=== PATIENT | male | born 1960 | race Caucasian/White ===

== ENCOUNTER 2023-08-30 07:52 | Outpatient (OUT) | payer MEDICARE, OTHER, SELFPAY ==
--- NOTE | 2023-08-30 | CT_ITS ---
[address] [address] Patient Name: NOLVIA DELAROSA MRN: [id number] date: 1960 Sex: M Assigned Patient Location: CT Current Patient Location: CT Accession/Order Number: [id number] Exam Date: 08/30/2023 09:15 Report Date: 08/30/2023 11:43 At the request of: ROWAN HOLGUIN Procedure: CT angio chest EXAM: CT angio chest HISTORY: ANEURYSM OF ASCENDING AORTA WITHOUT RUPTURE I71.21 COMPARISON: 05/15/2022 and 01/27/2023 TECHNIQUE: CT imaging was performed through the chest with intravenous contrast, utilizing CTA protocol. Multiplanar reformats were performed. Dose reduction techniques were achieved by using automated exposure control and/or adjustment of mA and/or kV according to patient size and/or use of iterative reconstruction technique. CHEST FINDINGS: Lungs: No consolidation, pneumothorax, or effusion. Stable 0.7 cm subpleural right upper lobe pulmonary nodule. Airways: Normal. Mediastinum: No adenopathy. Aorta: No aneurysm. Cardiac: Normal size. No pericardial effusion. Pulmonary vasculature: Normal morphology. Bones: No acute bony abnormality. Axilla: No adenopathy. Thyroid gland: No abnormality demonstrated on provided imaging. Soft tissues: Unremarkable. Upper abdomen: Unremarkable VASCULAR FINDINGS: CTA CHEST: Pulmonary vasculature: Normal morphology. Coronary arteries: No variant anatomy is demonstrated. No significant atherosclerotic disease. Aorta: 3.8 cm ascending aortic aneurysm, similar to the prior study. No occlusion, or dissection. No significant atherosclerotic disease. Atherosclerotic: No significant atherosclerotic disease. Aortic branches: Normal three-vessel configuration.Right subclavian: Widely patent where visualized. Right common carotid: Widely patent where visualized. Left common carotid: Widely patent where visualized. Left subclavian: Widely patent where visualized. CT/CT angio chest IMPRESSION: 1. Stable 3.8 cm ascending aortic aneurysm. No evidence of dissection, or occlusion. 2. Stable 0.7 cm subpleural right upper lobe pulmonary nodule. Electronically authenticated by: RENAE OLIVA Date: 08/30/2023 11:43
[2023-08-30 08:22] LABS: Basophils Percent Auto 0.6 % (0.2-2.0); Eosinophils Absolute Auto 0.1 10^3/uL (0.0-0.7); Eosinophils Percent Auto 1.4 % (0.9-7.0); Hematocrit 40.4 % (42.0-54.0); Immature Granulocytes Abs Auto 0.01 10^3/uL (0.00-0.03); Immature Granulocytes Pct Auto 0.2 % (0.0-0.5); Lymphocytes Absolute Auto 1.6 10^3/uL (1.2-3.8); Lymphocytes Percent Auto 32.4 % (20.5-60.0); Mean Corpuscular HGB Conc 32.2 g/dL (29.9-35.2); Mean Corpuscular Hemoglobin 27.3 pg (25.9-34.0); Mean Corpuscular Volume 84.7 fL (80.0-94.0); Mean Platelet Volume 10.5 fL (9.5-13.5); Monocytes Absolute Auto 0.4 10^3/uL (0.3-0.8); Neutrophils Absolute Auto 2.8 10^3/uL (1.4-6.5); Neutrophils Percent Auto 56.4 % (43.0-75.0); Platelet Count 177 10^3/uL (150-450); Red Blood Count 4.77 10^6/uL (4.70-6.10); Red Cell Distribution Width 14.5 % (11.0-15.0); White Blood Count 4.9 10^3/uL (4.0-11.0)
[2023-08-30 08:56] LABS: Alanine Aminotransferase 42 U/L (16-63); Albumin Globulin Ratio 0.9; Albumin Level 3.8 g/dL (3.4-5.0); Alkaline Phosphatase 60 U/L (46-116); Anion Gap 14.2; Aspartate Amino Transferase 23 U/L (15-37); BUN Creatinine Ratio 14.6; Bilirubin Total 0.4 mg/dL (0.2-1.0); Calcium 8.8 mg/dL (8.5-10.1); Carbon Dioxide 25.8 mmol/L (21.0-32.0); Chloride 103 mmol/L (98-107); Estimated GFR (African America >60 (>=60); Estimated GFR (Non-African Ame >60 (>=60); Glucose 98 mg/dL (74-106); Sodium 139 mmol/L (136-145); Total Protein 7.8 g/dL (6.4-8.2)
== END 2023-08-30 07:53 | disposition home or self-care (01) ==
LOC: CT 07:52
PROVIDERS: PCP Internal Medicine; Visit Provider Internal Medicine
DX: K80.10 Calculus of gallbladder with chronic cholecystitis without obstruction (principal); I10 Essential (primary) hypertension; I71.21 Aneurysm of the ascending aorta, without rupture; R91.1 Solitary pulmonary nodule; I71.40 Abdominal aortic aneurysm, without rupture, unspecified
CPT/HCPCS: 36415; 71275; 80053; 85025; Q9967

== ENCOUNTER 2023-09-26 11:42 | Outpatient (OUT) | payer MEDICARE, OTHER, SELFPAY ==
--- NOTE | 2023-09-26 11:46 | CT_ITS ---
The [address] [address] Patient Name: NOLVIA DELAROSA MRN: [id number] date: 1960 Sex: M Assigned Patient Location: CT Current Patient Location: CT Accession/Order Number: [id number] Exam Date: 09/26/2023 13:05 Report Date: 09/26/2023 13:48 At the request of: NAYLA BOONE Procedure: CT abdomen pelvis w con EXAM: CT abdomen pelvis w con HISTORY: Right Upper Quadrant Pain R10.11, Epigastric Pain R14.0 COMPARISON: CT abdomen and pelvis 02/08/2022.. TECHNIQUE: Following intravenous administration of 99 cc of Omnipaque 300, axial soft tissue windows of the abdomen and pelvis were performed with coronal and sagittal reformats. CT dose reduction technique was used including Automated Exposure Control. Findings: ABDOMEN: Stable cyst within segment 2 of the liver. Small gallstones. The spleen, pancreas, and adrenal glands are unremarkable. No renal stones or collecting system dilatation. Stable renal cysts. The bilateral ureters are nondilated. There are colonic diverticula. Otherwise, the bowel is unremarkable without evidence of wall thickening or obstruction. The appendix is nondilated. The aorta is normal caliber. No enlarged abdominal lymph nodes or free abdominal fluid. Tiny fat-containing umbilicus hernia. Pelvis: There is streak artifact generated by the left hip arthroplasty limiting evaluation. Unremarkable bladder The prostate is nonenlarged. No enlarged pelvic lymph nodes or free pelvic fluid. No aggressive sclerotic or lytic osseous lesions. Mild to moderate multilevel degenerative spondylosis. CT/CT abdomen pelvis w con IMPRESSION: 1. Cholelithiasis. 2. Other more incidental findings, as described above. Electronically authenticated by: SULEIMAN ALEXANDRA Date: 09/26/2023 13:48
== END 2023-09-26 11:43 | disposition home or self-care (01) ==
LOC: CT 11:42
PROVIDERS: PCP Internal Medicine; Visit Provider Surgery
DX: R10.11 Right upper quadrant pain (principal); R10.13 Epigastric pain; R14.0 Abdominal distension (gaseous); R93.2 Abnormal findings on diagnostic imaging of liver and biliary tract; Z68.41 Body mass index [BMI] 40.0-44.9, adult; K80.20 Calculus of gallbladder without cholecystitis without obstruction
CPT/HCPCS: 74177; Q9967

== ENCOUNTER 2024-03-05 07:47 | Outpatient (OUT) | payer MEDICARE, OTHER, SELFPAY ==
--- OUTSIDE RECORDS SUMMARY | 2024-03-05 07:51 | XMS_ITS | CCD ---
Author Organization [facility] Care Team Providers Care Etiology Teacher Name Role Phone MARTIN RHODES Admitting Unavailable MARTIN RHODES Attending Unavailable JETT HAGAN Referring Unavailable FERNANDO TORRE Primary Care Unavailable RI Procedure Practitioner Unavailab MARTIN Spencer Surgeon Unavailable FERNANDO TORRE Primary Care Physician Fernando Torre Unavailable NICHO, DR DONAHUE Admitting Unavailable NICHO, DR DONAHUE Attending Unavailable NICHO, DR DONAHUE Primary Care Unavailable NICHO, DR DONAHUE Consulting Unavailable Luis Dominguez Consulting Unavailable NICHO, DR DONAHUE Primary Care Unavailable GENAO ., MR LO Admitting Unavailable GENAO ., MR LO Attending Unavailable Luis Dominguez Consulting Unavailable GENAO ., MR LO Consulting Unavailable NICHO, DR DONAHUE Admitting Unavailable NICHO, DR DONAHUE Attending Unavailable NICHO, DR DONAHUE Primary Care Unavailable NICHO, DR DONAHUE Consulting Unavailable JHON MERCADO Consulting Unavailable GENAO ., MR LO Admitting Unavailable GENAO ., MR LO Attending Unavailable NICHO, DR DONAHUE Primary Care Unavailable GENAO ., MR LO Consulting Unavailable GENAO ., MR LO Admitting Unavailable GENAO ., MR LO Attending Unavailable NICHO, DR DONAHUE Primary Care Unavailable GENAO ., MR LO Consulting Unavailable NICHO, DR DONAHUE Primary Care Unavailable HAY ., DR ROLDAN Admitting Unavailable HAY ., DR ROLDAN Attending Unavailable Luis Dominguez Consulting Unavailable HAY ., DR ROLDAN Consulting Unavailable NICHO, DR DONAHUE Primary Care Unavailable CAITLYN KISER Admitting Unavailable CAITLYN KISER Attending Unavailable DIAMOND ., HELEN SHOEMAKER Consulting UnavailCAITLYN Reyes Consulting Unavailable REI ORTIZ Consulting Unavailable INDIGO TOTH Consulting Unavailable NICHO, DR DONAHUE Primary Care Unavailable PAY ., DR LEAL Admitting Unavailable PAY ., DR LEAL Attending Unavailable Luis Dominguez Consulting Unavailable PAY ., DR LEAL Consulting Unavailable Vanessa Whittaker Attending Unavailable Juan Ramon MARTINEZ Attending Unavailable Allergies Allergy Classification Reported Allergen(s) Allergy Type Date of Onset Reaction(s) Facility (11 sources) HMG-CoA reductase inhibitor; Translations: [statins] Drug allergy Muscle pain (finding) [facility] (1 source) Hmg-Coa Reductase Inhibitors (Statins); Translations: [statins] Propensity to adverse reactions (disorder) [facility] (1 source) No Known Medication Allergies; Translations: [No Known Medication Allergies] Propensity to adverse reactions (disorder) [facility] Medications Current Medications Medication Drug Class(es) Dates Sig (Normalized) Sig (Original) famotidine 40 mg oral tablet (6 sources) Histamine-2 Receptor Antagonist take 1 tablet by mouth every twenty-four hours Famotidine 40 MG 1 tablet at bedtime Orally Once a day for 90 days Active hyoscyamine sulfate 0.125 mg sublingual tablet (6 sources) Start: 01-10-2023 take 1 tablet under the tongue every six hours as needed Hyoscyamine Sulfate SL 0.125 MG 1 tablet Sublingual every 6 hours as needed for nausea and abdominal pain for 90 days Dec, Active omeprazole 40 mg delayed release oral capsule (12 sources) Proton Pump Inhibitor Start: 09-05-2023 take 1 capsule by mouth once daily omeprazole 40 mg Cap-DR 40 mg = 1 cap(s), Oral, Daily, Refills(s) 0 Start Date: 09/05/23 Status: Ordered Start: 04-10-2022 End: 01-05-2023 take 1 capsule by mouth once daily omeprazole 40 mg Cap-DR 40 mg = 1 cap(s), Oral, Daily, X 90 day(s), # 90 cap(s), Refills(s) 2, [facility], [facility], cm, 04/10/22 8:16:00 EDT, Height/Length Dosing, 118.6, kg, 04/10/22 8:16:00 EDT, Weight Dosing Start Date: 04/10/22 Stop Date: 01/05/23 Status: Ordered omeprazole 40 mg Cap-DR (1 source) Start: 12-19-2021 take 1 capsule by mouth once daily omeprazole 40 mg Cap-DR 40 mg = 1 cap(s), Oral, Daily, # 30 cap(s), Refills(s) 2, Pharmacy: [facility]/pharmacy #[id number], 172, cm, 12/19/21 7:21:00 EST, Height/Length Dosing, 125.2, kg, 12/19/21 7:21:00 EST, Weight Dosing Start Date: 12/19/21 Status: Ordered Completed/Discontinued Medications Medication Drug Class(es) Dates Sig (Normalized) Sig (Original) 24 hr metoprolol succinate 25 mg extended release oral tablet (11 sources) beta-Adrenergic Neo Start: 09-05-2023 metoprolol 25 mg ER Tab 25 mg = 1 tab(s), Oral, Daily, Oral, 0 Refill(s), Refills(s) 0 Start Date: 09/05/23 Status: Ordered Problems Active Problems Problem Classification Problem Date Documented Da te Episodic/Chronic Abdominal pain (5 sources) Right upper quadrant pain; Translations: [Right upper quadrant pain] Onset: 3 Episodic Aortic; peripheral; and visceral artery aneurysms (2 sources) Aneurysm of ascending aorta; Translations: [Aneurysm of the ascending aorta, without rupture] 09-05-2023 Chronic Biliary tract disease (6 sources) Calculus of bile duct without cholangitis or cholecystitis without obstruction; Translations: [Cholelithiasis AND cholecystitis without obstruction] Onset: 3 Episodic Cardiac dysrhythmias (11 sources) Palpitations; Translations: [Palpitations] Episodic Conditions associated with dizziness or vertigo (5 sources) Dizziness and giddiness; Translations: [Benign paroxysmal vertigo, unspecified ear] Onset: 2 Episodic Disorders of lipid metabolism (19 sources) Hypercholesterolemia; Translations: [Pure hypercholesterolemia, unspecified] Onset: 6 09-05-2023 Chronic Diverticulosis and diverticulitis (3 sources) Diverticular disease 01-03-2022 Chronic Esophageal disorders (20 sources) Gastroesophageal reflux disease; Translations: [Gastroesophageal reflux disease without esophagitis] Onset: 4 09-24-2021 Chronic Essential hypertension (20 sources) Essential hypertension; Translations: [Essential (primary) hypertension] Chronic Gastritis and duodenitis (1 source) Gastritis, unspecified, without bleeding; Translations: [GASTRITIS UNS WITHOUT BLEEDING] Onset: 3 Episodic Hemorrhoids (3 sources) Hemorrhoids 01-03-2022 Episodic Hyperplasia of prostate (19 sources) Lower urinary tract symptoms due to benign prostatic hypertrophy; Translations: [Benign prostatic hyperplasia with lower urinary tract symptoms] Onset: 6 Chronic Joint disorders and dislocations; trauma-related (1 source) Unspecified internal derangement of left knee; Translations: [UNS INTERNAL DERANGEMENT LEFT KNEE] Onset: 2 Chronic Miscellaneous mental health disorders (4 sources) Psychosexual dysfunction associated with inhibited sexual excitement; Translations: [Psychosexual dysfunction with inhibited sexual excitement] Onset: 7 Chronic Nausea and vomiting (5 sources) Nausea with vomiting, unspecified; Translations: [Nausea] Onset: 2 Episodic Nutritional deficiencies (5 sources) Vitamin D deficiency; Translations: [Vitamin D deficiency, unspecified] Onset: 6 09-05-2023 Chronic Other aftercare (1 source) Other correction (current) drug therapy; Translations: [OTH TAR HEATER OPERATOR CURRENT DRUG THERAPY] Onset: 3 Episodic Other aftercare (4 sources) Long-term current use of drug therapy; Translations: [Other intermediate manager (current) drug therapy] Episodic Other and unspecified benign neoplasm (5 sources) Benign neoplasm of pituitary gland; Translations: [Benign neoplasm of pituitary gland] 09-05-2023 Episodic Other connective tissue disease (10 sources) History of repair of hip joint; Translations: [Presence of unspecified artificial hip joint] Chronic Other connective tissue disease (4 sources) Presence of unspecified artificial hip joint; Translations: [Total hip replacement prosthesis] Chronic Other connective tissue disease (10 sources) Muscle fatigue; Translations: [Other specified disorders of muscle] Episodic Other connective tissue disease (14 sources) Bicipital tenosynovitis; Translations: [Bicipital tendinitis, right shoulder] Episodic Other connective tissue disease (18 sources) Lateral epicondylitis; Translations: [Lateral epicondylitis, right elbow] Episodic Other connective tissue disease (14 sources) Acquired trigger finger; Translations: [Trigger finger, right ring finger] Episodic Other connective tissue disease (14 sources) Muscle pain; Translations: [Myalgia, unspecified site] Episodic Other connective tissue disease (4 sources) Medial epicondylitis; Translations: [Medial epicondylitis, unspecified elbow] Episodic Other connective tissue disease (4 sources) Disorder of muscle; Translations: [Other specified disorders of muscle] Episodic Other ear and sense organ disorders (4 sources) Otitis externa; Translations: [Unspecified otitis externa, unspecified ear] Onset: 4 Chronic Other endocrine disorders (1 source) Adrenal cortical hypofunction Onset: 4 09-05-2023 Chronic Other gastrointestinal disorders (1 source) Swollen abdomen; Translations: [Abdominal distension (gaseous)] Onset: 3 Episodic Other gastrointestinal disorders (1 source) Abdominal bloating 09-19-2023 Episodic Other liver diseases (1 source) Abnormal levels of other serum enzymes Episodic Other lower respiratory disease (11 sources) Nodule of lung; Translations: [Solitary pulmonary nodule] 09-05-2023 Episodic Other lower respiratory disease (11 sources) Solitary pulmonary nodule; Translations: [SOLITARY PULMONARY NODULE] Onset: 2 Episodic Other lower respiratory disease (4 sources) Solitary nodule of lung; Translations: [Solitary pulmonary nodule] Episodic Other male genital disorders (10 sources) Impotence of organic origin; Translations: [Erectile dysfunction due to arterial insufficiency] Chronic Other male genital disorders (1 source) Impotence 09-05-2023 Chronic Other nervous system disorders (4 sources) Carpal tunnel syndrome; Translations: [Carpal tunnel syndrome] Onset: 9 Chronic Other nervous system disorders (10 sources) Skin sensation disturbance; Translations: [Paresthesia of skin] Episodic Other nervous system disorders (15 sources) Paresthesia; Translations: [Paresthesia of skin] 09-05-2023 Episodic Other nutritional; endocrine; and metabolic disorders (1 source) Obesity, unspecified; Translations: [OBESITY UNSPECIFIED] Onset: 3 Chronic Other nutritional; endocrine; and metabolic disorders (1 source) Body mass index (BMI) 40.0-44.9, adult; Translations: [BODY MASS INDEX BMI 40.0-44.9 ADULT] Onset: 3 Chronic Other nutritional; endocrine; and metabolic disorders (8 sources) Obese class II; Translations: [Body mass index (BMI) 39.0-39.9, adult] Onset: 4 Chronic Other nutritional; endocrine; and metabolic disorders (5 sources) Morbid obesity; Translations: [Morbid (severe) obesity due to excess calories] Onset: 4 09-05-2023 Chronic Other nutritional; endocrine; and metabolic disorders (1 source) Body mass index 40+ - severely obese 09-19-2023 Chronic Other screening for suspected conditions (not mental disorders or infectious disease) (20 sources) Screening for malignant neoplasm of colon done; Translations: [Encounter for screening for malignant neoplasm of colon] Onset: 2 Resolved: 2 Episodic Residual codes; unclassified (15 sources) Obstructive sleep apnea syndrome; Translations: [Obstructive sleep apnea (adult) (pediatric)] 09-05-2023 Chronic Residual codes; unclassified (2 sources) Obstructive sleep apnea (adult) (pediatric) Chronic Residual codes; unclassified (10 sources) Family history of diabetes mellitus; Translations: [Family history of diabetes mellitus] Episodic Spondylosis; intervertebral disc disorders; other back problems (20 sources) Lumbar spondylosis; Translations: [Spondylosis without myelopathy or radiculopathy, lumbar region] Onset: 7 09-05-2023 Chronic Sprains and strains (4 sources) Sprain of elbow and forearm; Translations: [Sprain and strain of unspecified site of elbow and forearm] Episodic Unclassified (3 sources) Patient encounter status 09-24-2021 Unclassified (1 source) CONTACT W/AND (SUSP) EXPOS COVID-19; Translations: [CONTACT W/AND (SUSP) EXPOS COVID-19] Onset: 2 Unclassified (3 sources) Aneurysm of the ascending aorta, without rupture; Translations: [Aneurysm of the ascending aorta, without rupture] Viral infection (4 sources) Disease caused by 2019-nCoV; Translations: [COVID-19] Past or Other Problems Problem Classification Problem Date Documented Da te Episodic/Chronic Deficiency and other anemia (5 sources) Anemia; Translations: [Anemia, unspecified] Onset: 12-05-2015 09-05-2023 Episodic Esophageal disorders (8 sources) Esophageal disorders; Translations: [Gastroesophageal reflux disease with esophagitis without hemorrhage] Malaise and fatigue (4 sources) Malaise and fatigue; Translations: [Other malaise and fatigue] Onset: 06-27-2017 Episodic Other gastrointestinal disorders (1 source) Abdominal distension (gaseous); Translations: [ABDOMINAL DISTENSION GASEOUS] Onset: 02-12-2022 Episodic Other inflammatory condition of skin (4 sources) Generalized pruritus ; Translations: [Other pruritus] Onset: 01-10-2017 Episodic Other nutritional; endocrine; and metabolic disorders (4 sources) Obesity; Translations: [Obesity, unspecified] Resolved: 03-11-2022 Chronic Unclassified (3 sources) Aneurysm of ascending aorta without rupture I71.21 Unclassified (4 sources) Long-term current use of drug therapy; Translations: [Long-term (current) use of other medications] Onset: 05-15-2016 Results Test Name Value Interpretation Reference Range Facility RAD - CT Reporton 10-02-2023 RAD - CT Report [id number] Normal [facility] Ambulatory Visit Summaryon 1 11-20-2022 Ambulatory Visit Summary SADIQ DELAROSA :1960 Visit Date:09/19/2023 Ambulatory Visit Instructions Your Care Team Attending Physician - PAOLO TATE, Juan Ramon Cardoso Primary Care Physician - NICHO LOPEZ, FERNANDO This Is Your Medications List Contact prescribing physician if questions or concerns metoprolol (metoprolol 25 mg ER Tab) omeprazole (omeprazole 40 mg Cap-DR) Procedures Performed Colonoscopy (12/19/2021), Esophagogastroduodenoscopy (12/19/2021), Arthroplasty of knee, Arthroplasty of the hip, Carpal tunnel release, History of lumbar laminectomy, Pituitary adenoma, Repair of tendon. Discharge Vitals Heart Rate (Peripheral) 76 Respiratory Rate 16 Blood Pressure 130/86 Height 175.2 cm Height 69 in Weight 124 kg Weight 272.8 lb BMI 40.4 Medications What How Much When Instructions Unchanged metoprolol (metoprolol 25 mg ER Tab) 1 Tablets By Mouth Every day Oral, 0 Refill(s) Contact prescribing physician if questions or concerns Unchanged omeprazole (omeprazole 40 mg Cap-DR) 1 Capsules By Mouth Every day Contact prescribing physician if questions or concerns Medications and Immunizations Administered Not Given influenza virus vaccine, inactivated, Patient Refuses Allergies statins (Myalgia) Problems Ongoing - Any problem that you are currently receiving treatment for. Adrenal cortical hypofunction Anemia Aneurysm of ascending aorta Benign neoplasm of pituitary gland BMI 40.0-44.9, adult Chronic GERD Diverticulosis Erectile dysfunction Essential hypertension Gastroesophageal reflux disease Hemorrhoids Hypercholesterolemia Lumbar spondylosis Morbid obesity Nodule of lung Obstructive sleep apnea syndrome Paresthesia Screen for colon cancer Vitamin D deficiency Patient Survey You may receive a survey via text or e-mail asking about your office visit. Please share your experience with us by completing your survey. We appreciate your feedback and thank you for choosing us for your care. Normal [facility] RAD - Ultrasound Reporton RAD - Ultrasound Report [id number] Normal [facility] RAD - Ultrasound Report [id number] Normal [facility] Physician Referralon 023 Physician Referral [id number] Normal [facility] CT CHEST WO CONon 01-27-2023 CT CHEST WO CON EXAMINATION: CT CHES T WO CON HISTORY: Solitary nodule of lung ; follow-up right lung nodule COMPARISON: CT chest 02/08/2022, 05/15/2022 TECHNIQUE: Axial, Coronal, and Sagittal images were created without the administration of IV contrast material. Dose reduction techniques were achieved by using automated exposure control and/or adjustment of mA and/or kV according to patient size and/or use of iterative reconstruction technique. FINDINGS: LUNGS: Stable 8 mm pleural-based nodule within posterior segment right upper lobe. Stable appearance of a few additional 3 mm nodules and small areas of scarring. No acute infiltrates. PLEURA: No mass, effusion, or pneumothorax. VASCULATURE: No abnormality. LYNDA: No mass or adenopathy. MEDIASTINUM: No mass or adenopathy. CARDIAC: No enlargement or pericardial thickening. AORTA: No aneurysm or dissection. CHEST WALL: No mass or axillary adenopathy. BONES: No bone lesion or fracture. LIMITED ABDOMEN: Chronic left renal cyst. Limited images of the upper abdomen. OTHER: Negative. IMPRESSION: 1. Stable appearance to the lungs, specifically regarding an 8 mm nodule within right upper lobe posterior segment. Follow-up CT chest in one year is recommended to document stability over a two-year period (generally considered benign if stable for 2 years). Electronically authenticated by: LUIS DOMINGUEZ Date: 2023-01-27 14:52 Normal [facility] US SINGLE QUAD RT UPPERon US SINGLE QUAD RT UPPER EXAMINATION: US SINGLE QUAD RT UPPER HISTORY: Abnormal findings diagnostic imaging of liver+biliary tract ; abnormal gallbladder ultrasound COMPARISON: Ultrasound single quadrant right upper 01/03/2023 TECHNIQUE: Transabdominal evaluation of the right upper quadrant. FINDINGS: LIVER: Normal size and echotexture. Color Doppler demonstrates patent hepatic veins. PORTAL VEIN: Duplex Doppler demonstrates normal hepatopetal flow pattern with flow velocity averaging 7 cm/s. GALLBLADDER: Abnormal gallbladder wall thickening, 4 mm. Irregular undulating mucosal margin within the gallbladder and numerous small stones. Appearance of small 9 mm fluid-filled cystic structure within gallbladder fundus. No free fluid. Negative sonographic Crooks's sign. BILIARY: No abnormal dilation or stones. Common bile duct diameter is within normal limits. PANCREASE: No visible mass, abnormal atrophy, or duct dilation. KIDNEY: No hydronephrosis. Incidental cyst within superior pole. No visible mass or stones. Size: 12.7 x 5.6 x 6.8 cm IMPRESSION: 1. Cholelithiasis and likely chronic cholecystitis. Electronically authenticated by: LUIS DOMINGUEZ Date: 2023-01-27 16:16 Normal [facility] CBC AUTO DIFFon 01-20-2023 BASO # 0.0 103/ul Normal 0.0-0.1 [facility] Comment on above: Performed By: #### C BC #### [facility] [address] [address] [address] Yasmany Claros Basophils/100 WBC (Bld) 0.8 % Normal 0.2-2.0 [facility] Comment on above: Performed By: #### C BC #### [facility] [address] [address] [address] Yasmany Claros EO # 0.1 103/ul Normal 0.0-0.7 [facility] Comment on above: Performed By: #### C BC #### [facility] [address] [place] [address] Dr. Yasmany Claros Eosinophils/100 WBC (Bld) 2.1 % Normal 0.9-7.0 [facility] Comment on above: Performed By: #### C BC #### [facility] [address] [place] [address] Dr. Yasmany Claros Erythrocyte distribution width (RBC) [Ratio] 14.0 % Normal 11.0-15.0 [facility] Comment on above: Performed By: #### C BC #### [facility] [address] [place] [address] Dr. Yasmany Claros Hematocrit (Bld) [Volume fraction] 39.9 % Critically low 42.0-54.0 [facility] Comment on above: Performed By: #### C BC #### [facility] [address] [place] [address] Dr. Yasmany Claros Hemoglobin (Bld) [Mass/Vol] 13.2 g/dL Critically low 14.0-18.0 [facility] Comment on above: Performed By: #### C BC #### [facility] [address] [place] [address] Dr. Yasmany Claros IG # 0.01 10e3/ul Normal 0.00-0.03 [facility] Comment on above: Performed By: #### C BC #### [facility] [address] [place] [address] Dr. Yasmany Claros IG % 0.3 % Normal 0.0-0.5 [facility] Comment on above: Performed By: #### C BC #### [facility] [address] [place] [address] Dr. Yasmany Claros LYMPH # 1.6 103/ul Normal 1.2-3.8 [facility] Comment on above: Performed By: #### C BC #### [facility] [address] [place] [address] Dr. Yasmany Claros Lymphocytes/100 WBC (Bld) 41.5 % Normal 20.5-60.0 [facility] Comment on above: Performed By: #### C BC #### [facility] [address] [place] [address] Dr. Yasmany Claros MANUAL DIFF REQ NO Normal [facility] Comment on above: Performed By: #### C BC #### [facility] [address] [place] [address] Dr. Yasmany Claros MCH (RBC) [Entitic mass] 26.6 pg Normal 25.9-34.0 [facility] Comment on above: Performed By: #### C BC #### [facility] [address] [place] [address] Dr. Yasmany Claros MCHC (RBC) [Mass/Vol] 33.1 g/dL Normal 29.9-35.2 [facility] Comment on above: Performed By: #### C BC #### [facility] [address] [place] [address] Dr. Yasmany Claros MCV (RBC) [Entitic vol] 80.3 fL Normal 80.0-94.0 [facility] Comment on above: Performed By: #### C BC #### [facility] [address] [place] [address] Dr. Yasmany Claros MONO # 0.4 103/ul Normal 0.3-0.8 [facility] Comment on above: Performed By: #### C BC #### [facility] [address] [place] [address] Dr. Yasmany Claros Monocytes/100 WBC (Bld) 9.9 % Normal 1.7-12.0 [facility] Comment on above: Performed By: #### C BC #### [facility] [address] [place] [address] Dr. Yasmany Claros NEUT # 1.7 103/ul Normal 1.4-6.5 [facility] Comment on above: Performed By: #### C BC #### [facility] [address] [place] [address] Dr. Yasmany Claros Neutrophils/100 WBC (Bld) 45.4 % Normal 43.0-75.0 [facility] Comment on above: Performed By: #### C BC #### [facility] [address] [place] [address] Dr. Yasmany Claros Platelet mean volume (Bld) [Entitic vol] 11.1 fL Normal 9.5-13.5 [facility] Comment on above: Performed By: #### C BC #### [facility] [address] [address] [address] Yasmany Claros PLT 188 103/ul Normal 150-450 [facility] Comment on above: Performed By: #### C BC #### [facility] [address] [address] [address] Yasmany Claros RBC 4.97 106/ul Normal 4.70-6.10 [facility] Comment on above: Performed By: #### C BC #### [facility] [address] [address] [address] Yasmany Claros WBC 3.8 103/ul Critically low 4.0-11.0 [facility] Comment on above: Performed By: #### C BC #### [facility] [address] [place] [address] HEAD WO CONon 01-20-2023 CT HEAD WO CON EXAMINATION: CT HEAD WO CON HISTORY: Vertigo ; acute onset dizziness COMPARISON: No relevant comparison available. TECHNIQUE: Axial CT images were obtained without IV contrast. Dose reduction techniques were achieved by using automated exposure control and/or adjustment of mA and/or kV according to patient size and/or use of iterative reconstruction technique. FINDINGS: BRAIN: No edema, hemorrhage, mass, acute infarction, or inappropriate atrophy. CSF SPACES: No hydrocephalus, subarachnoid hemorrhage, or mass. Appropriate for age. SKULL: No fracture, mass, or other significant visible lesion. SINUSES: No significant mucosal thickening or fluid on the limited views. ORBITS: No appreciable abnormality on the limited views. OTHER: Negative IMPRESSION: 1. No acute or suspicious abnormality of the brain. 2. Middle ear and mastoid air cells are clear bilaterally. Electronically authenticated by: LUIS DOMINGUEZ Date: 2023-01-20 09:48 Normal [facility] PROF CHEM 8 (BAS METB)on Anion gap [Moles/Vol] 11.2 mmol/L Normal [facility] Comment on above: Performed By: #### B MP #### [facility] [address] [place] [address] Dr. Yasmany Claros Calcium [Mass/Vol] 9.1 mg/dL Normal 8.5-10.1 [facility] Comment on above: Performed By: #### B MP #### [facility] [address] [address] [address] Yasmany Claros Chloride [Moles/Vol] 102 mmol/L Normal 98-107 [facility] Comment on above: Performed By: #### B MP #### [facility] [address] [address] [address] Yasmany Claros CO2 [Moles/Vol] 26.7 mmol/L Normal 21.0-32.0 [facility] Comment on above: Performed By: #### B MP #### [facility] [address] [address] [address] Yasmany Claros Creatinine [Mass/Vol] 0.81 mg/dL Normal 0.70-1.30 [facility] Comment on above: Performed By: #### B MP #### [facility] [address] [place] [address] Dr. Yasmany Claros EGFR-AF AUSTRIAN >60 Normal >=60 [facility] Comment on above: Performed By: #### B MP #### [facility] [address] [place] [address] Dr. Yasmany Claros EGFR-NON AF AUSTRIAN >60 Normal >=60 [facility] Comment on above: Performed By: #### B MP #### [facility] [address] [place] [address] Dr. Yasmany Claros Glucose [Mass/Vol] 104 mg/dL Normal 74-106 [facility] Comment on above: Performed By: #### B MP #### [facility] [address] [place] [address] Dr. Yasmany Claros Potassium [Moles/Vol] 3.9 mmol/L Normal 3.5-5.1 [facility] Comment on above: Performed By: #### B MP #### [facility] [address] [place] [address] Dr. Yasmany Claros Sodium [Moles/Vol] 136 mmol/L Normal 136-145 [facility] Comment on above: Performed By: #### B MP #### [facility] [address] [address] [address] Yasmany Claros Urea nitrogen [Mass/Vol] 13.0 mg/dL Normal 7.0-18.0 [facility] Comment on above: Performed By: #### B MP #### [facility] [address] [place] [address] Dr. Yasmany Claros Urea nitrogen/Creatini ne [Mass ratio] 16.0 mg/mg Normal [facility] Comment on above: Performed By: #### B MP #### [facility] [address] [place] [address] Dr. Yasmany Claros CBC AUTO DIFFon 01-03-2023 BASO # 0.0 103/ul Normal 0.0-0.1 [facility] Comment on above: Performed By: #### C BC #### [facility] [address] [place] [address] Dr. Yasmany Claros Basophils/100 WBC (Bld) 0.3 % Normal 0.2-2.0 [facility] Comment on above: Performed By: #### C BC #### [facility] [address] [place] [address] Dr. Yasmany Claros EO # 0.0 103/ul Normal 0.0-0.7 [facility] Comment on above: Performed By: #### C BC #### [facility] [address] [place] [address] Dr. Yasmany Claros Eosinophils/100 WBC (Bld) 0.5 % Critically low 0.9-7.0 [facility] Comment on above: Performed By: #### C BC #### [facility] [address] [place] [address] Dr. Yasmany Claros Erythrocyte distribution width (RBC) [Ratio] 13.9 % Normal 11.0-15.0 [facility] Comment on above: Performed By: #### C BC #### [facility] [address] [place] [address] Dr. Yasmany Claros Hematocrit (Bld) [Volume fraction] 40.6 % Critically low 42.0-54.0 [facility] Comment on above: Performed By: #### C BC #### [facility] [address] [place] [address] Dr. Yasmany Claros Hemoglobin (Bld) [Mass/Vol] 13.2 g/dL Critically low 14.0-18.0 [facility] Comment on above: Performed By: #### C BC #### [facility] [address] [place] [address] Dr. Yasmany Claros IG # 0.03 10e3/ul Normal 0.00-0.03 [facility] Comment on above: Performed By: #### C BC #### [facility] [address] [place] [address] Dr. Yasmany Claros IG % 0.5 % Normal 0.0-0.5 [facility] Comment on above: Performed By: #### C BC #### [facility] [address] [place] [address] Dr. Yasmany Claros LYMPH # 1.0 103/ul Critically low 1.2-3.8 [facility] Comment on above: Performed By: #### C BC #### [facility] [address] [place] [address] Dr. Yasmany Claros Lymphocytes/100 WBC (Bld) 17.5 % Critically low 20.5-60.0 [facility] Comment on above: Performed By: #### C BC #### [facility] [address] [place] [address] Dr. Yasmany Claros MANUAL DIFF REQ NO Normal [facility] Comment on above: Performed By: #### C BC #### [facility] [address] [place] [address] Dr. Yasmany Claros MCH (RBC) [Entitic mass] 26.6 pg Normal 25.9-34.0 [facility] Comment on above: Performed By: #### C BC #### [facility] [address] [place] [address] Dr. Yasmany Claros MCHC (RBC) [Mass/Vol] 32.5 g/dL Normal 29.9-35.2 [facility] Comment on above: Performed By: #### C BC #### [facility] [address] [place] [address] Dr. Yasmany Claros MCV (RBC) [Entitic vol] 81.7 fL Normal 80.0-94.0 [facility] Comment on above: Performed By: #### C BC #### [facility] [address] [place] [address] Dr. Yasmany Claros MONO # 0.4 103/ul Normal 0.3-0.8 [facility] Comment on above: Performed By: #### C BC #### [facility] [address] [place] [address] Dr. Yasmany Claros Monocytes/100 WBC (Bld) 7.0 % Normal 1.7-12.0 [facility] Comment on above: Performed By: #### C BC #### [facility] [address] [place] [address] Dr. Yasmany Claros NEUT # 4.2 103/ul Normal 1.4-6.5 [facility] Comment on above: Performed By: #### C BC #### [facility] [address] [place] [address] Dr. Yasmany Claros Neutrophils/100 WBC (Bld) 74.2 % Normal 43.0-75.0 [facility] Comment on above: Performed By: #### C BC #### [facility] [address] [place] [address] Dr. Yasmany Claros Platelet mean volume (Bld) [Entitic vol] 10.9 fL Normal 9.5-13.5 [facility] Comment on above: Performed By: #### C BC #### [facility] [address] [place] [address] Dr. Yasmany Claros PLT 153 103/ul Normal 150-450 [facility] Comment on above: Performed By: #### C BC #### [facility] [address] [place] [address] Dr. Yasmany Claros RBC 4.97 106/ul Normal 4.70-6.10 [facility] Comment on above: Performed By: #### C BC #### [facility] [address] [place] [address] Dr. Yasmany Claros WBC 5.7 103/ul Normal 4.0-11.0 [facility] Comment on above: Performed By: #### C BC #### [facility] [address] [address] [address] Yasmany Claros ER URINE PROFILEon 3 Bilirubin Ql (U) Negative Normal NEGATIVE [facility] Comment on above: Performed By: #### E RUR, UMICRO #### [facility] [address] [address] [address] Yasmany Claros Clarity (U) CLEAR Normal CLEAR [facility] Comment on above: Performed By: #### E RUR, UMICRO #### [facility] [address] [address] [address] Yasmany Claros Color (U) LT. YELLOW Normal YELLOW [facility] Comment on above: Performed By: #### E RUR, UMICRO #### [facility] [address] [place] [address] Dr. Yasmany Claros ERUAHD A micrscopic examina tion will be performed if indicated. Normal [facility] Comment on above: Performed By: #### E RUR, UMICRO #### [facility] [address] [address] [address] Yasmany Claros Glucose Ql (U) Negative Normal NEGATIVE [facility] Comment on above: Performed By: #### E RUR, UMICRO #### [facility] [address] [address] [address] Yasmany Claros Hemoglobin Ql (U) TRACE-INTACT Abnormal NEGATIVE [facility] Comment on above: Performed By: #### E RUR, UMICRO #### [facility] [address] [address] [address] Yasmany Claros Ketones Ql (U) Negative Normal NEGATIVE [facility] Comment on above: Performed By: #### E RUR, UMICRO #### [facility] [address] [address] [address] Yasmany Claros LEUKOCYTES Negative Normal NEGATIVE [facility] Comment on above: Performed By: #### Eusebia RUR, UMICRO #### [facility] [address] [place] [address] Dr. Yasmany Claros Nitrite Ql (U) Negative Normal NEGATIVE [facility] Comment on above: Performed By: #### AGUSTÍN BRINK #### [facility] [address] [place] [address] Dr. Yasmany Claros pH (U) 5.5 [pH] Normal 5-9 [facility] Comment on above: Performed By: #### AGUSTÍN BRINK #### [facility] [address] [place] [address] Dr. Yasmany Claros SPEC GRAVITY 1.020 Normal 1.005-<=1.0 25 [facility] Comment on above: Performed By: #### AGUSTÍN BRINK #### [facility] [address] [place] [address] Dr. Yasmany Claros UA PROTEIN Negative Normal NEGATIVE/ TRACE [facility] Comment on above: Performed By: #### AGUSTÍN BRINK #### [facility] [address] [place] [address] Dr. Yasmany Claros UR MICRO IND INDICATED Normal [facility] Comment on above: Performed By: #### AGUSTÍN BRINK #### [facility] [address] [place] [address] Dr. Yasmany Claros Urobilinogen Qn (U) 0.2 {Aarti'U}/dL Normal 0.2 - 1.0 [facility] Comment on above: Performed By: #### GIULIA BRINKRO #### [facility] [address] [place] [address] Dr. Yasmany Claros LACTATE/LACTIC ACIDon 2022 Lactate [Moles/Vol] 3.0 mmol/L Critically high 0.4-2.0 [facility] Comment on above: Performed By: #### L ACT #### [facility] [address] [place] [address] Dr. Yasmany Claros LIPASEon 01-03-2023 Lipase [Catalytic activity/Vol] 169.0 U/L Normal 73.0-393.0 [facility] Comment on above: Performed By: #### C VDTBH #### [facility] [address] [address] [address] Yasmany Claros PROF 14(COMP METB)on 023 Albumin [Mass/Vol] 3.9 g/dL Normal 3.4-5.0 [facility] Comment on above: Performed By: #### C VDTBH #### [facility] [address] [place] [address] Dr. Yasmany lCaros Albumin/Globulin [Mass ratio] 1.0 {ratio} Normal [facility] Comment on above: Performed By: #### C VDTBH #### [facility] [address] [place] [address] Dr. Yasmany Claros ALP [Catalytic activity/Vol] 83 U/L Normal 46-116 [facility] Comment on above: Performed By: #### C VDTBH #### [facility] [address] [place] [address] Dr. Yasmany Claros ALT [Catalytic activity/Vol] 88 U/L Critically high 16-63 [facility] Comment on above: Performed By: #### C VDTBH #### [facility] [address] [place] [address] Dr. Yasmany Claros Anion gap [Moles/Vol] 11.2 mmol/L Normal [facility] Comment on above: Performed By: #### C VDTBH #### [facility] [address] [address] [address] Yasmany Claros AST [Catalytic activity/Vol] 94 U/L Critically high 15-37 [facility] Comment on above: Performed By: #### C VDTBH #### [facility] [address] [address] [address] Yasmany Claros Bilirubin [Mass/Vol] 0.6 mg/dL Normal 0.2-1.0 [facility] Comment on above: Performed By: #### C VDTBH #### [facility] [address] [place] [address] Dr. Yasmany Claros Calcium [Mass/Vol] 9.8 mg/dL Normal 8.5-10.1 [facility] Comment on above: Performed By: #### C VDTBH #### [facility] [address] [address] [address] Yasmany Claros Chloride [Moles/Vol] 105 mmol/L Normal 98-107 [facility] Comment on above: Performed By: #### C VDTBH #### [facility] [address] [address] [address] Yasmany Claros CO2 [Moles/Vol] 28.8 mmol/L Normal 21.0-32.0 [facility] Comment on above: Performed By: #### C VDTBH #### [facility] [address] [address] [address] Yasmany Claros Creatinine [Mass/Vol] 0.83 mg/dL Normal 0.70-1.30 [facility] Comment on above: Performed By: #### C VDTBH #### [facility] [address] [place] [address] Dr. Yasmany Claros EGFR-AF AUSTRIAN >60 Normal >=60 [facility] Comment on above: Performed By: #### C VDTBH #### [facility] [address] [address] [address] Yasmany Claros EGFR-NON AF AUSTRIAN >60 Normal >=60 [facility] Comment on above: Performed By: #### C VDTBH #### [facility] [address] [place] [address] Dr. Yasmany Claros Globulin (S) [Mass/Vol] 4.0 g/dL Normal [facility] Comment on above: Performed By: #### C VDTBH #### [facility] [address] [place] [address] Dr. Yasmany Claros Glucose [Mass/Vol] 145 mg/dL Critically high 74-106 [facility] Comment on above: Performed By: #### C VDTBH #### [facility] [address] [address] [address] Yasmany Claros Potassium [Moles/Vol] 4.0 mmol/L Normal 3.5-5.1 [facility] Comment on above: Performed By: #### C VDTBH #### [facility] [address] [address] [address] Yasmany Claros Protein [Mass/Vol] 7.9 g/dL Normal 6.4-8.2 [facility] Comment on above: Performed By: #### C VDTBH #### [facility] [address] [address] [address] Yasmany Claros Sodium [Moles/Vol] 141 mmol/L Normal 136-145 [facility] Comment on above: Performed By: #### C VDTBH #### [facility] [address] [address] [address] Yasmany Claros Urea nitrogen [Mass/Vol] 10.0 mg/dL Normal 7.0-18.0 [facility] Comment on above: Performed By: #### C VDTBH #### [facility] [address] [place] [address] Dr. Yasmany Claros Urea nitrogen/Creatini ne [Mass ratio] 12.0 mg/mg Normal [facility] Comment on above: Performed By: #### C VDTBH #### [facility] [address] [place] [address] Dr. Yasmany Claros TROPONIN, HIGH SENSITIVITYon 01-03-2023 HSTROP 4.5 pg/mL Normal 4.0-76.1 [facility] Comment on above: Result Comment: CUT- OFF POINTS HAVE BEEN ESTABLISHED BASED ON THE FOURTH UNIVERSAL DEFINITIONS OF MYOCARDIAL INFARCTION. THE UPPER REFERENCE LIMIT (URL) OF TROPONIN, DEFINED THE 99TH PERCENTILE OF cTnI DISTRIBUTION IN A REFERENCE POPULATION, HAS BEEN CONFIRMED THE DECISION THRESHOLD FOR [place] DIAGNOSIS. Performed By: #### C VDTBH #### [facility] [address] [place] [address] Dr. Yasmany Claros URINE MICROSCOPIC ONLYon BACTERIA NONE SEEN Normal NONE SEEN [facility] Comment on above: Performed By: #### AGUSTÍN BRINK #### [facility] [address] [id number] Yasmany Claros Bacteria identified Cx Nom (U) NOT INDICATED Normal [facility] Comment on above: Performed By: #### Eusebia ADKINSR, UMICRO #### [facility] [address] [place] [address] Dr. Yasmany Claros CAST SEEN Abnormal NONE SEEN [facility] Comment on above: Performed By: #### E RUR, UMICRO #### [facility] [address] [address] [address] Yasmany Claros Crystals LM Nom (Urine sed) NONE SEEN Normal NONE SEEN [facility] Comment on above: Performed By: #### E RUR, UMICRO #### [facility] [address] [place] [address] Dr. Yasmany Claros Epithelial cells LM Ql (Urine sed) NONE SEEN Normal NONE SEEN /RARE [facility] Comment on above: Performed By: #### Eusebia LAUGHLIN, UMICRO #### [facility] [address] [place] [address] Dr. Yasmany Claros MUCOUS NONE SEEN Normal NONE SEEN [facility] Comment on above: Performed By: #### Eusebia LAUGHLIN UMICRO #### [facility] [address] [place] [address] Dr. Yasmany Claros RBC NONE SEEN Abnormal 0-2 [facility] Comment on above: Performed By: #### Eusebia LAUGHLIN UMICRO #### [facility] [address] [place] [address] Dr. Yasmany Claros WBC NONE SEEN Normal NONE SEEN [facility] Comment on above: Performed By: #### Eusebia LAUGHLIN UMICRO #### [facility] [address] [place] [address] Dr. Yasmany Claros US SINGLE QUAD RT UPPERon US SINGLE QUAD RT UPPER EXAMINATION: US SINGLE QUAD RT UPPER HISTORY: Pain ; right upper quadrant pain for one month COMPARISON: No relevant comparison available. TECHNIQUE: Transabdominal evaluation of the right upper quadrant. FINDINGS: LIVER: Normal size and echotexture. Color Doppler demonstrates patent hepatic veins. PORTAL VEIN: Duplex Doppler demonstrates normal hepatopetal flow pattern with flow velocity averaging 33 cm/s. GALLBLADDER: Anechoic 1.3 x 1.3 x 0.9 cm fluid filled structure suggestive of a large cyst within the gallbladder versus markedly edematous wall thickening of the gallbladder. No appreciable increased vascularity. No intraluminal stones or free fluid external to the gallbladder. Negative sonographic Crooks's sign. BILIARY: No abnormal dilation or stones. Common bile duct diameter is within normal limits. PANCREASE: No visible mass, abnormal atrophy, or duct dilation. KIDNEY: No hydronephrosis. No visible mass or stones. Size: 9.6 x 6.9 x 6.6 cm IMPRESSION: 1. No acute gallbladder inflammatory changes, free fluid, stones, or tenderness while imaging over the gallbladder. 2. Thin-walled cystic-appearing structure within the gallbladder lumen versus sluffing of the internal mucosa? Findings nonspecific. Consider follow-up ultrasound evaluation to document whether this is incidental and transient or a fixed stricture. Electronically authenticated by: LUIS DOMINGUEZ Date: 2023-01-03 09:06 Normal [facility] Covid-19 PCR (CVDTB)on 07-21 SARS-CoV-2 (COVID-19) RNA MARS+probe Ql (Unsp spec) Not detected Normal NOT DETECTED [facility] Comment on above: Result Comment: This test is not yet approved or cleared by the [place] FDA. When there are no FDA-approved or cleared tests available, and other criteria are met, FDA can make tests available under an emergency access mechanism called an Emergency Use Authorization (EUA). The EUA for this test is supported by the [employer] of Health and Human Service's (HHS's) declaration that circumstances exist to justify the emergency use of in vitro diagnostics for the detection and/or diagnosis of the virus that causes COVID-19. This EUA will remain in effect (meaning this test can be used) for the duration of the COVID-19 declaration justifying emergency of IVDs, unless it is terminated or revoked by FDA (after which the test may no longer be used). When diagnostic testing is negative, the possibility of a false negative should be considered in the context of a patient's recent exposures and the presence of clinical signs and symptoms consistent with SARS-CoV-2. Performed By: #### C #### [facility] [address] [place] [address] Dr. Yasmany Claros Covid-19 PCR (CVDTB)on 09-3 0-2022 SARS-CoV-2 (COVID-19) RNA MARS+probe Ql (Unsp spec) Not detected Normal NOT DETECTED [facility] Comment on above: Result Comment: This test is not yet approved or cleared by the [place] FDA. When there are no FDA-approved or cleared tests available, and other criteria are met, FDA can make tests available under an emergency access mechanism called an Emergency Use Authorization (EUA). The EUA for this test is supported by the [employer] of Health and Human Service's (HHS's) declaration that circumstances exist to justify the emergency use of in vitro diagnostics for the detection and/or diagnosis of the virus that causes COVID-19. This EUA will remain in effect (meaning this test can be used) for the duration of the COVID-19 declaration justifying emergency of IVDs, unless it is terminated or revoked by FDA (after which the test may no longer be used). When diagnostic testing is negative, the possibility of a false negative should be considered in the context of a patient's recent exposures and the presence of clinical signs and symptoms consistent with SARS-CoV-2. Performed By: #### C [facility] #### [facility] [address] [address] CHEST WO CONon 05-15-2022 CT CHEST WO CON EXAMINATION: CT CHES T WO CON, 05/15/2022 7:36 AM EDT HISTORY: Solitary nodule of lung COMPARISON: Chest CT for 2221 TECHNIQUE: CT of the chest was performed without IV contrast. Dose reduction techniques were achieved by using automated exposure control and/or adjustment of mA and/or kV according to patient size and/or use of iterative reconstruction technique. FINDINGS: Noncontrasted nature of the exam limits evaluation of the vascular structures. Medical devices: None. Thyroid: Slightly heterogeneous without dominant nodule. Vasculature: Similar borderline enlargement of the main pulmonary artery up to 3.4 cm. Ascending thoracic aorta measures 4.2 cm, grossly unchanged. Heart: Normal size. Multivessel atherosclerotic calcification of the coronary arteries. No pericardial effusion. Mediastinum: Normal. Airways: Normal. Lung parenchyma and pleura: Minimal linear/subpleural atelectasis/scarring in the lower lobes bilaterally. Negative for pleural effusion or pneumothorax. Unchanged previously described triangular shaped fissural lymph node; additional left lower lobe pulmonary nodule has a partially resolved in the interim and likely related to a focal area of subsegmental atelectasis. - Unchanged 7 mm subpleural right upper lobe pulmonary nodule (image 32 series 3). Lymph nodes: No supraclavicular, axillary, mediastinal, or hilar lymphadenopathy. Chest wall: Normal. Musculoskeletal: Degenerative change of the spine. Upper abdomen: Unchanged left hepatic, and left renal low-density lesions which are incompletely characterized on this noncontrast exam but likely relate to cysts. No acute findings within the visualized upper abdomen. IMPRESSION: 1. No acute findings within the chest. 2. Unchanged 7 mm right upper lobe pulmonary nodule. Pulmonary nodule follow-up recommendations as below. 3. Similar borderline dilatation of the main pulmonary artery, which can suggest elevated pulmonary vascular pressures. - In low risk individuals, initial follow-up chest CT is recommended in 6-12 months (from date of discovery 02/08/2022), with consideration for additional follow-up at 18-24 months. In high risk individuals, initial follow-up chest CT is recommended in 6-12 months, then again recommended at 18-24 months. Electronically authenticated by: JHON MERCAOD Date: 2022-05-15 12:57 Normal [facility] MRI KNEE LT WO CONon 05-15-2 022 MRI KNEE LT WO CON EXAMINATION: MRI KNEE LT WO CON HISTORY: Derangement of left knee ; chronic medial left knee pain COMPARISON: No relevant comparison available. TECHNIQUE: A complete multi-planar MRI was performed. FINDINGS: MEDIAL COMPARTMENT MEDIAL MENISCUS: Prominent increased T2 signal within the body and posterior junction abutting the superior surface suspected to represent a complex tear. CARTILAGE: No visible defect. BONES: No marrow pathology, fracture, or significant arthropathy. MCL AND MEDIAL CAPSULE: Grade I sprain of the medial collateral ligament. LATERAL COMPARTMENT LATERAL MENISCUS: No visible tear or significant degeneration. CARTILAGE: No visible defect. BONES: No marrow pathology, fracture, or significant arthropathy. LCL/POSTEROLAT COMPLEX: Normal lateral collateral ligament, fascicles, lateral capsule and ligaments. ANTERIOR COMPARTMENT PATELLA: No marrow pathology, fracture, or significant arthropathy. CARTILAGE: No visible defect. TENDONS: Normal. EFFUSION: Large joint effusion. ACL: Normal appearing ligament. PCL: Normal appearing ligament. MENISCOFEMORAL: Normal meniscofemoral ligaments. OTHER: Negative. IMPRESSION: 1. Superior surface tear of the medial meniscus body and posterior junction. 2. Mild strain of medial collateral ligament. 3. Large joint effusion. Electronically authenticated by: LUIS DOMINGUEZ Date: 2022-05-15 17:03 Normal [facility] CARDIAC ARTURO 3-6on 2 CK [Catalytic activity/Vol] 335 U/L Critically high 39-308 [facility] Comment on above: Result Comment: Test Repeated. Critical Value Verified Performed By: #### C MREP #### [facility] [address] [place] [address] Dr. Yasmany Claros CK.MB [Mass/Vol] 4.51 ng/mL Critically high <=3.60 [facility] Comment on above: Result Comment: Test Repeated. Critical Value Verified Performed By: #### C MREP #### [facility] [address] [place] [address] Dr. Yasmany Claros HSTROP 6.8 pg/mL Normal 4.0-76.1 [facility] Comment on above: Result Comment: CUT- OFF POINTS HAVE BEEN ESTABLISHED BASED ON THE FOURTH UNIVERSAL DEFINITIONS OF MYOCARDIAL INFARCTION. THE UPPER REFERENCE LIMIT (URL) OF TROPONIN, DEFINED THE 99TH PERCENTILE OF cTnI DISTRIBUTION IN A REFERENCE POPULATION, HAS BEEN CONFIRMED THE DECISION THRESHOLD FOR [place] DIAGNOSIS. Performed By: #### C MREP #### [facility] [address] [place] [address] Dr. Yasmany Claros ER URINE PROFILEon 2 Bilirubin Ql (U) Negative Normal NEGATIVE [facility] Comment on above: Performed By: #### C VDTBH #### [facility] [address] [place] [address] Dr. Yasmany Claros Clarity (U) CLEAR Normal CLEAR [facility] Comment on above: Performed By: #### C VDTBH #### [facility] [address] [place] [address] Dr. Yasmany Claros Color (U) LT. YELLOW Normal YELLOW [facility] Comment on above: Performed By: #### C VDTBH #### [facility] [address] [place] [address] Dr. Yasmany Claros ERUAHD A micrscopic examina tion will be performed if indicated. Normal [facility] Comment on above: Performed By: #### C VDTBH #### [facility] [address] [place] [address] Dr. Yasmany Claros Glucose Ql (U) Negative Normal NEGATIVE [facility] Comment on above: Performed By: #### C VDTBH #### [facility] [address] [place] [address] Dr. Yasmany Claros Hemoglobin Ql (U) Negative Normal NEGATIVE [facility] Comment on above: Performed By: #### C VDTBH #### [facility] [address] [place] [address] Dr. Yasmany Claros Ketones Ql (U) Negative Normal NEGATIVE [facility] Comment on above: Performed By: #### C VDTBH #### [facility] [address] [place] [address] Dr. Yasmany Claros LEUKOCYTES Negative Normal NEGATIVE [facility] Comment on above: Performed By: #### C VDTBH #### [facility] [address] [place] [address] Dr. Yasmany Claros Nitrite Ql (U) Negative Normal NEGATIVE [facility] Comment on above: Performed By: #### C VDTBH #### [facility] [address] [place] [address] Dr. Yasmany Claros pH (U) 6.0 [pH] Normal 5-9 [facility] Comment on above: Performed By: #### C VDTBH #### [facility] [address] [place] [address] Dr. Yasmany Claros SPEC GRAVITY 1.010 Normal 1.005-<=1.0 25 [facility] Comment on above: Performed By: #### C VDTBH #### [facility] [address] [place] [address] Dr. Yasmany Claros UA PROTEIN Negative Normal NEGATIVE/ TRACE [facility] Comment on above: Performed By: #### C VDTBH #### [facility] [address] [place] [address] Dr. Yasmany Claros UR MICRO IND NOT INDICATED Normal [facility] Comment on above: Performed By: #### C VDTBH #### [facility] [address] [place] [address] Dr. Yasmany Claros Urobilinogen Qn (U) 0.2 {Aarti'U}/dL Normal 0.2 - 1.0 [facility] Comment on above: Performed By: #### C VDTBH #### [facility] [address] [place] [address] Dr. Yasmany Claros CARDIAC ARTURO ADMITon 022 CK [Catalytic activity/Vol] 356 U/L Critically high 39-308 [facility] Comment on above: Result Comment: Test Repeated. Critical Value Verified Performed By: #### C VDTBH #### [facility] [address] [place] [address] Dr. Yasmany Claros CK.MB [Mass/Vol] 5.11 ng/mL Critically high <=3.60 [facility] Comment on above: Result Comment: Test Repeated. Critical Value Verified Performed By: #### C VDTBH #### [facility] [address] [place] [address] Dr. Yasmany Claros HSTROP 6.3 pg/mL Normal 4.0-76.1 [facility] Comment on above: Result Comment: CUT- OFF POINTS HAVE BEEN ESTABLISHED BASED ON THE FOURTH UNIVERSAL DEFINITIONS OF MYOCARDIAL INFARCTION. THE UPPER REFERENCE LIMIT (URL) OF TROPONIN, DEFINED THE 99TH PERCENTILE OF cTnI DISTRIBUTION IN A REFERENCE POPULATION, HAS BEEN CONFIRMED THE DECISION THRESHOLD FOR [place] DIAGNOSIS. Performed By: #### C VDTBH #### [facility] [address] [place] [address] Dr. Yasmany Claros BELLA 101 ng/mL Critically high 16-[address] [facility] Comment on above: Performed By: #### C VDTBH #### [facility] [address] [place] [address] Dr. Yasmany Claros CBC AUTO DIFFon 02-08-2022 BASO # 0.0 103/ul Normal 0.0-0.1 [facility] Comment on above: Performed By: #### C VDTBH #### [facility] [address] [place] [address] Dr. Yasmany Claros Basophils/100 WBC (Bld) 0.8 % Normal 0.2-2.0 [facility] Comment on above: Performed By: #### C VDTBH #### [facility] [address] [place] [address] Dr. Yasmany Claros EO # 0.1 103/ul Normal 0.0-0.7 [facility] Comment on above: Performed By: #### C VDTBH #### [facility] [address] [place] [address] Dr. Yasmany Claros Eosinophils/100 WBC (Bld) 2.5 % Normal 0.9-7.0 [facility] Comment on above: Performed By: #### C VDTBH #### [facility] [address] [place] [address] Dr. Yasmany Claros Erythrocyte distribution width (RBC) [Ratio] 14.8 % Normal 11.0-15.0 [facility] Comment on above: Performed By: #### C VDTBH #### [facility] [address] [place] [address] Dr. Yasmany Claros Hematocrit (Bld) [Volume fraction] 41.0 % Critically low 42.0-54.0 [facility] Comment on above: Performed By: #### C VDTBH #### [facility] [address] [place] [address] Dr. Yasmany Claros Hemoglobin (Bld) [Mass/Vol] 13.3 g/dL Critically low 14.0-18.0 [facility] Comment on above: Performed By: #### C VDTBH #### [facility] [address] [place] [address] Dr. Yasmany Claros IG # 0.01 10e3/ul Normal 0.00-0.03 [facility] Comment on above: Performed By: #### C VDTBH #### [facility] [address] [place] [address] Dr. Yasmany Claros IG % 0.2 % Normal 0.0-0.5 [facility] Comment on above: Performed By: #### C VDTBH #### [facility] [address] [address] [address] Yasmany Claros LYMPH # 1.3 103/ul Normal 1.2-3.8 [facility] Comment on above: Performed By: #### C VDTBH #### [facility] [address] [place] [address] Dr. Yasmany Claros Lymphocytes/100 WBC (Bld) 26.1 % Normal 20.5-60.0 [facility] Comment on above: Performed By: #### C VDTBH #### [facility] [address] [place] [address] Dr. Yasmany Claros MANUAL DIFF REQ NO Normal [facility] Comment on above: Performed By: #### C VDTBH #### [facility] [address] [place] [address] Dr. Yasmany Claros MCH (RBC) [Entitic mass] 26.9 pg Normal 25.9-34.0 [facility] Comment on above: Performed By: #### C VDTBH #### [facility] [address] [place] [address] Dr. Yasmany Claros MCHC (RBC) [Mass/Vol] 32.4 g/dL Normal 29.9-35.2 [facility] Comment on above: Performed By: #### C VDTBH #### [facility] [address] [place] [address] Dr. Yasmany Claros MCV (RBC) [Entitic vol] 82.8 fL Normal 80.0-94.0 [facility] Comment on above: Performed By: #### C VDTBH #### [facility] [address] [place] [address] Dr. Yasmany Claros MONO # 0.4 103/ul Normal 0.3-0.8 [facility] Comment on above: Performed By: #### C VDTBH #### [facility] [address] [place] [address] Dr. Yasmany Claros Monocytes/100 WBC (Bld) 8.6 % Normal 1.7-12.0 [facility] Comment on above: Performed By: #### C VDTBH #### [facility] [address] [address] [address] Yasmany Claros NEUT # 3.2 103/ul Normal 1.4-6.5 [facility] Comment on above: Performed By: #### C VDTBH #### [facility] [address] [address] [address] Yasmany Claros Neutrophils/100 WBC (Bld) 61.8 % Normal 43.0-75.0 [facility] Comment on above: Performed By: #### C VDTBH #### [facility] [address] [address] [address] Yasmany Claros Platelet mean volume (Bld) [Entitic vol] 10.7 fL Normal 9.5-13.5 [facility] Comment on above: Performed By: #### C VDTBH #### [facility] [address] [place] [address] Dr. Yasmany Claros PLT 163 103/ul Normal 150-450 [facility] Comment on above: Performed By: #### C VDTBH #### [facility] [address] [address] [address] Yasmany Claros RBC 4.95 106/ul Normal 4.70-6.10 [facility] Comment on above: Performed By: #### C VDTBH #### [facility] [address] [address] [address] Yasmany Claros WBC 5.1 103/ul Normal 4.0-11.0 [facility] Comment on above: Performed By: #### C VDTBH #### [facility] [address] [place] [address] ABD/PELV W CONon 02-09-20 CT ABD/PELV W CON CT ABDOMEN AND PELVI S WITH CONTRAST: INDICATION: GENERALIZED ABDOMINAL PAIN. COMPARISON: None. TECHNIQUE:Multiple thin section transaxial slices were acquired through the abdomen and pelvis with intravenous contrast. Coronal and sagittal reconstructed images were reviewed. Oral contrastWas not administered. FINDINGS: LOWER CHEST: Mild dependent changes are present in the lung bases. LIVER: There is a left hepatic cyst measuring 2.1 cm. GALLBLADDER AND BILIARY SYSTEM: No obvious ductal dilation. No calcified stones. SPLEEN: The spleen is unremarkable. PANCREAS: The pancreas is unremarkable. ADRENAL GLANDS: The adrenal glands are unremarkable. KIDNEYS AND URETERS: There is no hydronephrosis of the kidneys.No obstructing urologic calcifications are present. The distal left ureter is obscured from streak artifact secondary to a left hip prosthesis. The mid and proximal left ureter and right ureter are within normal limits. Bilateral renal cysts are present with the largest measuring 3.6 and meter left kidney. VASCULATURE: Vascularity is unremarkable. PERITONEUM/RETROPERITONEUM: Peritoneum/retroperitoneum is unremarkable. LYMPH NODES: No suspicious lymphadenopathy. GASTROINTESTINAL TRACT: The bowel is normal in caliber.No acute inflammatory changes are associated with the bowel.The appendix is visualized and is not inflamed. BLADDER: The urinary bladder is unremarkable. REPRODUCTIVE SYSTEM: Reproductive system is unremarkable. BODY WALL: There is a tiny fat-containing umbilical hernia. BONES: There is minimal grade 1 anterolisthesis of L5-S1. There is degenerative disc disease throughout the lumbar spine with the most severe disc space narrowing at L4-L5. A left hip prosthesis is in place. IMPRESSION: 1. No definitive acute inflammatory process is identified in the abdomen or pelvis to explain clinical symptomatology. Electronically authenticated by: REI ORTIZ Date: 2022-02-08 21:07 Normal [facility] CT CHEST W CONon 02-08-2022 CT CHEST W CON CTA CHEST WITH IV CO NTRAST CT CHEST W CON, DATE: 02/08/2022 7:39 PM EDT HISTORY: Dizziness right upper quadrant abdominal pain with bloating that is relieved with burping. COMPARISON: None. TECHNIQUE: Multiple axial images are taken from the level of the thyroid down through the upper abdomen with and without the use of IV contrast. Images are then reconstructed in the sagittal and coronal planes. This exam was performed according to our departmental dose-optimization program which includes use of Automated Exposure Control, adjustment of the mA and/or kV according to patient size and/or use of iterative reconstruction technique. Postprocessing was performed for CTA with the following as per hospital protocol: Maximum intensity projection (MIPs) Contrast Used: 100 ml of Omnipaque 300 FINDINGS: Lungs: Lungs are adequately expanded. Right lung: On axial image 31, there is a 7.5 mm pleural-based nodule in the posterior right upper lobe. On axial image 47 there is a 3 mm pulmonary nodule in the anterior right upper lobe Left lung: On axial image 39 there is a 13 mm x 7 mm pleural-based nodule in the posterior left upper lobe. Pleura: Normal. Thyroid: Normal Mediastinum: Aorta: Ascending aorta measures 4.5 x 4.4 cm. Pulmonary artery: The main pulmonary artery is enlarged measuring 3.5 cm. No pulmonary embolus. Heart: Coronary artery calcifications are present. Trachea/Bronchi: Well aerated. No intraluminal masses. Esophagus: Decompressed which limits evaluation. Normal for the lack of distention. Lymph Nodes: Normal. Chest wall: Normal. Axilla: Normal. Osseous Structures: Multilevel degenerative disc disease with flowing syndesmophytes. Subdiaphragm: The subdiaphragmatic abdominal organs included in the [id number] do not demonstrate any acute abnormality with fatty infiltration of the liver. There is a fluid attenuating region seen in the upper pole of the left kidney that measures 22 mm, incompletely imaged... IMPRESSION: 1. Pulmonary nodules. Please correlate with patient's medical history. PET CT scan may help better delineate. 2. Ascending aorta measures up to 4.5 cm. 3. DISH of the thoracic spine. 4. Hepatic steatosis. 5. No CT evidence for acute pulmonary embolus. 6. Prominent pulmonary artery. Please correlate for pulmonary hypertension. FLEISCHNER CRITERIA 2017 SOLID NODULES: Multiple: When multiple nodules are present, the most suspicious nodule should guide further individualized management. Multiple solid nodules <6 mm (<100 mm3) Low-risk patients: no routine follow-up required High-risk patients: optional CT at 12 months Multiple solid nodules >6 mm (>100 mm3) Low-risk patients: CT at 3-6 months, then consider CT at 18-24 months High-risk patients: CT at 3-6 months, then CT at 18-24 months Guideline Exclusions: 1. Patients aged 35 years or younger 2. Patients with known malignancy 3. Immunocompromised patients 4. Lung cancer screening population Low risk: no (or minimal) smoking history, no prior cancer, smooth margin nodule High risk: Heavy smoking history, emphysema/pulmonary fibrosis, prior cancer, irregular margins More information on the management of solid pulmonary nodules can be found at: http://pubs.rsna.org/doi/abs/ 10.1148/[email or web address] Electronically authenticated by: INDIGO TOTH Date: 2022-02-08 21:19 Normal [facility] LACTATE/LACTIC ACIDon 2021 Lactate [Moles/Vol] 1.3 mmol/L Normal 0.4-2.0 [facility] Comment on above: Performed By: #### L ACT #### [facility] [address] [place] [address] Dr. Yasmany Claros LIPASEon 02-08-2022 Lipase [Catalytic activity/Vol] 92.0 U/L Normal 73.0-393.0 [facility] Comment on above: Performed By: #### C VDTBH #### [facility] [address] [place] [address] Dr. Yasmany Claros PROF 14(COMP METB)on 022 Albumin [Mass/Vol] 4.1 g/dL Normal 3.4-5.0 [facility] Comment on above: Performed By: #### C VDTBH #### [facility] [address] [place] [address] Dr. Yasmany Claros Albumin/Globulin [Mass ratio] 1.0 {ratio} Normal [facility] Comment on above: Performed By: #### C VDTBH #### [facility] [address] [place] [address] Dr. Yasmany Claros ALP [Catalytic activity/Vol] 62 U/L Normal 46-116 [facility] Comment on above: Performed By: #### C VDTBH #### [facility] [address] [place] [address] Dr. Yasmany Claros ALT [Catalytic activity/Vol] 52 U/L Normal 16-63 [facility] Comment on above: Performed By: #### C VDTBH #### [facility] [address] [place] [address] Dr. Yasmany Claros Anion gap [Moles/Vol] 10.3 mmol/L Normal [facility] Comment on above: Performed By: #### C VDTBH #### [facility] [address] [place] [address] Dr. Yasmany Claros AST [Catalytic activity/Vol] 31 U/L Normal 15-37 [facility] Comment on above: Performed By: #### C VDTBH #### [facility] [address] [place] [address] Dr. Yasmany Claros Bilirubin [Mass/Vol] 0.4 mg/dL Normal 0.2-1.3 [facility] Comment on above: Performed By: #### C VDTBH #### [facility] [address] [place] [address] Dr. Yasmany Claros Calcium [Mass/Vol] 9.1 mg/dL Normal 8.5-10.1 [facility] Comment on above: Performed By: #### C VDTBH #### [facility] [address] [place] [address] Dr. Yasmany Claros Chloride [Moles/Vol] 99 mmol/L Normal 98-107 [facility] Comment on above: Performed By: #### C VDTBH #### [facility] [address] [place] [address] Dr. Yasmany Claros CO2 [Moles/Vol] 30.8 mmol/L Normal 21.0-32.0 [facility] Comment on above: Performed By: #### C VDTBH #### [facility] [address] [place] [address] Dr. Yasmany Claros Creatinine [Mass/Vol] 0.96 mg/dL Normal 0.70-1.30 [facility] Comment on above: Performed By: #### C VDTBH #### [facility] [address] [place] [address] Dr. Yasmany Claros EGFR-AF AUSTRIAN >60 Normal >=60 [facility] Comment on above: Performed By: #### C VDTBH #### [facility] [address] [place] [address] Dr. Yasmany Claros EGFR-NON AF AUSTRIAN >60 Normal >=60 [facility] Comment on above: Performed By: #### C VDTBH #### [facility] [address] [address] [address] Yasmany Claros Globulin (S) [Mass/Vol] 4.0 g/dL Normal [facility] Comment on above: Performed By: #### C VDTBH #### [facility] [address] [address] [address] Yasmany Claros Glucose [Mass/Vol] 104 mg/dL Normal 74-106 [facility] Comment on above: Performed By: #### C VDTBH #### [facility] [address] [address] [address] Yasmany Claros Potassium [Moles/Vol] 4.1 mmol/L Normal 3.5-5.1 [facility] Comment on above: Performed By: #### C VDTBH #### [facility] [address] [place] [address] Dr. Yasmany Claros Protein [Mass/Vol] 8.1 g/dL Normal 6.1-8.2 [facility] Comment on above: Performed By: #### C VDTBH #### [facility] [address] [address] [address] Yasmany Claros Sodium [Moles/Vol] 136 mmol/L Normal 136-145 [facility] Comment on above: Performed By: #### C VDTBH #### [facility] [address] [address] [address] Yasmany Claros Urea nitrogen [Mass/Vol] 15.0 mg/dL Normal 7.0-18.0 [facility] Comment on above: Performed By: #### C VDTBH #### [facility] [address] [address] [address] Yasmany Claros Urea nitrogen/Creatini ne [Mass ratio] 15.6 mg/mg Normal [facility] Comment on above: Performed By: #### C VDTBH #### [facility] [address] [place] [address] Dr. Yasmany Claros PROTIMEon 02-08-2022 INR Coag (PPP) [Relative time] 1.03 {INR} Normal [facility] Comment on above: Performed By: #### P T, PTT #### [facility] [address] [place] [address] Dr. Yasmany Claros INR GUIDELINES SEE BELOW Normal [facility] Comment on above: Result Comment: FELICIA RED INR: 2.0 - 3.0 CONDITIONS NOT LISTED BELOW 2.5 - 3.5 FOR PROSTHETIC HEART VALVE REPLACEMENT 2.5 - 3.5 RECURRENT THROMBOSIS Performed By: #### P T, PTT #### [facility] [address] [place] [address] Dr. Yasmany Claros PT Coag (PPP) [Time] 11.1 s Normal 9.0-11.6 [facility] Comment on above: Performed By: #### P T, PTT #### [facility] [address] [place] [address] Dr. Yasmany Claros PTTon 02-08-2022 aPTT Coag (Bld) [Time] 25.6 s Normal 22.3-36.2 [facility] Comment on above: Performed By: #### P T, PTT #### [facility] [address] [place] [address] Dr. Yasmany Claros TSHon 02-08-2022 TSH 4.797 uIU/mL Critically high 0.470-4.680 [facility] Comment on above: Performed By: #### C VDTBH #### [facility] [address] [place] [address] Dr. Yasmany Claros TSH RANGE SEE BELOW Normal [facility] Comment on above: Result Comment: <0.3 4 UIU/ml HYPERTHYROID 0.34-5.60 UIU/ml EUTHYROID >5.60 UIU/ml HYPOTHYROID Performed By: #### C VDTBH #### [facility] [address] [place] [address] Dr. Yasmany Claros HIP LEFT 1 OR 2 VWS WITH PEL VISon 03-18-2019 HIP LEFT 1 OR 2 VWS WITH PELVIS [facility] Department of Radiology [address] [place] [id number] Patient Name: SADIQ DELAROSA : 1960 Sex: M Age: Race: White Pt. Location: Patient Status: D Ordered Date: 03/18/2019 2:35:00 PM Completed Date: 03/18/2019 02:32 PM Requesting Provider: MARTIN RHODES Attending Provider: MARTIN RHODES Report Copy To: FERNANDO TORRE Signs & Symptoms: Z47.1 Aftercare following joint replacement surgery I10 History: [place] Comments: , , , Ordering Provider - MARTIN RHODES MD , Exam: HIP LEFT 1 OR 2 VWS WITH PELVIS HIP LEFT 1 OR 2 VWS WITH PELVIS 03/18/2019 2:32 PM EDT SIGNS AND SYMPTOMS: Z47.1 Aftercare following joint replacement surgery I10 TECHNOLOGIST COMMENTS: Patient states left hip DARREN revision x 2 weeks; ortho follow up. QUESTION FOR THE RADIOLOGIST: , , , Ordering Provider - MARTIN RHODES MD , PROTOCOL: AP(PA) and Lateral views were obtained. COMPARISON: March 04, 2019. FINDINGS: Soft tissues: Resolving soft tissue swelling. Bones: No periprosthetic fracture. Joints: Left revision total hip arthroplasty in satisfactory and unchanged alignment. IMPRESSION: * Revision left total hip arthroplasty in satisfactory and unchanged alignment. Approved by:Jose Raul Huntley on 03/18/2019 4:11 PM EDT. I, Sanchez Manasa, have reviewed the images and report and concur with these findings. Electronically signed by:Tiffanie Sol. Transcribed by: [email or web address], User Resident: FERNANDO HUNTLEY Electronically Signed by: TIFFANIE SOL @ 03/19/2019 02:14 PM I personally read this/these film(s) with this resident Normal [facility] Comment on above: Order Comment: , , = ========= , Ordering Provider - MARTIN RHODES MD , Operative Reporton 9 Operative Report MR#: [id number] I [facility] Pt. Name: Sadiq Delarosa Room #: [id number] Discharge 03/05/2019 Date: Birthdate: 1960 OPERATIVE REPORT DATE OF SURGERY: 03/04/2019 SURGEON: Martin Rhodes M.D. POOL TECHNICIAN: Rj Valladares ANESTHESIA: General anesthesia. ESTIMATED BLOOD LOSS: 500 mL. FLUIDS: Per Anesthesia note. COMPLICATIONS: None. SPECIMENS: Left hip routine cultures sent x3. PREOPERATIVE DIAGNOSIS: Left total hip arthroplasty, wear of articular bearing surface. POSTOPERATIVE DIAGNOSIS: Left total hip arthroplasty, wear of articular bearing surface. PROCEDURE: Left total hip arthroplasty revision. COMPONENTS: 1. Microport size 36 femoral head. 2. G7 acetabular liner. 3. Retained Microport acetabular shell. INDICATION FOR PROCEDURE: The patient who had a left total hip arthroplasty now has wear of the articular bearing surface. I discussed with him my recommendation for revision. It appears that the femoral stem is stable; therefore, we have the Microport heads available. OPERATIVE COURSE: The patient was brought to the operating room and placed supine on the operating table. General anesthesia was obtained. Bilateral lower extremities prepped and draped sterilely. Time-out was completed. Preoperative antibiotics were confirmed and given. The left lower extremity incision was started about 2 cm distal and lateral to the ASIS and dissected down the overlying tensor fasciae. Tensor fasciae was incised, muscle retracted laterally. Deep fascia was perforated and the circumflex vessels were identified and cauterized. I then exposed the anterior portion of the femoral neck region. I then did a partial capsulectomy anteriorly with some of the fluid and soft tissue sent for routine culture and sensitivity. After complete dissection of the inferior capsule, I then was able to get the head subluxed enough to impact it. I was unable to get it off the taper at this point. I therefore then dislocated the hip and impacted the head off and removed it. I then had to do a fair amount of debridement of the capsular tissue as it was pretty tight overall. This allowed me to fully expose the acetabulum. I then removed the previous polyethylene. Once I had done that, I inspected the cup, noted that it was otherwise in reasonable condition. I then placed a trial liner into position and confirmed that the hip was completely stable. We removed the trial liner and then planned to cement the liner into position. I then used some bone cement and cemented the liner into position after drying the acetabular shell. I allowed this to completely cure. Once cured, I then trialed this with multiple neck lengths, noted that the head was stable. I then placed the real head and clean dry taper and malleted down and relocated the hip. The tensor fasciae was closed itself with #2 Quill suture, the remaining incision in layered fashion. Sterile dressing applied. At the conclusion of case, all sponge and needle counts correct. I was present for the critical portions of this case. Electronically Signed by: Martin Rhodes M.D. 03/09/2019 11:40 A Martin Rhodes M.D. Date Dict: 03/08/2019/07:33 Archana/Martin Rhodes M.D. Date Trans: 03/08/2019 07:59 Archana/reba [id number] cc: Fernando Torre D.O. [address] [place] [id number] Jett Hagan DO [address] [facility] [address] Normal [facility] BASIC METABOLIC PANELon 02-17 Calcium [Mass/Vol] 8.8 mg/dL Normal 8.6-10.3 [facility] Comment on above: Order Comment: No: D o not add to previous draw Performed By: #### 5 0103 #### [facility] [address] [place] [address], [place] Chloride [Moles/Vol] 103 mmol/L Normal 98-107 [facility] Comment on above: Order Comment: No: D o not add to previous draw Performed By: #### 5 0103 #### [facility] [address] [place] [address], [place] CO2 [Moles/Vol] 27 mmol/L Normal 21-31 [facility] Comment on above: Order Comment: No: D o not add to previous draw Performed By: #### 5 0103 #### [facility] [address] [place] [address], [place] Creatinine [Mass/Vol] 0.78 mg/dL Normal 0.70-1.30 [facility] Comment on above: Order Comment: No: D o not add to previous draw Performed By: #### 5 0103 #### [facility] [address] [place] [address], [place] GFR/1.73 sq M predicted among blacks MDRD (S/P/Bld) [Vol rate/Area] mL/min/{1.73_m2} Normal >60 [facility] Comment on above: Order Comment: No: D o not add to previous draw Performed By: #### 5 0103 #### [facility] [address] [place] [address], [place] GFR/1.73 sq M predicted among non-blacks MDRD (S/P/Bld) [Vol rate/Area] mL/min/{1.73_m2} Normal >60 [facility] Comment on above: Order Comment: No: D o not add to previous draw Performed By: #### 5 0103 #### [facility] [address] [place] [address], [place] Glucose [Mass/Vol] 91 mg/dL Normal 70-100 [facility] Comment on above: Order Comment: No: D o not add to previous draw Performed By: #### 5 0103 #### [facility] [address] [place] [address], [facility] Potassium [Moles/Vol] 4.2 mmol/L Normal 3.5-5.1 [facility] Comment on above: Order Comment: No: D o not add to previous draw Performed By: #### 5 0103 #### [facility] [address] Sodium [Moles/Vol] 135 mmol/L Low 136-145 [facility] Comment on above: Order Comment: No: D o not add to previous draw Performed By: #### 5 0103 #### [facility] [address] Urea nitrogen [Mass/Vol] 10 mg/dL Normal 7-25 [facility] Comment on above: Order Comment: No: D o not add to previous draw Performed By: #### 5 0103 #### [facility] [address] [place] [address], [facility] CBC W/DIFFon 03-05-2019 ABS BASOPHILS 0.0 10*3/uL Normal 0.0-0.2 [facility] Comment on above: Order Comment: No: D o not add to previous draw Performed By: #### 5 [id number] #### [facility] [address] [place] [address], [facility] ABS IMM GRANS 0.0 10*3/uL Normal 0.0-0.2 [facility] Comment on above: Order Comment: No: D o not add to previous draw Performed By: #### 5 6506 #### [facility] [address] [place] [address], [facility] ABS NEUTROPHILS 4.3 10*3/uL Normal 1.6-7.6 [facility] Comment on above: Order Comment: No: D o not add to previous draw Performed By: #### 5 6506 #### [facility] [address] [place] [address], [facility] Basophils/100 WBC (Bld) 0.3 % Normal 0.0-1.0 [facility] Comment on above: Order Comment: No: D o not add to previous draw Performed By: #### 5 6506 #### [facility] [address] [place] [address], [place] Eosinophils (Bld) [#/Vol] 0.1 10*3/uL Normal 0.0-0.5 [facility] Comment on above: Order Comment: No: D o not add to previous draw Performed By: #### 5 6506 #### [facility] [address] [place] [address], [facility] Eosinophils/100 WBC (Bld) 0.8 % Normal 0.0-6.0 [facility] Comment on above: Order Comment: No: D o not add to previous draw Performed By: #### 5 6506 #### [facility] [address] [place] [address], [facility] Erythrocyte distribution width (RBC) [Ratio] 14.7 % Normal 11.5-15.0 [facility] Comment on above: Order Comment: No: D o not add to previous draw Performed By: #### 5 [id number] #### [facility] [address] [place] [address], [facility] Hematocrit (Bld) [Volume fraction] 36.3 % Low 39.0-50.0 [facility] Comment on above: Order Comment: No: D o not add to previous draw Performed By: #### 5 6506 #### [facility] [address] [place] [address], [facility] Hemoglobin (Bld) [Mass/Vol] 11.6 g/dL Low 13.0-17.0 [facility] Comment on above: Order Comment: No: D o not add to previous draw Performed By: #### 5 6506 #### [facility] [address] [place] [address], [facility] IMMATURE GRANS 0.5 % Normal 0.0-1.0 [facility] Comment on above: Order Comment: No: D o not add to previous draw Performed By: #### 5 6506 #### [facility] [address] [place] [address], [facility] Lymphocytes (Bld) [#/Vol] 1.0 10*3/uL Low 1.2-4.0 [facility] Comment on above: Order Comment: No: D o not add to previous draw Performed By: #### 5 6506 #### [facility] [address] [place] [address], [facility] Lymphocytes/100 WBC (Bld) 16.3 % Low 20.0-45.0 [facility] Comment on above: Order Comment: No: D o not add to previous draw Performed By: #### 5 6506 #### [facility] [address] [place] [address], [facility] MCH (RBC) [Entitic mass] 26.4 pg Low 27.0-33.0 [facility] Comment on above: Order Comment: No: D o not add to previous draw Performed By: #### 5 6506 #### [facility] [address] [place] [address], [facility] MCHC (RBC) [Mass/Vol] 32.0 g/dL Normal 32.0-35.0 [facility] Comment on above: Order Comment: No: D o not add to previous draw Performed By: #### 5 6506 #### [facility] [address] [facility] [place] [address], [facility] MCV (RBC) [Entitic vol] 82.5 fL Normal 82.0-98.0 [facility] Comment on above: Order Comment: No: D o not add to previous draw Performed By: #### 5 6506 #### [facility] [address] [place] [address], [facility] Monocytes (Bld) [#/Vol] 0.6 10*3/uL Normal 0.1-1.0 [facility] Comment on above: Order Comment: No: D o not add to previous draw Performed By: #### 5 6506 #### [facility] [address] [place] [address], [place] MONOS 10.3 % Normal 5.0-12.0 [facility] Comment on above: Order Comment: No: D o not add to previous draw Performed By: #### 5 6506 #### [facility] [address] [place] [address], [facility] Neutrophils/100 WBC (Bld) 71.8 % Normal 40.0-72.0 [facility] Comment on above: Order Comment: No: D o not add to previous draw Performed By: #### 5 6506 #### [facility] [address] [place] [address], [place] Nucleated RBC/100 WBC (Bld) [Ratio] 0 % Normal 0-0 [facility] Comment on above: Order Comment: No: D o not add to previous draw Performed By: #### 5 6506 #### [facility] [address] [place] [address], [place] PLAT CNT 150 10*3/uL Normal 150-400 [facility] Comment on above: Order Comment: No: D o not add to previous draw Performed By: #### 5 6506 #### [facility] [address] [place] [address], [place] RBC (Bld) [#/Vol] 4.40 10*6/uL Normal 4.20-5.70 [facility] Comment on above: Order Comment: No: D o not add to previous draw Performed By: #### 5 6506 #### [facility] [address] WBC (Bld) [#/Vol] 6.02 10*3/uL Normal 4.00-10.60 [facility] Comment on above: Order Comment: No: D o not add to previous draw Performed By: #### 5 6506 #### [facility] [address] *ANAEROBIC CULTUREon 019 *ANAEROBIC CULTURE Clinical Report: (D) Specimen/Source: TISSUE/#3 LT HIP Collected: 03/04/2019 09:56 Status: Final Last Updated: 03/09/2019 09:49 CULT RES (Final) No Anaerobes Isolated 5 Days Normal [facility] Comment on above: Performed By: #### 5 6506 #### [facility] [address] *ANAEROBIC CULTURE Clinical Report: (D) Specimen/Source: TISSUE/#2 LT HIP Collected: 03/04/2019 09:55 Status: Final Last Updated: 03/09/2019 09:49 CULT RES (Final) No Anaerobes Isolated 5 Days Normal [facility] Comment on above: Performed By: #### 5 [id number] #### [facility] [address] *ANAEROBIC CULTURE Clinical Report: (D) Specimen/Source: FLUID/#1 LT HIP JOINT Collected: 03/04/2019 09:55 Status: Final Last Updated: 03/09/2019 09:49 CULT RES (Final) No Anaerobes Isolated 5 Days Normal [facility] Comment on above: Performed By: #### 5 6506 #### [facility] [address] *BODY FLUID CULTUREon 2018 *BODY FLUID CULTURE Clinical Report: (D) Specimen/Source: FLUID/INTRAOP SPEC Collected: 03/04/2019 09:55 Status: Final Last Updated: 03/09/2019 08:53 (1) #1 LT JOINT GRAM (Final) Rare Polys No Bacteria Seen CULT RES (Final) No Growth Day 5 Normal [facility] Comment on above: Order Comment: #1 LT JOINT Performed By: #### 5 [id number] #### [address] *TISSUE CULTUREon 03-04-2019 *TISSUE CULTURE Clinical Report: (D) Specimen/Source: TISSUE/INTRAOP SPEC Collected: 03/04/2019 09:56 Status: Final Last Updated: 03/09/2019 08:53 (1) #3 LT HIP INFERIOR GRAM (Final) Few Polys No Bacteria Seen CULT RES (Final) No Growth Day 5 Normal [facility] Comment on above: Order Comment: #3 LT HIP INFERIOR Performed By: #### 5 6506 #### [address] *TISSUE CULTURE Clinical Report: (D) Specimen/Source: TISSUE/INTRAOP SPEC Collected: 03/04/2019 09:55 Status: Final Last Updated: 03/09/2019 08:53 (1) #2 LT HIP ANTERIOR GRAM (Final) Rare Polys No Bacteria Seen CULT RES (Final) No Growth Day 5 Normal [facility] Comment on above: Order Comment: #2 LT HIP ANTERIOR Performed By: #### 5 6506 #### [address] POC GLUCOSE LABon 03-04-2019 Glucose [Mass/Vol] 89 mg/dL Normal 70-100 [facility] Comment on above: Performed By: #### 5 6506 #### [address] PORTABLE HIP LEFT 1 OR 2 VWS WITH PELVISon 03-04-2019 PORTABLE HIP LEFT 1 OR 2 VWS WITH PELVIS [facility] Department of Radiology [address] [place] [id number] Patient Name: SADIQ DELAROSA : 1960 Sex: M Age: Race: White Pt. Location: OUTP Patient Status: I Ordered Date: 03/04/2019 11:40:00 AM Completed Date: 03/04/2019 12:50 PM Requesting Provider: BRENDAN VALLADARES Attending Provider: MARTIN RHODES Report Copy To: Signs & Symptoms: Post OP History: Patient history not available Comments: Hardware Evaluation Exam: PORTABLE HIP LEFT 1 OR 2 VWS WITH PELVIS PORTABLE HIP LEFT 1 OR 2 VWS WITH PELVIS 03/04/2019 12:50 PM EDT SIGNS AND SYMPTOMS: Post OP TECHNOLOGIST COMMENTS: post op left hip replacement QUESTION FOR THE RADIOLOGIST: Hardware Evaluation PROTOCOL: AP(PA) and Lateral views were obtained. COMPARISON: None FINDINGS: Left total hip arthroplasty. Anatomic alignment. Surgical drain present with immediate postsurgical swelling in the lateral soft tissues. No periprosthetic fracture or loosening. No other pelvic fracture noted IMPRESSION: 1. Left hip arthroplasty. Anatomic alignment. Postsurgical soft tissue changes. No periprosthetic fracture or loosening Electronically signed by:Alfred Sandoval. Transcribed by: [email or web address], User Resident: Electronically Signed by: ALFRED SANDOVAL @ 03/04/2019 04:54 PM Normal [facility] Comment on above: Order Comment: Hardw are Evaluation RBC'S 2 UNITSon 03-04-2019 CROSSMATCH INTERP 1 COMP Normal [facility] Comment on above: Performed By: #### 5 8466 #### [facility] [address] [place] [address], [facility] CROSSMATCH INTERP 2 COMP Normal [facility] Comment on above: Performed By: #### 5 3016 #### [facility] [address] [place] [address], [place] PRODUCT CODE 1 E0336 Normal [facility] Comment on above: Performed By: #### 5 6506 #### [facility] [address] [place] [address], [place] PRODUCT CODE 2 E0336 Normal [facility] Comment on above: Performed By: #### 5 6506 #### [facility] [address] [place] [address], [place] PRODUCT STATUS 1 RE Normal [facility] Comment on above: Result Comment: Resu lt changed by IF on 03/07/2019 07:43. The previous value was XM. Performed By: #### 5 6506 #### [facility] [address] [place] [address], [place] PRODUCT STATUS 2 RE Normal [facility] Comment on above: Result Comment: Resu lt changed by IF on 03/07/2019 07:43. The previous value was XM. Performed By: #### 5 6506 #### [facility] [address] [place] [address], [place] UNIT ABO 1 A Normal [facility] Comment on above: Performed By: #### 5 6506 #### [facility] [address] [place] [address], [place] UNIT ABO 2 A Normal [facility] Comment on above: Performed By: #### 5 6506 #### [facility] [address] [place] [address], [place] UNIT ID 1 [id number] Normal [facility] Comment on above: Performed By: #### 5 6506 #### [facility] [address] [place] [address], [place] UNIT ID 2 [id number] Normal [facility] Comment on above: Performed By: #### 5 6506 #### [facility] [address] [place] [address], [place] UNIT RH 1 Positive Normal [facility] Comment on above: Performed By: #### 5 6506 #### [facility] [address] [place] [address], [place] UNIT RH 2 Positive Normal [facility] Comment on above: Performed By: #### 5 6506 #### [facility] [address] [place] [address], [place] BASIC METABOLIC PANELon 05-0 Calcium [Mass/Vol] 9.5 mg/dL Normal 8.6-10.3 [facility] Comment on above: Performed By: #### 0 0071 #### [facility] [address] [place] [address], [place] Chloride [Moles/Vol] 103 mmol/L Normal 98-107 [facility] Comment on above: Performed By: #### 0 0071 #### [facility] [address] [place] [address], [place] CO2 [Moles/Vol] 26 mmol/L Normal 21-31 [facility] Comment on above: Performed By: #### 0 0071 #### [facility] [address] [place] [address], [place] Creatinine [Mass/Vol] 0.81 mg/dL Normal 0.70-1.30 [facility] Comment on above: Performed By: #### 0 0071 #### [facility] [address] [place] [address], [place] GFR/1.73 sq M predicted among blacks MDRD (S/P/Bld) [Vol rate/Area] mL/min/{1.73_m2} Normal >60 [facility] Comment on above: Performed By: #### 0 0071 #### [facility] [address] [place] [address], [place] GFR/1.73 sq M predicted among non-blacks MDRD (S/P/Bld) [Vol rate/Area] mL/min/{1.73_m2} Normal >60 [facility] Comment on above: Performed By: #### 0 0071 #### [facility] [address] [place] [address], [facility] Glucose [Mass/Vol] 82 mg/dL Normal 70-100 [facility] Comment on above: Performed By: #### 0 0071 #### [facility] [address] [facility] [place] [address], [facility] Potassium [Moles/Vol] 3.8 mmol/L Normal 3.5-5.1 [facility] Comment on above: Performed By: #### 0 0071 #### [facility] [address] [place] [address], [facility] Sodium [Moles/Vol] 138 mmol/L Normal 136-145 [facility] Comment on above: Performed By: #### 0 0071 #### [facility] [address] [facility] [place] [address], [facility] Urea nitrogen [Mass/Vol] 12 mg/dL Normal 7-25 [facility] Comment on above: Performed By: #### 0 0071 #### [facility] [address] [place] [address], [facility] CBC W/DIFFon 02-24-2019 ABS BASOPHILS 0.0 10*3/uL Normal 0.0-0.2 [facility] Comment on above: Performed By: #### 5 010 #### [facility] [address] [facility] [place] [address], [facility] ABS IMM GRANS 0.0 10*3/uL Normal 0.0-0.2 [facility] Comment on above: Performed By: #### 5 3 #### [facility] [address] [facility] [place] [address], [place] ABS NEUTROPHILS 3.8 10*3/uL Normal 1.6-7.6 [facility] Comment on above: Performed By: #### 5 0103 #### [facility] [address] [place] [address], [facility] Basophils/100 WBC (Bld) 0.5 % Normal 0.0-1.0 [facility] [place] Comment on above: Performed By: #### 5 0103 #### [facility] [address] [place] [address], [facility] Eosinophils (Bld) [#/Vol] 0.1 10*3/uL Normal 0.0-0.5 [facility] [place] Comment on above: Performed By: #### 5 0103 #### [facility] [address] [place] [address], [facility] Eosinophils/100 WBC (Bld) 1.1 % Normal 0.0-6.0 [facility] [place] Comment on above: Performed By: #### 5 0103 #### [facility] [address] [facility]. [address] Erythrocyte distribution width (RBC) [Ratio] 14.6 % Normal 11.5-15.0 [facility] [place] Comment on above: Performed By: #### 5 0103 #### [facility] [address] [place] [address], [facility] Hematocrit (Bld) [Volume fraction] 42.8 % Normal 39.0-50.0 [facility] [place] Comment on above: Performed By: #### 5 0103 #### [facility] [address] [place] [address], [facility] Hemoglobin (Bld) [Mass/Vol] 13.6 g/dL Normal 13.0-17.0 [facility] [place] Comment on above: Performed By: #### 5 0103 #### [facility] [address] [place] [address], [facility] IMMATURE GRANS 0.2 % Normal 0.0-1.0 [facility] [place] Comment on above: Performed By: #### 5 0103 #### [facility] [address] [facility] [place] [address], [facility] Lymphocytes (Bld) [#/Vol] 1.3 10*3/uL Normal 1.2-4.0 [facility] [place] Comment on above: Performed By: #### 5 0103 #### [facility] [address] [facility] [place] [address], [facility] Lymphocytes/100 WBC (Bld) 23.4 % Normal 20.0-45.0 [facility] [place] Comment on above: Performed By: #### 5 0103 #### [facility] [address] [facility] [place] [address], [facility] MCH (RBC) [Entitic mass] 26.1 pg Low 27.0-33.0 [facility] [place] Comment on above: Performed By: #### 5 0103 #### [facility] [address] [facility] MCHC (RBC) [Mass/Vol] 31.8 g/dL Low 32.0-35.0 [facility] [place] Comment on above: Performed By: #### 5 0103 #### [facility] [address] [place] [address], [facility] MCV (RBC) [Entitic vol] 82.0 fL Normal 82.0-98.0 [facility] [place] Comment on above: Performed By: #### 5 0103 #### [facility] [address] [place] [address], [facility] Monocytes (Bld) [#/Vol] 0.5 10*3/uL Normal 0.1-1.0 [facility] [place] Comment on above: Performed By: #### 5 0103 #### [facility] [address] [facility] [place] [address], [facility] MONOS 8.5 % Normal 5.0-12.0 [facility] [place] Comment on above: Performed By: #### 5 0103 #### [facility] [address] [place] [address], [facility] Neutrophils/100 WBC (Bld) 66.3 % Normal 40.0-72.0 [facility] [place] Comment on above: Performed By: #### 5 0103 #### [facility] [address] Nucleated RBC/100 WBC (Bld) [Ratio] 0 % Normal 0-0 [facility] [place] Comment on above: Performed By: #### 5 0103 #### [facility] [address] [place] [address], [facility] PLAT CNT 174 10*3/uL Normal 150-400 [facility] [place] Comment on above: Performed By: #### 5 0103 #### [facility] [address] RBC (Bld) [#/Vol] 5.22 10*6/uL Normal 4.20-5.70 [facility] [place] Comment on above: Performed By: #### 5 0103 #### [facility] [address] WBC (Bld) [#/Vol] 5.65 10*3/uL Normal 4.00-10.60 [facility] [place] Comment on above: Performed By: #### 5 0103 #### [facility] [address] PROTHROMBIN TIMEon 9 INR Coag (PPP) [Relative time] 1.03 {INR} Normal 0.91-1.16 [facility] [place] Comment on above: Result Comment: ACCC P RECOMMENDED INR FOR WARFARIN THERAPY ---- ------- CONDITION INR PROPHYLAXIS OF VENOUS THROMBOSIS 2-3 (HIGH-RISK SURGERY) TREATMENT OF VENOUS THROMBOSIS 2-3 TREATMENT OF PULMONARY EMBOLISM 2-3 PREVENTION OF SYSTEMIC EMBOLISM: 2-3 ACUTE MYOCARDIAL INFARCTION TISSUE HEART VALVES VALVULAR HEART DISEASE ATRIAL FIBRILLATION RECURRENT SYSTEMIC EMBOLISM MECHANICAL HEART VALVE 2.5-3.5 FROM: ORAL ANTICOAGULANTS. MECHANISM OF ACTION, CLINICAL EFFECTIVENESS, AND OPTIMAL THERAPEUTIC RANGE. CHEST 1995;108:[id number]. Performed By: #### 5 6101 #### [facility] [address] [place] [address], [facility] PT Coag (PPP) [Time] 13.5 s Normal 12.3-14.8 [facility] [place] Comment on above: Result Comment: ALL RESULTS MUST BE INTERPRETED WITH RESPECT TO BLOOD DRAWING ARTIFACT OR DILUTION ERROR OF ANTICOAGULANT AT THE TIME OF SAMPLING. Performed By: #### 5 [id number] #### [facility] [address] [place] [address], [facility] TYPE AND CROSSMATCHon 2018 ABO INTERPRETATION A Normal [facility] [place] Comment on above: Performed By: #### 6 2594 #### [facility] [address] [place] [address], [facility] RH INTERPRETATION Positive Normal [facility] [place] Comment on above: Performed By: #### 6 2594 #### [facility] [address] [place] [address], [place] URINALYSISon 02-24-2019 Appearance (U) CLEAR Normal CLEAR [facility] [place] Comment on above: Performed By: #### 1 0008 #### [facility] [address] [place] [address], [place] Bilirubin [Mass/Vol] Negative Normal NEGATIVE [facility] [place] Comment on above: Performed By: #### 1 0008 #### [facility] [address] [place] [address], [facility] BLOOD Negative Normal NEGATIVE [facility] [place] Comment on above: Performed By: #### 1 0008 #### [facility] [address] [place] [address], [place] Color (U) YELLOW Normal YELLOW [facility] [place] Comment on above: Performed By: #### 1 0008 #### [facility] [address] [place] [address], [place] EPIS NONE SEEN Normal FEW,OCC,NON E SEEN [facility] [place] Comment on above: Performed By: #### 1 0008 #### [facility] [address] [place] [address], [facility] Glucose [Mass/Vol] Negative Normal NEGATIVE [facility] [place] Comment on above: Performed By: #### 1 0008 #### [facility] [address] [facility] [place] [address], [facility] HYALINE CASTS 1 /LPF Abnormal NONE SEEN [facility] [place] Comment on above: Performed By: #### 1 0008 #### [facility] [address] [facility] [place] [address], [facility] KETONE Negative Normal NEGATIVE [facility] [place] Comment on above: Performed By: #### 1 0008 #### [facility] [address] [facility] [place] [address], [facility] LEUK SAULO Negative Normal NEGATIVE [facility] [place] Comment on above: Performed By: #### 1 0008 #### [facility] [address] [facility] [place] [address], [place] MUCUS THREADS MANY Abnormal NONE SEEN [facility] [place] Comment on above: Performed By: #### 1 0008 #### [facility] [address] [place] [address], [place] Nitrite Ql (U) Negative Normal NEGATIVE [facility] [place] Comment on above: Performed By: #### 1 0008 #### [facility] [address] pH (Bld) 5.0 Normal 5.0-8.0 [facility] Comment on above: Performed By: #### 1 0008 #### [facility] [address] Protein (U) [Mass/Vol] Negative Normal NEGATIVE [facility] [place] Comment on above: Performed By: #### 1 0008 #### [facility] [address] RBC (U) [#/Vol] 0-2 Abnormal NONE SEEN [facility] [place] Comment on above: Performed By: #### 1 0008 #### [facility] [address] SPEC GRAV 1.020 Normal 1.015-1.020 [facility] [place] Comment on above: Performed By: #### 1 0008 #### [facility] [address] WBC UA 0-2 Abnormal NONE SEEN [facility] [place] Comment on above: Performed By: #### 1 0008 #### [facility] [address] *MRSA/MSSA DNA NASALon 02-16 *MRSA/MSSA DNA NASAL Clinical Report: (D) Specimen: NASAL SWAB Collected: 02/16/2019 09:16 Status: Final Last Updated: 02/16/2019 15:44 MSSA DNA (Final) No Methicillin Susceptible Staphylococcus aureus DNA Detected MRSA DNA (Final) No Methicillin Resistant Staphylococcus aureus DNA Detected Normal [facility] [place] Comment on above: Performed By: #### 3 1595 #### [facility] [address] CBC W/DIFFon 02-16-2019 ABS BASOPHILS 0.0 10*3/uL Normal 0.0-0.2 [facility] [place] Comment on above: Performed By: #### 5 0103 #### [facility] [address] [place] [address], [facility] ABS IMM GRANS 0.0 10*3/uL Normal 0.0-0.2 [facility] [place] Comment on above: Performed By: #### 5 0103 #### [facility] [address] ABS NEUTROPHILS 2.9 10*3/uL Normal 1.6-7.6 [facility] [place] Comment on above: Performed By: #### 5 0103 #### [facility] [address] [place] [address], [facility] Basophils/100 WBC (Bld) 0.6 % Normal 0.0-1.0 [facility] [place] Comment on above: Performed By: #### 5 0103 #### [facility] [address] [place] [address], [facility] Eosinophils (Bld) [#/Vol] 0.1 10*3/uL Normal 0.0-0.5 [facility] [place] Comment on above: Performed By: #### 5 0103 #### [facility] [address] [place] [address], [facility] Eosinophils/100 WBC (Bld) 1.3 % Normal 0.0-6.0 [facility] [place] Comment on above: Performed By: #### 5 0103 #### [facility] [address] Erythrocyte distribution width (RBC) [Ratio] 14.6 % Normal 11.5-15.0 [facility] [place] Comment on above: Performed By: #### 5 0103 #### [facility] [address] [place] [address], [facility] Hematocrit (Bld) [Volume fraction] 40.4 % Normal 39.0-50.0 [facility] [place] Comment on above: Performed By: #### 5 0103 #### [facility] [address] [facility] [place] [address], [facility] Hemoglobin (Bld) [Mass/Vol] 13.3 g/dL Normal 13.0-17.0 [facility] [place] Comment on above: Performed By: #### 5 0103 #### [facility] [address] [facility] [place] [address], [facility] IMMATURE GRANS 0.4 % Normal 0.0-1.0 [facility] [place] Comment on above: Performed By: #### 5 0103 #### [facility] [address] Lymphocytes (Bld) [#/Vol] 1.3 10*3/uL Normal 1.2-4.0 [facility] [place] Comment on above: Performed By: #### 5 0103 #### [facility] [address] Lymphocytes/100 WBC (Bld) 27.8 % Normal 20.0-45.0 [facility] [place] Comment on above: Performed By: #### 5 0103 #### [facility] [address] MCH (RBC) [Entitic mass] 25.9 pg Low 27.0-33.0 [facility] [place] Comment on above: Performed By: #### 5 0103 #### [facility] [address] [place] [address], [facility] MCHC (RBC) [Mass/Vol] 32.9 g/dL Normal 32.0-35.0 [facility] [place] Comment on above: Performed By: #### 5 3 #### [facility] [address] [place] [address], [facility] MCV (RBC) [Entitic vol] 78.8 fL Low 82.0-98.0 [facility] [place] Comment on above: Performed By: #### 102 #### [facility] [address] [place] [address], [facility] Monocytes (Bld) [#/Vol] 0.5 10*3/uL Normal 0.1-1.0 [facility] [place] Comment on above: Performed By: #### 102 #### [facility] [address] [place] [address], [facility] MONOS 9.9 % Normal 5.0-12.0 [facility] [place] Comment on above: Performed By: #### 102 #### [facility] [address] [place] [address], [facility] Neutrophils/100 WBC (Bld) 60.0 % Normal 40.0-72.0 [facility] [place] Comment on above: Performed By: #### 102 #### [facility] [address] Nucleated RBC/100 WBC (Bld) [Ratio] 0 % Normal 0-0 [facility] [place] Comment on above: Performed By: #### 102 #### [facility] [address] [place] [address], [facility] PLAT CNT 184 10*3/uL Normal 150-400 [facility] [place] Comment on above: Performed By: #### 102 #### [facility] [address] [place] [address], [facility] RBC (Bld) [#/Vol] 5.13 10*6/uL Normal 4.20-5.70 [facility] [place] Comment on above: Performed By: #### 102 #### [facility] [address] [place] [address], [facility] WBC (Bld) [#/Vol] 4.75 10*3/uL Normal 4.00-10.60 [facility] [place] Comment on above: Performed By: #### 102 #### [facility] [address] [place] [address], [facility] HEMOGLOBIN A1Con 02-16-2019 HbA1c (Bld) [Mass fraction] 5.9 % Normal 4.0-6.0 [facility] [place] Comment on above: Performed By: #### 4 6447 #### [facility] [address] [place] [address], [facility] HbA1c (Bld) [Mass fraction] 123 mg/dL Normal 70-126 [facility] [place] Comment on above: Performed By: #### 4 6447 #### [facility] [address] C REACTIVE PROTEINon 019 CRP [Mass/Vol] 6.5 mg/L Normal 0.0-7.0 [facility] [place] Comment on above: Performed By: #### 6 1405 #### [facility] [address] SEDIMENTATION RATEon 019 SED RATE 27 mm/hr High 0-10 [facility] [place] Comment on above: Performed By: #### 5 6506 #### [facility] [address] Vital Signs Date Time Vital Sign Value Performing Clinician Facility 09-19-2023 13:23-0500 Blood Pressure Location Juan Ramon RUIZGlassbeam [facility] 09-19-2023 13:23-0500 Diastolic blood pressure 86 mm[Hg] Juan Ramon MARTINEZ [facility] [place] 09-19-2023 13:23-0500 Heart rate 76 /min Juan Ramon MELCHORL [facility] 09-19-2023 13:23-0500 Respiratory rate 16 /min Juan Ramon MARTINEZ [facility] 09-19-2023 13:23-0500 Systolic blood pressure 130 mm[Hg] Juan Ramon NILL [facility] [place] 08-27-2023 15:30-0500 Body height 175.26 cm Fernando Ball Other [facility] Other 08-27-2023 15:30-0500 Body mass index (BMI) [Ratio] 39.51 kg/m2 Fernando Ball Other [facility] Other 08-27-2023 15:30-0500 Body weight 121.38 kg Fernando Ball Other [facility] Other 08-27-2023 15:30-0500 Diastolic blood pressure 85 mm[Hg] Fernando Ball Other [facility] Other 08-27-2023 15:30-0500 Respiratory rate 12 /min Fernando Ball Other [facility] Other 08-27-2023 15:30-0500 Systolic blood pressure 124 mm[Hg] Fernando Ball Other [facility] Other 01-29-2023 10:30-0400 Body height 175.26 cm Fernando Ball Other [facility] Other 01-29-2023 10:30-0400 Body mass index (BMI) [Ratio] 39.34 kg/m2 Fernando Ball Other [facility] Other 01-29-2023 10:30-0400 Body weight 120.84 kg Fernando Ball Other [facility] Other 01-29-2023 10:30-0400 Diastolic blood pressure 84 mm[Hg] Fernando Ball Other [facility] Other 01-29-2023 10:30-0400 Respiratory rate 12 /min Fernando Ball Other [facility] Other 01-29-2023 10:30-0400 Systolic blood pressure 130 mm[Hg] Fernando Ball Other [facility] Other 01-10-2023 12:00-0400 Body height 175.26 cm Fernando Ball Other [facility] Other 01-10-2023 12:00-0400 Body mass index (BMI) [Ratio] 38.04 kg/m2 Fernando Ball Other [facility] Other 01-10-2023 12:00-0400 Body weight 116.85 kg Fernando Ball Other [facility] Other 01-10-2023 12:00-0400 Diastolic blood pressure 78 mm[Hg] Fernando Ball Other [facility] Other 01-10-2023 12:00-0400 Respiratory rate 12 /min Fernando Ball Other [facility] Other 01-10-2023 12:00-0400 Systolic blood pressure 122 mm[Hg] Fernando Ball Other [facility] Other 04-10-2022 08:13-0400 Blood Pressure Location Vanessa Whittaker [facility] 04-10-2022 08:13-0400 Body temperature 96.98 [degF] Vanessa Garlandmetz [facility] 04-10-2022 08:13-0400 Diastolic blood pressure 82 mm[Hg] Vanessa Remedios [facility] 04-10-2022 08:13-0400 Heart rate 75 /min Vanessa Whittaker [facility] 04-10-2022 08:13-0400 SaO2% (BldA) [Mass fraction] 95 % Vanessa Whittaker [facility] 04-10-2022 08:13-0400 Systolic blood pressure 126 mm[Hg] Vanessa Whittaker [facility] Encounters Encounter Date Encounter Type Care Provider Facility Start: 09-19-2023 End: 09-20-2023 [facility]ulatory [facility] Start: 09-19-2023 End: 09-19-2023 Patient encounter procedure Juan Ramon MARTINEZ [facility] [place] Start: 09-02-2023 End: 09-02-2023 ambulatory Fernando Torre Other [facility] Other Start: 09-02-2023 Telephone encounter Fernando Torre MELISSA [facility] Start: 08-31-2023 End: 08-31-2023 ambulatory Fernando Torre Other [facility] Other Start: 08-31-2023 Telephone encounter Fernando Nicho MELIS[facility] Start: 08-29-2023 ambulatory [facility] Whittaker [facility] Start: 08-27-2023 End: 08-27-2023 ambulatory Fernando Torre Other [facility] Other Start: 08-27-2023 Office outpatient vi sit 25 minutes Fernando Nicho [facility] Start: 08-27-2023 Telephone encounter Fernando TORRES [facility] Start: 04-01-2023 End: 04-02-2023 ambulatory [facility] Start: 01-29-2023 End: 01-29-2023 ambulatory Fernando Torre Other [facility] Other Start: 01-29-2023 Encounter for genera l adult medical examination without abnormal findings Fernando Torre [facility] Start: 01-29-2023 Periodic preventive med est patient 40-64yrs Fernando Torre [facility] Start: 01-27-2023 Telephone encounter Fernando TORRES [facility] Start: 01-27-2023 End: 01-28-[address]O TORRE [facility] Other Start: 01-20-2023 End: 01-20-[address] FERNANDO TORRE Facility:[facility] Start: 01-19-2023 End: 01-19-2023 ambulatory Fernando Torre Other [facility] Other Start: 01-19-2023 Telephone encounter Fernando TORRES [facility] Start: 01-10-2023 End: 01-10-2023 ambulatory Fernando Torre Other [facility] Other Start: 01-10-2023 Office outpatient vi sit 15 minutes Fernando Torre [facility] Start: 01-03-2023 End: 01-03-[address] FERNANDO TORRE Facility:[facility] Start: 08-18-2022 Encounter for preprocedural laboratory examination MR LO GENAO . [facility] Start: 08-13-2022 End: 08-14-2022 ambulatory MR LO GENAO . Facility:[facility] Start: 08-13-2022 End: 08-14-2022 Encounter for preprocedural laboratory examination MR LO GENAO . Facility:[facility] Start: 07-19-2022 End: 07-20-2022 ambulatory MR LO GENAO . Facility:[facility] Start: 05-15-2022 End: 05-16-[address] FERNANDO TORRE Facility:[facility] Start: 04-10-2022 End: 04-10-2022 Patient encounter procedure Vanessa Whittaker [facility] Start: 02-08-2022 End: 02-09-[address] FERNANDO TORRE Facility:[facility] Start: 01-28-2022 Adult health examination Armin Torre Other [facility] Other Start: 09-24-2021 End: 01-27-2022 Recurring Lennie VAZQUEZ [facility] Start: 03-04-2019 End: 03-05-2019 Evaluation and management of inpatient MARTIN RHODES Facility:[facility] Procedures Date Procedure Procedure Detail Performing Clinician Start: 12-19-2021 Colonoscopy Lennie VAZQUEZ Start: 12-19-2021 Esophagogastroduodenoscopy Lennie VAZQUEZ Start: 03-04-2019 REMOVAL OF SYNTHETIC SUBSTITUTE FROM L HIP JT, OPEN APPROACH MARTIN RHODES Start: 03-04-2019 REPLACE OF L HIP JT WITH SYNTH SUB, CEMENT, OPEN APPROACH MARTIN RHODES Start: 02-24-2019 Antibody screen MARTIN RHODES Comment on above: Performed By: #### [id number] #### [address] Start: 02-12-2019 Pre-surgery evaluation Fernando Torre Other Start: 06-27-2017 Screening for malignant neoplasm of prostate Fernando Torre Other Start: 11-28-2015 General examination of patient Fernando Torre Other Arthroplasty of knee Juan Ramon MARTINEZ Decompression of median nerve Juan Ramon MELCHORL Depression screening Troy Torre Other History of lumbar laminectomy Juan Ramon MELCHORL Laboratory test result abnormal Fernando Torre Other Laboratory test result abnormal Fernando Torre Other Pituitary adenoma (disorder) Juan Ramon RUIZL Repair of hip Juan Ramon MARTINEZ Repair of tendon Juan Ramon MELCHOR L Comment on above: bicep Screening for malign ant neoplasm of prostate Fernando Ball Other Immunizations Immunization Date Immunization Notes Care Provider Mala lakhani NEGATED: Highlighted row has not occurred!09-19-2023 influenza virus vaccine, unspecified formulation JuanR amon MARTINEZ [facility] [place] NEGATED: Highlighted row has not occurred!01-03-2022 influenza virus vaccine, unspecified formulation Lennie VAZQUEZ [facility] Payers Date Payer Category Payer Medicare [id number] 2.1 [id number] 2023 Medicare [id number]. [id number] 1961 Private Health Insurance [id number] 1958 Unknown [id number] 1958 Unknown [id number] 1958 Unknown [id number] [id number] [id number] 1958 Unknown [id number] 2.16.84 [id number] 1960 Unknown [id number] 2.16.84 [id number] 1960 Unknown [id number] 2.16.84 [id number] 1960 Unknown [id number] 2.16.84 [id number] 1960 Unknown [id number] 2.16.84 [id number] 1960 Unknown [id number] 2.16.84 [id number] 1960 Unknown [id number] 2.16.8 [id number] 1960 Unknown [id number] 2.16.8 [id number] Unknown [id number] Social History Date Type Detail Facility Start: 01-03-2022 End: 09-19-2023 Tobacco smoking status Never smoked tobacco (finding) [facility] Tobacco smoking status Never [facility] Sex Assigned At Male [facility] Functional Status Date Assessment Result Facility 09-19-2023 Functional Status N/A [facility] 04-10-2022 Functional Status N/A [facility] Clinical Notes 04-10-2022 to 09-20-2023 Note Date & Type Note Facility 09-20-2023 Note Chief Complaint consultation for cholelithiasis HPI Staff 63 year old male presents on consultation from Dr. Torre for cholelithiasis. Reports abdominal pain, nausea and bloating. Reports several intermittent episodes of stated complaints over the past one year. States most of the time he can prevent bad attacks by applying heating pad and drinking peppermint tea. If he does this, symptoms last about 15 minutes. If he does not do this, symptoms will last several hours. Verbalized symptoms start several hours after eating a greasy meal. Nausea and emesis are rare. No bowel changes. RUQ US completed 12/2022-unremarkable. RUQ US completed 01/2023-cholelithiasis with possible chronic cholecystitis. History of Present Illness 63 yo male with h/o htn, hypercholesterolemia, VANDANA, GERD, lumbar spondylosis, aneurysm of ascending aorta; referred for abd pain, possible gallbladder disease; patient reports over 1 year h/o intermittent abd pain, after first severe episode had RUQ US done, 12/2022, wnl; repeated US 1 month later, abnormal folds in gallbladder, possible cyst and small stones, no ductal dilation, abd ct scan 01/2022 with normal gallbladder; patient reports frequent bloating and nausea, worse after eating fatty foods, occasional discomfort, can last for several hours, rare N/V; no bowel changes, no h/o jaundice or pancreatitis; no abd operations; patient has GERD, fairly well controlled with omeprazole; no asa or NSAID use; no tobacco use; no fmhx of GI malignancy or IBD. Review of Systems PHQ Score Initial Depression Screen Score: 0 SCORE ROS - Provider Constitutional: no fever, no sweats, no weight loss. Eyes: no glasses, no blurred vision, no visual loss. ENMT: no dentures, no hoarseness, no swallowing difficulties, no hearing loss, no ear infection(s), no nose bleeds. Cardiovascular: normal blood pressure, no chest pain, regular heartbeat, no heart murmur. Respiratory: no shortness of breath, no cough, no asthma, no wheezing. Gastrointestinal: no nausea, no vomiting, no diarrhea, no constipation, no blood in stool, no change in bowel habits, no abdominal pain, no hepatitis. Genitourinary: no kidney stones, no urine infection, no dysuria. Musculoskeletal: no pain, no weakness. Skin: no changing moles, no rash, no skin lumps. Neurologic: no seizures, no epilepsy, no headache. Psychiatric: no emotional or psychiatric problem. Heme/Lymph: no bleeding problems, no anemia, no blood clots, no transfusions. Allergy/Immunologic: no swollen lymph nodes/glands, no IV drug abuse. Other: Additional ROS info: Except as noted in the above Review of Systems and in the History of Present Illness, all other systems have been reviewed and are negative or noncontributory. Physical Exam Vitals & Measurements HR: 76(Peripheral) RR: 16 BP: 130/86 HT: 69 in HT: 175.2 cm WT: 124 kg WT: 272.8 lb BMI: 40.4 HEENT: normal conjunctiva, sclera clear, no scleral icterus, EOM intact, PERRLA, oral mucosa moist without lesions. Neck: trachea midline, no mass, symmetric, no thyromegaly or nodules, no adenopathy Respiratory: lungs CTA, respirations non labored. Cardiovascular: regular rate and rhythm, no murmur, no pedal edema or varicosities. Gastrointestinal: obese, soft, non distended, no tenderness, no masses, no palpable hernias, diastasis recti no, no hepatosplenomegaly; normal bs Lymphatic: no cervical adenopathy, no supraclavicular adenopathy. Musculoskeletal: normal gait, digits and nails without infection, nodes, cyanosis, clubbing. Skin: no rashes, no lesions, no ulcers, no subcutaneous nodules, induration. Psychiatric/Neuro: oriented to time, place, person, judgement normal, affect appropriate for age, insight intact, no focal deficits. Tests: labs reviewed, x-rays reviewed, review of old records completed , Assessment/Plan 1. Abdominal bloating (R14.0: Abdominal distension (gaseous)) will check abd/pelvic ct scan with contrast for further evaluation, continue low fat diet; will call patient with results, call sooner if problems/questions. Ordered: CT Abdomen/Pelvis w/ Contrast E&M of New Patient Moderate 45-59 Min 87679 2. Abdominal pain, epigastric (R10.13: Epigastric pain) see # 1 Ordered: CT Abdomen/Pelvis w/ Contrast E&M of New Patient Moderate 45-59 Min 08291 3. Abdominal pain, right upper quadrant (R10.11: Right upper quadrant pain) see # 1 Ordered: CT Abdomen/Pelvis w/ Contrast E&M of New Patient Moderate 45-59 Min 20434 4. Abnormal gallbladder ultrasound (R93.2: Abnormal findings on diagnostic imaging of liver and biliary tract) see # 1 Ordered: CT Abdomen/Pelvis w/ Contrast E&M of New Patient Moderate 45-59 Min 07046 5. BMI 40.0-44.9, adult (Z68.41: Body mass index [BMI] 40.0-44.9, adult) recommend low fat diet and exercise Ordered: CT Abdomen/Pelvis w/ Contrast E&M of New Patient Moderate 45-59 Min 23608 Follow-up No qualifying data available Problem List/Past Medical History (more content not included)... [facility] Comment on above: Result Comment: Elec tronically Signed By: PAOLO TATE, uJan Ramon Miner\Date and Time Signed: 09/20/23 09:50 EST 08-31-2023 Evaluation note Encounter Date Diagnosis Assessment Notes Aug, Pulmonary nodule (ICD-10 - R91.1) CTA: 7.5mm RUL, 3mm RUL, 13mm ADA - 01/2022, CT: 7mm RUL - 04/2022 CT: 8mm RUL - 01/2023Aug, Aneurysm of the ascending aorta, without rupture (ICD-10 - I71.21) CTA: 3.8cm Asc Aortic Aneurysm - 08/2023 [facility] Other 11-08-2023 Evaluation note* Encounter Date Diagnosis Assessment Notes Treatment Notes Treatment Clinical Notes Aug, Calculus of gallbladder with chronic cholecystitis without obstruction (ICD-10 - K80.10) Continue w/ low fat diet. Continue PPI. Refer to General Surgery for elective cholecystectomy Aug, Aneurysm of ascendin g aorta without rupture (ICD-10 - I71.21) Control BP. Schedule CTA chest. Aug, Gastroesophageal reflux disease with esophagitis without hemorrhage (ICD-10 - K21.00) Continue healthy diet and avoid lying flat after meals or eating prior to bedtime. Encouraged to lose weight and to continue PPI Aug, Obstructive sleep apnea (ICD-10 - G47.33) This patient is aware of the benefits associated with VANDANA: With continued use, the patient reduces the risk for [place], CVA, HTN, cardiac dysrhythmias and sudden cardiac deaths.The patient is also aware of the association between VANDANA and morning headaches, daytime somnolence, fatigue and obesity, which also has been improved with continued use.The patient is compliant with treatment, wearing the equipment every night for greater than 4 hours.The patient is instructed to continue use of the CPAP for VANDANA treatment. Aug, Primary hypertension (ICD-10 - I10) This patient is instructed to consume a healthy, low-fat, low-salt diet. They are also encouraged to continue exercise to achieve/maintain a normal BMI. [facility] Other 04-12-2023 Evaluation note* Encounter Date Diagnosis Assessment Notes Treatment Notes Treatment Clinical Notes Jan, Wellness examination (ICD-10 - Z00.00) Healthy diet and exercise. Reviewed age-appropriate preventive testing recommended. Jan, Essential hypertension (ICD-10 - I10) This patient is instructed to consume a healthy, low-fat, low-salt diet. They are also encouraged to continue exercise to achieve/maintain a normal BMI. Jan, Obstructive sleep apnea (ICD-10 - G47.33) This patient is aware of the benefits associated with VANDANA: With continued use, the patient reduces the risk for [place], CVA, HTN, cardiac dysrhythmias and sudden cardiac deaths.The patient is also aware of the association between VANDANA and morning headaches, daytime somnolence, fatigue and obesity, which also has been improved with continued use.The patient is compliant with treatment, wearing the equipment every night for greater than 4 hours.The patient is instructed to continue use of the CPAP for VANDANA treatment. Jan, GERD (gastroesophageal reflux disease) (ICD-10 - K21.9) Diet instructions: Smaller portions, avoid eating and laying flat, avoid eating or drinking prior to bedtime. Weight loss. Continue PPI Jan, Pulmonary nodule (ICD-10 - R91.1) CTA: 7.5mm RUL, 3mm RUL, 13mm ADA - 01/2022, CT: 7mm RUL - 04/2022 CT: 8mm RUL - 01/2023 Continue surveillance scans for 2 years Jan, Benign prostatic hyperplasia with lower urinary tract symptoms, symptom details unspecified (ICD-10 - N40.1) Symptoms tolerable. Jan, Abnormal ultrasound of gallbladder (ICD-10 - R93.2) Cholelithiasis w/ thickened GB irizarry. Asymptomatic w/ one episode of possible biliary colic in ER. Monitor for now Jan, Screening PSA (prostate specific antigen) (ICD-10 - Z12.5) Yearly CELESTINO and PSA completed [facility] Other 04-10-2023 Evaluation note* Encounter Date Diagnosis Assessment Notes Treatment Notes Treatment Clinical Notes Jan, Pulmonary nodule (ICD-10 - R91.1) CTA: 7.5mm RUL, 3mm RUL, 13mm ADA - 01/2022, CT: 7mm RUL - 04/2022 CT: 8mm RUL - 01/2023 [facility] Other 04-10-2023 Evaluation note* Encounter Date Diagnosis Assessment Notes Treatment Notes Treatment Clinical Notes Jan, Pulmonary nodule (ICD-10 - R91.1) CTA: 7.5mm RUL, 3mm RUL, 13mm ADA - 01/2022, CT: 7mm RUL - 04/2022 CT: 8mm - 01/2023 [facility] Other 04-02-2023 Evaluation note* Encounter Date Diagnosis Assessment Notes Treatment Notes Treatment Clinical Notes Jan, Aneurysm of ascending aorta without rupture (ICD-10 - I71.21) CT: 4.5cm ascending aortic aneurysm - 01/2022 [facility] Other 04-02-2023 Evaluation note* Encounter Date Diagnosis Assessment Notes Treatment Notes Treatment Clinical Notes Jan, Pulmonary nodule (ICD-10 - R91.1) CTA: 7.5mm RUL, 3mm RUL, 13mm ADA - 01/2022, CT: 7mm RUL - 04/2022 CT chest due in January, [facility] Other 03-24-2023 Evaluation note* Encounter Date Diagnosis Assessment Notes Treatment Notes Treatment Clinical Notes Dec, Gastroesophageal reflux disease with esophagitis without hemorrhage (ICD-10 - K21.00) Diet instructions: Smaller portions, avoid eating and laying flat, avoid eating or drinking prior to bedtime. Weight loss. Use PPI x 1 month then d/c. Continue Pepcid q HS. Levsin as needed for abdominal pain suspected to be esophageal spasm Dec, Palpitation (ICD-10 - R00.2) Avoid stimulants, push fluids, increase activity. Restart BB Dec, Abnormal ultrasound of gallbladder (ICD-10 - R93.2) Nonspecific findings on GBUS Repeat US in month Dec, Pulmonary nodule (ICD-10 - R91.1) CTA: 7.5mm RUL, 3mm RUL, 13mm ADA - 01/2022, CT: 7mm RUL - 04/2022Dec, Elevated liver enzym es (ICD-10 - R74.8) [facility] Other 06-22-2022 Hospital Discharge instructions Patient Education 04/10/2022 08:24:56 Gastroesophageal Reflux Disease, Adult Gastroesophageal Reflux Disease, Adult Gastroesophageal reflux (JEWELL) happens when acid from the stomach flows up into the tube that connects the mouth and the stomach (esophagus). Normally, food travels down the esophagus and stays in thestomach to be digested. However, when a person has JEWELL, food and stomach acid sometimes move back up into the esophagus. If this becomes a more serious problem, the person may be diagnosed with a disease called gastroesophageal reflux disease (GERD). GERD occurs when the reflux: Happens often. Causes frequent or severe symptoms. Causes problems such as damage to the esophagus. When stomach acid comes in contact with the esophagus, the acid may cause soreness (inflammation) in the esophagus. Over time, GERD may create small holes (ulcers) in the lining of the esophagus. What are the causes? This condition is caused by a problem with the muscle between the esophagus and the stomach (lower esophageal sphincter, or LES). Normally, the LES muscle closes after food passes through the esophagus to the stomach. When the LES is weakened or abnormal, it does not close properly, and that allowsfood and stomach acid to go back up into the esophagus. The LES can be weakened by certain dietary substances, medicines, and medical conditions, including: Tobacco use. . Having a hiatal hernia. Alcohol use. Certain foods and beverages, such as coffee, chocolate, onions, and peppermint. What increases the risk? You are more likely to develop this condition if you: Have an increased body weight. Have a connective tissue disorder. Use NSAID medicines. What are the signs or symptoms? Symptoms of this condition include: Heartburn. Difficult or painful swallowing. The feeling of having a lump in the throat. A bitter taste in the mouth. Bad breath. Having a large amount of saliva. Having an upset or bloated stomach. Belching. Chest pain. Different conditions can cause chest pain. Make sure you see your health care provider if you experience chest pain. Shortness of breath or wheezing. Ongoing (chronic) cough or a night-time cough. Wearing away of tooth enamel. Weight loss. How is this diagnosed? Your health care provider will take a medical history and perform a physical exam. To determine if you have mild or severe GERD, your health care provider may also monitor how you respond to treatment. You may also have tests, including: A test to examine your stomach and esophagus with a small camera (endoscopy). A test that measures the acidity level in your esophagus. A test that measures how much pressure is on your esophagus. A barium swallow or modified barium swallow test to show the shape, size, and functioning of your esophagus. How is this treated? The goal of treatment is to help relieve your symptoms and to prevent complications. Treatment for this condition may vary depending on how severe your symptoms are. Your health care provider may recommend: Changes to your diet. Medicine. Surgery. Follow these instructions at home: Eating and drinking Follow a diet as recommended by your health care provider. This may involve avoiding foods and drinks such as: ?Coffee and tea (with or without caffeine). ?Drinks that contain alcohol. ?Energy drinks and sports drinks. ?Carbonated drinks or sodas. ?Chocolate and cocoa. ?Peppermint and mint flavorings. ?Garlic and onions. ?Horseradish. ?Spicy and acidic foods, including peppers, chili powder, asher powder, vinegar, hot sauces, and barbecue sauce. ?[place] fruit juices and citrus fruits, such as oranges, kelly, and limes. ?Tomato-based foods, such as red sauce, chili, salsa, and pizza with red sauce. ?Fried and fatty foods, such as donuts, hebrew fries, potato chips, and high-fat dressings. ?High-fat meats, such as hot dogs and fatty cuts of red and white meats, such as rib eye steak, sausage, ham, and roe. ?High-fat dairy items, such as whole milk, butter, and cream cheese. Eat small, frequent meals instead of large meals. Avoid drinking large amounts of liquid with your meals. Avoid eating meals during the 2 3 hours before bedtime. Avoid lying down right after you eat. Do not exercise right after you eat. Lifestyle Do not use any products that contain nicotine or tobacco, such as cigarettes, e- cigarettes, and chewing tobacco. If you need help quitting, ask your health care provider. Try to reduce your stress by using methods such as yoga or meditation. If you need help reducing stress, ask your health care provider. If you are overweight, reduce your weight to an amount that is healthy for you. Ask your health care provider for guidance about a safe weight loss goal. General instructions Pay attention to any changes in your symptoms. Take cvjp-nvw-sabkwsx and prescription medicines only as told by your health care provider. Do not take aspirin, ibuprofen, or other NSAIDs unless your health care provider told you to do so. Wear loose-fitting clothing. Do not wear anything tight around your waist that causes pressure on your abdomen. Raise (elevate) the head of your bed about 6 inches (15 cm). Avoid bending over if this makes your symptoms worse. Keep all follow-up visits as told by your health care provider. This is important. Contact a health care provider if: You have: ?New symptoms. ?Unexplained weight loss. ?Difficulty swallowing or it hurts to swallow. ?Wheezing or a persistent cough. ?A hoarse voice. Your symptoms do not improve with treatment. Get help right away if you: Have pain in your arms, neck, jaw, teeth, or back. Feel sweaty, dizzy, or light-headed. Have chest pain or shortness of breath. Vomit and your vomit looks like blood or coffee grounds. Faint. Have stool that is bloody or black. Cannot swallow, drink, or eat. Summary Gastroesophageal reflux happens when acid from the stomach flows up into the esophagus. GERD is a disease in which the reflux happens often, causes frequent or severe symptoms, or causes problems such as damage to the esophagus. Treatment for this condition may vary depending on how severe your symptoms are. Your health care provider may recommend diet and lifestyle changes, medicine, or surgery. Contact a health care provider if you have new or worsening symptoms. Take mdpp-nsz-thvnroy and prescription medicines only as told by your health care provider. Do not take aspirin, ibuprofen, or other NSAIDs unless your health care provider told you to do so. Keep all follow-up visits as told by your health care provider. This is important. This information is not intended to replace advice given to you by your health care provider. Make sure you discuss any questions you have with your health care provider. Document Released: 07/16/2006 Document Revised: 04/14/2019 Document Reviewed: 04/14/2019 [employer] Patient Education 2020 [employer] Follow Up Care 01/03/2022 09:45:39 With:Vanessa Whittaker CNP Address: When:1 year [facility] Evaluation + Plan note Future Appointments Appointment Date:04/10/2022 08:00:00 AM Scheduled Provider:Vanessa Whittaker CNP [place] [facility] Future Appointments Appointment Date:04/10/2023 08:00:00 AM Scheduled Provider:Vanessa Whittaker CNP [place] [place] [facility] Type[facility] Follow Up Future Scheduled Tests Laboratory* Basic Metabolic Panel 04/10/22 * Folate Level 04/10/22 * Magnesium Level 04/10/22 * Vitamin B12 Level 04/10/22 [facility] Evaluation [facility]No [facility] [email or web address] Other History general Narrative - Reported* Type Description Date Medical History Pulmonary nodule Medical History ASCENDING AORTIC ANEURYSM Medical History Essential hypertension Medical History Obstructive sleep apnea Medical History Hypercholesterolemia Medical History Gastroesophageal ref lux disease with esophagitis without hemorrhage Medical History Muscle fatigue Medical History Paresthesia Medical History Lumbar spondylosis Medical History Epicondylitis, lateral, right Medical History Erectile dysfunction due to jodi rial insufficiency Medical History Biceps tendonitis on right Medical History Right leg paresthesias Medical History Elevated CK Medical History Family history of diabetes melli tus Medical History Benign prostatic hyp erplasia with lower urinary tract symptoms, symptom details unspecified Medical History Myalgia Medical History Trigger ring finger of right solis d Medical History History of hip replacement Medical History GERD (gastroesophageal reflux di sease) Surgical History COLONOSCOPY 2021 Surgical History EGD 2021 Surgical History LEFT HIP SURGERY Surgical History LUMBAR LAMINECTOMY Surgical History LEFT DARREN Surgical History TRANSNASAL RESECTION PITUITARY ADENOMA Surgical History REPAIR RIGHT BICEPS TENDON Hospitalization History SEE SURGICAL HX [place] [email or web address] Other Hospital course Narrative No data available for this section [facility] No data available for this section [facility] No data available for this section [facility] Summary Purpose Family History No Family History Records FoundNo Family History Records Found No data available for this section No Family History Records Found Advance Directives No Advanced Directives Records FoundNo Advanced Directives Records FoundNo Advanced Directives Records Found Hospital Course Note MR#: [id number] [facility] Pt. Name: Sadiq Delarosa Admitted: 03/04/2019 Discharged: 03/05/2019 Date of : 1960 Physician: Martin Rhodes M.D. DISCHARGE SUMMARY ADMITTING DIAGNOSIS: Failed left total hip arthroplasty. PROCEDURE PERFORMED: Left total hip arthroplasty revision. HOSPITAL COURSE: The operative course was unremarkable. The patient was taken to the PACU and then to the floor. Perioperative antibiotics and DVT prophylaxis were instituted. The patient's dressing remained clean and dry and was left in place throughout his admission. The patient was discharged after being cleared by Physical/Occupational Therapy and was afebrile at that time. DISCHARGE INSTRUCTIONS: The patient was instructed to remain weightbearing as tolerated and follow up with Dr. Rhodes in 2 weeks and should call for an appointment time. He should continue his DVT prophylaxis and call the clinic if he has any interval questions or concerns. Electronically Signed by: (more content not included)... Reason for Referral Reason Mr. Delarosa is being referred for elective cholecystectomy Diagnosis 1 Calculus of gallblad gustabo with chronic cholecystitis without obstruction (K80.10) Referral Organization Counts include 234 beds at the [facility] Referring Provider First Name Fernando Referring Provider Last Name Nicho Referring Provider Specialty Internal Me dicine Referred Organization [facility] Referred Provider Juan Ramon Martinez Referred Address [address], [place],[address] Referred Provider Specialty Surgery Referral Priority Routine General Notes Mr. Delarosa was diagn osed with cholelithiasis and chronic cholecystitis earlier this year. Symptoms were mild and he elected to postpone any procedulres. However, he was recently seen in the office with continued symptoms of post prandial indigestion, bloating and nausea. He has been compliant w/ a low fat diet and taking his PPI daily. I recommended referral for elective cholecystectomy. Clinical Notes CMP, CBC and CTA [facility] have been scheduled Additional Source Comments (unrecognized sect ion and content) No Status Records FoundNo Status Records FoundNo Status Records Found INFORMATION SOURCE (unrecogn ized section and content) DATE CREATED AUTHOR 06/23/2019 [facility] DATE CREATED AUTHOR AUTHOR'S ORGANIZ ATION 02/02/2023 [facility] DATE CREATED AUTHOR AUTHOR'S ORGANIZ ATION 10/04/2023 [facility] Care Team (unrecognized sect ion and content) Personnel Name: FERNANDO TORRE DO Address: [address] [place] [address] [place] Personnel Name: FERNANDO TORRE DO Address: Address: [address] [place] [address]- [place] REASON FOR VISIT (unrecogniz ed section and content) tbhNo InformationNo Informat ionNo InformationNo InformationwellnessGALLBLADDER ISSUES - UPDATESNew ordersNo InformationLab results FOR RECORDS PERTAINING TO PATIENTS WHO ARE OR HAVE BEEN ENROLLED IN A CHEMICAL DEPENDENCY/SUBSTANCEABUSE PROGRAM, SOME INFORMATION MAY BE OMITTED. This clinical summary was aggregated from multiple sources. Caution should be exercised in using it in the provision of clinical care. This summary normalizes information from multiple sources, and as a consequence, information in this document may materially change the coding, format and clinical context of patient data. In addition, data may be omitted in some cases. CLINICAL DECISIONS SHOULD BE BASED ON THE PRIMARY CLINICAL RECORDS. [facility] [employer] [facility]. provides no warranty or guarantee of the accuracy or completeness of information in this document.
[2024-03-05 08:07] LABS: Basophils Percent Auto 0.7 % (0.2-2.0); Eosinophils Absolute Auto 0.1 10^3/uL (0.0-0.7); Eosinophils Percent Auto 2.4 % (0.9-7.0); Hematocrit 40.7 % (42.0-54.0); Hemoglobin 13.2 g/dL (14.0-18.0); Immature Granulocytes Abs Auto 0.01 10^3/uL (0.00-0.03); Immature Granulocytes Pct Auto 0.2 % (0.0-0.5); Lymphocytes Absolute Auto 1.4 10^3/uL (1.2-3.8); Lymphocytes Percent Auto 33.5 % (20.5-60.0); Mean Corpuscular HGB Conc 32.4 g/dL (29.9-35.2); Mean Corpuscular Hemoglobin 26.7 pg (25.9-34.0); Mean Corpuscular Volume 82.4 fL (80.0-94.0); Mean Platelet Volume 10.8 fL (9.5-13.5); Monocytes Absolute Auto 0.4 10^3/uL (0.3-0.8); Monocytes Percent Auto 10.4 % (1.7-12.0); Neutrophils Absolute Auto 2.2 10^3/uL (1.4-6.5); Neutrophils Percent Auto 52.8 % (43.0-75.0); Platelet Count 177 10^3/uL (150-450); Red Blood Count 4.94 10^6/uL (4.70-6.10); Red Cell Distribution Width 14.1 % (11.0-15.0); White Blood Count 4.2 10^3/uL (4.0-11.0)
[2024-03-05 09:58] LABS: Alanine Aminotransferase 45 U/L (16-63); Albumin Globulin Ratio 0.9; Albumin Level 3.8 g/dL (3.4-5.0); Alkaline Phosphatase 66 U/L (46-116); Anion Gap 12.9; Aspartate Amino Transferase 29 U/L (15-37); BUN Creatinine Ratio 13.8; Bilirubin Total 0.5 mg/dL (0.2-1.0); Calcium 9.4 mg/dL (8.5-10.1); Chloride 103 mmol/L (98-107); Cholesterol 214 mg/dL (<=200); Estimated GFR (African America >60 (>=60); Estimated GFR (Non-African Ame >60 (>=60); Globulin 4.2 g/dL; Glucose 101 mg/dL (74-106); HDL Cholesterol 43 mg/dL (40-60); Potassium 3.9 mmol/L (3.5-5.1); Sodium 138 mmol/L (136-145); Triglycerides 104 mg/dL (<=150); VLDL CHOLESTEROL 20.8 mg/dL
[2024-03-05 11:03] LABS: Prostate Specific Antigen Scrn 1.31 ng/mL (<=4.00)
== END 2024-03-05 07:48 | disposition home or self-care (01) ==
LOC: LAB 07:47
PROVIDERS: PCP Internal Medicine; Visit Provider Internal Medicine
DX: Z00.00 Encounter for general adult medical examination without abnormal findings (principal); I10 Essential (primary) hypertension; E78.00 Pure hypercholesterolemia, unspecified; Z12.5 Encounter for screening for malignant neoplasm of prostate
CPT/HCPCS: 36415; 80053; 80061; 85025; G0103

== ENCOUNTER 2024-04-17 09:00 | Outpatient (OUT) | payer MEDICARE, OTHER, SELFPAY ==
--- OUTSIDE RECORDS SUMMARY | 2024-04-17 09:04 | XMS_ITS ---
Patient Summarization (C-CDA 2.1 CCD) Created on: April 17, 2024 ISAURASADIQ : 1960 Sex: Male Author Organization Sample organization Care Team Providers [employer]er Name Role Phone MARTIN RHODES Admitting Unavailable MARTIN RHODES Attending Unavailable JETT HAGAN Referring Unavailable FERNANDO TORRE Primary Care Unavailable ND Procedure Practitioner Unavailab MARTIN Spencer Surgeon Unavailable [...] Unavailable GENAO ., MR LO Consulting Unavailable NICOH, DR DONAHUE Primary Care Unavailable HAY ., [...] Drug allergy Muscle pain (finding) General Surgery [place] (1 source) Hmg-Coa Reductase Inhibitors (Statins); Translations: [statins] Propensity to adverse reactions (disorder) [facility] (1 source) No Known Medication Allergies; Translations: [No Known Medication Allergies] Propensity to adverse reactions (disorder) [facility] Encounters Encounter Date Encounter Type Care Provider Facility Start: 09-19-2023 End: 09-20-2023 ambulatory Juan Ramon MARTINEZ Facility:[facility] Start: 09-19-2023 End: 09-19-2023 Patient encounter procedure Juan Ramon MARTINEZ General Surgery [facility] [place] Start: 09-02-2023 End: 09-02-2023 ambulatory Fernando Torre Other [employer] Other Start: 09-02-2023 Telephone encounter Fernando TORRES [facility] Start: 08-31-2023 End: 08-31-2023 ambulatory Fernando Nicho Other [employer] Other Start: 08-31-2023 Telephone encounter Fernando TORRES [facility] Start: 08-29-2023 ambulatory Vanessa Whittaker Facility : [place] Start: 08-27-2023 End: 08-27-2023 ambulatory Fernando Nicho Other [employer] Other Start: 08-27-2023 Office outpatient vi sit 25 minutes Fernando Torre [facility] Start: 08-27-2023 Telephone encounter Fernando TORRES [facility] Start: 04-01-2023 End: 04-02-2023 ambulatory Vanessa Whittaker Facility:[facility] Start: 01-29-2023 End: 01-29-2023 ambulatory Fernando Torre Other [employer] Other Start: 01-29-2023 Encounter for genera l adult medical examination without abnormal findings Fernando Torre [facility] Start: 01-29-2023 Periodic preventive med est patient 40-64yrs Fernando Torre [facility] Start: 01-27-2023 Telephone encounter Fernando TORRES G [facility] Start: 01-27-2023 End: 01-28-[address] FERNANDO TORRE [facility] [employer] Other Start: 01-20-2023 End: 01-20-[address] FERNANDO TORRE Facility:[facility] Start: 01-19-2023 End: 01-19-2023 ambulatory Fernando Torre Other [employer] Other Start: 01-19-2023 Telephone encounter Fernando TORRES [facility] Start: 01-10-2023 End: 01-10-2023 ambulatory Fernando Torre Other [employer] Other Start: 01-10-2023 Office outpatient vi sit 15 minutes Fernando Torre [facility] Start: 01-03-2023 End: 01-03-[address] FERNANDO TORRE Facility:[facility] Start: 08-18-2022 Encounter for preprocedural laboratory examination MR LO GENAO . [facility] Start: 08-13-2022 End: 08-14-2022 ambulatory MR LO GENAO . Facility:[facility] Start: 08-13-2022 End: 08-14-2022 Encounter for preprocedural laboratory examination MR LO GENAO . Facility:[facility] Start: 07-19-2022 End: 07-20-2022 ambulatory MR LO GENAO . Facility:[facility] Start: 05-15-2022 End: 05-16-[address] FERNANDO TORRE Facility:[facility] Start: 04-10-2022 End: 04-10-2022 Patient encounter procedure Vanessa Whittaker [facility] Start: 02-08-2022 End: 02-09-[address] FERNANDO TORRE Facility:[facility] Start: 01-28-2022 Adult health examination Armin Torre Other [employer] Other Start: 09-24-2021 End: 01-27-2022 [facility]ring [facility] Start: 03-04-2019 End: 03-05-2019 Evaluation and management of inpatient MARTIN RHODES Facility:[facility] Immunizations Immunization Date Immunization Notes Care Provider Mala lakhani NEGATED: Highlighted row has not occurred!09-19-2023 influenza virus vaccine, unspecified formulation Juan Ramon MARTINEZ General Surgery [place] NEGATED: Highlighted row has not occurred!01-03-2022 influenza virus vaccine, unspecified formulation [facility] Medications Current Medications Medication Drug Class(es) Dates [...] day(s), # 90 cap(s), Refills(s) 2, Pharmacy: [facility], 172, cm, 04/10/22 8:16:00 EDT, Height/Length Dosing, 118.6, kg, 04/10/22 8:16:00 EDT, Weight Dosing Start Date: 04/10/22 Stop Date: 3/19/23 Status: Ordered omeprazole 40 mg Cap-DR (1 source) Start: 12-19-2021 take 1 capsule by mouth once daily omeprazole 40 mg Cap-DR 40 mg = 1 cap(s), Oral, Daily, # 30 cap(s), Refills(s) 2, Pharmacy: [facility]/pharmacy #[id number], 172, cm, 12/19/21 7:21:00 EST, Height/Length [...] Refills(s) 0 Start Date: 09/05/23 Status: Ordered Payers Date Payer Category Payer Medicare [id number] 2.1 [id number] 2023 Medicare [id number] 2. [id number] 1961 Private Health Insurance [id number] 1960 Unknown [id number] 2.16.8 [id number] 1960 Unknown [id number] 2.16.84 [id number] 1960 Unknown [id number] 2.16.84 [id number] 1960 Unknown [id number] 2.16.84 [id number] 1960 Unknown [id number] 2.16.84 [id number] 1960 Unknown [id number] 2.16.84 [id number] 1960 Unknown [id number] 2.16.84 [id number] 1960 Unknown [id number] 2.16.84 [id number] 1960 Unknown [id number] 2.16.84 [id number] 1960 Unknown [id number] 2.16.8 [id number] 1960 Unknown [id number] 2.16.8 [id number] Unknown [id number] Problems Active Problems Problem Classification Problem Date [...] 09-05-2023 Chronic Other aftercare (1 source) Other prison (current) drug therapy; Translations: [OTH PENITENTIARY CURRENT DRUG THERAPY] Onset: 3 Episodic Other aftercare (4 sources) Long-term current use of drug therapy; Translations: [Other prison (current) drug therapy] Episodic Other and unspecified [...] fatigue; Translations: [Other malaise and fatigue] Onset: 09-08-2017 Episodic Other gastrointestinal disorders (1 source) Abdominal [...] (current) use of other medications] Onset: 05-15-2016 Procedures Date Procedure Procedure Detail Performing Clinician Start: 12-19-2021 Colonoscopy Hogueshira KEARNEYBevalley Start: 12-19-2021 Esophagogastroduodenoscopy [employer] Start: 03-04-2019 REMOVAL OF SYNTHETIC SUBSTITUTE FROM L HIP JT, OPEN APPROACH MARTIN RHODES Start: 03-04-2019 REPLACE OF L HIP JT WITH SYNTH SUB, CEMENT, OPEN APPROACH MARTIN RHODES Start: 02-24-2019 Antibody screen MARTIN RHODES Comment on above: Performed By: #### [id number] #### [address] Start: 02-12-2019 Pre-surgery evaluation Fernando Torre Other Start: 06-27-2017 Screening for malignant neoplasm of prostate Fernando Torre Other Start: 11-28-2015 General examination of patient Fernando Torre Other Arthroplasty of knee [employer] Decompression of median nerve [employer] Depression screening Troy Torre Other History of lumbar laminectomy [employer] Laboratory test result abnormal Fernando Torre Other Laboratory test result abnormal Fernando Torre Other Pituitary adenoma (disorder) [employer] Repair of hip Juan Ramon MARTINEZ Repair of tendon Juan Ramon Chicas Comment on above: bicep Screening for malign ant neoplasm of prostate Fernando Torre Other Results Test Name Value Interpretation Reference Range Facility RAD - CT Reporton 10-02-2023 RAD - CT Report [id number]#1.00TIFF Normal [facility] Ambulatory Visit Summaryon 1 11-20-2022 Ambulatory Visit Summary SADIQ DELAROSA :1960 Visit Date:09/19/2023 Ambulatory Visit Instructions Your Care Team Attending Physician - PAOLO TATE, Juan Ramon Cardoso Primary Care Physician - FERNANDO TORRE DO This Is Your Medications List Contact prescribing [...] for choosing us for your care. Normal [facility] RAD - Ultrasound Reporton RAD - Ultrasound Report [id number]#[id number] Normal [facility] RAD - Ultrasound Report [id number]#1.00TIFF Normal [facility] Physician Referralon 023 Physician Referral [id number] Normal [facility] CT CHEST WO CONon 01-27-2023 CT CHEST [...] by: LUIS DOMINGUEZ Date: 2023-01-27 14:52 Normal [facility] US SINGLE QUAD RT UPPERon US SINGLE [...] LUIS DOMINGUEZ Date: 2023-01-27 16:16 Normal [facility] CBC AUTO DIFFon 01-20-2023 BASO # 0.0 103/ul Normal 0.0-0.1 [facility] Comment on above: Performed By: #### C BC #### [facility] [address] [address] [address] Yasmany Claros Basophils/100 WBC (Bld) 0.8 % Normal 0.2-2.0 [facility] Comment on above: Performed By: #### C BC #### [facility] [address] [address] [address] Yasmany Claros EO # 0.1 103/ul Normal 0.0-0.7 [facility] Comment on above: Performed By: #### C BC #### [facility] [address] [address] [address] Yasmany Claros Eosinophils/100 WBC (Bld) 2.1 % Normal 0.9-7.0 [facility] Comment on above: Performed By: #### C BC #### [facility] [address] [address] [address] Yasmany Claros Erythrocyte distribution width (RBC) [Ratio] 14.0 % Normal 11.0-15.0 [facility] Comment on above: Performed By: #### C BC #### [facility] [address] [place] [address] Dr. Yasmany Claros Hematocrit (Bld) [Volume fraction] 39.9 % Critically low 42.0-54.0 [facility] Comment on above: Performed By: #### C BC #### [facility] [address] [place] [address] Dr. Yasmany Claros Hemoglobin (Bld) [Mass/Vol] 13.2 g/dL Critically low 14.0-18.0 [facility] Comment on above: Performed By: #### C BC #### [facility] [address] [place] [address] Dr. Yasmany Claros IG # 0.01 10e3/ul Normal 0.00-0.03 [facility] Comment on above: Performed By: #### C BC #### [facility] [address] [place] [address] Dr. Yasmany Claros IG % 0.3 % Normal 0.0-0.5 [facility] Comment on above: Performed By: #### C BC #### [facility] [address] [place] [address] Dr. Yasmany Claros LYMPH # 1.6 103/ul Normal 1.2-3.8 [facility] Comment on above: Performed By: #### C BC #### [facility] [address] [place] [address] Dr. Yasmany Claros Lymphocytes/100 WBC (Bld) 41.5 % Normal 20.5-60.0 [facility] Comment on above: Performed By: #### C BC #### [facility] [address] [place] [address] Dr. Yasmany Claros MANUAL DIFF REQ NO Normal [place] Comment on above: Performed By: #### C BC #### [facility] [address] [place] [address] Dr. Yasmany Claros MCH (RBC) [Entitic mass] 26.6 pg Normal 25.9-34.0 [facility] Comment on above: Performed By: #### C BC #### [facility] [address] [address] [address] Yasmany Claros MCHC (RBC) [Mass/Vol] 33.1 g/dL Normal 29.9-35.2 [facility] Comment on above: Performed By: #### C BC #### [facility] [address] [address] [address] Yasmany Claros MCV (RBC) [Entitic vol] 80.3 fL Normal 80.0-94.0 [facility] Comment on above: Performed By: #### C BC #### [facility] [address] [address] [address] Yasmany Claros MONO # 0.4 103/ul Normal 0.3-0.8 [facility] Comment on above: Performed By: #### C BC #### [facility] [address] [place] [address] Dr. Yasmany Claros Monocytes/100 WBC (Bld) 9.9 % Normal 1.7-12.0 [facility] Comment on above: Performed By: #### C BC #### [facility] [address] [place] [address] Dr. Yasmany Claros NEUT # 1.7 103/ul Normal 1.4-6.5 [facility] Comment on above: Performed By: #### C BC #### [facility] [address] [place] [address] Dr. Yasmany Claros Neutrophils/100 WBC (Bld) 45.4 % Normal 43.0-75.0 [facility] Comment on above: Performed By: #### C BC #### [facility] [address] [place] [address] Dr. Yasmany Claros Platelet mean volume (Bld) [Entitic vol] 11.1 fL Normal 9.5-13.5 [facility] Comment on above: Performed By: #### C BC #### [facility] [address] [address] [address] Yasmany Claros PLT 188 103/ul Normal 150-450 [facility] Comment on above: Performed By: #### C BC #### [facility] [address] [address] [address] Yasmany Claros RBC 4.97 106/ul Normal 4.70-6.10 [facility] Comment on above: Performed By: #### C BC #### [facility] [address] [address] [address] Yasmany Claros WBC 3.8 103/ul Critically low 4.0-11.0 [facility] Comment on above: Performed By: #### C BC #### [facility] [address] [place] [address] HEAD WO CONon [...] LUIS DOMINGUEZ Date: 2023-01-20 09:48 Normal [facility] PROF CHEM 8 (BAS METB)on Anion gap [Moles/Vol] 11.2 mmol/L Normal [facility] Comment on above: Performed By: #### B MP #### [facility] [address] [place] [address] Dr. Yasmany Claros Calcium [Mass/Vol] 9.1 mg/dL Normal 8.5-10.1 [facility] Comment on above: Performed By: #### B MP #### [facility] [address] [place] [address] Dr. Yasmany Claros Chloride [Moles/Vol] 102 mmol/L Normal 98-107 [facility] Comment on above: Performed By: #### B MP #### [facility] [address] [address] [address] Yasmany Claros CO2 [Moles/Vol] 26.7 mmol/L Normal 21.0-32.0 [facility] Comment on above: Performed By: #### B MP #### [facility] [address] [address] [address] Yasmany Claros Creatinine [Mass/Vol] 0.81 mg/dL Normal 0.70-1.30 [facility] Comment on above: Performed By: #### B MP #### [facility] [address] [address] [address] Yasmany Claros EGFR-AF SALVADOREAN >60 Normal >=60 [facility] Comment on above: Performed By: #### B MP #### [facility] [address] [address] [address] Yasmany Claros EGFR-NON AF SALVADOREAN >60 Normal >=60 [facility] Comment on above: Performed By: #### B MP #### [facility] [address] [address] [address] Yasmany Claros Glucose [Mass/Vol] 104 mg/dL Normal 74-106 [facility] Comment on above: Performed By: #### B MP #### [facility] [address] [address] [address] Yasmany Claros Potassium [Moles/Vol] 3.9 mmol/L Normal 3.5-5.1 [facility] Comment on above: Performed By: #### B MP #### [facility] [address] [address] [address] Yasmany Claros Sodium [Moles/Vol] 136 mmol/L Normal 136-145 [facility] Comment on above: Performed By: #### B MP #### [facility] [address] [address] [address] Yasmany Claros Urea nitrogen [Mass/Vol] 13.0 mg/dL Normal 7.0-18.0 [facility] Comment on above: Performed By: #### B MP #### [facility] [address] [place] [address] Dr. Yasmany Claros Urea nitrogen/Creatini ne [Mass ratio] 16.0 mg/mg Normal [facility] Comment on above: Performed By: #### B MP #### [facility] [address] [place] [address] Dr. Yasmany Claros CBC AUTO DIFFon 01-03-2023 BASO # 0.0 103/ul Normal 0.0-0.1 [facility] Comment on above: Performed By: #### C BC #### [facility] [address] [place] [address] Dr. Yasmany Claros Basophils/100 WBC (Bld) 0.3 % Normal 0.2-2.0 [facility] Comment on above: Performed By: #### C BC #### [facility] [address] [place] [address] Dr. Yasmany Claros EO # 0.0 103/ul Normal 0.0-0.7 [facility] Comment on above: Performed By: #### C BC #### [facility] [address] [place] [address] Dr. Yasmany Claros Eosinophils/100 WBC (Bld) 0.5 % Critically low 0.9-7.0 [facility] Comment on above: Performed By: #### C BC #### [facility] [address] [place] [address] Dr. Yasmany Claros Erythrocyte distribution width (RBC) [Ratio] 13.9 % Normal 11.0-15.0 [facility] Comment on above: Performed By: #### C BC #### [facility] [address] [place] [address] Dr. Yasmany Claros Hematocrit (Bld) [Volume fraction] 40.6 % Critically low 42.0-54.0 [facility] Comment on above: Performed By: #### C BC #### [facility] [address] [place] [address] Dr. Yasmany Claros Hemoglobin (Bld) [Mass/Vol] 13.2 g/dL Critically low 14.0-18.0 [facility] Comment on above: Performed By: #### C BC #### [facility] [address] [address] [address] Yasmany Claros IG # 0.03 10e3/ul Normal 0.00-0.03 [facility] Comment on above: Performed By: #### C BC #### [facility] [address] [address] [address] Yasmany Claros IG % 0.5 % Normal 0.0-0.5 [facility] Comment on above: Performed By: #### C BC #### [facility] [address] [place] [address] Dr. Yasmany Claros LYMPH # 1.0 103/ul Critically low 1.2-3.8 [facility] Comment on above: Performed By: #### C BC #### [facility] [address] [place] [address] Dr. Yasmany Claros Lymphocytes/100 WBC (Bld) 17.5 % Critically low 20.5-60.0 [facility] Comment on above: Performed By: #### C BC #### [facility] [address] [place] [address] Dr. Yasmany Claros MANUAL DIFF REQ NO Normal [place] Comment on above: Performed By: #### C BC #### [facility] [address] [place] [address] Dr. Yasmany Claros MCH (RBC) [Entitic mass] 26.6 pg Normal 25.9-34.0 [facility] Comment on above: Performed By: #### C BC #### [facility] [address] [place] [address] Dr. Yasmnay Claros MCHC (RBC) [Mass/Vol] 32.5 g/dL Normal 29.9-35.2 [facility] Comment on above: Performed By: #### C BC #### [facility] [address] [place] [address] Dr. Yasmany Claros MCV (RBC) [Entitic vol] 81.7 fL Normal 80.0-94.0 [facility] Comment on above: Performed By: #### C BC #### [facility] [address] [place] [address] Dr. Yasmany Claros MONO # 0.4 103/ul Normal 0.3-0.8 [facility] Comment on above: Performed By: #### C BC #### [facility] [address] [place] [address] Dr. Yasmany Claros Monocytes/100 WBC (Bld) 7.0 % Normal 1.7-12.0 [facility] Comment on above: Performed By: #### C BC #### [facility] [address] [place] [address] Dr. Yasmany Claros NEUT # 4.2 103/ul Normal 1.4-6.5 [facility] Comment on above: Performed By: #### C BC #### [facility] [address] [place] [address] Dr. Yasmany Claros Neutrophils/100 WBC (Bld) 74.2 % Normal 43.0-75.0 [facility] Comment on above: Performed By: #### C BC #### [facility] [address] [place] [address] Dr. Yasmany Claros Platelet mean volume (Bld) [Entitic vol] 10.9 fL Normal 9.5-13.5 [facility] Comment on above: Performed By: #### C BC #### [facility] [address] [place] [address] Dr. Yasmany Claros PLT 153 103/ul Normal 150-450 [facility] Comment on above: Performed By: #### C BC #### [facility] [address] [place] [address] Dr. Yasmany Claros RBC 4.97 106/ul Normal 4.70-6.10 [facility] Comment on above: Performed By: #### C BC #### [facility] [address] [place] [address] Dr. Yasmany Claros WBC 5.7 103/ul Normal 4.0-11.0 [facility] Comment on above: Performed By: #### C BC #### [facility] [address] [place] [address] Dr. Yasmany Claros ER URINE PROFILEon 3 Bilirubin Ql (U) Negative Normal NEGATIVE [facility] Comment on above: Performed By: #### E RUR, UMICRO #### [facility] [address] [place] [address] Dr. Yasmany Claros Clarity (U) CLEAR Normal CLEAR [facility] Comment on above: Performed By: #### E RUR, UMICRO #### [facility] [address] [place] [address] Dr. Yasmany Claros Color (U) LT. YELLOW Normal YELLOW [facility] Comment on above: Performed By: #### E RUR UMICRO #### [facility] [address] [place] [address] Dr. Yasmany HOFF A micrscopic examina tion will be performed if indicated. Normal [facility] Comment on above: Performed By: #### Eusebia LAUGHLIN UMICRO #### [facility] [address] [place] [address] Dr. Yasmany Claros Glucose Ql (U) Negative Normal NEGATIVE [facility] Comment on above: Performed By: #### Eusebia ADKINSR UMICRO #### [facility] [address] [place] [address] Dr. Yasmany Claros Hemoglobin Ql (U) TRACE-INTACT Abnormal NEGATIVE [facility] Comment on above: Performed By: #### Eusebia LAUGHLIN, UMICRO #### [facility] [address] [place] [address] Dr. Yasmany Claros Ketones Ql (U) Negative Normal NEGATIVE [facility] Comment on above: Performed By: #### Eusebia RUR, UMICRO #### [facility] [address] [place] [address] Dr. Yasmany Claros LEUKOCYTES Negative Normal NEGATIVE [facility] Comment on above: Performed By: #### E RUR, UMICRO #### [facility] [address] [place] [address] Dr. Yasmany Claros Nitrite Ql (U) Negative Normal NEGATIVE [facility] Comment on above: Performed By: #### Euesbia RUR, UMICRO #### [facility] [address] [place] [address] Dr. Yasmany Claros pH (U) 5.5 [pH] Normal 5-9 [facility] Comment on above: Performed By: #### GIULIA BRINKRO #### [facility] [address] [place] [address] Dr. Yasmany Claros SPEC GRAVITY 1.020 Normal 1.005-<=1.0 25 [facility] Comment on above: Performed By: #### GIULIA BRINKRO #### [facility] [address] [place] [address] Dr. Yasmany Claros UA PROTEIN Negative Normal NEGATIVE/ TRACE [facility] [facility] Comment on above: Performed By: #### AGUSTÍN BRINK #### [facility] [address] [place] [address] Dr. Yasmany Claros UR MICRO IND INDICATED Normal [facility] Comment on above: Performed By: #### GIULIA BRINKRO #### [facility] [address] [place] [address] Dr. Yasmany Clraos Urobilinogen Qn (U) 0.2 {Aarti'U}/dL Normal 0.2 - 1.0 [facility] Comment on above: Performed By: #### GIULIA BRINKRO #### [facility] [address] [place] [address] Dr. Yasmany Claros LACTATE/LACTIC ACIDon 2022 Lactate [Moles/Vol] 3.0 mmol/L Critically high 0.4-2.0 [facility] Comment on above: Performed By: #### L ACT #### [facility] [address] [place] [address] Dr. Yasmany Claros LIPASEon 01-03-2023 Lipase [Catalytic activity/Vol] 169.0 U/L Normal 73.0-393.0 [facility] Comment on above: Performed By: #### C VDTBH #### [facility] [address] [place] [address] Dr. Yasmany Claros PROF 14(COMP METB)on 03-17-2 023 Albumin [Mass/Vol] 3.9 g/dL Normal 3.4-5.0 [facility] Comment on above: Performed By: #### C VDTBH #### [facility] [address] [place] [address] Dr. Yasmany Claros Albumin/Globulin [Mass ratio] 1.0 {ratio} Normal [facility] Comment on above: Performed By: #### C VDTBH #### [facility] [address] [place] [address] Dr. Yasmany Claros ALP [Catalytic activity/Vol] 83 U/L Normal 46-116 [facility] Comment on above: Performed By: #### C VDTBH #### [facility] [address] [place] [address] Dr. Yasmany Claros ALT [Catalytic activity/Vol] 88 U/L Critically high 16-63 [facility] Comment on above: Performed By: #### C VDTBH #### [facility] [address] [place] [address] Dr. Yasmany Claros Anion gap [Moles/Vol] 11.2 mmol/L Normal [facility] Comment on above: Performed By: #### C VDTBH #### [facility] [address] [place] [address] Dr. Yasmany Claros AST [Catalytic activity/Vol] 94 U/L Critically high 15-37 [facility] Comment on above: Performed By: #### C VDTBH #### [facility] [address] [place] [address] Dr. Yasmany Claros Bilirubin [Mass/Vol] 0.6 mg/dL Normal 0.2-1.0 [facility] Comment on above: Performed By: #### C VDTBH #### [facility] [address] [place] [address] Dr. Yasmany Claros Calcium [Mass/Vol] 9.8 mg/dL Normal 8.5-10.1 [facility] Comment on above: Performed By: #### C VDTBH #### [facility] [address] [place] [address] Dr. Yasmany Claros Chloride [Moles/Vol] 105 mmol/L Normal 98-107 [facility] Comment on above: Performed By: #### C VDTBH #### [facility] [address] [place] [address] Dr. Yasmany Claros CO2 [Moles/Vol] 28.8 mmol/L Normal 21.0-32.0 [facility] Comment on above: Performed By: #### C VDTBH #### [facility] [address] [place] [address] Dr. Yasmany Claros Creatinine [Mass/Vol] 0.83 mg/dL Normal 0.70-1.30 [facility] Comment on above: Performed By: #### C VDTBH #### [facility] [address] [place] [address] Dr. Yasmany Claros EGFR-AF SALVADOREAN >60 Normal >=60 [facility] Comment on above: Performed By: #### C VDTBH #### [facility] [address] [place] [address] Dr. Yasmany Claros EGFR-NON AF SALVADOREAN >60 Normal >=60 [facility] Comment on above: Performed By: #### C VDTBH #### [facility] [address] [place] [address] Dr. Yasmany Claros Globulin (S) [Mass/Vol] 4.0 g/dL Normal [facility] Comment on above: Performed By: #### C VDTBH #### [facility] [address] [place] [address] Dr. Yasmany Claros Glucose [Mass/Vol] 145 mg/dL Critically high 74-106 [facility] Comment on above: Performed By: #### C VDTBH #### [facility] [address] [place] [address] Dr. Yasmany Claros Potassium [Moles/Vol] 4.0 mmol/L Normal 3.5-5.1 [facility] Comment on above: Performed By: #### C VDTBH #### [facility] [address] [place] [address] Dr. Yasmany Claros Protein [Mass/Vol] 7.9 g/dL Normal 6.4-8.2 [facility] Comment on above: Performed By: #### C VDTBH #### [facility] [address] [place] [address] Dr. Yasmany Claros Sodium [Moles/Vol] 141 mmol/L Normal 136-145 [facility] Comment on above: Performed By: #### C VDTBH #### [facility] [address] [place] [address] Dr. Yasmany Claros Urea nitrogen [Mass/Vol] 10.0 mg/dL Normal 7.0-18.0 [facility] Comment on above: Performed By: #### C VDTBH #### [facility] [address] [place] [address] Dr. Yasmany Claros Urea nitrogen/Creatini ne [Mass ratio] 12.0 mg/mg Normal [facility] Comment on above: Performed By: #### C VDTBH #### [facility] [address] [place] [address] Dr. Yasmany Claros TROPONIN, HIGH SENSITIVITYon 01-03-2023 HSTROP 4.5 pg/mL Normal 4.0-76.1 [facility] Comment on above: Result Comment: CUT- OFF POINTS HAVE BEEN ESTABLISHED BASED ON THE FOURTH UNIVERSAL DEFINITIONS OF MYOCARDIAL INFARCTION. THE UPPER REFERENCE LIMIT (URL) OF TROPONIN, DEFINED THE 99TH PERCENTILE OF cTnI DISTRIBUTION IN A REFERENCE POPULATION, HAS BEEN CONFIRMED THE DECISION THRESHOLD FOR GA DIAGNOSIS. Performed By: #### C VDTBH #### [facility] [address] [place] [address] Dr. Yasmany Claros URINE MICROSCOPIC ONLYon BACTERIA NONE SEEN Normal NONE SEEN [facility] Comment on above: Performed By: #### GIULIA BRINKRO #### [facility] [address] [place] [address] Dr. Yasmany Claros Bacteria identified Cx Nom (U) NOT INDICATED Normal [facility] Comment on above: Performed By: #### GIULIA BRINKRO #### [facility] [address] [place] [address] Dr. Yasmany Claros CAST SEEN Abnormal NONE SEEN [facility] Comment on above: Performed By: #### E RUR, UMICRO #### [facility] [address] [address] [address] Yasmany Claros Crystals LM Nom (Urine sed) NONE SEEN Normal NONE SEEN [facility] Comment on above: Performed By: #### E RUR, UMICRO #### [facility] [address] [address] [address] Yasmany Claros Epithelial cells LM Ql (Urine sed) NONE SEEN Normal NONE SEEN /RARE [facility] Comment on above: Performed By: #### E RUR, UMICRO #### [facility] [address] [address] [address] Yasmany Claros MUCOUS NONE SEEN Normal NONE SEEN [facility] Comment on above: Performed By: #### E RUR, UMICRO #### [facility] [address] [place] [address] Dr. Yasmany Claros RBC NONE SEEN Abnormal 0-2 [facility] Comment on above: Performed By: #### E RUR, UMICRO #### [facility] [address] [place] [address] Dr. Yasmany Claros WBC NONE SEEN Normal NONE SEEN [facility] Comment on above: Performed By: #### E RUR, UMICRO #### [facility] [address] [place] [address] Dr. Yasmany Claros US SINGLE QUAD RT [...] LUIS DOMINGUEZ Date: 2023-01-03 09:06 Normal [facility] Covid-19 PCR (CVDTB)on 07-21 SARS-CoV-2 (COVID-19) RNA MARS+probe Ql (Unsp spec) Not detected Normal NOT DETECTED [facility] Comment on above: Result Comment: This test is not yet approved or cleared by the [place] FDA. When there are no FDA-approved or cleared tests available, and other criteria are met, FDA can make tests available under an emergency access mechanism called an Emergency Use Authorization (EUA). The EUA for this test is supported by the [place] of Health and Human Service's (HHS's) declaration [...] consistent with SARS-CoV-2. Performed By: #### C BC #### [facility] [address] [place] [address] Dr. Yasmany Claros Covid-19 PCR (CVDTB)on 06-22 SARS-CoV-2 (COVID-19) RNA MARS+probe Ql (Unsp spec) Not detected Normal NOT DETECTED [facility] Comment on above: Result Comment: This test is not yet approved or cleared by the [place] FDA. When there are no FDA-approved or cleared tests available, and other criteria are met, FDA can make tests available under an emergency access mechanism called an Emergency Use Authorization (EUA). The EUA for this test is supported by the [place] of Health and Human Service's (HHS's) declaration [...] consistent with SARS-CoV-2. Performed By: #### [facility] #### [facility] [address] [place] [address] CHEST WO CONon [...] at 18-24 months. Electronically authenticated by: JHON MERCADO Date: 2022-05-15 12:57 Normal [facility] MRI KNEE LT WO CONon 022 MRI KNEE LT WO CON EXAMINATION: [...] 3. Large joint effusion. Electronically authenticated by: LUSI DOMINGUEZ Date: 2022-05-15 17:03 Normal [facility] CARDIAC ARTURO 3-6on 2 CK [Catalytic activity/Vol] 335 U/L Critically high 39-308 [facility] Comment on above: Result Comment: Test Repeated. Critical Value Verified Performed By: #### C MREP #### [facility] [address] [place] [address] Dr. Yasmany Claros CK.MB [Mass/Vol] 4.51 ng/mL Critically high <=3.60 [facility] Comment on above: Result Comment: Test Repeated. Critical Value Verified Performed By: #### C MREP #### [facility] [address] [place] [address] Dr. Yasmany Claros HSTROP 6.8 pg/mL Normal 4.0-76.1 [facility] Comment on above: Result Comment: CUT- OFF POINTS HAVE BEEN ESTABLISHED BASED ON THE FOURTH UNIVERSAL DEFINITIONS OF MYOCARDIAL INFARCTION. THE UPPER REFERENCE LIMIT (URL) OF TROPONIN, DEFINED THE 99TH PERCENTILE OF cTnI DISTRIBUTION IN A REFERENCE POPULATION, HAS BEEN CONFIRMED THE DECISION THRESHOLD FOR GA DIAGNOSIS. Performed By: #### C MREP #### [facility] [address] [place] [address] Dr. Yasmany Claros ER URINE PROFILEon 2 Bilirubin Ql (U) Negative Normal NEGATIVE [facility] Comment on above: Performed By: #### C VDTBH #### [facility] [address] [place] [address] Dr. Yasmany Claros Clarity (U) CLEAR Normal CLEAR [facility] Comment on above: Performed By: #### C VDTBH #### [facility] [address] [place] [address] Dr. Yasmany Claros Color (U) LT. YELLOW Normal YELLOW [facility] Comment on above: Performed By: #### C VDTBH #### [facility] [address] [place] [address] Dr. Yasmany HOFF A micrscopic examina tion will be performed if indicated. Normal [facility] Comment on above: Performed By: #### C VDTBH #### [facility] [address] [place] [address] Dr. aYsmany Claros Glucose Ql (U) Negative Normal NEGATIVE [facility] Comment on above: Performed By: #### C VDTBH #### [facility] [address] [place] [address] Dr. Yasmany Claros Hemoglobin Ql (U) Negative Normal NEGATIVE [facility] Comment on above: Performed By: #### C VDTBH #### [facility] [address] [place] [address] Dr. Yasmany Claros Ketones Ql (U) Negative Normal NEGATIVE [facility] Comment on above: Performed By: #### C VDTBH #### [facility] [address] [place] [address] Dr. Yasmany Claros LEUKOCYTES Negative Normal NEGATIVE [facility] Comment on above: Performed By: #### C VDTBH #### [facility] [address] [place] [address] Dr. Yasmany Claros Nitrite Ql (U) Negative Normal NEGATIVE [facility] Comment on above: Performed By: #### C VDTBH #### [facility] [address] [place] [address] Dr. Yasmany Claros pH (U) 6.0 [pH] Normal 5-9 [facility] Comment on above: Performed By: #### C VDTBH #### [facility] [address] [place] [address] Dr. Yasmany Claros SPEC GRAVITY 1.010 Normal 1.005-<=1.0 25 [facility] Comment on above: Performed By: #### C VDTBH #### [facility] [address] [place] [address] Dr. Yasmany Claros UA PROTEIN Negative Normal NEGATIVE/ TRACE [facility] Comment on above: Performed By: #### C VDTBH #### [facility] [address] [place] [address] Dr. Yasmany Claros UR MICRO IND NOT INDICATED Normal [facility] Comment on above: Performed By: #### C VDTBH #### [facility] [address] [place] [address] Dr. Yasmany Clarso Urobilinogen Qn (U) 0.2 {Aarti'U}/dL Normal 0.2 - 1.0 [facility] Comment on above: Performed By: #### C VDTBH #### [facility] [address] [place] [address] Dr. Yasmany Claros CARDIAC ARTURO ADMITon 022 CK [Catalytic activity/Vol] 356 U/L Critically high 39-308 [facility] Comment on above: Result Comment: Test Repeated. Critical Value Verified Performed By: #### C VDTBH #### [facility] [address] [place] [address] Dr. Yasmany Claros CK.MB [Mass/Vol] 5.11 ng/mL Critically high <=3.60 [facility] Comment on above: Result Comment: Test Repeated. Critical Value Verified Performed By: #### C VDTBH #### [facility] [address] [place] [address] Dr. Yasmany Claros HSTROP 6.3 pg/mL Normal 4.0-76.1 [facility] Comment on above: Result Comment: CUT- OFF POINTS HAVE BEEN ESTABLISHED BASED ON THE FOURTH UNIVERSAL DEFINITIONS OF MYOCARDIAL INFARCTION. THE UPPER REFERENCE LIMIT (URL) OF TROPONIN, DEFINED THE 99TH PERCENTILE OF cTnI DISTRIBUTION IN A REFERENCE POPULATION, HAS BEEN CONFIRMED THE DECISION THRESHOLD FOR GA DIAGNOSIS. Performed By: #### C VDTBH #### [facility] [address] [place] [address] Dr. Yasmany Claros BELLA 101 ng/mL Critically high 16-96 [facility] Comment on above: Performed By: #### C VDTBH #### [facility] [address] [place] [address] Dr. Yasmany Claros CBC AUTO DIFFon 02-08-2022 BASO # 0.0 103/ul Normal 0.0-0.1 [facility] Comment on above: Performed By: #### C VDTBH #### [facility] [address] [place] [address] Dr. Yasmany Claros Basophils/100 WBC (Bld) 0.8 % Normal 0.2-2.0 [facility] Comment on above: Performed By: #### C VDTBH #### [facility] [address] [place] [address] Dr. Yasmany Claros EO # 0.1 103/ul Normal 0.0-0.7 [facility] Comment on above: Performed By: #### C VDTBH #### [facility] [address] [place] [address] Dr. Yasmany Claros Eosinophils/100 WBC (Bld) 2.5 % Normal 0.9-7.0 [facility] Comment on above: Performed By: #### C VDTBH #### [facility] [address] [place] [address] Dr. Yasmany Claros Erythrocyte distribution width (RBC) [Ratio] 14.8 % Normal 11.0-15.0 [facility] Comment on above: Performed By: #### C VDTBH #### [facility] [address] [place] [address] Dr. Yasmany Claros Hematocrit (Bld) [Volume fraction] 41.0 % Critically low 42.0-54.0 [facility] Comment on above: Performed By: #### C VDTBH #### [facility] [address] [place] [address] Dr. Yasmany Claros Hemoglobin (Bld) [Mass/Vol] 13.3 g/dL Critically low 14.0-18.0 [facility] Comment on above: Performed By: #### C VDTBH #### [facility] [address] [place] [address] Dr. Yasmany Claros IG # 0.01 10e3/ul Normal 0.00-0.03 [facility] Comment on above: Performed By: #### C VDTBH #### [facility] [address] [place] [address] Dr. Yasmany Claros IG % 0.2 % Normal 0.0-0.5 [facility] Comment on above: Performed By: #### C VDTBH #### [facility] [address] [place] [address] Dr. Yasmany Claros LYMPH # 1.3 103/ul Normal 1.2-3.8 [facility] Comment on above: Performed By: #### C VDTBH #### [facility] [address] [address] [address] Yasmany Claros Lymphocytes/100 WBC (Bld) 26.1 % Normal 20.5-60.0 [facility] Comment on above: Performed By: #### C VDTBH #### [facility] [address] [place] [address] Dr. Yasmany Claros MANUAL DIFF REQ NO Normal [place] Comment on above: Performed By: #### C VDTBH #### [facility] [address] [place] [address] Dr. Yasmany Claros MCH (RBC) [Entitic mass] 26.9 pg Normal 25.9-34.0 [facility] Comment on above: Performed By: #### C VDTBH #### [facility] [address] [place] [address] Dr. Yasmany Clraos MCHC (RBC) [Mass/Vol] 32.4 g/dL Normal 29.9-35.2 [facility] Comment on above: Performed By: #### C VDTBH #### [facility] [address] [place] [address] Dr. Yasmany Claros MCV (RBC) [Entitic vol] 82.8 fL Normal 80.0-94.0 [facility] Comment on above: Performed By: #### C VDTBH #### [facility] [address] [place] [address] Dr. Yasmany Claros MONO # 0.4 103/ul Normal 0.3-0.8 [facility] Comment on above: Performed By: #### C VDTBH #### [facility] [address] [place] [address] Dr. Yasmany Claros Monocytes/100 WBC (Bld) 8.6 % Normal 1.7-12.0 [facility] Comment on above: Performed By: #### C VDTBH #### [facility] [address] [place] [address] Dr. Yasmany Claros NEUT # 3.2 103/ul Normal 1.4-6.5 [facility] Comment on above: Performed By: #### C VDTBH #### [facility] [address] [place] [address] Dr. Yasmany Claros Neutrophils/100 WBC (Bld) 61.8 % Normal 43.0-75.0 [facility] Comment on above: Performed By: #### C VDTBH #### [facility] [address] [place] [address] Dr. Yasmany Claros Platelet mean volume (Bld) [Entitic vol] 10.7 fL Normal 9.5-13.5 [facility] Comment on above: Performed By: #### C VDTBH #### [facility] [address] [place] [address] Dr. Yasmany Claros PLT 163 103/ul Normal 150-450 [facility] Comment on above: Performed By: #### C VDTBH #### [facility] [address] [place] [address] Dr. Yasmany Claros RBC 4.95 106/ul Normal 4.70-6.10 [facility] Comment on above: Performed By: #### C VDTBH #### [facility] [address] [place] [address] Dr. Yasmany Claros WBC 5.1 103/ul Normal 4.0-11.0 [facility] Comment on above: Performed By: #### C VDTBH #### [facility] [address] [place] [address] ABD/PELV W CONon [...] by: REI ORTIZ Date: 2022-02-08 21:07 Normal [facility] CT CHEST W CONon 02-08-2022 CT CHEST [...] The subdiaphragmatic abdominal organs included in the [id number] do not demonstrate any acute abnormality with [...] pulmonary nodules can be found at: http://pubs.rsna.org/doi/abs/ [email or web address] Electronically authenticated by: INDIGO JANEY Date: 2022-02-08 21:19 Normal [facility] LACTATE/LACTIC ACIDon 2021 Lactate [Moles/Vol] 1.3 mmol/L Normal 0.4-2.0 [facility] Comment on above: Performed By: #### L ACT #### [facility] [address] [place] [address] Dr. Yasmany Claros LIPASEon 02-08-2022 Lipase [Catalytic activity/Vol] 92.0 U/L Normal 73.0-393.0 [facility] Comment on above: Performed By: #### C VDTBH #### [facility] [address] [place] [address] Dr. Yasmany Claros PROF 14(COMP METB)on 022 Albumin [Mass/Vol] 4.1 g/dL Normal 3.4-5.0 [facility] Comment on above: Performed By: #### C VDTBH #### [facility] [address] [place] [address] Dr. Yasmany Claros Albumin/Globulin [Mass ratio] 1.0 {ratio} Normal [facility] Comment on above: Performed By: #### C VDTBH #### [facility] [address] [place] [address] Dr. Yasmany Claros ALP [Catalytic activity/Vol] 62 U/L Normal 46-116 [facility] Comment on above: Performed By: #### C VDTBH #### [facility] [address] [place] [address] Dr. Yasmany Claros ALT [Catalytic activity/Vol] 52 U/L Normal 16-63 [facility] Comment on above: Performed By: #### C VDTBH #### [facility] [address] [place] [address] Dr. Yasmany Claros Anion gap [Moles/Vol] 10.3 mmol/L Normal [facility] Comment on above: Performed By: #### C VDTBH #### [facility] [address] [place] [address] Dr. Yasmany Claros AST [Catalytic activity/Vol] 31 U/L Normal 15-37 [facility] Comment on above: Performed By: #### C VDTBH #### [facility] [address] [place] [address] Dr. Yasmany Claros Bilirubin [Mass/Vol] 0.4 mg/dL Normal 0.2-1.3 [facility] Comment on above: Performed By: #### C VDTBH #### [facility] [address] [place] [address] Dr. Yasmany Claros Calcium [Mass/Vol] 9.1 mg/dL Normal 8.5-10.1 [facility] Comment on above: Performed By: #### C VDTBH #### [facility] [address] [place] [address] Dr. Yasmany Claros Chloride [Moles/Vol] 99 mmol/L Normal 98-107 [facility] Comment on above: Performed By: #### C VDTBH #### [facility] [address] [place] [address] Dr. Yasmany Claros CO2 [Moles/Vol] 30.8 mmol/L Normal 21.0-32.0 [facility] Comment on above: Performed By: #### C VDTBH #### [facility] [address] [place] [address] Dr. Yasmany Claros Creatinine [Mass/Vol] 0.96 mg/dL Normal 0.70-1.30 [facility] Comment on above: Performed By: #### C VDTBH #### [facility] [address] [place] [address] Dr. Yasmany Claros EGFR-AF SALVADOREAN >60 Normal >=60 [facility] Comment on above: Performed By: #### C VDTBH #### [facility] [address] [place] [address] Dr. Yasmany Claros EGFR-NON AF SALVADOREAN >60 Normal >=60 [facility] Comment on above: Performed By: #### C VDTBH #### [facility] [address] [place] [address] Dr. Yasmany Claros Globulin (S) [Mass/Vol] 4.0 g/dL Normal [facility] Comment on above: Performed By: #### C VDTBH #### [facility] [address] [place] [address] Dr. Yasmany Claros Glucose [Mass/Vol] 104 mg/dL Normal 74-106 [facility] Comment on above: Performed By: #### C VDTBH #### [facility] [address] [place] [address] Dr. Yasmany Claros Potassium [Moles/Vol] 4.1 mmol/L Normal 3.5-5.1 [facility] Comment on above: Performed By: #### C VDTBH #### [facility] [address] [place] [address] Dr. Yasmany Claros Protein [Mass/Vol] 8.1 g/dL Normal 6.1-8.2 [facility] Comment on above: Performed By: #### C VDTBH #### [facility] [address] [place] [address] Dr. Yasmany Claros Sodium [Moles/Vol] 136 mmol/L Normal 136-145 [facility] Comment on above: Performed By: #### C VDTBH #### [facility] [address] [place] [address] Dr. Yasmany Claros Urea nitrogen [Mass/Vol] 15.0 mg/dL Normal 7.0-18.0 [facility] Comment on above: Performed By: #### C VDTBH #### [facility] [address] [place] [address] Dr. Yasmany Claros Urea nitrogen/Creatini ne [Mass ratio] 15.6 mg/mg Normal [facility] Comment on above: Performed By: #### C VDTBH #### [facility] [address] [place] [address] Dr. Yasmany Claros PROTIMEon 02-08-2022 INR Coag (PPP) [Relative time] 1.03 {INR} Normal [facility] Comment on above: Performed By: #### P T, PTT #### [facility] [address] [place] [address] Dr. Yasmany Claros INR GUIDELINES SEE BELOW Normal [facility] Comment on above: Result Comment: FELICIA RED INR: 2.0 - 3.0 CONDITIONS NOT LISTED BELOW 2.5 - 3.5 FOR PROSTHETIC HEART VALVE REPLACEMENT 2.5 - 3.5 RECURRENT THROMBOSIS Performed By: #### P T, PTT #### [facility] [address] [place] [address] Dr. Yasmany Claros PT Coag (PPP) [Time] 11.1 s Normal 9.0-11.6 [facility] Comment on above: Performed By: #### P T, PTT #### [facility] [address] [place] [address] Dr. Yasmany Claros PTTon 02-08-2022 aPTT Coag (Bld) [Time] 25.6 s Normal 22.3-36.2 [facility] Comment on above: Performed By: #### P T, PTT #### [facility] [address] [place] [address] Dr. Yasmany Claros TSHon 02-08-2022 TSH 4.797 uIU/mL Critically high 0.470-4.680 [facility] Comment on above: Performed By: #### C VDTBH #### [facility] [address] [place] [address] Dr. Yasmany Claros TSH RANGE SEE BELOW Normal [facility] Comment on above: Result Comment: <0.3 4 UIU/ml HYPERTHYROID 0.34-5.60 UIU/ml EUTHYROID >5.60 UIU/ml HYPOTHYROID Performed By: #### C VDTBH #### [facility] [address] [place] [address] Dr. Yasmany Claros HIP LEFT 1 OR 2 VWS WITH PEL VISon 03-18-2019 HIP LEFT 1 OR 2 VWS WITH PELVIS [facility] Department of Radiology [address] [place] [id number] Patient Name: SADIQ DELAROSA : 1960 Sex: M Age: Race: White Pt. 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 I, Tiffanie Sol, have reviewed the images and report and concur with these findings. Electronically signed by:Tiffanie Sol. Transcribed by: [email or web address], User Resident: FERNANDO HUNTLEY Electronically Signed by: TIFFANIE SOL @ 03/19/2019 02:14 PM I personally read this/these film(s) with this resident Normal [facility] Comment on above: Order Comment: , , = ========= , Ordering Provider - MARTIN RHODES MD , Operative Reporton 9 Operative Report MR#: [id number] I [facility] Pt. Name: Sadiq Delarosa Room #: 4CD [id number] Discharge 03/05/2019 Date: Birthdate: 1960 OPERATIVE REPORT DATE OF SURGERY: 03/04/2019 SURGEON: Martin Rhodes M.D. CLINICAL ACADEMIC ALLERGIST: Rj Valladares ANESTHESIA: General anesthesia. ESTIMATED BLOOD [...] Archana/Martin Rhodes M.D. Date Trans: 03/08/2019 07:59 Geraldine [id number] cc: Fernando Torre D.O. [address] [place] [phone] Jett Hagan DO [address] [facility] [address] Normal [facility] BASIC METABOLIC PANELon 02-17 Calcium [Mass/Vol] 8.8 mg/dL Normal 8.6-10.3 [facility] Comment on above: Order Comment: No: D o not add to previous draw Performed By: #### 5 0103 #### [facility] [address] [address], [facility] Chloride [Moles/Vol] 103 mmol/L Normal 98-107 [facility] Comment on above: Order Comment: No: D o not add to previous draw Performed By: #### 5 0103 #### [facility] [address] [place] [address], [place] CO2 [Moles/Vol] 27 mmol/L Normal 21-31 [facility] Comment on above: Order Comment: No: D o not add to previous draw Performed By: #### 5 0103 #### [facility] [address] [place] [address], [place] Creatinine [Mass/Vol] 0.78 mg/dL Normal 0.70-1.30 [facility] Comment on above: Order Comment: No: D o not add to previous draw Performed By: #### 5 0103 #### [facility] [address] [place] [address], [place] GFR/1.73 sq M predicted among blacks MDRD (S/P/Bld) [Vol rate/Area] mL/min/{1.73_m2} Normal >60 [facility] Comment on above: Order Comment: No: D o not add to previous draw Performed By: #### 5 0103 #### [facility] [address] [place] [address], [place] GFR/1.73 sq M predicted among non-blacks MDRD (S/P/Bld) [Vol rate/Area] mL/min/{1.73_m2} Normal >60 [facility] Comment on above: Order Comment: No: D o not add to previous draw Performed By: #### 5 0103 #### [facility] [address] [place] [address], [place] Glucose [Mass/Vol] 91 mg/dL Normal 70-100 [facility] Comment on above: Order Comment: No: D o not add to previous draw Performed By: #### 5 0103 #### [facility] [address] [place] [address], [place] Potassium [Moles/Vol] 4.2 mmol/L Normal 3.5-5.1 [facility] Comment on above: Order Comment: No: D o not add to previous draw Performed By: #### 5 0103 #### [facility] [address] [place] [address], [facility] Sodium [Moles/Vol] 135 mmol/L Low 136-145 [facility] Comment on above: Order Comment: No: D o not add to previous draw Performed By: #### 5 0103 #### [facility] [address] [facility]. [address] Urea nitrogen [Mass/Vol] 10 mg/dL Normal 7-25 [facility] Comment on above: Order Comment: No: D o not add to previous draw Performed By: #### 5 0103 #### [facility] [address] [facility] [address], [facility] CBC W/DIFFon 03-05-2019 ABS BASOPHILS 0.0 10*3/uL Normal 0.0-0.2 [facility] Comment on above: Order Comment: No: D o not add to previous draw Performed By: #### 5 6506 #### [facility] [address] [facility] [address], [facility] ABS IMM GRANS 0.0 10*3/uL Normal 0.0-0.2 [facility] Comment on above: Order Comment: No: D o not add to previous draw Performed By: #### 5 6506 #### [facility] [address] [facility] [address], [facility] ABS NEUTROPHILS 4.3 10*3/uL Normal 1.6-7.6 [facility] Comment on above: Order Comment: No: D o not add to previous draw Performed By: #### 5 6506 #### [facility] [address] [place] [address], [facility] Basophils/100 WBC (Bld) 0.3 % Normal 0.0-1.0 [facility] Comment on above: Order Comment: No: D o not add to previous draw Performed By: #### 5 6506 #### [facility] [address] [place] [address], [facility] Eosinophils (Bld) [#/Vol] 0.1 10*3/uL Normal 0.0-0.5 [facility] Comment on above: Order Comment: No: D o not add to previous draw Performed By: #### 5 6506 #### [facility] [address] [place] [address], [facility] Eosinophils/100 WBC (Bld) 0.8 % Normal 0.0-6.0 [facility] Comment on above: Order Comment: No: D o not add to previous draw Performed By: #### 5 6506 #### [facility] [address] [facility] [address] Erythrocyte distribution width (RBC) [Ratio] 14.7 % Normal 11.5-15.0 [facility] Comment on above: Order Comment: No: D o not add to previous draw Performed By: #### 5 6506 #### [facility] [address] [facility]. [address] Hematocrit (Bld) [Volume fraction] 36.3 % Low 39.0-50.0 [facility] Comment on above: Order Comment: No: D o not add to previous draw Performed By: #### 5 6506 #### [facility] [address] [facility] [place] [address], [facility] Hemoglobin (Bld) [Mass/Vol] 11.6 g/dL Low 13.0-17.0 [facility] Comment on above: Order Comment: No: D o not add to previous draw Performed By: #### 5 6506 #### [facility] [address] [place] [address], [facility] IMMATURE GRANS 0.5 % Normal 0.0-1.0 [facility] Comment on above: Order Comment: No: D o not add to previous draw Performed By: #### 5 6506 #### [facility] [address] [place] [address], [facility] Lymphocytes (Bld) [#/Vol] 1.0 10*3/uL Low 1.2-4.0 [facility] Comment on above: Order Comment: No: D o not add to previous draw Performed By: #### 5 6506 #### [facility] [address] [place] [address], [facility] Lymphocytes/100 WBC (Bld) 16.3 % Low 20.0-45.0 [facility] Comment on above: Order Comment: No: D o not add to previous draw Performed By: #### 5 6506 #### [facility] [address] [place] [id number], [facility] MCH (RBC) [Entitic mass] 26.4 pg Low 27.0-33.0 [facility] Comment on above: Order Comment: No: D o not add to previous draw Performed By: #### 5 6506 #### [facility] [address] [facility] [place] [address], [facility] MCHC (RBC) [Mass/Vol] 32.0 g/dL Normal 32.0-35.0 [facility] Comment on above: Order Comment: No: D o not add to previous draw Performed By: #### 5 6506 #### [facility] [address] [place] [id number], [facility] MCV (RBC) [Entitic vol] 82.5 fL Normal 82.0-98.0 [facility] Comment on above: Order Comment: No: D o not add to previous draw Performed By: #### 5 6506 #### [facility] [address] [place] [id number], [facility] Monocytes (Bld) [#/Vol] 0.6 10*3/uL Normal 0.1-1.0 [facility] Comment on above: Order Comment: No: D o not add to previous draw Performed By: #### 5 6506 #### [facility] [address] [place] [id number], [facility] MONOS 10.3 % Normal 5.0-12.0 [facility] Comment on above: Order Comment: No: D o not add to previous draw Performed By: #### 5 6506 #### [facility] [address] [place] [address], [facility] Neutrophils/100 WBC (Bld) 71.8 % Normal 40.0-72.0 [facility] Comment on above: Order Comment: No: D o not add to previous draw Performed By: #### 5 6506 #### [facility] [address] [place] [address], [facility] Nucleated RBC/100 WBC (Bld) [Ratio] 0 % Normal 0-0 [facility] Comment on above: Order Comment: No: D o not add to previous draw Performed By: #### 5 6506 #### [facility] [address] [place] [address], [facility] PLAT CNT 150 10*3/uL Normal 150-400 [facility] Comment on above: Order Comment: No: D o not add to previous draw Performed By: #### 5 6506 #### [facility] [address] [place] [address], [facility] RBC (Bld) [#/Vol] 4.40 10*6/uL Normal 4.20-5.70 [facility] Comment on above: Order Comment: No: D o not add to previous draw Performed By: #### 5 6506 #### [facility] [address] [place] [address], [place] WBC (Bld) [#/Vol] 6.02 10*3/uL Normal 4.00-10.60 [facility] Comment on above: Order Comment: No: D o not add to previous draw Performed By: #### 5 6506 #### [facility] [address] [facility] [address], [facility] *ANAEROBIC CULTUREon 019 *ANAEROBIC CULTURE Clinical Report: (D) Specimen/Source: TISSUE/#2 LT HIP Collected: 03/04/2019 09:55 Status: Final Last Updated: 03/09/2019 09:49 CULT RES (Final) No Anaerobes Isolated 5 Days Normal [facility] Comment on above: Performed By: #### 5 6506 #### [facility] [address] [facility] [place] [address], [facility] *ANAEROBIC CULTURE Clinical Report: (D) Specimen/Source: FLUID/#1 LT HIP JOINT Collected: 03/04/2019 09:55 Status: Final Last Updated: 03/09/2019 09:49 CULT RES (Final) No Anaerobes Isolated 5 Days Normal [facility] Comment on above: Performed By: #### 5 6506 #### [facility] [address] [place] [place] [address], [facility] *ANAEROBIC CULTURE Clinical Report: (D) Specimen/Source: TISSUE/#3 LT HIP Collected: 03/04/2019 09:56 Status: Final Last Updated: 03/09/2019 09:49 CULT RES (Final) No Anaerobes Isolated 5 Days Normal [facility] Comment on above: Performed By: #### 5 6506 #### [facility] [address] [place] [place] [address], [facility] *BODY FLUID CULTUREon 2018 *BODY FLUID CULTURE Clinical Report: (D) Specimen/Source: FLUID/INTRAOP SPEC Collected: 03/04/2019 09:55 Status: Final Last Updated: 03/09/2019 08:53 (1) #1 LT JOINT GRAM (Final) Rare Polys No Bacteria Seen CULT RES (Final) No Growth Day 5 Normal [facility] Comment on above: Order Comment: #1 LT JOINT Performed By: #### 5 [id number] #### [facility] [address] [facility] [place] [address], [facility] *TISSUE CULTUREon 03-04-2019 *TISSUE CULTURE Clinical Report: (D) Specimen/Source: TISSUE/INTRAOP SPEC Collected: 03/04/2019 09:55 Status: Final Last Updated: 03/09/2019 08:53 (1) #2 LT HIP ANTERIOR GRAM (Final) Rare Polys No Bacteria Seen CULT RES (Final) No Growth Day 5 Normal [facility] Comment on above: Order Comment: #2 LT HIP ANTERIOR Performed By: #### 5 6506 #### [facility] [address] [place], [place] [id number] [place] [address] *TISSUE CULTURE Clinical Report: (D) Specimen/Source: TISSUE/INTRAOP SPEC Collected: 03/04/2019 09:56 Status: Final Last Updated: 03/09/2019 08:53 (1) #3 LT HIP INFERIOR GRAM (Final) Few Polys No Bacteria Seen CULT RES (Final) No Growth Day 5 Normal [facility] Comment on above: Order Comment: #3 LT HIP INFERIOR Performed By: #### 5 6506 #### [address] POC GLUCOSE LABon 03-04-2019 Glucose [Mass/Vol] 89 mg/dL Normal 70-100 [facility] Comment on above: Performed By: #### 5 6506 #### [id number] [place] [address] PORTABLE HIP LEFT 1 OR 2 VWS WITH PELVISon 03-04-2019 PORTABLE HIP LEFT 1 OR 2 VWS WITH PELVIS [facility] Department of Radiology [address] [place] [phone] Patient Name: SADIQ DELAROSA : 1960 [...] loosening Electronically signed by:Alfred Sandoval. Transcribed by: [email or web address], User Resident: Electronically Signed by: ALFRED SANDOVAL @ 03/04/2019 04:54 PM Normal [facility] Comment on above: Order Comment: Hardw are Evaluation RBC'S 2 UNITSon 03-04-2019 CROSSMATCH INTERP 1 COMP Normal [facility] Comment on above: Performed By: #### 5 6506 #### [facility] [address] [place] [address], [place] CROSSMATCH INTERP 2 COMP Normal [facility] Comment on above: Performed By: #### 5 6506 #### [facility] [address] [place] [address], [place] PRODUCT CODE 1 E0336 Normal [facility] Comment on above: Performed By: #### 5 6506 #### [facility] [address] [place] [address], [place] PRODUCT CODE 2 E0336 Normal [facility] Comment on above: Performed By: #### 5 6506 #### [facility] [address] [place] [address], [place] PRODUCT STATUS 1 RE Normal [facility] Comment on above: Result Comment: Resu lt changed by IF on 03/07/2019 07:43. The previous value was XM. Performed By: #### 5 6506 #### [facility] [address] [place] [address], [place] PRODUCT STATUS 2 RE Normal [facility] Comment on above: Result Comment: Resu lt changed by IF on 03/07/2019 07:43. The previous value was XM. Performed By: #### 5 6506 #### [facility] [address] [place] [address], [place] UNIT ABO 1 A Normal [facility] Comment on above: Performed By: #### 5 6506 #### [facility] [address] [place] [address], [place] UNIT ABO 2 A Normal [facility] Comment on above: Performed By: #### 5 6506 #### [facility] [address] [place] [address], [place] UNIT ID 1 [id number] Normal [facility] Comment on above: Performed By: #### 5 6506 #### [facility] [address] [place] [address], [place] UNIT ID 2 [id number] Normal [facility] Comment on above: Performed By: #### 5 6506 #### [facility] [address] [place] [address], [place] UNIT RH 1 Positive Normal [facility] Comment on above: Performed By: #### 5 6506 #### [facility] [address] [place] [address], [facility] UNIT RH 2 Positive Normal [facility] Comment on above: Performed By: #### 5 6506 #### [facility] [address] [place] [address], [facility] BASIC METABOLIC PANELon 05-0 -2018 Calcium [Mass/Vol] 9.5 mg/dL Normal 8.6-10.3 [facility] Comment on above: Performed By: #### 0 0071 #### [facility] [address] [place] [address], [facility] Chloride [Moles/Vol] 103 mmol/L Normal 98-107 [facility] Comment on above: Performed By: #### 0 0071 #### [facility] [address] [place] [address], [facility] CO2 [Moles/Vol] 26 mmol/L Normal 21-31 [facility] Comment on above: Performed By: #### 0 0071 #### [facility] [address] [place] [address], [facility] Creatinine [Mass/Vol] 0.81 mg/dL Normal 0.70-1.30 [facility] Comment on above: Performed By: #### 0 0071 #### [facility] [address] [place] [address], [place] GFR/1.73 sq M predicted among blacks MDRD (S/P/Bld) [Vol rate/Area] mL/min/{1.73_m2} Normal >60 [facility] Comment on above: Performed By: #### 0 0071 #### [facility] [address] [place] [address], [facility] GFR/1.73 sq M predicted among non-blacks MDRD (S/P/Bld) [Vol rate/Area] mL/min/{1.73_m2} Normal >60 [facility] Comment on above: Performed By: #### 0 0071 #### [facility] [address] Glucose [Mass/Vol] 82 mg/dL Normal 70-100 [facility] Comment on above: Performed By: #### 0 0071 #### [facility] [address] [facility] [address] Potassium [Moles/Vol] 3.8 mmol/L Normal 3.5-5.1 [facility] Comment on above: Performed By: #### 0 0071 #### [facility] [address] [facility]. [address] Sodium [Moles/Vol] 138 mmol/L Normal 136-145 [facility] Comment on above: Performed By: #### 0 0071 #### [facility] [address] Urea nitrogen [Mass/Vol] 12 mg/dL Normal 7-25 [facility] Comment on above: Performed By: #### 0 0071 #### [facility] [address] [facility]. [address] CBC W/DIFFon 02-24-2019 ABS BASOPHILS 0.0 10*3/uL Normal 0.0-0.2 [facility] Comment on above: Performed By: #### 5 102 #### [facility] [address] [facility]. [address] ABS IMM GRANS 0.0 10*3/uL Normal 0.0-0.2 [facility] Comment on above: Performed By: #### 5 102 #### [facility] [address] ABS NEUTROPHILS 3.8 10*3/uL Normal 1.6-7.6 [facility] Comment on above: Performed By: #### 5 102 #### [facility] [address] Basophils/100 WBC (Bld) 0.5 % Normal 0.0-1.0 [facility] Comment on above: Performed By: #### 5 0103 #### [facility] [address] [facility] [address] Eosinophils (Bld) [#/Vol] 0.1 10*3/uL Normal 0.0-0.5 [facility] Comment on above: Performed By: #### 5 0103 #### [facility] [address] [place] [address], [facility] Eosinophils/100 WBC (Bld) 1.1 % Normal 0.0-6.0 [facility] Comment on above: Performed By: #### 5 0103 #### [facility] [address] Erythrocyte distribution width (RBC) [Ratio] 14.6 % Normal 11.5-15.0 [facility] Comment on above: Performed By: #### 5 0103 #### [facility] [address] Hematocrit (Bld) [Volume fraction] 42.8 % Normal 39.0-50.0 [facility] Comment on above: Performed By: #### 5 0103 #### [facility] [address] Hemoglobin (Bld) [Mass/Vol] 13.6 g/dL Normal 13.0-17.0 [facility] Comment on above: Performed By: #### 5 0103 #### [facility] 3000 [place] [address], [facility] IMMATURE GRANS 0.2 % Normal 0.0-1.0 [facility] Comment on above: Performed By: #### 5 0103 #### [facility] [address] [place] [address], [facility] Lymphocytes (Bld) [#/Vol] 1.3 10*3/uL Normal 1.2-4.0 [facility] Comment on above: Performed By: #### 5 0103 #### [facility] [address] [place] [address], [facility] Lymphocytes/100 WBC (Bld) 23.4 % Normal 20.0-45.0 [facility] Comment on above: Performed By: #### 5 0103 #### [facility] [address] [facility] [address] MCH (RBC) [Entitic mass] 26.1 pg Low 27.0-33.0 [facility] Comment on above: Performed By: #### 5 3 #### [facility] [address] [facility] [address] MCHC (RBC) [Mass/Vol] 31.8 g/dL Low 32.0-35.0 [facility] Comment on above: Performed By: #### 5 3 #### [facility] [address] [facility] [place] [address], [facility] MCV (RBC) [Entitic vol] 82.0 fL Normal 82.0-98.0 [facility] Comment on above: Performed By: #### 5 3 #### [facility] [address] [facility] [address], [facility] Monocytes (Bld) [#/Vol] 0.5 10*3/uL Normal 0.1-1.0 [facility] Comment on above: Performed By: #### 5 3 #### [facility] [address] [facility] [address], [facility] MONOS 8.5 % Normal 5.0-12.0 [facility] Comment on above: Performed By: #### 5 3 #### [facility] [address] [facility] [place] [place] [address] Neutrophils/100 WBC (Bld) 66.3 % Normal 40.0-72.0 [facility] Comment on above: Performed By: #### 5 0103 #### [facility] [address] Nucleated RBC/100 WBC (Bld) [Ratio] 0 % Normal 0-0 [facility] Comment on above: Performed By: #### 5 0103 #### [facility] [address] PLAT CNT 174 10*3/uL Normal 150-400 [facility] Comment on above: Performed By: #### 5 0103 #### [facility] [address] RBC (Bld) [#/Vol] 5.22 10*6/uL Normal 4.20-5.70 [facility] Comment on above: Performed By: #### 5 0103 #### [facility] [address] WBC (Bld) [#/Vol] 5.65 10*3/uL Normal 4.00-10.60 [facility] Comment on above: Performed By: #### 5 0103 #### [facility] [address] PROTHROMBIN TIMEon 9 INR Coag (PPP) [Relative time] 1.03 {INR} Normal 0.91-1.16 [facility] Comment on above: Result Comment: ACCC P [...] 1995;108:[id number]. Performed By: #### 5 6101 #### [facility] [address] PT Coag (PPP) [Time] 13.5 s Normal 12.3-14.8 [facility] Comment on above: Result Comment: ALL RESULTS MUST BE INTERPRETED WITH RESPECT TO BLOOD DRAWING ARTIFACT OR DILUTION ERROR OF ANTICOAGULANT AT THE TIME OF SAMPLING. Performed By: #### 5 6101 #### [facility] [address] [facility]. [address] TYPE AND CROSSMATCHon 2018 ABO INTERPRETATION A Normal [facility] Comment on above: Performed By: #### 6 2594 #### [facility] [address] RH INTERPRETATION Positive Normal [facility] Comment on above: Performed By: #### 6 2594 #### [facility] [address] [facility] [address] URINALYSISon 02-24-2019 Appearance (U) CLEAR Normal CLEAR [facility] Comment on above: Performed By: #### 1 0008 #### [facility] [address] [facility] [address], [facility] Bilirubin [Mass/Vol] Negative Normal NEGATIVE [facility] Comment on above: Performed By: #### 1 0008 #### [facility] [address] [facility] [address], [facility] BLOOD Negative Normal NEGATIVE [facility] Comment on above: Performed By: #### 1 0008 #### [facility] [address] [place] [address], [facility] Color (U) YELLOW Normal YELLOW [facility] Comment on above: Performed By: #### 1 0008 #### [facility] [address] [place] [address], [place] EPIS NONE SEEN Normal FEW,OCC,NON E SEEN [facility] Comment on above: Performed By: #### 1 0008 #### [facility] [address] [place] [address], [facility] Glucose [Mass/Vol] Negative Normal NEGATIVE [facility] Comment on above: Performed By: #### 1 0008 #### [facility] [address] [place] [address], [facility] HYALINE CASTS 1 /LPF Abnormal NONE SEEN [facility] Comment on above: Performed By: #### 1 0008 #### [facility] [address] [facility] [address], [facility] KETONE Negative Normal NEGATIVE [facility] Comment on above: Performed By: #### 1 0008 #### [facility] [address] [place] [address], [facility] LEUK SAULO Negative Normal NEGATIVE [facility] Comment on above: Performed By: #### 1 0008 #### [facility] [address] [place] [address], [facility] MUCUS THREADS MANY Abnormal NONE SEEN [facility] Comment on above: Performed By: #### 1 0008 #### [facility] [address] [place] [address], [place] Nitrite Ql (U) Negative Normal NEGATIVE [facility] Comment on above: Performed By: #### 1 0008 #### [facility] [address] [place] [address], [facility] pH (Bld) 5.0 Normal 5.0-8.0 [facility] Comment on above: Performed By: #### 1 0008 #### [facility] [address] Protein (U) [Mass/Vol] Negative Normal NEGATIVE [facility] Comment on above: Performed By: #### 1 0008 #### [facility] [address] RBC (U) [#/Vol] 0-2 Abnormal NONE SEEN [facility] Comment on above: Performed By: #### 1 0008 #### [facility] [address] SPEC GRAV 1.020 Normal 1.015-1.020 [facility] Comment on above: Performed By: #### 1 0008 #### [facility] [address] WBC UA 0-2 Abnormal NONE SEEN [facility] Comment on above: Performed By: #### 1 0008 #### [facility] [address] *MRSA/MSSA DNA NASALon 02-16 *MRSA/MSSA DNA NASAL Clinical Report: (D) Specimen: NASAL SWAB Collected: 02/16/2019 09:16 Status: Final Last Updated: 02/16/2019 15:44 MSSA DNA (Final) No Methicillin Susceptible Staphylococcus aureus DNA Detected MRSA DNA (Final) No Methicillin Resistant Staphylococcus aureus DNA Detected Normal [facility] Comment on above: Performed By: #### 3 1595 #### [facility] [address] CBC W/DIFFon 02-16-2019 ABS BASOPHILS 0.0 10*3/uL Normal 0.0-0.2 [facility] Comment on above: Performed By: #### 5 0103 #### [facility] [address] ABS IMM GRANS 0.0 10*3/uL Normal 0.0-0.2 [facility] Comment on above: Performed By: #### 5 0103 #### [facility] [address] [place] [place] [address], [facility] ABS NEUTROPHILS 2.9 10*3/uL Normal 1.6-7.6 [facility] Comment on above: Performed By: #### 5 0103 #### [facility] [address] [place] [address], [facility] Basophils/100 WBC (Bld) 0.6 % Normal 0.0-1.0 [facility] Comment on above: Performed By: #### 5 0103 #### [facility] [address] [place] [address], [facility] Eosinophils (Bld) [#/Vol] 0.1 10*3/uL Normal 0.0-0.5 [facility] Comment on above: Performed By: #### 5 0103 #### [facility] [address] [place] [address], [facility] Eosinophils/100 WBC (Bld) 1.3 % Normal 0.0-6.0 [facility] Comment on above: Performed By: #### 5 0103 #### [facility] [address] [facility]. [address] Erythrocyte distribution width (RBC) [Ratio] 14.6 % Normal 11.5-15.0 [facility] Comment on above: Performed By: #### 5 0103 #### [facility] [address] [place] [address], [facility] Hematocrit (Bld) [Volume fraction] 40.4 % Normal 39.0-50.0 [facility] Comment on above: Performed By: #### 5 0103 #### [facility] [address] [facility] [place] [address], [facility] Hemoglobin (Bld) [Mass/Vol] 13.3 g/dL Normal 13.0-17.0 [facility] Comment on above: Performed By: #### 5 0103 #### [facility] [address] [facility] [address], [facility] IMMATURE GRANS 0.4 % Normal 0.0-1.0 [facility] Comment on above: Performed By: #### 5 0103 #### [facility] [address] [facility] [address], [facility] Lymphocytes (Bld) [#/Vol] 1.3 10*3/uL Normal 1.2-4.0 [facility] Comment on above: Performed By: #### 5 0103 #### [facility] [address] [facility] [address], [facility] Lymphocytes/100 WBC (Bld) 27.8 % Normal 20.0-45.0 [facility] Comment on above: Performed By: #### 5 0103 #### [facility] [address] [facility] [address], [facility] MCH (RBC) [Entitic mass] 25.9 pg Low 27.0-33.0 [facility] Comment on above: Performed By: #### 5 0103 #### [facility] [address] [place] [address], [facility] MCHC (RBC) [Mass/Vol] 32.9 g/dL Normal 32.0-35.0 [facility] Comment on above: Performed By: #### 5 3 #### [facility] [address] [place] [address], [facility] MCV (RBC) [Entitic vol] 78.8 fL Low 82.0-98.0 [facility] Comment on above: Performed By: #### 5 3 #### [facility] [address] [facility] [address], [facility] Monocytes (Bld) [#/Vol] 0.5 10*3/uL Normal 0.1-1.0 [facility] Comment on above: Performed By: #### 5 0103 #### [facility] [address] [facility] [address], [facility] MONOS 9.9 % Normal 5.0-12.0 [facility] Comment on above: Performed By: #### 5 0103 #### [facility] [address] [place] [address], [facility] Neutrophils/100 WBC (Bld) 60.0 % Normal 40.0-72.0 [facility] Comment on above: Performed By: #### 5 0103 #### [facility] [address] [place] [address], [facility] Nucleated RBC/100 WBC (Bld) [Ratio] 0 % Normal 0-0 [facility] Comment on above: Performed By: #### 5 0103 #### [facility] [address] [place] [address], [facility] PLAT CNT 184 10*3/uL Normal 150-400 [facility] Comment on above: Performed By: #### 5 0103 #### [facility] [address] [place] [address], [facility] RBC (Bld) [#/Vol] 5.13 10*6/uL Normal 4.20-5.70 [facility] Comment on above: Performed By: #### 5 0103 #### [facility] [address] [place] [address], [facility] WBC (Bld) [#/Vol] 4.75 10*3/uL Normal 4.00-10.60 [facility] Comment on above: Performed By: #### 5 102 #### [facility] [address] [place] [address], [facility] HEMOGLOBIN A1Con 02-16-2019 HbA1c (Bld) [Mass fraction] 5.9 % Normal 4.0-6.0 [facility] Comment on above: Performed By: #### 4 6447 #### [facility] [address] HbA1c (Bld) [Mass fraction] 123 mg/dL Normal 70-126 [facility] Comment on above: Performed By: #### 4 6447 #### [facility] [address] [facility] [place] [place] [place] [id number] [place] [address] C REACTIVE PROTEINon 019 CRP [Mass/Vol] 6.5 mg/L Normal 0.0-7.0 [facility] Comment on above: Performed By: #### 6 1405 #### [facility] [address] SEDIMENTATION RATEon 019 SED RATE 27 mm/hr High 0-10 [facility] Comment on above: Performed By: #### 5 6506 #### [facility] [address] [facility]. [address] Social History Date Type Detail Facility Start: 01-03-2022 End: 09-19-2023 Tobacco smoking status Never smoked tobacco (finding) [facility] Tobacco smoking status Never [facility] Sex Assigned At Male [facility] Vital Signs Date Time Vital Sign Value Performing Clinician Facility 09-19-2023 13:23-0500 Blood Pressure Location Juan Ramon MARTINEZ [facility] 09-19-2023 13:23-0500 Diastolic blood pressure 86 mm[Hg] Juan Ramon MARTINEZ [facility] 09-19-2023 13:23-0500 Heart rate 76 /min Juan Ramon MARTINEZ [facility] 09-19-2023 13:23-0500 Respiratory rate 16 /min Juan Ramon MARTINEZ [facility] 09-19-2023 13:23-0500 Systolic blood pressure 130 mm[Hg] Juan Ramon MARTINEZ [facility] [place] 08-27-2023 15:30-0500 Body height 175.26 cm Fernando Ball Other [facility] Other 08-27-2023 15:30-0500 Body mass index (BMI) [Ratio] 39.51 kg/m2 Fernando Ball Other [facility] Other 08-27-2023 15:30-0500 Body weight 121.38 kg Fernando Ball Other [facility] Other 08-27-2023 15:30-0500 Diastolic blood pressure 85 mm[Hg] Fernando Ball Other [facility] Other 08-27-2023 15:30-0500 Respiratory rate 12 /min Fernando Ball Other [facility] Other 08-27-2023 15:30-0500 Systolic blood pressure 124 mm[Hg] Fernando Ball Other [facility] Other 01-29-2023 10:30-0400 Body height 175.26 cm Fernando Ball Other [facility] Other 01-29-2023 10:30-0400 Body mass index (BMI) [Ratio] 39.34 kg/m2 Fernando Ball Other [facility] Other 01-29-2023 10:30-0400 Body weight 120.84 kg Fernando Ball Other [facility] Other 01-29-2023 10:30-0400 Diastolic blood pressure 84 mm[Hg] Fernando Ball Other [facility] Other 01-29-2023 10:30-0400 Respiratory rate 12 /min Fernando Ball Other [facility] Other 01-29-2023 10:30-0400 Systolic blood pressure 130 mm[Hg] Fernando Ball Other [facility] Other 01-10-2023 12:00-0400 Body height 175.26 cm Fernando Ball Other [facility] Other 01-10-2023 12:00-0400 Body mass index (BMI) [Ratio] 38.04 kg/m2 Fernando Ball Other [facility] Other 01-10-2023 12:00-0400 Body weight 116.85 kg Fernando Ball Other [facility] Other 01-10-2023 12:00-0400 Diastolic blood pressure 78 mm[Hg] Fernando Ball Other [facility] Other 01-10-2023 12:00-0400 Respiratory rate 12 /min Fernando Ball Other [facility] Other 01-10-2023 12:00-0400 Systolic blood pressure 122 mm[Hg] Fernando Ball Other [facility] Other 04-10-2022 08:13-0400 Blood Pressure Location Vanessa Remedios [facility] 04-10-2022 08:13-0400 Body temperature 96.98 [degF] Vanessa Whittaker [facility] 04-10-2022 08:13-0400 Diastolic blood pressure 82 mm[Hg] Vanessa Whittaker [facility] 04-10-2022 08:13-0400 Heart rate 75 /min Vanessa Whittaker [facility] 04-10-2022 08:13-0400 SaO2% (BldA) [Mass fraction] 95 % Vanessa Whittaker [facility] 04-10-2022 08:13-0400 Systolic blood pressure 126 mm[Hg] Vanessa Whittaker [facility] Functional Status Date Assessment Result Facility 09-19-2023 Functional Status N/A [facility] 04-10-2022 Functional Status N/A [facility] Clinical Notes 04-10-2022 to 09-20-2023 Note Date [...] E&M of New Patient Moderate 45-59 Min 46581 2. Abdominal pain, epigastric (R10.13: Epigastric pain) see # 1 Ordered: CT Abdomen/Pelvis w/ Contrast E&M of New Patient Moderate 45-59 Min 98187 3. Abdominal pain, right upper quadrant (R10.11: Right upper quadrant pain) see # 1 Ordered: CT Abdomen/Pelvis w/ Contrast E&M of New Patient Moderate 45-59 Min 55558 4. Abnormal gallbladder ultrasound (R93.2: Abnormal findings on diagnostic imaging of liver and biliary tract) see # 1 Ordered: CT Abdomen/Pelvis w/ Contrast E&M of New Patient Moderate 45-59 Min 43720 5. BMI 40.0-44.9, adult (Z68.41: Body mass index [BMI] 40.0-44.9, adult) recommend low fat diet and exercise Ordered: CT Abdomen/Pelvis w/ Contrast E&M of New Patient Moderate 45-59 Min 43405 Follow-up No qualifying data available Problem List/Past Medical History (more content not included)... [facility] Comment on above: Result Comment: Elec tronically Signed By: PAOLO TATE, Juan Ramon Miner\Date and Time Signed: 09/20/23 09:50 EST 08-31-2023 Evaluation note Encounter Date Diagnosis Assessment Notes Aug, Pulmonary nodule (ICD-10 - R91.1) CTA: 7.5mm RUL, 3mm RUL, 13mm ADA - 01/2022, CT: 7mm RUL - 04/2022 CT: 8mm RUL - 01/2023Aug, Aneurysm of the ascending aorta, without rupture (ICD-10 - I71.21) CTA: 3.8cm Asc Aortic Aneurysm - 08/2023 [facility] Other 11-08-2023 Evaluation note* Encounter Date Diagnosis [...] use, the patient reduces the risk for GA, CVA, HTN, cardiac dysrhythmias and sudden cardiac [...] continue exercise to achieve/maintain a normal BMI. [facility] Other 04-12-2023 Evaluation note* Encounter Date Diagnosis [...] use, the patient reduces the risk for GA, CVA, HTN, cardiac dysrhythmias and sudden cardiac [...] - Z12.5) Yearly CELESTINO and PSA completed [facility] Other 04-10-2023 Evaluation note* Encounter Date Diagnosis Assessment Notes Treatment Notes Treatment Clinical Notes Jan, Pulmonary nodule (ICD-10 - R91.1) CTA: 7.5mm RUL, 3mm RUL, 13mm ADA - 01/2022, CT: 7mm RUL - 04/2022 CT: 8mm RUL - 01/2023 [facility] Other 04-10-2023 Evaluation note* Encounter Date Diagnosis Assessment Notes Treatment Notes Treatment Clinical Notes Jan, Pulmonary nodule (ICD-10 - R91.1) CTA: 7.5mm RUL, 3mm RUL, 13mm ADA - 01/2022, CT: 7mm RUL - 04/2022 CT: 8mm - 01/2023 [facility] Other 04-02-2023 Evaluation note* Encounter Date Diagnosis Assessment Notes Treatment Notes Treatment Clinical Notes Jan, Aneurysm of ascending aorta without rupture (ICD-10 - I71.21) CT: 4.5cm ascending aortic aneurysm - 01/2022 [facility] Other 04-02-2023 Evaluation note* Encounter Date Diagnosis Assessment Notes Treatment Notes Treatment Clinical Notes Jan, Pulmonary nodule (ICD-10 - R91.1) CTA: 7.5mm RUL, 3mm RUL, 13mm ADA - 01/2022, CT: 7mm RUL - 04/2022 CT chest due in January, [facility] Other 03-24-2023 Evaluation note* Encounter Date Diagnosis [...] Elevated liver enzym es (ICD-10 - R74.8) [facility] Other 06-22-2022 Hospital Discharge instructions Patient Education [...] powder, vinegar, hot sauces, and barbecue sauce. ?[place] fruit juices and citrus fruits, such as oranges, kelly, and limes. ?Tomato-based foods, such as red sauce, chili, salsa, and pizza with red sauce. ?Fried and fatty foods, such as donuts, kittitian fries, potato chips, and high-fat dressings. ?High-fat [...] to any changes in your symptoms. Take zgpi-qyb-qvssxbc and prescription medicines only as told by [...] you have new or worsening symptoms. Take jqaq-sio-sxzraem and prescription medicines only as told by [...] 07/16/2006 Document Revised: 04/14/2019 Document Reviewed: 04/14/2019 [email or web address] Patient Education 2020 [email or web address] Follow Up Care 01/03/2022 09:45:39 With:Vanessa Whittaker CNP Address: When:1 year [facility] Evaluation + Plan note Future Appointments Appointment Date:04/10/2022 08:00:00 AM Scheduled Provider:Vanessa Whittaker CNP [facility] Future Appointments Appointment Date:04/10/2023 08:00:00 AM Scheduled Provider:Vanessa Whittaker CNP [facility] App[facility]ment Type:[facility] Follow Up Future Scheduled Tests Laboratory* Basic Metabolic Panel 04/10/22 * Folate Level 04/10/22 * Magnesium Level 04/10/22 * Vitamin B12 Level 04/10/22 [facility] Evaluation noteNo [facility]Nobarn[facility] Other History general Narrative - Reported* Type [...] [place] Hospitalization History SEE SURGICAL HX [place] [facility] Other Hospital course Narrative No data available for this section [facility] No data available for this section [facility] No data available for this section [facility] Summary Purpose Family History No Family History Records FoundNo Family History Records Found No data available for this section No Family History Records Found Advance Directives No Advanced Directives Records FoundNo Advanced Directives Records FoundNo Advanced Directives Records Found Hospital Course Note MR#: [id number] [facility] Pt. Name: Sadiq Delarosa Admitted: 03/04/2019 Discharged: [...] chronic cholecystitis without obstruction (K80.10) Referral Organization [facility] armando Referring Provider First Name Fernando Referring Provider Last Name Nicho Referring Provider Specialty Internal Me dicine Referred Organization [facility] Referred Provider Juan Ramon Martinez Referred Address [address] [place], [place],[address] Referred Provider Specialty Surgery Referral Priority Routine [...] section and content) DATE CREATED AUTHOR 06/23/2019 [facility] DATE CREATED AUTHOR AUTHOR'S ORGANIZ ATION 02/02/2023 [facility] DATE CREATED AUTHOR AUTHOR'S ORGANIZ ATION 10/04/2023 [facility] Care Team (unrecognized sect ion and content) Personnel Name: FERNANDO TORRE DO [address]: [address] [place] [address] [place] Personnel Name: FERNANDO TORRE DO Address: Address: [address] [place] [address]- [place] REASON FOR VISIT (unrecogniz ed section [...] BE BASED ON THE PRIMARY CLINICAL RECORDS. [facility] [employer] [facility]. provides no warranty or guarantee of the accuracy or completeness of information in this [id number]
[2024-04-17 09:49] LABS: Basophils Percent Auto 0.8 % (0.2-2.0); Eosinophils Absolute Auto 0.1 10^3/uL (0.0-0.7); Eosinophils Percent Auto 2.9 % (0.9-7.0); Hematocrit 41.4 % (42.0-54.0); Hemoglobin 13.2 g/dL (14.0-18.0); Lymphocytes Absolute Auto 1.3 10^3/uL (1.2-3.8); Lymphocytes Percent Auto 32.7 % (20.5-60.0); Mean Corpuscular HGB Conc 31.9 g/dL (29.9-35.2); Mean Corpuscular Hemoglobin 26.6 pg (25.9-34.0); Mean Corpuscular Volume 83.5 fL (80.0-94.0); Mean Platelet Volume 11.5 fL (9.5-13.5); Monocytes Absolute Auto 0.4 10^3/uL (0.3-0.8); Monocytes Percent Auto 9.6 % (1.7-12.0); Neutrophils Absolute Auto 2.1 10^3/uL (1.4-6.5); Platelet Count 160 10^3/uL (150-450); Red Blood Count 4.96 10^6/uL (4.70-6.10); Red Cell Distribution Width 14.6 % (11.0-15.0); White Blood Count 3.9 10^3/uL (4.0-11.0)
[2024-04-17 10:26] LABS: Percent Iron Saturation 33.4 %
[2024-04-17 10:31] LABS: Chol HDL Ratio 3.8; Cholesterol 200 mg/dL (<=200); HDL Cholesterol 53 mg/dL (40-60); Triglycerides 80 mg/dL (<=150)
== END 2024-04-17 09:01 | disposition home or self-care (01) ==
LOC: LAB 09:02
PROVIDERS: PCP Internal Medicine; Visit Provider Internal Medicine
DX: D64.9 Anemia, unspecified (principal); E78.00 Pure hypercholesterolemia, unspecified
CPT/HCPCS: 36415; 80061; 82607; 82728; 82746; 83540; 83550; 85025

== ENCOUNTER 2024-09-23 07:35 | Outpatient (OUT) | payer MEDICARE, OTHER, SELFPAY ==
--- OUTSIDE RECORDS SUMMARY | 2024-09-23 07:38 | XMS_ITS | CCD ---
Author Organization [facility] CliniSys[facility] Care Team Providers Care Car Rental Sales Assistant Name Role Phone MARTIN RHODES Admitting Unavailable MARTIN RHODES Attending Unavailable JETT HAGAN Referring Unavailable FERNANDO TORRE Primary Care Unavailable [place] Procedure Practitioner Unavailab MARTIN Spencer Surgeon Unavailable FERNANDO TORRE Primary Care Physician Fernando Torre Unavailable EZIO, DR DONAHUE Admitting Unavailable EZIO, DR DONAHUE Attending Unavailable EZIO, DR DONAHUE Primary Care Unavailable EZIO, DR DONAHUE Consulting Unavailable Yana Dominguez Consulting Unavailable EZIO, DR DONAHUE Primary Care Unavailable CHACKO ., MR LO Admitting Unavailable CHACKO ., MR LO Attending Unavailable Yana Dominguez Consulting Unavailable CHACKO ., MR LO Consulting Unavailable EZIO, DR DONAHUE Admitting Unavailable EZIO, DR DONAHUE Attending Unavailable EZIO, DR DONAHUE Primary Care Unavailable EZIO, DR DONAHUE Consulting Unavailable JHON MERCADO Consulting Unavailable CHACKO ., MR LO Admitting Unavailable CHACKO ., MR LO Attending Unavailable EZIO, DR DONAHUE Primary Care Unavailable CHACKO ., MR LO Consulting Unavailable CHACKO ., MR LO Admitting Unavailable CHACKO ., MR LO Attending Unavailable EZIO, DR DONAHUE Primary Care Unavailable CHACKO ., MR LO Consulting Unavailable EZIO, DR DONAHUE Primary Care Unavailable HAY ., DR ROLDAN Admitting Unavailable HAY ., DR ROLDAN Attending Unavailable Yana Dominguez Consulting Unavailable HAY ., DR ROLDAN Consulting Unavailable EZIO, DR DONAHUE Primary Care Unavailable CAITLYN KISER Admitting Unavailable CAITLYN KISER Attending Unavailable DIAMOND ., HELEN SHOEMAKER Consulting UnavailCAITLYN Reyes Consulting Unavailable REI ORTIZ Consulting Unavailable INDIGO TOTH Consulting Unavailable EZIO, DR DONAHUE Primary Care Unavailable PAY ., DR LEAL Admitting Unavailable PAY ., DR LEAL Attending Unavailable Yana Dominguez Consulting Unavailable PAY ., DR LEAL Consulting Unavailable Vanessa Whittaker Attending Unavailable Juan Ramon MARTINEZ Attending Unavailable Unavailable Primary Care Provider UnavailLO Abdullahi Attending Unavailable LO CHACKO Referring Unavailable Allergies Allergy Classification Reported Allergen(s) Allergy Type Date of Onset Reaction(s) Facility (13 sources) HMG-CoA reductase inhibitor; Translations: [statins] Drug allergy Muscle pain (finding) [facility] [place] (1 source) Hmg-Coa Reductase Inhibitors (Statins); Translations: [statins] Propensity to adverse reactions (disorder) [facility] Repository (1 source) No Known Medication Allergies; Translations: [No Known Medication Allergies] Propensity to adverse reactions (disorder) [facility] Repository Medications Current Medications Medication Drug Class(es) Dates Sig (Normalized) Sig (Original) amoxicillin 500 mg oral capsule (2 sources) Penicillin-class Antibacterial Start: 04-27-2024 take 4 capsules by mouth every hour amoxicillin (Amoxil) 500 MG capsule TAKE 4 CAPSULES BY MOUTH 1 HOUR PRIOR TO APPOINTMENT 04/27/2024 Active ezetimibe 10 mg oral tablet (2 sources) Dietary Cholesterol Absorption Inhibitor Start: 04-25-2024 take 1 tablet by mouth once daily ezetimibe (Zetia) 10 MG tablet Take 10 mg by mouth Daily 04/25/2024 Active EZETIMIBE-ATORVAST ATIN PO (2 sources) EZETIMIBE-ATORVA S TATIN PO Active famotidine 40 mg oral tablet (10 sources) Histamine-2 Receptor Antagonist Start: 06-29-2024 take 1 tablet by mouth once daily at bedtime famotidine (Pepcid) 40 MG tablet TAKE 1 TABLET BY MOUTH EVERY DAY AT BEDTIME FOR 90 DAYS 06/29/2024 Active famotidine (Pepc id) 10 MG tablet Active take 1 tablet by paula th every twenty-four hours Famotidine 40 MG 1 tablet at bedtime Ora lly Once a day for 90 days Active hyoscyamine sulfate 0.125 mg sublingual tablet (6 sources) Start: 01-10-2023 take 1 tablet under the tongue every six hours as needed Hyoscyamine Sulfate SL 0.125 MG 1 tablet Sublingual every 6 hours as needed for nausea and abdominal pain for 90 days Dec, Active metoprolol (Lopressor) 10 mg/mL solution (2 sources) metoprolol (Lopressor) 10 mg/mL solution Active omeprazole 40 mg delayed release oral capsule (14 sources) Proton Pump Inhibitor Start: 09-05-2023 omeprazole (PriLOSEC) [address] capsule Take 40 mg by mouth 09/05/2023 Active Start: 04-10-2022 End: 01-05-2023 take 1 capsule by mouth once daily omeprazole 40 mg Cap-DR 40 mg = 1 cap(s), Oral, Daily, X 90 day(s), # 90 cap(s), Refills(s) 2, Pharmacy: [facility], 172, cm, 04/10/22 8:16:00 EDT, Height/Length Dosing, 118.6, kg, 04/10/22 8:16:00 EDT, Weight Dosing Start Date: 04/10/22 Stop Date: 01/05/23 Status: Ordered omeprazole 40 mg Cap-DR (1 source) Start: 12-19-2021 take 1 capsule by mouth once daily omeprazole 40 mg Cap-DR 40 mg = 1 cap(s), Oral, Daily, # 30 cap(s), Refills(s) 2, Pharmacy: [facility]/pharmacy #[id number], 172, cm, 12/19/21 7:21:00 EST, Height/Length Dosing, 125.2, kg, 12/19/21 7:21:00 EST, Weight Dosing Start Date: 12/19/21 Status: Ordered Completed/Discontinued Medications Medication Drug Class(es) Dates Sig (Normalized) Sig (Original) 1 ml methylPREDNISolone acetate 40 mg/ml injection (4 sources) Corticosteroid Start: End: methylPREDNISolone acetate (DEPO-Medrol) injection 20 mg Start: 08-05-2024 End: 08-05-2024 20 mg, Intra-articular, Once PRN Procedure, Starting on Kitty 08/05/24 at 0939, For 1 dose 24 hr metoprolol succinate 25 mg extended release oral tablet (13 sources) beta-Adrenergic Neo Start: 09-05-2023 metopr olol 25 mg ER Tab 25 mg = [...] D deficiency, unspecified] Onset: 6 09-05-2023 Chronic Osteoarthritis (4 sources) Osteoarthrosis of the carpometacarpal joint of the thumb; Translations: [Unilateral primary osteoarthritis of first carpometacarpal joint, right hand] 08-05-2024 Chronic Other aftercare (1 source) Other terminal computer operator (current) drug therapy; Translations: [OTH GROUP HOME CURRENT DRUG THERAPY] Onset: 3 Episodic Other aftercare (4 sources) Long-term current use of drug therapy; Translations: [Other terminal computer operator (current) drug therapy] Episodic Other and unspecified [...] of muscle] Episodic Other connective tissue disease (2 sources) Pain in right thumb; Translations: [Pain in right finger(s)] 08-04-2024 Episodic Other ear and sense organ disorders [...] without myelopathy or radiculopathy, lumbar region] Onset: 09-05-2023 Chronic Sprains and strains (4 sources) Sprain of elbow and forearm; Translations: [Sprain and strain of unspecified site of elbow and forearm] Episodic Unclassified (3 sources) Patient encounter status 09-24-2021 Unclassified (1 source) CONTACT W/AND (SUSP) EXPOS COVID-19; Translations: [CONTACT W/AND (SUSP) EXPOS COVID-19] Onset: Unclassified (3 sources) Aneurysm of the ascending [...] Test Name Value Interpretation Reference Range Facility No Panel Informationon 08-05 HELEN Monson 08/05/2024 9:41 AM S Inj/Asp: R thumb [facility] on 08/05/2024 9:39 AM Indications: pain and joint swelling Details: 22 G needle, dorsal approach Medications: 20 mg methylPREDNISolone acetate 40 MG/ML Outcome: tolerated well, no immediate complications Given with 0.5ml of 0.5% bupivicaine Consent was given by the patient. Patient was prepped and draped in the usual sterile fashion. [facility] RAD - CT Reporton 10-02-2023 RAD - CT Report [id number] Remberto [facility] Ambulatory Visit Summaryon 1 11-20-2022 Ambulatory Visit Summary ISAURA SADIQ Mcginnis :1960 Visit Date:09/19/2023 Ambulatory Visit Instructions Your [...] for choosing us for your care. Normal [facility] RAD - Ultrasound Reporton RAD - Ultrasound Report [id number]#[id number] Normal [facility] RAD - Ultrasound Report [id number]#1.00TIFF Normal [facility] Physician Referralon 023 Physician Referral [id number] Normal [facility] CT CHEST WO CONon 01-27-2023 CT CHEST [...] stable for 2 years). Electronically authenticated by: YANA DOMINGUEZ Date: 2023-01-27 14:52 Normal [facility] US SINGLE QUAD RT UPPERon US [...] and likely chronic cholecystitis. Electronically authenticated by: YANA DOMINGUEZ Date: 2023-01-27 16:16 Normal [facility] CBC AUTO DIFFon 01-20-2023 BASO # 0.0 103/ul Normal 0.0-0.1 [facility] Comment on above: Performed By: #### C BC #### [facility] [address] [place] [address] Dr. Yasmany Claros Basophils/100 WBC (Bld) 0.8 % Normal 0.2-2.0 [facility] Comment on above: Performed By: #### C BC #### [facility] [address] [address] [address] Yasmany Claros EO # 0.1 103/ul Normal 0.0-0.7 [facility] Comment on above: Performed By: #### C BC #### [facility] [address] [address] [address] Yasmany Claros Eosinophils/100 WBC (Bld) 2.1 % Normal 0.9-7.0 [facility] Comment on above: Performed By: #### C BC #### [facility] [address] [place] [address] Dr. Yasmany Claros Erythrocyte distribution width (RBC) [Ratio] 14.0 % Normal 11.0-15.0 [facility] Comment on above: Performed By: #### C BC #### [facility] [address] [place] [address] Dr. Yasmany Claros Hematocrit (Bld) [Volume fraction] 39.9 % Critically low 42.0-54.0 [facility] Comment on above: Performed By: #### C BC #### [facility] [address] [place] [address] Dr. Yasmany Claros Hemoglobin (Bld) [Mass/Vol] 13.2 g/dL Critically low 14.0-18.0 [facility] Comment on above: Performed By: #### C BC #### [facility] [address] [place] [address] Dr. Yasmany Claros IG # 0.01 10e3/ul Normal 0.00-0.03 [facility] Comment on above: Performed By: #### C BC #### [facility] [address] [place] [address] Dr. Yasmany Claros IG % 0.3 % Normal 0.0-0.5 [facility] Comment on above: Performed By: #### C BC #### [facility] [address] [place] [address] Dr. Yasmany Claros LYMPH # 1.6 103/ul Normal 1.2-3.8 [facility] Comment on above: Performed By: #### C BC #### [facility] [address] [place] [address] Dr. Yasmany Claros Lymphocytes/100 WBC (Bld) 41.5 % Normal 20.5-60.0 [facility] Comment on above: Performed By: #### C BC #### [facility] [address] [place] [address] Dr. Yasmany Claros MANUAL DIFF REQ NO Normal [facility] Comment on above: Performed By: #### C BC #### [facility] [address] [address] [address] Yasmany Claros MCH (RBC) [Entitic mass] 26.6 pg Normal 25.9-34.0 [facility] Comment on above: Performed By: #### C BC #### [facility] [address] [place] [address] Dr. Yasmany Claros MCHC (RBC) [Mass/Vol] 33.1 g/dL Normal 29.9-35.2 [facility] Comment on above: Performed By: #### C BC #### [facility] [address] [place] [address] Dr. Yasmany Claros MCV (RBC) [Entitic vol] 80.3 fL Normal 80.0-94.0 [facility] Comment on above: Performed By: #### C BC #### [facility] [address] [place] [address] Dr. Yasmany Claros MONO # 0.4 103/ul Normal 0.3-0.8 [facility] Comment on above: Performed By: #### C BC #### [facility] [address] [place] [address] Dr. Yasmany Claros Monocytes/100 WBC (Bld) 9.9 % Normal 1.7-12.0 [facility] Comment on above: Performed By: #### C BC #### [facility] [address] [place] [address] Dr. Yasmany Claros NEUT # 1.7 103/ul Normal 1.4-6.5 [facility] Comment on above: Performed By: #### C BC #### [facility] [address] [place] [address] Dr. Yasmany Claros Neutrophils/100 WBC (Bld) 45.4 % Normal 43.0-75.0 [facility] Comment on above: Performed By: #### C BC #### [facility] [address] [place] [address] Dr. Yasmany Claros Platelet mean volume (Bld) [Entitic vol] 11.1 fL Normal 9.5-13.5 [facility] Comment on above: Performed By: #### C BC #### [facility] [address] [address] [address] Yasmany Claros PLT 188 103/ul Normal 150-450 [facility] Comment on above: Performed By: #### C BC #### [facility] [address] [place] [address] Dr. Yasmany Claros RBC 4.97 106/ul Normal 4.70-6.10 [facility] Comment on above: Performed By: #### C BC #### [facility] [address] [place] [address] Dr. Yasmany Claros WBC 3.8 103/ul Critically low 4.0-11.0 [facility] Comment on above: Performed By: #### C BC #### [facility] [address] [place] [address] HEAD WO CONon [...] cells are clear bilaterally. Electronically authenticated by: YANA DOMINGUEZ Date: 2023-01-20 09:48 Normal [facility] PROF CHEM 8 (BAS METB)on Anion gap [Moles/Vol] 11.2 mmol/L Normal [facility] Comment on above: Performed By: #### B MP #### [facility] [address] [place] [address] Dr. Yasmany Claros Calcium [Mass/Vol] 9.1 mg/dL Normal 8.5-10.1 [facility] Comment on above: Performed By: #### B MP #### [facility] [address] [place] [address] Dr. Yasmany Claros Chloride [Moles/Vol] 102 mmol/L Normal 98-107 [facility] Comment on above: Performed By: #### B MP #### [facility] [address] [address] [address] Yasmany Claros CO2 [Moles/Vol] 26.7 mmol/L Normal 21.0-32.0 [facility] Comment on above: Performed By: #### B MP #### [facility] [address] [place] [address] Dr. Yasmany Claros Creatinine [Mass/Vol] 0.81 mg/dL Normal 0.70-1.30 [facility] Comment on above: Performed By: #### B MP #### [facility] [address] [place] [address] Dr. Yasmany Claros EGFR-AF SAMMARINESE >60 Normal >=60 [facility] Comment on above: Performed By: #### B MP #### [facility] [address] [place] [address] Dr. Yasmany Claros EGFR-NON AF SAMMARINESE >60 Normal >=60 [facility] Comment on above: Performed By: #### B MP #### [facility] [address] [place] [address] Dr. Yasmany Claros Glucose [Mass/Vol] 104 mg/dL Normal 74-106 [facility] Comment on above: Performed By: #### B MP #### [facility] [address] [place] [address] Dr. Yasmany Claros Potassium [Moles/Vol] 3.9 mmol/L Normal 3.5-5.1 [facility] Comment on above: Performed By: #### B MP #### [facility] [address] [place] [address] Dr. Yasmany Claros Sodium [Moles/Vol] 136 mmol/L Normal 136-145 [facility] Comment on above: Performed By: #### B MP #### [facility] [address] [place] [address] Dr. Yasmany Claros Urea nitrogen [Mass/Vol] 13.0 mg/dL Normal 7.0-18.0 [facility] Comment on above: Performed By: #### B MP #### [facility] [address] [place] [address] Dr. Yasmany Claros Urea nitrogen/Creatini ne [Mass ratio] 16.0 mg/mg Normal [facility] Comment on above: Performed By: #### B MP #### [facility] [address] [place] [address] Dr. Yasmany Claros CBC AUTO DIFFon 01-03-2023 BASO # 0.0 103/ul Normal 0.0-0.1 [facility] Comment on above: Performed By: #### C BC #### [facility] [address] [place] [address] Dr. Yasmany Claros Basophils/100 WBC (Bld) 0.3 % Normal 0.2-2.0 [facility] Comment on above: Performed By: #### C BC #### [facility] [address] [place] [address] Dr. Yasmany Claros EO # 0.0 103/ul Normal 0.0-0.7 [facility] Comment on above: Performed By: #### C BC #### [facility] [address] [place] [address] Dr. Yasmany Claros Eosinophils/100 WBC (Bld) 0.5 % Critically low 0.9-7.0 [facility] Comment on above: Performed By: #### C BC #### [facility] [address] [place] [address] Dr. Yasmany Claros Erythrocyte distribution width (RBC) [Ratio] 13.9 % Normal 11.0-15.0 [facility] Comment on above: Performed By: #### C BC #### [facility] [address] [place] [address] Dr. Yasmany Claros Hematocrit (Bld) [Volume fraction] 40.6 % Critically low 42.0-54.0 [facility] Comment on above: Performed By: #### C BC #### [facility] [address] [address] [address] Yasmany Claros Hemoglobin (Bld) [Mass/Vol] 13.2 g/dL Critically low 14.0-18.0 [facility] Comment on above: Performed By: #### C BC #### [facility] [address] [address] [address] Yasmany Claros IG # 0.03 10e3/ul Normal 0.00-0.03 [facility] Comment on above: Performed By: #### C BC #### [facility] [address] [address] [address] Yasmany Claros IG % 0.5 % Normal 0.0-0.5 [facility] Comment on above: Performed By: #### C BC #### [facility] [address] [address] [address] Yasmany Claros LYMPH # 1.0 103/ul Critically low 1.2-3.8 [facility] Comment on above: Performed By: #### C BC #### [facility] [address] [address] [address] Yasmany Claros Lymphocytes/100 WBC (Bld) 17.5 % Critically low 20.5-60.0 [facility] Comment on above: Performed By: #### C BC #### [facility] [address] [address] [address] Yasmany Claros MANUAL DIFF REQ NO Normal [facility] Comment on above: Performed By: #### C BC #### [facility] [address] [address] [address] Yasmany Claros MCH (RBC) [Entitic mass] 26.6 pg Normal 25.9-34.0 [facility] Comment on above: Performed By: #### C BC #### [facility] [address] [address] [address] Yasmany Claros MCHC (RBC) [Mass/Vol] 32.5 g/dL Normal 29.9-35.2 [facility] Comment on above: Performed By: #### C BC #### [facility] [address] [address] [address] Yasmany Claros MCV (RBC) [Entitic vol] 81.7 fL Normal 80.0-94.0 [facility] Comment on above: Performed By: #### C BC #### [facility] [address] [address] [address] Yasmany Claros MONO # 0.4 103/ul Normal 0.3-0.8 [facility] Comment on above: Performed By: #### C BC #### [facility] [address] [address] [address] Yasmany Claros Monocytes/100 WBC (Bld) 7.0 % Normal 1.7-12.0 [facility] Comment on above: Performed By: #### C BC #### [facility] [address] [place] [address] Dr. Yasmany Claros NEUT # 4.2 103/ul Normal 1.4-6.5 [facility] Comment on above: Performed By: #### C BC #### [facility] [address] [place] [address] Dr. Yasmany Claros Neutrophils/100 WBC (Bld) 74.2 % Normal 43.0-75.0 [facility] Comment on above: Performed By: #### C BC #### [facility] [address] [place] [address] Dr. Yasmany Claros Platelet mean volume (Bld) [Entitic vol] 10.9 fL Normal 9.5-13.5 [facility] Comment on above: Performed By: #### C BC #### [facility] [address] [place] [address] Dr. Yasmany Claros PLT 153 103/ul Normal 150-450 [facility] Comment on above: Performed By: #### C BC #### [facility] [address] [place] [address] Dr. Yasmany Claros RBC 4.97 106/ul Normal 4.70-6.10 [facility] Comment on above: Performed By: #### C BC #### [facility] [address] [place] [address] Dr. Yasmany Claros WBC 5.7 103/ul Normal 4.0-11.0 [facility] Comment on above: Performed By: #### C BC #### [facility] [address] [place] [address] Dr. Yasmany Claros ER URINE PROFILEon 3 Bilirubin Ql (U) Negative Normal NEGATIVE [facility] Comment on above: Performed By: #### GIULIA BRINKRO #### [facility] [address] [place] [address] Dr. Yasmany Claros Clarity (U) CLEAR Normal CLEAR [facility] Comment on above: Performed By: #### GIULIA BRINKRO #### [facility] [address] [place] [address] Dr. Yasmany Claros Color (U) LT. YELLOW Normal YELLOW [facility] Comment on above: Performed By: #### GIULIA BRINKRO #### [facility] [address] [place] [address] Dr. Yasmany Claros ERULUISD A micrscopic examina tion will be performed if indicated. Normal [facility] Comment on above: Performed By: #### GIULIA BRINKRO #### [facility] [address] [place] [address] Dr. Yasmany Claros Glucose Ql (U) Negative Normal NEGATIVE The [facility] Comment on above: Performed By: #### GIULIA BRINKRO #### [facility] [address] [place] [address] Dr. Yasmany Claros Hemoglobin Ql (U) TRACE-INTACT Abnormal NEGATIVE [facility] Comment on above: Performed By: #### GIULIA BRINKRO #### [facility] [address] [place] [address] Dr. Yasmany Claros Ketones Ql (U) Negative Normal NEGATIVE The [facility] Comment on above: Performed By: #### GIULIA BRINKRO #### [facility] [address] [place] [address] Dr. Yasmany Claros LEUKOCYTES Negative Normal NEGATIVE [facility] Comment on above: Performed By: #### Eusebia LAUGHLIN, UMICRO #### [facility] [address] [address] [address] Yasmany Claros Nitrite Ql (U) Negative Normal NEGATIVE [facility] Comment on above: Performed By: #### Eusebia LAUGHLIN, UMICRO #### [facility] [address] [address] [address] Yasmany Claros pH (U) 5.5 [pH] Normal 5-9 [facility] Comment on above: Performed By: #### Eusebia LAUGHLIN, UMICRO #### [facility] [address] [place] [address] Dr. Yasmany Claros SPEC GRAVITY 1.020 Normal 1.005-<=1.0 25 [facility] Comment on above: Performed By: #### Eusebia LAUGHLIN, UMICRO #### [facility] [address] [place] [address] Dr. Yasmany lCaros UA PROTEIN Negative Normal NEGATIVE/ TRACE [facility] Comment on above: Performed By: #### Eusebia LAUGHLIN UMICRO #### [facility] [address] [place] [address] Dr. Yasmany Claros UR MICRO IND INDICATED Normal [facility] Comment on above: Performed By: #### Eusebia LAUGHLIN, UMICRO #### [facility] [address] [place] [address] Dr. Yasmany Claros Urobilinogen Qn (U) 0.2 {Aarti'U}/dL Normal 0.2 - 1.0 [facility] Comment on above: Performed By: #### Eusebia LAUGHLIN, UMICRO #### [facility] [address] [place] [address] Dr. Yasmany Claros LACTATE/LACTIC ACIDon 2022 Lactate [Moles/Vol] 3.0 mmol/L Critically high 0.4-2.0 [facility] Comment on above: Performed By: #### L ACT #### [facility] [address] [place] [address] Dr. Yasmany Claros LIPASEon 01-03-2023 Lipase [Catalytic activity/Vol] 169.0 U/L Normal 73.0-393.0 [facility] Comment on above: Performed By: #### C VDTBH #### [facility] [address] [place] [address] Dr. Yasmany Claros PROF 14(COMP METB)on 023 Albumin [Mass/Vol] 3.9 g/dL Normal 3.4-5.0 [facility] Comment on above: Performed By: #### C VDTBH #### [facility] [address] [place] [address] Dr. Yasmany Claros Albumin/Globulin [Mass ratio] 1.0 {ratio} Normal [facility] Comment on above: Performed By: #### C VDTBH #### [facility] [address] [place] [address] Dr. Yasmany Claros ALP [Catalytic activity/Vol] 83 U/L Normal 46-116 [facility] Comment on above: Performed By: #### C VDTBH #### [facility] [address] [place] [address] Dr. Yasmany Claros ALT [Catalytic activity/Vol] 88 U/L Critically high 16-63 [facility] Comment on above: Performed By: #### C VDTBH #### [facility] [address] [place] [address] Dr. Yasmany Claros Anion gap [Moles/Vol] 11.2 mmol/L Normal [facility] Comment on above: Performed By: #### C VDTBH #### [facility] [address] [place] [address] Dr. Yasmany Claros AST [Catalytic activity/Vol] 94 U/L Critically high 15-37 [facility] Comment on above: Performed By: #### C VDTBH #### [facility] [address] [place] [address] Dr. Yasmany Claros Bilirubin [Mass/Vol] 0.6 mg/dL Normal 0.2-1.0 [facility] Comment on above: Performed By: #### C VDTBH #### [facility] [address] [place] [address] Dr. Yasmany Claros Calcium [Mass/Vol] 9.8 mg/dL Normal 8.5-10.1 [facility] Comment on above: Performed By: #### C VDTBH #### [facility] [address] [place] [address] Dr. Yasmany Claros Chloride [Moles/Vol] 105 mmol/L Normal 98-107 [facility] Comment on above: Performed By: #### C VDTBH #### [facility] [address] [place] [address] Dr. Yasmany Claros CO2 [Moles/Vol] 28.8 mmol/L Normal 21.0-32.0 [facility] Comment on above: Performed By: #### C VDTBH #### [facility] [address] [place] [address] Dr. Yasmany Claros Creatinine [Mass/Vol] 0.83 mg/dL Normal 0.70-1.30 [facility] Comment on above: Performed By: #### C VDTBH #### [facility] [address] [place] [address] Dr. Yasmany Claros EGFR-AF SAMMARINESE >60 Normal >=60 [facility] Comment on above: Performed By: #### C VDTBH #### [facility] [address] [place] [address] Dr. Yasmany Claros EGFR-NON AF SAMMARINESE >60 Normal >=60 [facility] Comment on above: Performed By: #### C VDTBH #### [facility] [address] [place] [address] Dr. Yasmany Claros Globulin (S) [Mass/Vol] 4.0 g/dL Normal [facility] Comment on above: Performed By: #### C VDTBH #### [facility] [address] [place] [address] Dr. Yasmany Claros Glucose [Mass/Vol] 145 mg/dL Critically high 74-106 [facility] Comment on above: Performed By: #### C VDTBH #### [facility] [address] [place] [address] Dr. Yasmany Claros Potassium [Moles/Vol] 4.0 mmol/L Normal 3.5-5.1 [facility] Comment on above: Performed By: #### C VDTBH #### [facility] [address] [place] [address] Dr. Yasmany Claros Protein [Mass/Vol] 7.9 g/dL Normal 6.4-8.2 [facility] Comment on above: Performed By: #### C VDTBH #### [facility] [address] [place] [address] Dr. Yasmany Claros Sodium [Moles/Vol] 141 mmol/L Normal 136-145 [facility] Comment on above: Performed By: #### C VDTBH #### [facility] [address] [place] [address] Dr. Yasmany Claros Urea nitrogen [Mass/Vol] 10.0 mg/dL Normal 7.0-18.0 [facility] Comment on above: Performed By: #### C VDTBH #### [facility] [address] [place] [address] Dr. Yasmany Claros Urea nitrogen/Creatini ne [Mass ratio] 12.0 mg/mg Normal [facility] Comment on above: Performed By: #### C VDTBH #### [facility] [address] [place] [address] Dr. Yasmany Claros TROPONIN, HIGH SENSITIVITYon 01-03-2023 HSTROP 4.5 pg/mL Normal 4.0-76.1 [facility] Comment on above: Result Comment: CUT- OFF POINTS HAVE BEEN ESTABLISHED BASED ON THE FOURTH UNIVERSAL DEFINITIONS OF MYOCARDIAL INFARCTION. THE UPPER REFERENCE LIMIT (URL) OF TROPONIN, DEFINED THE 99TH PERCENTILE OF cTnI DISTRIBUTION IN A REFERENCE POPULATION, HAS BEEN CONFIRMED THE DECISION THRESHOLD FOR MD DIAGNOSIS. Performed By: #### C VDTBH #### [facility] [address] [place] [address] Dr. Yasmany Claros URINE MICROSCOPIC ONLYon BACTERIA NONE SEEN Normal NONE SEEN [facility] Comment on above: Performed By: #### AGUSTÍN BRINK #### [facility] [address] [place] [address] Dr. Yasmany Claros Bacteria identified Cx Nom (U) NOT INDICATED Normal [facility] Comment on above: Performed By: #### E RUR, UMICRO #### [facility] [address] [place] [address] Dr. Yasmany Claros CAST SEEN Abnormal NONE SEEN [facility] Comment on above: Performed By: #### E RUR, UMICRO #### [facility] [address] [place] [address] Dr. Yasmany Claros Crystals LM Nom (Urine sed) NONE SEEN Normal NONE SEEN [facility] Comment on above: Performed By: #### E RUR, UMICRO #### [facility] [address] [place] [address] Dr. Yasmany Claros Epithelial cells LM Ql (Urine sed) NONE SEEN Normal NONE SEEN /RARE [facility] Comment on above: Performed By: #### E RUR, UMICRO #### [facility] [address] [place] [address] Dr. Yasmany Claros MUCOUS NONE SEEN Normal NONE SEEN [facility] Comment on above: Performed By: #### E RUR, UMICRO #### [facility] [address] [place] [address] Dr. Yasmany Claros RBC NONE SEEN Abnormal 0-2 [facility] Comment on above: Performed By: #### E RUR, UMICRO #### [facility] [address] [place] [address] Dr. Yasmany Claros WBC NONE SEEN Normal NONE SEEN [facility] Comment on above: Performed By: #### E RUR, UMICRO #### [facility] [address] [place] [address] Dr. Yasmany Claros US SINGLE QUAD RT [...] or a fixed stricture. Electronically authenticated by: YANA DOMINGUEZ Date: 2023-01-03 09:06 Normal [facility] Covid-19 PCR (CVDTB)on 07-21 SARS-CoV-2 (COVID-19) RNA MARS+probe Ql (Unsp spec) Not detected Normal NOT DETECTED [facility] Comment on above: Result Comment: This test is not yet approved or cleared by the [place] FDA. When there are no FDA-approved or cleared tests available, and other criteria are met, FDA can make tests available under an emergency access mechanism called an Emergency Use Authorization (EUA). The EUA for this test is supported by the [employer] of Health and Human Service's (HHS's) declaration [...] with SARS-CoV-2. Performed By: #### C #### [facility] [address] [place] [address] Dr. Yasmany Claros [facility]on 06-22 SARS-CoV-2 (COVID-19) RNA MARS+probe Ql (Unsp spec) Not detected Normal NOT DETECTED [facility] Comment on above: Result Comment: This test is not yet approved or cleared by the [place] FDA. When there are no FDA-approved or cleared tests available, and other criteria are met, FDA can make tests available under an emergency access mechanism called an Emergency Use Authorization (EUA). The EUA for this test is supported by the [employer] of Health and Human Service's (HHS's) declaration [...] SARS-CoV-2. Performed By: #### C [facility] #### [facility] [address] [place] [address] CHEST WO CONon [...] by: JHON MERCADO Date: 2022-05-15 12:57 Normal [facility] MRI KNEE LT WO CONon 05-15-2 022 [...] 3. Large joint effusion. Electronically authenticated by: YANA DOMINGUEZ Date: 2022-05-15 17:03 Normal [facility] CARDIAC ARTURO 3-6on 2 CK [Catalytic activity/Vol] 335 U/L Critically high 39-308 [facility] Comment on above: Result Comment: Test Repeated. Critical Value Verified Performed By: #### C MREP #### [facility] [address] [place] [address] Dr. Yasmany Claros CK.MB [Mass/Vol] 4.51 ng/mL Critically high <=3.60 [facility] Comment on above: Result Comment: Test Repeated. Critical Value Verified Performed By: #### C MREP #### [facility] [address] [place] [address] Dr. Yasmany Claros HSTROP 6.8 pg/mL Normal 4.0-76.1 [facility] Comment on above: Result Comment: CUT- OFF POINTS HAVE BEEN ESTABLISHED BASED ON THE FOURTH UNIVERSAL DEFINITIONS OF MYOCARDIAL INFARCTION. THE UPPER REFERENCE LIMIT (URL) OF TROPONIN, DEFINED THE 99TH PERCENTILE OF cTnI DISTRIBUTION IN A REFERENCE POPULATION, HAS BEEN CONFIRMED THE DECISION THRESHOLD FOR MD DIAGNOSIS. Performed By: #### C MREP #### [facility] [address] [place] [address] Dr. Yasmany Claros ER URINE PROFILEon 2 Bilirubin Ql (U) Negative Normal NEGATIVE [facility] Comment on above: Performed By: #### C VDTBH #### [facility] [address] [place] [address] Dr. Yasmany Claros Clarity (U) CLEAR Normal CLEAR [facility] Comment on above: Performed By: #### C VDTBH #### [facility] [address] [place] [address] Dr. Yasmany Claros Color (U) LT. YELLOW Normal YELLOW [facility] Comment on above: Performed By: #### C VDTBH #### [facility] [address] [address] [address] Yasmany HOFF A micrscopic examina tion will be performed if indicated. Normal [facility] Comment on above: Performed By: #### C VDTBH #### [facility] [address] [address] [address] Yasmany Claros Glucose Ql (U) Negative Normal NEGATIVE The [facility] Comment on above: Performed By: #### C VDTBH #### [facility] [address] [address] [address] Yasmany Claros Hemoglobin Ql (U) Negative Normal NEGATIVE [facility] Comment on above: Performed By: #### C VDTBH #### [facility] [address] [address] [address] Yasmany Claros Ketones Ql (U) Negative Normal NEGATIVE The [facility] Comment on above: Performed By: #### C VDTBH #### [facility] [address] [place] [address] Dr. Yasmany Claros LEUKOCYTES Negative Normal NEGATIVE [facility] Comment on above: Performed By: #### C VDTBH #### [facility] [address] [address] [address] Yasmany Claros Nitrite Ql (U) Negative Normal NEGATIVE The [facility] Comment on above: Performed By: #### C VDTBH #### [facility] [address] [place] [address] Dr. Yasmany Claros pH (U) 6.0 [pH] Normal 5-9 [facility] Comment on above: Performed By: #### C VDTBH #### [facility] [address] [place] [address] Dr. Yasmany Claros SPEC GRAVITY 1.010 Normal 1.005-<=1.0 25 [facility] Comment on above: Performed By: #### C VDTBH #### [facility] [address] [place] [address] Dr. Yasmany Claros UA PROTEIN Negative Normal NEGATIVE/ TRACE [facility] Comment on above: Performed By: #### C VDTBH #### [facility] [address] [place] [address] Dr. Yasmany Claros UR MICRO IND NOT INDICATED Normal [facility] Comment on above: Performed By: #### C VDTBH #### [facility] [address] [place] [address] Dr. Yasmany Claros Urobilinogen Qn (U) 0.2 {Aarti'U}/dL Normal 0.2 - 1.0 [facility] Comment on above: Performed By: #### C VDTBH #### [facility] [address] [place] [address] Dr. Yasmany Claros CARDIAC ARTURO ADMITon 022 CK [Catalytic activity/Vol] 356 U/L Critically high 39-308 [facility] Comment on above: Result Comment: Test Repeated. Critical Value Verified Performed By: #### C VDTBH #### [facility] [address] [place] [address] Dr. Yasmany Claros CK.MB [Mass/Vol] 5.11 ng/mL Critically high <=3.60 [facility] Comment on above: Result Comment: Test Repeated. Critical Value Verified Performed By: #### C VDTBH #### [facility] [address] [place] [address] Dr. Yasmany Claros HSTROP 6.3 pg/mL Normal 4.0-76.1 [facility] Comment on above: Result Comment: CUT- OFF POINTS HAVE BEEN ESTABLISHED BASED ON THE FOURTH UNIVERSAL DEFINITIONS OF MYOCARDIAL INFARCTION. THE UPPER REFERENCE LIMIT (URL) OF TROPONIN, DEFINED THE 99TH PERCENTILE OF cTnI DISTRIBUTION IN A REFERENCE POPULATION, HAS BEEN CONFIRMED THE DECISION THRESHOLD FOR MD DIAGNOSIS. Performed By: #### C VDTBH #### [facility] [address] [place] [address] Dr. Yasmany Claros BELLA 101 ng/mL Critically high 16-96 [facility] Comment on above: Performed By: #### C VDTBH #### [facility] [address] [place] [address] Dr. Yasmany Claros CBC AUTO DIFFon 02-08-2022 BASO # 0.0 103/ul Normal 0.0-0.1 [facility] Comment on above: Performed By: #### C VDTBH #### [facility] [address] [place] [address] Dr. Yasmany Claros Basophils/100 WBC (Bld) 0.8 % Normal 0.2-2.0 [facility] Comment on above: Performed By: #### C VDTBH #### [facility] [address] [place] [address] Dr. Yasmany Claros EO # 0.1 103/ul Normal 0.0-0.7 [facility] Comment on above: Performed By: #### C VDTBH #### [facility] [address] [place] [address] Dr. Yasmany Claros Eosinophils/100 WBC (Bld) 2.5 % Normal 0.9-7.0 [facility] Comment on above: Performed By: #### C VDTBH #### [facility] [address] [place] [address] Dr. Yasmany Claros Erythrocyte distribution width (RBC) [Ratio] 14.8 % Normal 11.0-15.0 [facility] Comment on above: Performed By: #### C VDTBH #### [facility] [address] [place] [address] Dr. Yasmany Claros Hematocrit (Bld) [Volume fraction] 41.0 % Critically low 42.0-54.0 [facility] Comment on above: Performed By: #### C VDTBH #### [facility] [address] [place] [address] Dr. Yasmany Claros Hemoglobin (Bld) [Mass/Vol] 13.3 g/dL Critically low 14.0-18.0 [facility] Comment on above: Performed By: #### C VDTBH #### [facility] [address] [place] [address] Dr. Yasmany Claros IG # 0.01 10e3/ul Normal 0.00-0.03 [facility] Comment on above: Performed By: #### C VDTBH #### [facility] [address] [place] [address] Dr. Yasmany Claros IG % 0.2 % Normal 0.0-0.5 [facility] Comment on above: Performed By: #### C VDTBH #### [facility] [address] [place] [address] Dr. Yasmany Claros LYMPH # 1.3 103/ul Normal 1.2-3.8 [facility] Comment on above: Performed By: #### C VDTBH #### [facility] [address] [place] [address] Dr. Yasmany Claros Lymphocytes/100 WBC (Bld) 26.1 % Normal 20.5-60.0 [facility] Comment on above: Performed By: #### C VDTBH #### [facility] [address] [place] [address] Dr. Yasmany Claros MANUAL DIFF REQ NO Normal [facility] Comment on above: Performed By: #### C VDTBH #### [facility] [address] [place] [address] Dr. Yasmany Claros MCH (RBC) [Entitic mass] 26.9 pg Normal 25.9-34.0 [facility] Comment on above: Performed By: #### C VDTBH #### [facility] [address] [place] [address] Dr. Yasmany Claros MCHC (RBC) [Mass/Vol] 32.4 g/dL Normal 29.9-35.2 [facility] Comment on above: Performed By: #### C VDTBH #### [facility] [address] [place] [address] Dr. Yasmany Claros MCV (RBC) [Entitic vol] 82.8 fL Normal 80.0-94.0 [facility] Comment on above: Performed By: #### C VDTBH #### [facility] [address] [place] [address] Dr. Yasmany Claros MONO # 0.4 103/ul Normal 0.3-0.8 [facility] Comment on above: Performed By: #### C VDTBH #### [facility] [address] [place] [address] Dr. Yasmany Claros Monocytes/100 WBC (Bld) 8.6 % Normal 1.7-12.0 [facility] Comment on above: Performed By: #### C VDTBH #### [facility] [address] [place] [address] Dr. Yasmany Claros NEUT # 3.2 103/ul Normal 1.4-6.5 [facility] Comment on above: Performed By: #### C VDTBH #### [facility] [address] [place] [address] Dr. Yasmany Claros Neutrophils/100 WBC (Bld) 61.8 % Normal 43.0-75.0 [facility] Comment on above: Performed By: #### C VDTBH #### [facility] [address] [place] [address] Dr. Yasmany Claros Platelet mean volume (Bld) [Entitic vol] 10.7 fL Normal 9.5-13.5 [facility] Comment on above: Performed By: #### C VDTBH #### [facility] [address] [place] [address] Dr. Yasmany Claros PLT 163 103/ul Normal 150-450 [facility] Comment on above: Performed By: #### C VDTBH #### [facility] [address] [place] [address] Dr. Yasmany Claros RBC 4.95 106/ul Normal 4.70-6.10 [facility] Comment on above: Performed By: #### C VDTBH #### [facility] [address] [place] [address] Dr. Yasmany Claros WBC 5.1 103/ul Normal 4.0-11.0 [facility] Comment on above: Performed By: #### C VDTBH #### [facility] [address] [place] [address] ABD/PELV W CONon [...] by: REI ORTIZ Date: 2022-02-08 21:07 Normal [facility] CT CHEST W CONon 02-08-2022 CT [...] The subdiaphragmatic abdominal organs included in the [id number] do not demonstrate any acute abnormality with [...] pulmonary nodules can be found at: [email or web address]/doi/[email or web address] Electronically authenticated by: INDIOG TOTH Date: 2022-02-08 21:19 Normal [facility] LACTATE/LACTIC ACIDon 2021 Lactate [Moles/Vol] 1.3 mmol/L Normal 0.4-2.0 [facility] Comment on above: Performed By: #### L ACT #### [facility] [address] [place] [address] Dr. Yasmany Claros LIPASEon 02-08-2022 Lipase [Catalytic activity/Vol] 92.0 U/L Normal 73.0-393.0 [facility] Comment on above: Performed By: #### C VDTBH #### [facility] [address] [place] [address] Dr. Yasmany Claros PROF 14(COMP METB)on 022 Albumin [Mass/Vol] 4.1 g/dL Normal 3.4-5.0 [facility] Comment on above: Performed By: #### C VDTBH #### [facility] [address] [place] [address] Dr. Yasmany Claros Albumin/Globulin [Mass ratio] 1.0 {ratio} Normal [facility] Comment on above: Performed By: #### C VDTBH #### [facility] [address] [place] [address] Dr. Yasmany Claros ALP [Catalytic activity/Vol] 62 U/L Normal 46-116 [facility] Comment on above: Performed By: #### C VDTBH #### [facility] [address] [place] [address] Dr. Yasmany Claros ALT [Catalytic activity/Vol] 52 U/L Normal 16-63 [facility] Comment on above: Performed By: #### C VDTBH #### [facility] [address] [address] [address] Yasmany Claros Anion gap [Moles/Vol] 10.3 mmol/L Normal [facility] Comment on above: Performed By: #### C VDTBH #### [facility] [address] [address] [address] Yasmany Claros AST [Catalytic activity/Vol] 31 U/L Normal 15-37 [facility] Comment on above: Performed By: #### C VDTBH #### [facility] [address] [place] [address] Dr. Yasmany Claros Bilirubin [Mass/Vol] 0.4 mg/dL Normal 0.2-1.3 [facility] Comment on above: Performed By: #### C VDTBH #### [facility] [address] [place] [address] Dr. Yasmany Claros Calcium [Mass/Vol] 9.1 mg/dL Normal 8.5-10.1 [facility] Comment on above: Performed By: #### C VDTBH #### [facility] [address] [place] [address] Dr. Yasmany Claros Chloride [Moles/Vol] 99 mmol/L Normal 98-107 [facility] Comment on above: Performed By: #### C VDTBH #### [facility] [address] [place] [address] Dr. Yasmany Claros CO2 [Moles/Vol] 30.8 mmol/L Normal 21.0-32.0 [facility] Comment on above: Performed By: #### C VDTBH #### [facility] [address] [place] [address] Dr. Yasmany Claros Creatinine [Mass/Vol] 0.96 mg/dL Normal 0.70-1.30 [facility] Comment on above: Performed By: #### C VDTBH #### [facility] [address] [place] [address] Dr. Yasmany Claros EGFR-AF SAMMARINESE >60 Normal >=60 [facility] Comment on above: Performed By: #### C VDTBH #### [facility] [address] [place] [address] Dr. Yasmany Claros EGFR-NON AF SAMMARINESE >60 Normal >=60 [facility] Comment on above: Performed By: #### C VDTBH #### [facility] [address] [place] [address] Dr. Yasmany Claros Globulin (S) [Mass/Vol] 4.0 g/dL Normal [facility] Comment on above: Performed By: #### C VDTBH #### [facility] [address] [place] [address] Dr. Yasmany Claros Glucose [Mass/Vol] 104 mg/dL Normal 74-106 [facility] Comment on above: Performed By: #### C VDTBH #### [facility] [address] [place] [address] Dr. Yasmany Claros Potassium [Moles/Vol] 4.1 mmol/L Normal 3.5-5.1 [facility] Comment on above: Performed By: #### C VDTBH #### [facility] [address] [place] [address] Dr. Yasmany Claros Protein [Mass/Vol] 8.1 g/dL Normal 6.1-8.2 [facility] Comment on above: Performed By: #### C VDTBH #### [facility] [address] [place] [address] Dr. Yasmany Claros Sodium [Moles/Vol] 136 mmol/L Normal 136-145 [facility] Comment on above: Performed By: #### C VDTBH #### [facility] [address] [place] [address] Dr. Yasmany Claros Urea nitrogen [Mass/Vol] 15.0 mg/dL Normal 7.0-18.0 [facility] Comment on above: Performed By: #### C VDTBH #### [facility] [address] [place] [address] Dr. Yasmany Claros Urea nitrogen/Creatini ne [Mass ratio] 15.6 mg/mg Normal [facility] Comment on above: Performed By: #### C VDTBH #### [facility] [address] [place] [address] Dr. Yasmany Claros PROTIMEon 02-08-2022 INR Coag (PPP) [Relative time] 1.03 {INR} Normal [facility] Comment on above: Performed By: #### P T, PTT #### [facility] [address] [place] [address] Dr. Yasmany Claros INR GUIDELINES SEE BELOW Normal The [facility] Comment on above: Result Comment: FELICIA RED INR: 2.0 - 3.0 CONDITIONS NOT LISTED BELOW 2.5 - 3.5 FOR PROSTHETIC HEART VALVE REPLACEMENT 2.5 - 3.5 RECURRENT THROMBOSIS Performed By: #### P T, PTT #### [facility] [address] [place] [address] Dr. Yasmany Claros PT Coag (PPP) [Time] 11.1 s Normal 9.0-11.6 [facility] Comment on above: Performed By: #### P T, PTT #### [facility] [address] [place] [address] Dr. Yasmany Claros PTTon 02-08-2022 aPTT Coag (Bld) [Time] 25.6 s Normal 22.3-36.2 [facility] Comment on above: Performed By: #### P T, PTT #### [facility] [address] [place] [address] Dr. Yasmany Claros TSHon 02-08-2022 TSH 4.797 uIU/mL Critically high 0.470-4.680 [facility] Comment on above: Performed By: #### C VDTBH #### [facility] [address] [place] [address] Dr. Yasmany Claros TSH RANGE SEE BELOW Normal [facility] Comment on above: Result Comment: <0.3 4 UIU/ml HYPERTHYROID 0.34-5.60 UIU/ml EUTHYROID >5.60 UIU/ml HYPOTHYROID Performed By: #### C VDTBH #### [facility] [address] [place] [address] Dr. Yasmany Claros HIP LEFT 1 OR 2 VWS WITH PEL VISon 03-18-2019 HIP LEFT 1 OR 2 VWS WITH PELVIS [facility] Department of Radiology [address] [place] [address] Patient Name: SADIQ DELAROSA : 1960 [...] Huntley on 03/18/2019 4:11 PM EDT. I, Laura Sol, have reviewed the images and report and concur with these findings. Electronically signed by:Laura Sol. Transcribed by: [email or web address], User Resident: FERNANDO HUNTLEY Electronically Signed by: LAURA SOL @ 03/19/2019 02:14 PM I personally read this/these film(s) with this resident Normal The [facility] Comment on above: Order Comment: , , = ========= , Ordering Provider - MARTIN RHODES MD , Operative Reporton 9 Operative Report MR#: [id number] I [facility] Pt. Name: Sadiq Delarosa Room #: [id number] Discharge 03/05/2019 Date: Birthdate: 1960 OPERATIVE REPORT DATE OF SURGERY: 03/04/2019 SURGEON: Martin Rhodes M.D. CLINICAL PHARMACY TECHNICIAN: Rj Valladares ANESTHESIA: General anesthesia. ESTIMATED [...] Rhodes M.D. Date Trans: 03/08/2019 07:59 Archana/reba [id number] cc: Fernando Torre D.O. [address] [place] [id number] Jett Hagan, DO [address] [facility] [address] Normal The [facility] BASIC METABOLIC PANELon 05- Calcium [Mass/Vol] 8.8 mg/dL Normal 8.6-10.3 [facility] Comment on above: Order Comment: No: D o not add to previous draw Performed By: #### 5 0103 #### [facility] [address] [place] [address], [place] Chloride [Moles/Vol] 103 mmol/L Normal 98-107 The [facility] Comment on above: Order Comment: No: D o not add to previous draw Performed By: #### 5 0103 #### [facility] [address] [place] [address], [place] CO2 [Moles/Vol] 27 mmol/L Normal 21-31 [facility] Comment on above: Order Comment: No: D o not add to previous draw Performed By: #### 5 0103 #### [facility] [address] [place] [address], [place] Creatinine [Mass/Vol] 0.78 mg/dL Normal 0.70-1.30 [facility] Comment on above: Order Comment: No: D o not add to previous draw Performed By: #### 5 0103 #### [facility] [address] [place] [address], [place] GFR/1.73 sq M predicted among blacks MDRD (S/P/Bld) [Vol rate/Area] mL/min/{1.73_m2} Normal >60 The [facility] Comment on above: Order Comment: No: D o not add to previous draw Performed By: #### 5 0103 #### [facility] [address] [place] [address], [place] GFR/1.73 sq M predicted among non-blacks MDRD (S/P/Bld) [Vol rate/Area] mL/min/{1.73_m2} Normal >60 The [facility] Comment on above: Order Comment: No: D o not add to previous draw Performed By: #### 5 0103 #### [facility] [address] [place] [address], [place] Glucose [Mass/Vol] 91 mg/dL Normal 70-100 The [facility] Comment on above: Order Comment: No: D o not add to previous draw Performed By: #### 5 0103 #### [facility] [address] [place] [address], [facility] Potassium [Moles/Vol] 4.2 mmol/L Normal 3.5-5.1 [facility] Comment on above: Order Comment: No: D o not add to previous draw Performed By: #### 5 0103 #### [facility] [address] [place] [address], [facility] Sodium [Moles/Vol] 135 mmol/L Low 136-145 The [facility] Comment on above: Order Comment: No: D o not add to previous draw Performed By: #### 5 0103 #### [facility] [address] [facility] [address] Urea nitrogen [Mass/Vol] 10 mg/dL Normal 7-25 The [facility] Comment on above: Order Comment: No: D o not add to previous draw Performed By: #### 5 0103 #### [facility] [address] [facility]. [address] CBC W/DIFFon 03-05-2019 ABS BASOPHILS 0.0 10*3/uL Normal 0.0-0.2 The [facility] Comment on above: Order Comment: No: D o not add to previous draw Performed By: #### 5 [id number] #### [facility] [address] [facility] [address] ABS IMM GRANS 0.0 10*3/uL Normal 0.0-0.2 The [facility] Comment on above: Order Comment: No: D o not add to previous draw Performed By: #### 5 [id number] #### [facility] [address] [place] [address], [facility] ABS NEUTROPHILS 4.3 10*3/uL Normal 1.6-7.6 The [facility] Comment on above: Order Comment: No: D o not add to previous draw Performed By: #### 5 [id number] #### [facility] [address] [place] [address], [facility] Basophils/100 WBC (Bld) 0.3 % Normal 0.0-1.0 The [facility] Comment on above: Order Comment: No: D o not add to previous draw Performed By: #### 5 [id number] #### [facility] [address] [place] [address], [facility] Eosinophils (Bld) [#/Vol] 0.1 10*3/uL Normal 0.0-0.5 The [facility] Comment on above: Order Comment: No: D o not add to previous draw Performed By: #### 5 [id number] #### [facility] [address] [place] [address], [facility] Eosinophils/100 WBC (Bld) 0.8 % Normal 0.0-6.0 The [facility] Comment on above: Order Comment: No: D o not add to previous draw Performed By: #### 5 [id number] #### [facility] [address] [place] [address], [facility] Erythrocyte distribution width (RBC) [Ratio] 14.7 % Normal 11.5-15.0 The [facility] Comment on above: Order Comment: No: D o not add to previous draw Performed By: #### 5 [id number] #### [facility] [address] [place] [id number], [facility] Hematocrit (Bld) [Volume fraction] 36.3 % Low 39.0-50.0 The [facility] Comment on above: Order Comment: No: D o not add to previous draw Performed By: #### 5 [id number] #### [facility] [address] [place] [address], [facility] Hemoglobin (Bld) [Mass/Vol] 11.6 g/dL Low 13.0-17.0 The [facility] Comment on above: Order Comment: No: D o not add to previous draw Performed By: #### 5 [id number] #### [facility] [address] [facility] [place] [address], [facility] IMMATURE GRANS 0.5 % Normal 0.0-1.0 The [facility] Comment on above: Order Comment: No: D o not add to previous draw Performed By: #### 5 [id number] #### [facility] [address] [place] [address], [facility] Lymphocytes (Bld) [#/Vol] 1.0 10*3/uL Low 1.2-4.0 The [facility] Comment on above: Order Comment: No: D o not add to previous draw Performed By: #### 5 [id number] #### [facility] [address] [place] [address], [facility] Lymphocytes/100 WBC (Bld) 16.3 % Low 20.0-45.0 The [facility] Comment on above: Order Comment: No: D o not add to previous draw Performed By: #### 5 [id number] #### [facility] [address] [facility] [place] [address], [facility] MCH (RBC) [Entitic mass] 26.4 pg Low 27.0-33.0 The [facility] Comment on above: Order Comment: No: D o not add to previous draw Performed By: #### 5 [id number] #### [facility] [address] [place] [address], [facility] MCHC (RBC) [Mass/Vol] 32.0 g/dL Normal 32.0-35.0 The [facility] Comment on above: Order Comment: No: D o not add to previous draw Performed By: #### 5 [id number] #### [facility] [address] [facility] [id number], [facility] MCV (RBC) [Entitic vol] 82.5 fL Normal 82.0-98.0 The [facility] Comment on above: Order Comment: No: D o not add to previous draw Performed By: #### 5 [id number] #### [facility] [address] [place] [address], [facility] Monocytes (Bld) [#/Vol] 0.6 10*3/uL Normal 0.1-1.0 The [facility] Comment on above: Order Comment: No: D o not add to previous draw Performed By: #### 5 [id number] #### [facility] [address] [place] [address], [facility] MONOS 10.3 % Normal 5.0-12.0 The [facility] Comment on above: Order Comment: No: D o not add to previous draw Performed By: #### 5 [id number] #### [facility] [address] [place] [id number], [facility] Neutrophils/100 WBC (Bld) 71.8 % Normal 40.0-72.0 The [facility] Comment on above: Order Comment: No: D o not add to previous draw Performed By: #### 5 [id number] #### [facility] [address] [place] [address], [facility] Nucleated RBC/100 WBC (Bld) [Ratio] 0 % Normal 0-0 The [facility] Comment on above: Order Comment: No: D o not add to previous draw Performed By: #### 5 [id number] #### [facility] [address] [place] [address], [facility] PLAT CNT 150 10*3/uL Normal 150-400 The [facility] Comment on above: Order Comment: No: D o not add to previous draw Performed By: #### 5 [id number] #### [facility] [address] [place] [id number], [facility] RBC (Bld) [#/Vol] 4.40 10*6/uL Normal 4.20-5.70 The [facility] Comment on above: Order Comment: No: D o not add to previous draw Performed By: #### 5 [id number] #### [facility] [address] [place] [address], [facility] WBC (Bld) [#/Vol] 6.02 10*3/uL Normal 4.00-10.60 The [facility] Comment on above: Order Comment: No: D o not add to previous draw Performed By: #### 5 [id number] #### [facility] [address] *ANAEROBIC CULTUREon 019 *ANAEROBIC CULTURE Clinical Report: (D) Specimen/Source: TISSUE/#3 LT HIP Collected: 03/04/2019 09:56 Status: Final Last Updated: 03/09/2019 09:49 CULT RES (Final) No Anaerobes Isolated 5 Days Normal The [facility] Comment on above: Performed By: #### 5 [id number] #### [facility] [address] *ANAEROBIC CULTURE Clinical Report: (D) Specimen/Source: TISSUE/#2 LT HIP Collected: 03/04/2019 09:55 Status: Final Last Updated: 03/09/2019 09:49 CULT RES (Final) No Anaerobes Isolated 5 Days Normal The [facility] Comment on above: Performed By: #### 5 [id number] #### [facility] [address] *ANAEROBIC CULTURE Clinical Report: (D) Specimen/Source: FLUID/#1 LT HIP JOINT Collected: 03/04/2019 09:55 Status: Final Last Updated: 03/09/2019 09:49 CULT RES (Final) No Anaerobes Isolated 5 Days Normal The [facility] Comment on above: Performed By: #### 5 [id number] #### [facility] [address] *BODY FLUID CULTUREon 2018 *BODY FLUID CULTURE Clinical Report: (D) Specimen/Source: FLUID/INTRAOP SPEC Collected: 03/04/2019 09:55 Status: Final Last Updated: 03/09/2019 08:53 (1) #1 LT JOINT GRAM (Final) Rare Polys No Bacteria Seen CULT RES (Final) No Growth Day 5 Normal The [facility] Comment on above: Order Comment: #1 LT JOINT Performed By: #### 5 [id number] #### [address] *TISSUE CULTUREon 03-04-2019 *TISSUE CULTURE Clinical Report: (D) Specimen/Source: TISSUE/INTRAOP SPEC Collected: 03/04/2019 09:56 Status: Final Last Updated: 03/09/2019 08:53 (1) #3 LT HIP INFERIOR GRAM (Final) Few Polys No Bacteria Seen CULT RES (Final) No Growth Day 5 Normal The [facility] Comment on above: Order Comment: #3 LT HIP INFERIOR Performed By: #### 5 [id number] #### [address] *TISSUE CULTURE Clinical Report: (D) Specimen/Source: TISSUE/INTRAOP SPEC Collected: 03/04/2019 09:55 Status: Final Last Updated: 03/09/2019 08:53 (1) #2 LT HIP ANTERIOR GRAM (Final) Rare Polys No Bacteria Seen CULT RES (Final) No Growth Day 5 Normal The [facility] Comment on above: Order Comment: #2 LT HIP ANTERIOR Performed By: #### 5 [id number] #### [id number] [place] [address] POC GLUCOSE LABon 03-04-2019 Glucose [Mass/Vol] 89 mg/dL Normal 70-100 The [facility] Comment on above: Performed By: #### 5 [id number] #### [address] [address], [facility] PORTABLE HIP LEFT 1 OR 2 VWS WITH PELVISon 03-04-2019 PORTABLE HIP LEFT 1 OR 2 VWS WITH PELVIS [facility] Department of Radiology [address] [place] [id number] Patient Name: SADIQ DELAROSA : 1960 Sex: [...] loosening Electronically signed by:Alfred Sandoval. Transcribed by: [email or web address], User Resident: Electronically Signed by: ALFRED SANDOVAL @ 03/04/2019 04:54 PM Normal The [facility] Comment on above: Order Comment: Hardw are Evaluation RBC'S 2 UNITSon 03-04-2019 CROSSMATCH INTERP 1 COMP Normal The [facility] Comment on above: Performed By: #### 5 [id number] #### [facility] [address] [place] [address], [place] CROSSMATCH INTERP 2 COMP Normal The [facility] Comment on above: Performed By: #### 5 [id number] #### [facility] [address] [place] [address], [place] PRODUCT CODE 1 E0336 Normal The [facility] Comment on above: Performed By: #### 5 6506 #### [facility] [address] [place] [address], [place] PRODUCT CODE 2 E0336 Normal The [facility] Comment on above: Performed By: #### 5 6506 #### [facility] [address] [place] [address], [facility] PRODUCT STATUS 1 RE Normal The [facility] Comment on above: Result Comment: Resu lt changed by IF on 03/07/2019 07:43. The previous value was XM. Performed By: #### 5 [id number] #### [facility] [address] [place] [address], [facility] PRODUCT STATUS 2 RE Normal The [facility] Comment on above: Result Comment: Resu lt changed by IF on 03/07/2019 07:43. The previous value was XM. Performed By: #### 5 [id number] #### [facility] [address] [place] [address], [place] UNIT ABO 1 A Normal The [facility] Comment on above: Performed By: #### 5 6506 #### [facility] [address] [place] [address], [place] UNIT ABO 2 A Normal The [facility] Comment on above: Performed By: #### 5 [id number] #### [facility] [address] [place] [address], [place] UNIT ID 1 [id number] Normal The [facility] Comment on above: Performed By: #### 5 [id number] #### [facility] [address] [place] [address], [place] UNIT ID 2 [id number] Normal The [facility] Comment on above: Performed By: #### 5 [id number] #### [facility] [address] [place] [address], [facility] UNIT RH 1 Positive Normal The [facility] Comment on above: Performed By: #### 5 [id number] #### [facility] [address] [place] [address], [facility] UNIT RH 2 Positive Normal The [facility] Comment on above: Performed By: #### 5 [id number] #### [facility] [address] [place] [address], [facility] BASIC METABOLIC PANELon 05-0 Calcium [Mass/Vol] 9.5 mg/dL Normal 8.6-10.3 The [facility] Comment on above: Performed By: #### 0 0071 #### [facility] [address] [place] [address], [facility] Chloride [Moles/Vol] 103 mmol/L Normal 98-107 The [facility] Comment on above: Performed By: #### 0 0071 #### [facility] [address] [place] [address], [facility] CO2 [Moles/Vol] 26 mmol/L Normal 21-31 The [facility] Comment on above: Performed By: #### 0 0071 #### [facility] [address] [place] [address], [facility] Creatinine [Mass/Vol] 0.81 mg/dL Normal 0.70-1.30 The [facility] Comment on above: Performed By: #### 0 0071 #### [facility] [address] [place] [address], [facility] GFR/1.73 sq M predicted among blacks MDRD (S/P/Bld) [Vol rate/Area] mL/min/{1.73_m2} Normal >60 The [facility] Comment on above: Performed By: #### 0 0071 #### [facility] [address] [place] [address], [facility] GFR/1.73 sq M predicted among non-blacks MDRD (S/P/Bld) [Vol rate/Area] mL/min/{1.73_m2} Normal >60 [facility] Comment on above: Performed By: #### 0 0071 #### [facility] [address] Glucose [Mass/Vol] 82 mg/dL Normal 70-100 [facility] Comment on above: Performed By: #### 0 0071 #### [facility] [address] Potassium [Moles/Vol] 3.8 mmol/L Normal 3.5-5.1 [facility] Comment on above: Performed By: #### 0 0071 #### [facility] [address] Sodium [Moles/Vol] 138 mmol/L Normal 136-145 [facility] Comment on above: Performed By: #### 0 0071 #### [facility] [address] Urea nitrogen [Mass/Vol] 12 mg/dL Normal 7-25 [facility] Comment on above: Performed By: #### 0 0071 #### [facility] [address] CBC W/DIFFon 02-24-2019 ABS BASOPHILS 0.0 10*3/uL Normal 0.0-0.2 [facility] Comment on above: Performed By: #### 5 102 #### [facility] [address] [place] [address], [facility] ABS IMM GRANS 0.0 10*3/uL Normal 0.0-0.2 [facility] Comment on above: Performed By: #### 5 0103 #### [facility] [address] [place] [id number], [facility] ABS NEUTROPHILS 3.8 10*3/uL Normal 1.6-7.6 [facility] Comment on above: Performed By: #### 3 #### [facility] [address] [place] [address], [facility] Basophils/100 WBC (Bld) 0.5 % Normal 0.0-1.0 [facility] Comment on above: Performed By: #### 102 #### [facility] [address] [place] [place] [address], [facility] Eosinophils (Bld) [#/Vol] 0.1 10*3/uL Normal 0.0-0.5 [facility] Comment on above: Performed By: #### 102 #### [facility] [address] [place] [address], [facility] Eosinophils/100 WBC (Bld) 1.1 % Normal 0.0-6.0 [facility] Comment on above: Performed By: #### 102 #### [facility] [address] [facility] Erythrocyte distribution width (RBC) [Ratio] 14.6 % Normal 11.5-15.0 [facility] Comment on above: Performed By: #### 3 #### [facility] [address] [facility] [place] [address], [facility] Hematocrit (Bld) [Volume fraction] 42.8 % Normal 39.0-50.0 [facility] Comment on above: Performed By: #### 5 3 #### [facility] [address] [place] [place] [address], [facility] Hemoglobin (Bld) [Mass/Vol] 13.6 g/dL Normal 13.0-17.0 [facility] Comment on above: Performed By: #### 3 #### [facility] [address] [facility] [place] [address], [facility] IMMATURE GRANS 0.2 % Normal 0.0-1.0 [facility] Comment on above: Performed By: #### 5 0103 #### [facility] [address] [facility] [place] [address], [facility] Lymphocytes (Bld) [#/Vol] 1.3 10*3/uL Normal 1.2-4.0 [facility] Comment on above: Performed By: #### 5 0103 #### [facility] [address] [facility] [place] [address], [facility] Lymphocytes/100 WBC (Bld) 23.4 % Normal 20.0-45.0 [facility] Comment on above: Performed By: #### 5 0103 #### [facility] 3000 [facility] [place] [address], [facility] MCH (RBC) [Entitic mass] 26.1 pg Low 27.0-33.0 [facility] Comment on above: Performed By: #### 5 0103 #### [facility] [address] [place] [address], [facility] MCHC (RBC) [Mass/Vol] 31.8 g/dL Low 32.0-35.0 [facility] Comment on above: Performed By: #### 5 0103 #### [facility] 3000 [facility] [place] [address], [facility] MCV (RBC) [Entitic vol] 82.0 fL Normal 82.0-98.0 [facility] Comment on above: Performed By: #### 5 0103 #### [facility] [address] [facility] [place] [address], [facility] Monocytes (Bld) [#/Vol] 0.5 10*3/uL Normal 0.1-1.0 [facility] Comment on above: Performed By: #### 5 0103 #### [facility] [address] [facility] [place] [address], [facility] MONOS 8.5 % Normal 5.0-12.0 [facility] Comment on above: Performed By: #### 5 0103 #### [facility] [address] [place] [address], [facility] Neutrophils/100 WBC (Bld) 66.3 % Normal 40.0-72.0 [facility] Comment on above: Performed By: #### 5 0103 #### [facility] [address] [place] [address], [facility] Nucleated RBC/100 WBC (Bld) [Ratio] 0 % Normal 0-0 [facility] Comment on above: Performed By: #### 5 0103 #### [facility] [address] [facility] [place] [address], [facility] PLAT CNT 174 10*3/uL Normal 150-400 [facility] Comment on above: Performed By: #### 5 0103 #### [facility] [address] [facility] [address], [facility] RBC (Bld) [#/Vol] 5.22 10*6/uL Normal 4.20-5.70 [facility] Comment on above: Performed By: #### 5 0103 #### [facility] [address] [place] [address], [facility] WBC (Bld) [#/Vol] 5.65 10*3/uL Normal 4.00-10.60 [facility] Comment on above: Performed By: #### 5 0103 #### [facility] [address] [place] [address], [facility] PROTHROMBIN TIMEon 9 INR Coag (PPP) [Relative time] 1.03 {INR} Normal 0.91-1.16 [facility] Comment on above: Result Comment: ACCC [...] 1995;[id number]. Performed By: #### 5 6101 #### [facility] [address] [facility] PT Coag (PPP) [Time] 13.5 s Normal 12.3-14.8 [facility] Comment on above: Result Comment: ALL RESULTS MUST BE INTERPRETED WITH RESPECT TO BLOOD DRAWING ARTIFACT OR DILUTION ERROR OF ANTICOAGULANT AT THE TIME OF SAMPLING. Performed By: #### 5 [id number] #### [facility] [address] [facility]. [address] TYPE AND CROSSMATCHon 2018 ABO INTERPRETATION A Normal [facility] Comment on above: Performed By: #### 6 2594 #### [facility] [address] [facility] [place] [address], [facility] RH INTERPRETATION Positive Normal [facility] Comment on above: Performed By: #### 6 2594 #### [facility] [address] [facility] [place] [address], [facility] URINALYSISon 02-24-2019 Appearance (U) CLEAR Normal CLEAR [facility] Comment on above: Performed By: #### 1 0008 #### [facility] [address] [place] [address], [facility] Bilirubin [Mass/Vol] Negative Normal NEGATIVE [facility] Comment on above: Performed By: #### 1 0008 #### [facility] [address] [place] [address], [facility] BLOOD Negative Normal NEGATIVE [facility] Comment on above: Performed By: #### 1 0008 #### [facility] [address] [place] [address], [facility] Color (U) YELLOW Normal YELLOW [facility] Comment on above: Performed By: #### 1 0008 #### [facility] [address] [place] [address], [facility] EPIS NONE SEEN Normal FEW,OCC,NON E SEEN [facility] Comment on above: Performed By: #### 1 0008 #### [facility] [address] [place] [address], [facility] Glucose [Mass/Vol] Negative Normal NEGATIVE [facility] Comment on above: Performed By: #### 1 0008 #### [facility] [address] [place] [address], [facility] HYALINE CASTS 1 /LPF Abnormal NONE SEEN [facility] Comment on above: Performed By: #### 1 0008 #### [facility] [address] [place] [address], [facility] KETONE Negative Normal NEGATIVE [facility] Comment on above: Performed By: #### 1 0008 #### [facility] [address] [place] [address], [facility] LEUK SAULO Negative Normal NEGATIVE [facility] Comment on above: Performed By: #### 1 0008 #### [facility] [address] [place] [address], [place] MUCUS THREADS MANY Abnormal NONE SEEN [facility] Comment on above: Performed By: #### 1 0008 #### [facility] [address] [place] [address], [facility] Nitrite Ql (U) Negative Normal NEGATIVE [facility] Comment on above: Performed By: #### 1 0008 #### [facility] [address] [place] [address], [facility] pH (Bld) 5.0 Normal 5.0-8.0 [facility] Comment on above: Performed By: #### 1 0008 #### [facility] [address] [place] [address], [facility] Protein (U) [Mass/Vol] Negative Normal NEGATIVE [facility] Comment on above: Performed By: #### 1 0008 #### [facility] [address] [place] [address], [facility] RBC (U) [#/Vol] 0-2 Abnormal NONE SEEN [facility] Comment on above: Performed By: #### 1 0008 #### [facility] [address] SPEC GRAV 1.020 Normal 1.015-1.020 [facility] Comment on above: Performed By: #### 1 0008 #### [facility] [address] [place] [address], [facility] WBC UA 0-2 Abnormal NONE SEEN [facility] Comment on above: Performed By: #### 1 0008 #### [facility] [address] *MRSA/MSSA DNA NASALon 02-16 *MRSA/MSSA DNA NASAL Clinical Report: (D) Specimen: NASAL SWAB Collected: 02/16/2019 09:16 Status: Final Last Updated: 02/16/2019 15:44 MSSA DNA (Final) No Methicillin Susceptible Staphylococcus aureus DNA Detected MRSA DNA (Final) No Methicillin Resistant Staphylococcus aureus DNA Detected Normal [facility] Comment on above: Performed By: #### 3 1595 #### [facility] [address] CBC W/DIFFon 02-16-2019 ABS BASOPHILS 0.0 10*3/uL Normal 0.0-0.2 [facility] Comment on above: Performed By: #### 5 0103 #### [facility] [address] [place] [address], [facility] ABS IMM GRANS 0.0 10*3/uL Normal 0.0-0.2 [facility] Comment on above: Performed By: #### 5 0103 #### [facility] [address] [place] [address], [facility] ABS NEUTROPHILS 2.9 10*3/uL Normal 1.6-7.6 [facility] Comment on above: Performed By: #### 5 0103 #### [facility] [address] Basophils/100 WBC (Bld) 0.6 % Normal 0.0-1.0 [facility] Comment on above: Performed By: #### 5 0103 #### [facility] [address] [place] [address], [facility] Eosinophils (Bld) [#/Vol] 0.1 10*3/uL Normal 0.0-0.5 [facility] Comment on above: Performed By: #### 5 0103 #### [facility] [address] [place] [address], [facility] Eosinophils/100 WBC (Bld) 1.3 % Normal 0.0-6.0 [facility] Comment on above: Performed By: #### 5 0103 #### [facility] [address] Erythrocyte distribution width (RBC) [Ratio] 14.6 % Normal 11.5-15.0 [facility] Comment on above: Performed By: #### 5 0103 #### [facility] [address] Hematocrit (Bld) [Volume fraction] 40.4 % Normal 39.0-50.0 [facility] Comment on above: Performed By: #### 5 0103 #### [facility] 3000 [facility] [address] Hemoglobin (Bld) [Mass/Vol] 13.3 g/dL Normal 13.0-17.0 [facility] Comment on above: Performed By: #### 5 0103 #### [facility] [address] IMMATURE GRANS 0.4 % Normal 0.0-1.0 [facility] Comment on above: Performed By: #### 3 #### [facility] [address] Lymphocytes (Bld) [#/Vol] 1.3 10*3/uL Normal 1.2-4.0 [facility] Comment on above: Performed By: #### 3 #### [facility] [address] Lymphocytes/100 WBC (Bld) 27.8 % Normal 20.0-45.0 [facility] Comment on above: Performed By: #### 5 3 #### [facility] 3000 [facility]. [address] MCH (RBC) [Entitic mass] 25.9 pg Low 27.0-33.0 [facility] Comment on above: Performed By: #### 5 3 #### [facility] [address] MCHC (RBC) [Mass/Vol] 32.9 g/dL Normal 32.0-35.0 [facility] Comment on above: Performed By: #### 5 3 #### [facility] [address] [place] [address], [facility] MCV (RBC) [Entitic vol] 78.8 fL Low 82.0-98.0 [facility] Comment on above: Performed By: #### 5 0103 #### [facility] [address] [place] [id number], [facility] Monocytes (Bld) [#/Vol] 0.5 10*3/uL Normal 0.1-1.0 [facility] Comment on above: Performed By: #### 5 0103 #### [facility] [address] [place] [address], [facility] MONOS 9.9 % Normal 5.0-12.0 [facility] Comment on above: Performed By: #### 102 #### [facility] [address] [place] [address], [facility] Neutrophils/100 WBC (Bld) 60.0 % Normal 40.0-72.0 [facility] Comment on above: Performed By: #### 102 #### [facility] [address] [facility] [place] [address], [facility] Nucleated RBC/100 WBC (Bld) [Ratio] 0 % Normal 0-0 [facility] Comment on above: Performed By: #### 102 #### [facility] [address] [place] [id number], [facility] PLAT CNT 184 10*3/uL Normal 150-400 [facility] Comment on above: Performed By: #### 102 #### [facility] [address] [place] [id number], [facility] RBC (Bld) [#/Vol] 5.13 10*6/uL Normal 4.20-5.70 [facility] Comment on above: Performed By: #### 102 #### [facility] [address] [place] [id number], [facility] WBC (Bld) [#/Vol] 4.75 10*3/uL Normal 4.00-10.60 [facility] Comment on above: Performed By: #### 5 0103 #### [facility] [address] [place] [address], [facility] HEMOGLOBIN A1Con 02-16-2019 HbA1c (Bld) [Mass fraction] 5.9 % Normal 4.0-6.0 [facility] Comment on above: Performed By: #### 4 6447 #### [facility] [address] [place] [address], [facility] HbA1c (Bld) [Mass fraction] 123 mg/dL Normal 70-126 [facility] Comment on above: Performed By: #### 4 6447 #### [facility] [address] [place] [address], [facility] C REACTIVE PROTEINon 019 CRP [Mass/Vol] 6.5 mg/L Normal 0.0-7.0 [facility] Comment on above: Performed By: #### 6 1405 #### [facility] [address] [place] [address], [facility] SEDIMENTATION RATEon 019 SED RATE 27 mm/hr High 0-10 [facility] Comment on above: Performed By: #### 5 6506 #### [facility] [address] [facility] [address] Vital Signs Date Time Vital Sign Value Performing Clinician Facility 09-19-2023 13:23-0500 Blood Pressure Location Juan Ramon MARITNEZ [facility] 09-19-2023 13:23-0500 Diastolic blood pressure 86 mm[Hg] Juan Ramon MARTINEZ [facility] 09-19-2023 13:23-0500 Heart rate 76 /min Juan Ramon MARTINEZ [facility] 09-19-2023 13:23-0500 Respiratory rate 16 /min Juan Ramon MARTINEZ [facility] 09-19-2023 13:23-0500 Systolic blood pressure 130 mm[Hg] Juan Ramon MARTINEZ [facility] [place] 08-27-2023 15:30-0500 Body height 175.26 cm Fernando Ball Other [facility] Other 08-27-2023 15:30-0500 Body mass index (BMI) [Ratio] 39.51 kg/m2 Fernando Ball Other [facility] Other 08-27-2023 15:30-0500 Body weight 121.38 kg Fernando Ball Other [facility] Other 08-27-2023 15:30-0500 Diastolic blood pressure 85 mm[Hg] Fernando Ball Other [facility] Other 08-27-2023 15:30-0500 Respiratory rate 12 /min Fernando Ball Other [facility] Other 08-27-2023 15:30-0500 Systolic blood pressure 124 mm[Hg] Fernando Ball Other [facility] Other 01-29-2023 10:30-0400 Body height 175.26 cm Fernando Ball Other [facility] Other 01-29-2023 10:30-0400 Body mass index (BMI) [Ratio] 39.34 kg/m2 Fernando Ball Other [facility] Other 01-29-2023 10:30-0400 Body weight 120.84 kg Fernando Ball Other [facility] Other 01-29-2023 10:30-0400 Diastolic blood pressure 84 mm[Hg] Fernando Ball Other [facility] Other 01-29-2023 10:30-0400 Respiratory rate 12 /min Fernando Ball Other [facility] Other 01-29-2023 10:30-0400 Systolic blood pressure 130 mm[Hg] Fernando Ball Other [facility] Other 01-10-2023 12:00-0400 Body height 175.26 cm Fernando Ball Other [facility] Other 01-10-2023 12:00-0400 Body mass index (BMI) [Ratio] 38.04 kg/m2 Fernando Ball Other [facility] Other 01-10-2023 12:00-0400 Body weight 116.85 kg Fernando Ball Other [facility] Other 01-10-2023 12:00-0400 Diastolic blood pressure 78 mm[Hg] Fernando Ball Other [facility] Other 01-10-2023 12:00-0400 Respiratory rate 12 /min Fernando Ball Other [facility] Other 01-10-2023 12:00-0400 Systolic blood pressure 122 mm[Hg] Fernando Ball Other [facility] Other 04-10-2022 08:13-0400 Blood Pressure Location Vanessa Garlandmetz [facility] 04-10-2022 08:13-0400 Body temperature 96.98 [degF] Vanessa Whittaker [facility] 04-10-2022 08:13-0400 Diastolic blood pressure 82 mm[Hg] Vanessa Whittaker [facility] 04-10-2022 08:13-0400 Heart rate 75 /min Vanessa Whittaker [facility] 04-10-2022 08:13-0400 SaO2% (BldA) [Mass fraction] 95 % Vanessa Whittaker [facility] 04-10-2022 08:13-0400 Systolic blood pressure 126 mm[Hg] Vanessa Whittaker [facility] Encounters Encounter Date Encounter Type Care Provider Facility Start: 08-05-2024 End: 08-05-2024 Bamboo flowsheet Lo CERVANTES Work Phone: [facility] Start: 08-05-2024 End: 08-05-2024 Bamboo flowsheet Lo Chacko PA Work Phone: [facility] Start: 08-05-2024 End: 08-05-2024 Office outpatient visit 25 minutes Lo CERVANTES Work Phone: [facility] Comment on above: Thumb pain, right (P rimary Dx); Primary osteoarthritis of first carpometacarpal joint of right hand Start: 08-05-2024 End: 08-05-2024 ambulatory LO CHACKO Not Available Start: 09-19-2023 End: 09-20-2023 ambulatory Juan Ramon MARTINEZ Facility: [facility] Start: 09-19-2023 End: 09-19-2023 Patient encounter procedure Juan Ramon MARTINEZ General Surgery N[facility]aid [facility] Start: 09-02-2023 End: 09-02-2023 ambulatory Fernando Torre Other [facility] Other Start: 09-02-2023 Telephone encounter Fernando Torre [facility] Start: 08-31-2023 End: 08-31-2023 ambulatory Fernando Torre Other [facility] Other Start: 08-31-2023 Telephone encounter Fernando Torre [facility] Start: 08-29-2023 ambulatory Vanessa Whittaker Facility : [place] Start: 08-27-2023 End: 08-27-2023 ambulatory Fernando Ezio Other [facility] Other Start: 08-27-2023 Office outpatient vi sit 25 minutes Fernando Ezio [facility] Start: 08-27-2023 Telephone encounter Fernando Ezio [facility] Start: 04-01-2023 End: 04-02-2023 ambulatory Vanessa Whittaker Facility:[facility] Start: 01-29-2023 End: 01-29-2023 ambulatory Fernando Torre Other [facility] Other Start: 01-29-2023 Encounter for genera l adult medical examination without abnormal findings Fernando Torre [facility] Start: 01-29-2023 Periodic preventive med est patient 40-64yrs Fernando Torre [facility] Start: 01-27-2023 Telephone encounter Fernando Torre [facility] Start: 01-27-2023 End: 01-28-[address] FERNANDO TORRE [facility] Other Start: 01-20-2023 End: 01-20-[address] FERNANDO TORRE Facility: Start: 01-19-2023 End: 01-19-2023 ambulatory Fernando Torre Other [facility] Other Start: 01-19-2023 Telephone encounter Fernando Torre [facility] Start: 01-10-2023 End: 01-10-2023 ambulatory Fernando Torre Other [facility] Other Start: 01-10-2023 Office outpatient vi sit 15 minutes Fernando Ball [facility] Start: 01-03-2023 End: 01-03-[address] FERNANDO TORRE Facility:[facility] Start: 08-18-2022 Encounter for preprocedural laboratory examination MR LO CHACKO . [facility] Start: 08-13-2022 End: 08-14-2022 ambulatory MR LO CHACKO . Facility:[facility] Start: 08-13-2022 End: 08-14-2022 Encounter for preprocedural laboratory examination MR LO CHACKO . Facility:[facility] Start: 07-19-2022 End: 07-20-2022 ambulatory MR LO CHACKO . Facility:[facility] Start: 05-15-2022 End: 05-16-[address] FERNANDO TORRE Facility:[facility] Start: 04-10-2022 End: 04-10-2022 Patient encounter procedure Vanessa Whittaker [facility] Start: 02-08-2022 End: 02-09-[address] FERNANDO TORRE Facility:[facility] Start: 01-28-2022 Adult health examination Armin Torre Other [facility] Other Start: 09-24-2021 End: 01-27-2022 Recurring Lennie VAZQUEZ [facility] Start: 03-04-2019 End: 03-05-2019 Evaluation and management of inpatient MARTIN RHODES Facility:[facility] Procedures Date Procedure Procedure Detail Performing Clinician Start: 08-05-2024 Arthrocentesis aspir&/inj small jt/bursa w/o us Lo CERVANTES Work Phone: Start: 12-19-2021 Colonoscopy Lennie VAZQUEZ Start: 12-19-2021 Esophagogastroduodenoscopy Lennie VAZQUEZ Start: 03-04-2019 REMOVAL OF SYNTHETIC SUBSTITUTE FROM L HIP JT, OPEN APPROACH MARTIN RHODES Start: 03-04-2019 REPLACE OF L HIP JT WITH SYNTH SUB, CEMENT, OPEN APPROACH MARTIN RHODES Start: 02-24-2019 Antibody screen MARTIN RHODES Comment on above: Performed By: #### [id number] #### [facility] [address], [facility] Start: 02-12-2019 Pre-surgery evaluation Fernando Torre Other Start: 06-27-2017 Screening for malignant neoplasm of prostate Fernando Torre Other Start: 11-28-2015 General examination of patient Fernando Torre Other Arthroplasty of knee Juan Ramon MELCHORL Decompression of median nerve Juan Ramon NILL Depression screening Troy Torre Other History of lumbar laminectomy Juan Ramon NILL Laboratory test result abnormal Fernando Torre Other Laboratory test result abnormal Fernando Torre Other Pituitary adenoma (disorder) Juan Ramon NILL Repair of hip Juan Ramon NILL Repair of tendon Juan Ramon NIL L Comment on above: bicep Screening for malign ant neoplasm of prostate Fernando Torre Other Plan of Treatment Date Care Activity Detail Author Start: 08-05-2024 End: 08-05-2024 Patient encounter procedure 08/05/2024 9:00 AM EDT Office Visit [facility] [address] [place] [address] Lo Chacko PA [address] [place] [address] Thumb pain, right (Primary Dx) [facility] Comment on above: Thumb pain, right (P rimary Dx) XR Finger - right 2 Views XR fingers 2+ views right Imaging Routine Thumb pain, right 08/05/2024 9:11 AM EDT [facility] Work Phone: Immunizations Immunization Date Immunization Notes Care Provider Fa cility NEGATED: Highlighted row has not occurred!09-19-2023 influenza virus vaccine, unspecified formulation Juan Ramon MARTINEZ [facility] NEGATED: Highlighted row has not occurred!01-03-2022 influenza virus vaccine, unspecified formulation Lennie VAZQUEZ [facility] Payers Date Payer Category Payer Medicare [id number] 2023 Medicare (Managed Care) [employer] [id number] 2023 Medicare [id number] 1959 Private Health Insurance [id number] 1958 Unknown [id number] 2.16840.1.904094.3.579.2. 647 1958 Unknown [id number] 2.16.840.1.663305.3.579.2. 593 1958 Unknown [id number] 2.16.840.1.450344.3.579.2. 593 1958 Unknown [id number] 2.16.840.1.536851.3.579.2. 593 1958 Unknown [id number] 2.16840.1.026727.3.579.2. 593 1958 Unknown [id number] 2.16.840.1.014248.3.579.2. 593 1958 Unknown [id number] 2.16.840.1.803995.3.579.2. 593 1958 Unknown [id number] 2.16.840.1.792046.3.579.2. 593 1958 Unknown [id number] 2.16.840.1.956210.3.579.2. 593 1958 Unknown [id number] 2.16.840.1.563615.3.579.2. 727 1958 Unknown [id number] 2.16.840.1.098360.3.579.2. 727 1958 Unknown [id number] 2.16.840.1.384107.3.579.2. 1259 1958 Unknown [id number] 2.16.840.1.861800.3.579.2. 1259 Unknown [id number] Social History Date Type Detail Facility Start: 01-03-2022 End: 08-05-2024 Tobacco smoking status Never smoked tobacco (finding) [facility] Tobacco smoking status Never [facility] Sex Assigned At Male [facility] Start: 08-05-2024 Tobacco use and exposure Smokeless tobacco non-user [facility] Start: 1960 Sex assigned at Not on file [facility] Tobacco smoking status NHIS Tobacco smoking consumption unknown [facility] Healthcare Functional Status Date Assessment Result Facility 09-19-2023 Functional Status N/A [facility] 04-10-2022 Functional Status N/A [facility] Clinical Notes 04-10-2022 to 08-05-2024 HELEN Monson - 08/05/2024 9:00 AM EDT Note Date & Type Note Facility 08-05-2024 History of Present illness Narrative Associated Order(s): S Inj/Asp: R thumb CMC Post-Procedure Diagnose(s): Primary osteoarthritis of first carpometacarpal joint of right hand Images from the original note were not included. HISTORY OF PRESENT ILLNESS: EST PT Sadiq Delarosa is an 64 y.o. @ male. (EST PT) NEW COMPLAINT, (R) THUMB DISCOMFORT. SYMPTOMS FOR 2 MONTHS NKI XRAYS DONE TODAY, 08/05/24 IN EPIC PAIN AT 1ST CMC JOINT X 2 MONTHS. DESCRIBES PAIN A CONSTANT DULL ACHE AND CAN BE SHARP AND SHOOTING WITH GRIPPING. PAIN OCCAS RADIATES INTO DORSUM OF WRIST. DENIES N/T DENIES SWELLING. ADMITS IBU PRN, W/O RELIEF. HAS TRIED ICE, HEAT AND OTC CREAM WITH SOME RELIEF. ADMITS TROUBLE GRIPPING. DENIES WAKING AT NIGHT. PREVIOUS (R) RF TRIGGER RELEASE 08/16/22 & (L) CTR 11/26/18 - DR HAGAN ALLERGIES: Allergies Allergen Reactions Statins HOME MEDICATIONS: Current Outpatient Medications Medication Instructions amoxicillin (Amoxil) 500 MG capsule TAKE 4 CAPSULES BY MOUTH 1 HOUR PRIOR TO APPOINTMENT ezetimibe (ZETIA) 10 mg, Daily EZETIMIBE-ATORVASTATIN PO famotidine (Pepcid) 10 MG tablet famotidine (Pepcid) 40 MG tablet TAKE 1 TABLET BY MOUTH EVERY DAY AT BEDTIME FOR 90 DAYS metoprolol (Lopressor) 10 mg/mL solution metoprolol succinate XL (Toprol-XL) 25 MG 24 hr tablet TAKE 1 TABLET BY MOUTH EVERY DAY FOR 90 DAYS omeprazole (PRILOSEC) 40 mg PHYSICAL EXAM: Hand/Wrist Musculoskeletal Exam Inspection Right Right hand/wrist inspection is normal. Erythema: none Ecchymosis: none Edema: none Deformity: none Deformity comment: + djd changes IP and MCP joint of thumb, nontender Palpation Right Right hand palpation is normal. Thumb tenderness to palpation: carpometacarpal joint Dorsal hand - 1st metacarpal tenderness to palpation: CMC Palpation additional comments: DENIES PAIN TO PALPATION OF HAND/ WRIST JOINT Pain Localized CMC joint of thumb Range of Motion Right Hand Right hand range of motion is normal. Range of motion additional comments: ABLE TO MAKE FULL FIST Strength Right Hand Right hand strength is normal. Strength additional comments: 5/5 [employer]GTH Neurovascular Right Right neurovascular exam is normal. Radial pulse: normal and 2+ Capillary refill: <3 sec Special Tests Right Kristi's test: negative CMC grind test: positive TFCC load test: negative General Constitutional: appears stated age Labored breathing: no Neurological: alert and oriented x3 Skin: intact Lymphadenopathy: none Vitals: There is no height or weight on file to calculate BMI. Tobacco Use: Low Risk (08/05/2024) Patient History Smoking Tobacco Use: Never Smokeless Tobacco Use: Never Passive Exposure: Not on file Alcohol Use: Not on file IMAGING: XR fingers 2+ views right Imaging Result: S Inj/Asp: R thumb CMC on 08/05/2024 9:39 AM Indications: pain and joint swelling Details: 22 G needle, dorsal approach Medications: 20 mg methylPREDNISolone acetate 40 MG/ML Outcome: tolerated well, no immediate complications Given with 0.5ml of 0.5% bupivicaine Consent was given by the patient. Patient was prepped and draped in the usual sterile fashion. Orders Placed This Encounter Procedures XR fingers 2+ views right Order Specific Question: Reason for exam: Answer: RT THUMB PAIN ASSESSMENT: ICD-10-CM 1. Thumb pain, right M79.644 XR fingers 2+ views right 2. Primary osteoarthritis of first carpometacarpal joint of right hand M18.11 PLAN: Xray discussed. Pt using OTC brace. Localized pain with palpation and pain with use, no s/s of infection... pt requesting injection today with treatment options discussed. Declines thought of CMC arthroplasty. Questions answered in laymen terms at the bedside. The diagnosis, home exercise plan and any ongoing restrictions/ recommendations reviewed. If unable to be reached in office, I recommend evaluation at nearest Emergency Room if any symptoms worsened or new symptoms develop for requiring urgent evaluation. documented in this encounter [facility] 09-20-2023 Note Chief Complaint consultation for cholelithiasis [...] E&M of New Patient Moderate 45-59 Min 00742 2. Abdominal pain, epigastric (R10.13: Epigastric pain) see # 1 Ordered: CT Abdomen/Pelvis w/ Contrast E&M of New Patient Moderate 45-59 Min 43968 3. Abdominal pain, right upper quadrant (R10.11: Right upper quadrant pain) see # 1 Ordered: CT Abdomen/Pelvis w/ Contrast E&M of New Patient Moderate 45-59 Min 50470 4. Abnormal gallbladder ultrasound (R93.2: Abnormal findings on diagnostic imaging of liver and biliary tract) see # 1 Ordered: CT Abdomen/Pelvis w/ Contrast E&M of New Patient Moderate 45-59 Min 63240 5. BMI 40.0-44.9, adult (Z68.41: Body mass index [BMI] 40.0-44.9, adult) recommend low fat diet and exercise Ordered: CT Abdomen/Pelvis w/ Contrast E&M of New Patient Moderate 45-59 Min 86298 Follow-up No qualifying data available Problem List/Past Medical History (more content not included)... [facility] Comment on above: Result Comment: Elec tronatalieally Signed By: PAOLO TATE, Juan Ramon Miner\Date and Time Signed: 09/20/23 09:50 EST 08-31-2023 Evaluation note Encounter Date Diagnosis Assessment Notes Aug, Pulmonary nodule (ICD-10 - R91.1) CTA: 7.5mm RUL, 3mm RUL, 13mm ADA - 01/2022, CT: 7mm RUL - 04/2022 CT: 8mm RUL - 01/2023Aug, Aneurysm of the ascending aorta, without rupture (ICD-10 - I71.21) CTA: 3.8cm Asc Aortic Aneurysm - 08/2023 [facility] Other 11-08-2023 Evaluation note* Encounter Date Diagnosis [...] use, the patient reduces the risk for MD, CVA, HTN, cardiac dysrhythmias and sudden cardiac [...] continue exercise to achieve/maintain a normal BMI. [facility] Other 04-12-2023 Evaluation note* Encounter Date Diagnosis [...] use, the patient reduces the risk for MD, CVA, HTN, cardiac dysrhythmias and sudden cardiac [...] - Z12.5) Yearly CELESTINO and PSA completed [facility] Other 04-10-2023 Evaluation note* Encounter Date Diagnosis Assessment Notes Treatment Notes Treatment Clinical Notes Jan, Pulmonary nodule (ICD-10 - R91.1) CTA: 7.5mm RUL, 3mm RUL, 13mm ADA - 01/2022, CT: 7mm RUL - 04/2022 CT: 8mm RUL - 01/2023 [facility] Other 04-10-2023 Evaluation note* Encounter Date Diagnosis Assessment Notes Treatment Notes Treatment Clinical Notes Jan, Pulmonary nodule (ICD-10 - R91.1) CTA: 7.5mm RUL, 3mm RUL, 13mm ADA - 01/2022, CT: 7mm RUL - 04/2022 CT: 8mm - 01/2023 [facility] Other 04-02-2023 Evaluation note* Encounter Date Diagnosis Assessment Notes Treatment Notes Treatment Clinical Notes Jan, Aneurysm of ascending aorta without rupture (ICD-10 - I71.21) CT: 4.5cm ascending aortic aneurysm - 01/2022 [facility] Other 04-02-2023 Evaluation note* Encounter Date Diagnosis Assessment Notes Treatment Notes Treatment Clinical Notes Jan, Pulmonary nodule (ICD-10 - R91.1) CTA: 7.5mm RUL, 3mm RUL, 13mm ADA - 01/2022, CT: 7mm RUL - 04/2022 CT chest due in January, [facility] Other 03-24-2023 Evaluation note* Encounter Date Diagnosis [...] Elevated liver enzym es (ICD-10 - R74.8) [facility] Other 06-22-2022 Hospital Discharge instructions Patient Education [...] powder, vinegar, hot sauces, and barbecue sauce. ?[place] fruit juices and citrus fruits, such as oranges, kelly, and limes. ?Tomato-based foods, such as red sauce, chili, salsa, and pizza with red sauce. ?Fried and fatty foods, such as donuts, [place] fries, potato chips, and high-fat dressings. ?High-fat [...] to any changes in your symptoms. Take kcmn-bvo-mixbhzq and prescription medicines only as told by [...] you have new or worsening symptoms. Take hegn-xkg-htvuopv and prescription medicines only as told by [...] 07/16/2006 Document Revised: 04/14/2019 Document Reviewed: 04/14/2019 [employer] Patient Education 2020 [employer]. Follow Up Care 01/03/2022 09:45:39 With:Vanessa Whittaker CNP Address: When:1 year [facility] Evaluation + Plan note Future Appointments Appointment Date:04/10/2022 08:00:00 AM Scheduled Provider:Vanessa Whittaker CNP [place] App[facility]ment Type:BAD [facility] Future Appointments Appointment Date:04/10/2023 08:00:00 AM Scheduled Provider:Vanessa Whittaker CNP [place] [place] [facility] Follow Up Future Scheduled Tests Laboratory* Basic Metabolic Panel 04/10/22 * Folate Level 04/10/22 * Magnesium Level 04/10/22 * Vitamin B12 Level 04/10/22 [facility] Evaluation noteNo InformationNoSEVEN Networks Multichannel Other evaluqhnzz note* Diagnosis Thumb pain, right- Primary Primary osteoarthritis of first carpometacarpal joint of right hand [facility] N[facility] - Reported* Type Description Date [...] BICEPS TENDON Hospitalization History SEE SURGICAL HX [facility] Other Hospital course Narrative No data available for this section [facility] No data available for this section [facility] No data available for this section [facility] Summary Purpose Family History No Family History Records FoundNo Family History Records Found No data available for this section No Family History Records FoundNo Family History Records Found Advance Directives No Advanced Directives Records FoundNo Advanced Directives Records FoundNo Advanced Directives Records FoundNo Advanced Directives Records Found Hospital Course Note MR#: [id number] [facility] Pt. Name: Sadiq Delarosa Admitted: 03/04/2019 [...] chronic cholecystitis without obstruction (K80.10) Referral Organization [facility] Ezio roberts Referring Provider First Name Fernando Referring Provider Last Name Ezio Referring Provider Specialty Internal Me dicagnieszka Referred Organization [facility] Referred Provider Juan Ramon Martinez Referred Address [address] [place], [place],[address] Referred Provider Specialty Surgery Referral Priority Routine [...] Records FoundNo Status Records FoundNo Status Records FoundNo Status Records Found INFORMATION SOURCE (unrecogn ized section and content) DATE CREATED AUTHOR 06/23/2019 [facility] DATE CREATED AUTHOR AUTHOR'S ORGANIZ ATION 02/02/2023 [facility] DATE CREATED AUTHOR AUTHOR'S ORGANIZ ATION 10/04/2023 [facility] DATE CREATED AUTHOR AUTHOR'S ORGANIZ ATION 08/10/2024 [facility] Specialists EPIC Care Team (unrecognized sect ion and content) Personnel Name: FERNANDO TORRE DO Address: [address] [facility], [address] Personnel Name: FERNANDO TORRE DO Address: Address: [address] [place] [address], [address] REASON FOR VISIT (unrecogniz ed section and content) Reason Comments Pain FOR RECORDS PERTAINING TO PATIENTS WHO ARE [...] BE BASED ON THE PRIMARY CLINICAL RECORDS. [facility] [employer] provides no warranty or guarantee of the accuracy or completeness of information in this document.
--- NOTE | 2024-09-23 07:58 | CT_ITS ---
The [address] [address] Patient Name: NOLVIA DELAROSA MRN: [id number] date: 1960 Sex: M Assigned Patient Location: LAB Current Patient Location: LAB Accession/Order Number: [id number] Exam Date: 09/23/2024 08:15 Report Date: 09/23/2024 09:45 At the request of: ROWAN HOLGUIN Procedure: CT angio chest CT angio chest, 09/23/2024 8:15 AM EST INDICATION: Ascending Aortic Aneurysm I71.21 COMPARISON: Prior CTA of the chest dated 08/30/2023 TECHNIQUE: Axial low-dose images of 1 millimeters are obtained from the thoracic outlet with contrast . 3-D MIP images were obtained. Dose reduction techniques were achieved by using automated exposure control and/or adjustment of mA and/or kV according to patient size and/or use of iterative reconstruction technique. FINDINGS: There is no dissection. Severe atherosclerotic calcification in coronary arteries. At the level of pulmonary artery bifurcation: The ascending aorta measures 4 x 3.9 cm which is stable since prior study (remeasured). The descending aorta measures 2.6 cm. The main pulmonary artery measures 3.1 cm. No abnormality of the aortic arch and proximal portion of the common carotid, vertebral and subclavian arteries is noted. There are stable lung nodules: 7 mm right upper lobe subpleural nodule and 3 mm are nodule/lymph node along the right minor fissure. The central tracheobronchial tree is unremarkable. No mediastinal lymph node enlargement by size criteria is noted. No pleural or pericardial effusion is noted. Loculation lesion within the left kidney most likely consistent with a simple cyst. Otherwise, the visualized portions of the solid abdominal organs are unremarkable. Bone: There is no suspicious osteolytic or osteoblastic lesion. Flowing osteophytes in thoracic spine suggesting of diffuse idiopathic skeletal hyperostosis. CT/CT angio chest IMPRESSION: Stable ascending aortic aneurysm. Enlargement of the main pulmonary artery suggesting of pulmonary hypertension. Stable lung nodules. Electronically authenticated by: ERNESTINA WOODS Date: 09/23/2024 09:45
[2024-09-23 08:06] LABS: Estimated GFR (African America >60 (>=60 mL/min/1.73m^2); Estimated GFR (Non-African Ame >60 (>=60 mL/min/1.73m^2)
== END 2024-09-23 07:36 | disposition home or self-care (01) ==
LOC: LAB 07:35
PROVIDERS: PCP Internal Medicine; Visit Provider Internal Medicine
DX: I71.21 Aneurysm of the ascending aorta, without rupture (principal); R91.8 Other nonspecific abnormal finding of lung field
CPT/HCPCS: 36415; 71275; 82565; Q9967

== ENCOUNTER 2025-04-14 07:19 | Outpatient (OUT) | payer MEDICARE, OTHER, SELFPAY ==
--- OUTSIDE RECORDS SUMMARY | 2025-04-14 07:23 | XMS_ITS | CCD ---
Author Organization [facility] CliniSyfl Care Team Providers Care [employer] Name Role Phone MARTIN RHODES Admitting Unavailable MARTIN RHODES Attending Unavailable JETT HAGAN Referring Unavailable FERNANDO TORRE Primary Care Unavailable [place] Procedure Practitioner Unavailab MARTIN Spencer Surgeon Unavailable FERNANDO TORRE Primary Care Physician Fernando Torre Unavailable NICHO, DR DONAHUE Admitting Unavailable NICHO, DR DONAHUE Attending Unavailable NICHO, DR DONAHUE Primary Care Unavailable NICHO, DR DONAHUE Consulting Unavailable Luis Dominguez Consulting Unavailable NICHO, DR DONAHUE Primary Care Unavailable CHACKO ., MR LO Admitting Unavailable CHACKO ., MR LO Attending Unavailable Luis Dominguez Consulting Unavailable CHACKO ., MR LO Consulting Unavailable NICHO, DR DONAHUE Admitting Unavailable NICHO, DR DONAHUE Attending Unavailable NICHO, DR DONAHUE Primary Care Unavailable NICHO, DR DONAHUE Consulting Unavailable JHON MERCADO Consulting Unavailable CHACKO ., MR LO Admitting Unavailable CHACKO ., MR LO Attending Unavailable NICHO, DR DONAHUE Primary Care Unavailable CHACKO ., MR LO Consulting Unavailable CHACKO ., MR LO Admitting Unavailable CHACKO ., MR LO Attending Unavailable NICHO, DR DONAHUE Primary Care Unavailable CHACKO ., MR LO Consulting Unavailable NICHO, DR [...] Translations: [statins] Propensity to adverse reactions (disorder) [facility] Repository (1 source) No Known Medication Allergies; Translations: [No Known Medication Allergies] Propensity to adverse reactions (disorder) [facility] Repository Medications Current Medications Medication Drug Class(es) [...] day(s), # 90 cap(s), Refills(s) 2, Pharmacy: [facility], 172, cm, 04/10/22 8:16:00 EDT, Height/Length Dosing, 118.6, kg, 04/10/22 8:16:00 EDT, Weight Dosing Start Date: 04/10/22 Stop Date: 01/05/23 Status: Ordered omeprazole 40 mg Cap-DR (1 source) Start: 12-19-2021 take 1 capsule by mouth once daily omeprazole 40 mg Cap-DR 40 mg = 1 cap(s), Oral, Daily, # 30 cap(s), Refills(s) 2, Pharmacy: [facility]/pharmacy #[id number], 172, cm, 12/19/21 7:21:00 EST, Height/Length [...] 08-05-2024 Chronic Other aftercare (1 source) Other intermediate (current) drug therapy; Translations: [OTH CARE HOME CURRENT DRUG THERAPY] Onset: 3 Episodic Other aftercare (4 sources) Long-term current use of drug therapy; Translations: [Other intermediate (current) drug therapy] Episodic Other and unspecified [...] and draped in the usual sterile fashion. [facility] RAD - CT Reporton 10-02-2023 RAD - CT Report [id number]#[id number] Remberto [facility] Ambulatory Visit Summaryon 1 11-20-2022 Ambulatory Visit [...] for choosing us for your care. Normal [facility] RAD - Ultrasound Reporton RAD - Ultrasound Report [id number]#[id number] Normal [facility] RAD - Ultrasound Report [id number]#1.00TIFF Normal [facility] Physician Referralon 023 Physician Referral [id number]#[id number] Normal [facility] CT CHEST WO CONon 01-27-2023 CT CHEST [...] LUIS DOMINGUEZ Date: 2023-01-27 14:52 Normal [facility] US SINGLE QUAD RT UPPERon US SINGLE [...] LUIS DOMINGUEZ Date: 2023-01-27 16:16 Normal [facility] CBC AUTO DIFFon 01-20-2023 BASO # 0.0 103/ul Normal 0.0-0.1 [facility] Comment on above: Performed By: #### C BC #### [facility] Laboratory [address] [place] [address] Dr. Yasmany Claros Basophils/100 WBC (Bld) 0.8 % Normal 0.2-2.0 [facility] Comment on above: Performed By: #### C BC #### [facility] Laboratory [address] [address] [address] Yasmany Claros EO # 0.1 103/ul Normal 0.0-0.7 [facility] Comment on above: Performed By: #### C BC #### [facility] Laboratory [address] [address] [address] Yasmany Claros Eosinophils/100 WBC (Bld) 2.1 % Normal 0.9-7.0 [facility] Comment on above: Performed By: #### C BC #### [facility] Laboratory [address] [place] [address] Dr. Yasmany Claros Erythrocyte distribution width (RBC) [Ratio] 14.0 % Normal 11.0-15.0 [facility] Comment on above: Performed By: #### C BC #### [facility] Laboratory [address] [place] [address] Dr. Yasmany Claros Hematocrit (Bld) [Volume fraction] 39.9 % Critically low 42.0-54.0 [facility] Comment on above: Performed By: #### C BC #### [facility] Laboratory [address] [place] [address] Dr. Yasmany Claros Hemoglobin (Bld) [Mass/Vol] 13.2 g/dL Critically low 14.0-18.0 [facility] Comment on above: Performed By: #### C BC #### [facility] Laboratory [address] [place] [address] Dr. Yasmany Claros IG # 0.01 10e3/ul Normal 0.00-0.03 [facility] Comment on above: Performed By: #### C BC #### [facility] Laboratory [address] [place] [address] Dr. Yasmany Claros IG % 0.3 % Normal 0.0-0.5 [facility] Comment on above: Performed By: #### C BC #### [facility] Laboratory [address] [place] [address] Dr. Yasmany Claros LYMPH # 1.6 103/ul Normal 1.2-3.8 [facility] Comment on above: Performed By: #### C BC #### [facility] Laboratory [address] [place] [address] Dr. Yasmany Claros Lymphocytes/100 WBC (Bld) 41.5 % Normal 20.5-60.0 [facility] Comment on above: Performed By: #### C BC #### [facility] Laboratory [address] [place] [address] Dr. Yasmany Claros MANUAL DIFF REQ NO Normal [facility] Comment on above: Performed By: #### C BC #### [facility] Laboratory [address] [address] [address] Yasmany Claros MCH (RBC) [Entitic mass] 26.6 pg Normal 25.9-34.0 [facility] Comment on above: Performed By: #### C BC #### [facility] Laboratory [address] [place] [address] Dr. Yasmany Claros MCHC (RBC) [Mass/Vol] 33.1 g/dL Normal 29.9-35.2 [facility] Comment on above: Performed By: #### C BC #### [facility] Laboratory [address] [place] [address] Dr. Yasmany Claros MCV (RBC) [Entitic vol] 80.3 fL Normal 80.0-94.0 [facility] Comment on above: Performed By: #### C BC #### [facility] Laboratory [address] [place] [address] Dr. Yasmany Claros MONO # 0.4 103/ul Normal 0.3-0.8 [facility] Comment on above: Performed By: #### C BC #### [facility] Laboratory [address] [place] [address] Dr. Yasmany Claros Monocytes/100 WBC (Bld) 9.9 % Normal 1.7-12.0 [facility] Comment on above: Performed By: #### C BC #### [facility] Laboratory [address] [place] [address] Dr. Yasmany Claros NEUT # 1.7 103/ul Normal 1.4-6.5 [facility] Comment on above: Performed By: #### C BC #### [facility] Laboratory [address] [place] [address] Dr. Yasmany Claros Neutrophils/100 WBC (Bld) 45.4 % Normal 43.0-75.0 [facility] Comment on above: Performed By: #### C BC #### [facility] Laboratory [address] [place] [address] Dr. Yasmany Claros Platelet mean volume (Bld) [Entitic vol] 11.1 fL Normal 9.5-13.5 [facility] Comment on above: Performed By: #### C BC #### [facility] Laboratory [address] [address] [address] Yasmany Claros PLT 188 103/ul Normal 150-450 [facility] Comment on above: Performed By: #### C BC #### [facility] Laboratory [address] [place] [address] Dr. Yasmany Claros RBC 4.97 106/ul Normal 4.70-6.10 [facility] Comment on above: Performed By: #### C BC #### [facility] Laboratory [address] [place] [address] Dr. Yasmany Claros WBC 3.8 103/ul Critically low 4.0-11.0 [facility] Comment on above: Performed By: #### C BC #### [facility] Laboratory [address] [place] [address] HEAD WO CONon [...] LUIS DOMINGUEZ Date: 2023-01-20 09:48 Normal [facility] PROF CHEM 8 (BAS METB)on Anion gap [Moles/Vol] 11.2 mmol/L Normal [facility] Comment on above: Performed By: #### B MP #### [facility] Laboratory [address] [place] [address] Dr. Yasmany Claros Calcium [Mass/Vol] 9.1 mg/dL Normal 8.5-10.1 [facility] Comment on above: Performed By: #### B MP #### [facility] Laboratory [address] [place] [address] Dr. Yasmany Claros Chloride [Moles/Vol] 102 mmol/L Normal 98-107 [facility] Comment on above: Performed By: #### B MP #### [facility] Laboratory [address] [address] [address] Yasmany Claros CO2 [Moles/Vol] 26.7 mmol/L Normal 21.0-32.0 [facility] Comment on above: Performed By: #### B MP #### [facility] Laboratory [address] [place] [address] Dr. Yasmany Claros Creatinine [Mass/Vol] 0.81 mg/dL Normal 0.70-1.30 [facility] Comment on above: Performed By: #### B MP #### [facility] Laboratory [address] [place] [address] Dr. Yasmany Claros EGFR-AF NICARAGUAN >60 Normal >=60 [facility] Comment on above: Performed By: #### B MP #### [facility] Laboratory [address] [place] [address] Dr. Yasmany Claros EGFR-NON AF NICARAGUAN >60 Normal >=60 [facility] Comment on above: Performed By: #### B MP #### [facility] Laboratory [address] [place] [address] Dr. Yasmany Claros Glucose [Mass/Vol] 104 mg/dL Normal 74-106 [facility] Comment on above: Performed By: #### B MP #### [facility] Laboratory [address] [place] [address] Dr. Yasmany Claros Potassium [Moles/Vol] 3.9 mmol/L Normal 3.5-5.1 [facility] Comment on above: Performed By: #### B MP #### [facility] Laboratory [address] [place] [address] Dr. Yasmany Claros Sodium [Moles/Vol] 136 mmol/L Normal 136-145 [facility] Comment on above: Performed By: #### B MP #### [facility] Laboratory [address] [place] [address] Dr. Yasmany Claros Urea nitrogen [Mass/Vol] 13.0 mg/dL Normal 7.0-18.0 [facility] Comment on above: Performed By: #### B MP #### [facility] Laboratory [address] [place] [address] Dr. Yasmany Claros Urea nitrogen/Creatini ne [Mass ratio] 16.0 mg/mg Normal [facility] Comment on above: Performed By: #### B MP #### [facility] Laboratory [address] [place] [address] Dr. Yasmany Claros CBC AUTO DIFFon 01-03-2023 BASO # 0.0 103/ul Normal 0.0-0.1 [facility] Comment on above: Performed By: #### C BC #### [facility] Laboratory [address] [place] [address] Dr. Yasmany Claros Basophils/100 WBC (Bld) 0.3 % Normal 0.2-2.0 [facility] Comment on above: Performed By: #### C BC #### [facility] Laboratory [address] [place] [address] Dr. Yasmany Claros EO # 0.0 103/ul Normal 0.0-0.7 [facility] Comment on above: Performed By: #### C BC #### [facility] Laboratory [address] [place] [address] Dr. Yasmany Claros Eosinophils/100 WBC (Bld) 0.5 % Critically low 0.9-7.0 [facility] Comment on above: Performed By: #### C BC #### [facility] Laboratory [address] [place] [address] Dr. Yasmany Claros Erythrocyte distribution width (RBC) [Ratio] 13.9 % Normal 11.0-15.0 [facility] Comment on above: Performed By: #### C BC #### [facility] Laboratory [address] [place] [address] Dr. Yasmany Claros Hematocrit (Bld) [Volume fraction] 40.6 % Critically low 42.0-54.0 [facility] Comment on above: Performed By: #### C BC #### [facility] Laboratory [address] [address] [address] Yasamny Claros Hemoglobin (Bld) [Mass/Vol] 13.2 g/dL Critically low 14.0-18.0 [facility] Comment on above: Performed By: #### C BC #### [facility] Laboratory [address] [address] [address] Yasmany Claros IG # 0.03 10e3/ul Normal 0.00-0.03 [facility] Comment on above: Performed By: #### C BC #### [facility] Laboratory [address] [address] [address] Yasmany Claros IG % 0.5 % Normal 0.0-0.5 [facility] Comment on above: Performed By: #### C BC #### [facility] Laboratory [address] [address] [address] Yasmany Claros LYMPH # 1.0 103/ul Critically low 1.2-3.8 [facility] Comment on above: Performed By: #### C BC #### [facility] Laboratory [address] [address] [address] Yasmany Claros Lymphocytes/100 WBC (Bld) 17.5 % Critically low 20.5-60.0 [facility] Comment on above: Performed By: #### C BC #### [facility] Laboratory [address] [address] [address] Yasmany Claros MANUAL DIFF REQ NO Normal [facility] Comment on above: Performed By: #### C BC #### [facility] Laboratory [address] [address] [address] Yasmany Claros MCH (RBC) [Entitic mass] 26.6 pg Normal 25.9-34.0 [facility] Comment on above: Performed By: #### C BC #### [facility] Laboratory [address] [address] [address] Yasmany Claros MCHC (RBC) [Mass/Vol] 32.5 g/dL Normal 29.9-35.2 [facility] Comment on above: Performed By: #### C BC #### [facility] Laboratory [address] [address] [address] Yasmany Claros MCV (RBC) [Entitic vol] 81.7 fL Normal 80.0-94.0 [facility] Comment on above: Performed By: #### C BC #### [facility] Laboratory [address] [address] [address] Yasmany Claros MONO # 0.4 103/ul Normal 0.3-0.8 [facility] Comment on above: Performed By: #### C BC #### [facility] Laboratory [address] [address] [address] Yasmany Claros Monocytes/100 WBC (Bld) 7.0 % Normal 1.7-12.0 [facility] Comment on above: Performed By: #### C BC #### [facility] Laboratory [address] [place] [address] Dr. Yasmany Claros NEUT # 4.2 103/ul Normal 1.4-6.5 [facility] Comment on above: Performed By: #### C BC #### [facility] Laboratory [address] [place] [address] Dr. Yasmany Claros Neutrophils/100 WBC (Bld) 74.2 % Normal 43.0-75.0 [facility] Comment on above: Performed By: #### C BC #### [facility] Laboratory [address] [place] [address] Dr. Yasmany Claros Platelet mean volume (Bld) [Entitic vol] 10.9 fL Normal 9.5-13.5 [facility] Comment on above: Performed By: #### C BC #### [facility] Laboratory [address] [place] [address] Dr. Yasmany Claros PLT 153 103/ul Normal 150-450 [facility] Comment on above: Performed By: #### C BC #### [facility] Laboratory [address] [place] [address] Dr. Yasmany Claros RBC 4.97 106/ul Normal 4.70-6.10 [facility] Comment on above: Performed By: #### C BC #### [facility] Laboratory [address] [place] [address] Dr. Yasmany Claros WBC 5.7 103/ul Normal 4.0-11.0 [facility] Comment on above: Performed By: #### C BC #### [facility] Laboratory [address] [place] [address] Dr. Yasmany Claros ER URINE PROFILEon 3 Bilirubin Ql (U) Negative Normal NEGATIVE [facility] Comment on above: Performed By: #### GIULIA BRINKRO #### [facility] Laboratory [address] [place] [address] Dr. Yasmany Claros Clarity (U) CLEAR Normal CLEAR [facility] Comment on above: Performed By: #### GIULIA BRINKRO #### [facility] Laboratory [address] [place] [address] Dr. Yasmany Claros Color (U) LT. YELLOW Normal YELLOW [facility] Comment on above: Performed By: #### GIULIA BRINKRO #### [facility] Laboratory [address] [place] [address] Dr. Yasmany Claros ERULUISD A micrscopic examina tion will be performed if indicated. Normal [facility] Comment on above: Performed By: #### GIULIA BRINKRO #### [facility] Laboratory [address] [place] [address] Dr. Yasmany Claros Glucose Ql (U) Negative Normal NEGATIVE [facility] Comment on above: Performed By: #### GIULIA BRINKRO #### [facility] Laboratory [address] [place] [address] Dr. Yasmany Claros Hemoglobin Ql (U) TRACE-INTACT Abnormal NEGATIVE [facility] Comment on above: Performed By: #### GIULIA BRINKRO #### [facility] Laboratory [address] [place] [address] Dr. Ysamany Claros Ketones Ql (U) Negative Normal NEGATIVE [facility] Comment on above: Performed By: #### GIULIA BRINKRO #### [facility] Laboratory [address] [place] [address] Dr. Yasmany Claros LEUKOCYTES Negative Normal NEGATIVE [facility] Comment on above: Performed By: #### Eusebia LAUGHLIN, UMICRO #### [facility] Laboratory [address] [address] [address] Yasmany Claros Nitrite Ql (U) Negative Normal NEGATIVE [facility] Comment on above: Performed By: #### Eusebia LAUGHLIN, UMICRO #### [facility] Laboratory [address] [address] [address] Yasmany Claros pH (U) 5.5 [pH] Normal 5-9 [facility] Comment on above: Performed By: #### Eusebia LAUGHLIN, UMICRO #### [facility] Laboratory [address] [place] [address] Dr. Yasmany Claros SPEC GRAVITY 1.020 Normal 1.005-<=1.0 25 [facility] Comment on above: Performed By: #### Eusebia LAUGHLIN, UMICRO #### [facility] Laboratory [address] [place] [address] Dr. Yasmany Claros UA PROTEIN Negative Normal NEGATIVE/ TRACE [facility] Comment on above: Performed By: #### Eusebia LAUGHLIN UMICRO #### [facility] Laboratory [address] [place] [address] Dr. Yasmany Claros UR MICRO IND INDICATED Normal [facility] Comment on above: Performed By: #### Eusebia LAUGHLIN, UMICRO #### [facility] Laboratory [address] [place] [address] Dr. Yasmany Claros Urobilinogen Qn (U) 0.2 {Aarti'U}/dL Normal 0.2 - 1.0 [facility] Comment on above: Performed By: #### Eusebia LAUGHLIN, UMICRO #### [facility] Laboratory [address] [place] [address] Dr. Yasmany Claros LACTATE/LACTIC ACIDon 2022 Lactate [Moles/Vol] 3.0 mmol/L Critically high 0.4-2.0 [facility] Comment on above: Performed By: #### L ACT #### [facility] Laboratory [address] [place] [address] Dr. Yasmany Claros LIPASEon 01-03-2023 Lipase [Catalytic activity/Vol] 169.0 U/L Normal 73.0-393.0 [facility] Comment on above: Performed By: #### C VDTBH #### [facility] Laboratory [address] [place] [address] Dr. Yasmany Claros PROF 14(COMP METB)on 023 Albumin [Mass/Vol] 3.9 g/dL Normal 3.4-5.0 [facility] Comment on above: Performed By: #### C VDTBH #### [facility] Laboratory [address] [place] [address] Dr. Yasmany Claros Albumin/Globulin [Mass ratio] 1.0 {ratio} Normal [facility] Comment on above: Performed By: #### C VDTBH #### [facility] Laboratory [address] [place] [address] Dr. Yasmany Claros ALP [Catalytic activity/Vol] 83 U/L Normal 46-116 [facility] Comment on above: Performed By: #### C VDTBH #### [facility] Laboratory [address] [place] [address] Dr. Yasmany Claros ALT [Catalytic activity/Vol] 88 U/L Critically high 16-63 [facility] Comment on above: Performed By: #### C VDTBH #### [facility] [facility] [address] [place] [address] Dr. Yasmany Claros Anion gap [Moles/Vol] 11.2 mmol/L Normal [facility] Comment on above: Performed By: #### C VDTBH #### [facility] [place] [facility] [address] [place] [address] Dr. Yasmany Claros AST [Catalytic activity/Vol] 94 U/L Critically high 15-37 The [facility] Comment on above: Performed By: #### C VDTBH #### [facility] [facility] [address] [place] [address] Dr. Yasmany Claros Bilirubin [Mass/Vol] 0.6 mg/dL Normal 0.2-1.0 [facility] Comment on above: Performed By: #### C VDTBH #### [facility] [place] [facility] [address] [place] [address] Dr. Yasmany Claros Calcium [Mass/Vol] 9.8 mg/dL Normal 8.5-10.1 The [facility] Comment on above: Performed By: #### C VDTBH #### [facility] [facility] [address] [place] [address] Dr. Yasmany Claros Chloride [Moles/Vol] 105 mmol/L Normal 98-107 The [facility] Comment on above: Performed By: #### C VDTBH #### [facility] [place] [facility] [address] [place] [address] Dr. Yasmany Claros CO2 [Moles/Vol] 28.8 mmol/L Normal 21.0-32.0 The [facility] Comment on above: Performed By: #### C VDTBH #### [facility] [place] [address] [place] [address] Dr. Yasmany Claros Creatinine [Mass/Vol] 0.83 mg/dL Normal 0.70-1.30 The [facility] Comment on above: Performed By: #### C VDTBH #### [facility] [place] [address] [place] [address] Dr. Yasmany Claros EGFR-AF NICARAGUAN >60 Normal >=60 The [facility] Comment on above: Performed By: #### C VDTBH #### [facility] [place] [address] [place] [address] Dr. Yasmany Claros EGFR-NON AF NICARAGUAN >60 Normal >=60 The [facility] Comment on above: Performed By: #### C VDTBH #### [facility] [address] [place] [address] Dr. Yasmany Claros Globulin (S) [Mass/Vol] 4.0 g/dL Normal The [facility] Comment on above: Performed By: #### C VDTBH #### [facility] [place] [address] [place] [address] Dr. Yasmany Claros Glucose [Mass/Vol] 145 mg/dL Critically high 74-106 The [facility] Comment on above: Performed By: #### C VDTBH #### [facility] [address] [place] [address] Dr. Yasmany Claros Potassium [Moles/Vol] 4.0 mmol/L Normal 3.5-5.1 [facility] Comment on above: Performed By: #### C VDTBH #### [facility] [place] [address] [place] [address] Dr. Yasmany Claros Protein [Mass/Vol] 7.9 g/dL Normal 6.4-8.2 The [facility] Comment on above: Performed By: #### C VDTBH #### [facility] [address] [place] [address] Dr. Yasmany Claros Sodium [Moles/Vol] 141 mmol/L Normal 136-145 The [facility] Comment on above: Performed By: #### C VDTBH #### [facility] [address] [place] [address] Dr. Yasmany Claros Urea nitrogen [Mass/Vol] 10.0 mg/dL Normal 7.0-18.0 [facility] Comment on above: Performed By: #### C VDTBH #### [facility] [place] [address] [place] [address] Dr. Yasmany Claros Urea nitrogen/Creatini ne [Mass ratio] 12.0 mg/mg Normal [facility] Comment on above: Performed By: #### C VDTBH #### [facility] [place] [facility] [address] [place] [address] Dr. Yasmany Claros TROPONIN, HIGH SENSITIVITYon 01-03-2023 HSTROP 4.5 pg/mL Normal 4.0-76.1 [facility] Comment on above: Result Comment: CUT- OFF POINTS HAVE BEEN ESTABLISHED BASED ON THE FOURTH UNIVERSAL DEFINITIONS OF MYOCARDIAL INFARCTION. THE UPPER REFERENCE LIMIT (URL) OF TROPONIN, DEFINED THE 99TH PERCENTILE OF cTnI DISTRIBUTION IN A REFERENCE POPULATION, HAS BEEN CONFIRMED THE DECISION THRESHOLD FOR OR DIAGNOSIS. Performed By: #### C VDTBH #### [facility] [address] [place] [address] Dr. Yasmany Claros URINE MICROSCOPIC ONLYon BACTERIA NONE SEEN Normal NONE SEEN The [facility] [place] Comment on above: Performed By: #### AGUSTÍN BRINK #### [facility] [address] [place] [address] Dr. Yasmany Claros Bacteria identified Cx Nom (U) NOT INDICATED Normal The [facility] Comment on above: Performed By: #### E RUR, UMICRO #### [facility] [address] [place] [address] Dr. Yasmany Claros CAST SEEN Abnormal NONE SEEN The [facility] Comment on above: Performed By: #### E RUR, UMICRO #### [facility] [address] [place] [address] Dr. Yasmany Claros Crystals LM Nom (Urine sed) NONE SEEN Normal NONE SEEN The [facility] Comment on above: Performed By: #### E RUR, UMICRO #### [facility] [address] [place] [address] Dr. Yasmany Calros Epithelial cells LM Ql (Urine sed) NONE SEEN Normal NONE SEEN /RARE The [facility] [place] Comment on above: Performed By: #### E RUR, UMICRO #### [facility] [address] [place] [address] Dr. Yasmany Claros MUCOUS NONE SEEN Normal NONE SEEN The [facility] Comment on above: Performed By: #### E RUR, UMICRO #### [facility] [address] [place] [address] Dr. Yasmany Claros RBC NONE SEEN Abnormal 0-2 The [facility] Comment on above: Performed By: #### E RUR, UMICRO #### [facility] [place] [address] [place] [address] Dr. Yasmany Claros WBC NONE SEEN Normal NONE SEEN The [facility] Comment on above: Performed By: #### E RUR, UMICRO #### [facility] [address] [place] [address] Dr. Yasmany Claros US SINGLE QUAD RT [...] LUIS DOMINGUEZ Date: 2023-01-03 09:06 Normal The [facility] Covid-19 PCR (CVDTB)on 07-21 SARS-CoV-2 (COVID-19) RNA MARS+probe Ql (Unsp spec) Not detected Normal NOT DETECTED The [facility] Comment on above: Result Comment: This test is not yet approved or cleared by the [place] FDA. When there are no FDA-approved or cleared tests available, and other criteria are met, FDA can make tests available under an emergency access mechanism called an Emergency Use Authorization (EUA). The EUA for this test is supported by the [place] of Health and Human Service's (HHS's) declaration [...] with SARS-CoV-2. Performed By: #### C #### [facility] [address] [place] [address] Dr. Yasmany Claros [facility]22 SARS-CoV-2 (COVID-19) RNA MARS+probe Ql (Unsp spec) Not detected Normal NOT DETECTED The [facility] Comment on above: Result Comment: This test is not yet approved or cleared by the [place] FDA. When there are no FDA-approved or cleared tests available, and other criteria are met, FDA can make tests available under an emergency access mechanism called an Emergency Use Authorization (EUA). The EUA for this test is supported by the [place] of Health and Human Service's (HHS's) declaration [...] consistent with SARS-CoV-2. Performed By: #### C [facility] #### [facility] [address] [place] [address] CHEST WO CONon [...] by: JHON MERCADO Date: 2022-05-15 12:57 Normal [facility] MRI KNEE LT WO CONon 05-15-2 [...] LUIS DOMINGUEZ Date: 2022-05-15 17:03 Normal The [facility] CARDIAC ARTURO 3-6on 2 CK [Catalytic activity/Vol] 335 U/L Critically high 39-308 The [facility] Comment on above: Result Comment: Test Repeated. Critical Value Verified Performed By: #### C MREP #### [facility] [address] [place] [address] Dr. Yasmany Claros CK.MB [Mass/Vol] 4.51 ng/mL Critically high <=3.60 [facility] Comment on above: Result Comment: Test Repeated. Critical Value Verified Performed By: #### C MREP #### [facility] [address] [place] [address] Dr. Yasmany Claros HSTROP 6.8 pg/mL Normal 4.0-76.1 The [facility] Comment on above: Result Comment: CUT- OFF POINTS HAVE BEEN ESTABLISHED BASED ON THE FOURTH UNIVERSAL DEFINITIONS OF MYOCARDIAL INFARCTION. THE UPPER REFERENCE LIMIT (URL) OF TROPONIN, DEFINED THE 99TH PERCENTILE OF cTnI DISTRIBUTION IN A REFERENCE POPULATION, HAS BEEN CONFIRMED THE DECISION THRESHOLD FOR OR DIAGNOSIS. Performed By: #### C MREP #### [facility] [address] [place] [address] Dr. Yasmany Claros ER URINE PROFILEon 2 Bilirubin Ql (U) Negative Normal NEGATIVE The [facility] Comment on above: Performed By: #### C VDTBH #### [facility] [address] [place] [address] Dr. Yasmany Claros Clarity (U) CLEAR Normal CLEAR The [facility] Comment on above: Performed By: #### C VDTBH #### [facility] [address] [place] [address] Dr. Yasmany Claros Color (U) LT. YELLOW Normal YELLOW The [facility] Comment on above: Performed By: #### C VDTBH #### [facility] [place] [address] [address] [address] Yasmany HOFF A micrscopic examina tion will be performed if indicated. Normal The [facility] [place] Comment on above: Performed By: #### C VDTBH #### [facility] [place] [address] [address] [address] Yasmany Claros Glucose Ql (U) Negative Normal NEGATIVE The [facility] Comment on above: Performed By: #### C VDTBH #### [facility] [place] [address] [address] [address] Yasmany Claros Hemoglobin Ql (U) Negative Normal NEGATIVE [facility] Comment on above: Performed By: #### C VDTBH #### [facility] [place] [address] [address] [address] Yasmany Claros Ketones Ql (U) Negative Normal NEGATIVE The [facility] Comment on above: Performed By: #### C VDTBH #### [facility] [address] [place] [address] Dr. Yasmany Claros LEUKOCYTES Negative Normal NEGATIVE [facility] Comment on above: Performed By: #### C VDTBH #### [facility] [place] [address] [address] [address] Yasmany Claros Nitrite Ql (U) Negative Normal NEGATIVE The [facility] Comment on above: Performed By: #### C VDTBH #### [facility] [address] [place] [address] Dr. Yasmany Claros pH (U) 6.0 [pH] Normal 5-9 [facility] Comment on above: Performed By: #### C VDTBH #### [facility] [address] [place] [address] Dr. Yasmany Claros SPEC GRAVITY 1.010 Normal 1.005-<=1.0 25 [facility] Comment on above: Performed By: #### C VDTBH #### [facility] [address] [place] [address] Dr. Yasmany Claros UA PROTEIN Negative Normal NEGATIVE/ TRACE The [facility] [place] Comment on above: Performed By: #### C VDTBH #### [facility] [address] [place] [address] Dr. Yasmany Claros UR MICRO IND NOT INDICATED Normal [facility] Comment on above: Performed By: #### C VDTBH #### [facility] [address] [place] [address] Dr. Yasmany Claros Urobilinogen Qn (U) 0.2 {Aarti'U}/dL Normal 0.2 - 1.0 The [facility] Comment on above: Performed By: #### C VDTBH #### [facility] [address] [place] [address] Dr. Yasmany Claros CARDIAC ARTURO ADMITon 022 CK [Catalytic activity/Vol] 356 U/L Critically high 39-308 The [facility] Comment on above: Result Comment: Test Repeated. Critical Value Verified Performed By: #### C VDTBH #### [facility] [address] [place] [address] Dr. Yasmany Claros CK.MB [Mass/Vol] 5.11 ng/mL Critically high <=3.60 The [facility] Comment on above: Result Comment: Test Repeated. Critical Value Verified Performed By: #### C VDTBH #### [facility] [address] [place] [address] Dr. Yasmany Claros HSTROP 6.3 pg/mL Normal 4.0-76.1 The [facility] Comment on above: Result Comment: CUT- OFF POINTS HAVE BEEN ESTABLISHED BASED ON THE FOURTH UNIVERSAL DEFINITIONS OF MYOCARDIAL INFARCTION. THE UPPER REFERENCE LIMIT (URL) OF TROPONIN, DEFINED THE 99TH PERCENTILE OF cTnI DISTRIBUTION IN A REFERENCE POPULATION, HAS BEEN CONFIRMED THE DECISION THRESHOLD FOR OR DIAGNOSIS. Performed By: #### C VDTBH #### [facility] [address] [place] [address] Dr. Yasmany Claros BELLA 101 ng/mL Critically high 16-96 The [facility] Comment on above: Performed By: #### C VDTBH #### [facility] [address] [place] [address] Dr. Yasmany Claros CBC AUTO DIFFon 02-08-2022 BASO # 0.0 103/ul Normal 0.0-0.1 The [facility] Comment on above: Performed By: #### C VDTBH #### [facility] [address] [place] [address] Dr. Yasmany Claros Basophils/100 WBC (Bld) 0.8 % Normal 0.2-2.0 [facility] Comment on above: Performed By: #### C VDTBH #### [facility] [address] [place] [address] Dr. Yasmany Claros EO # 0.1 103/ul Normal 0.0-0.7 [facility] Comment on above: Performed By: #### C VDTBH #### [facility] [address] [place] [address] Dr. Yasmany Claros Eosinophils/100 WBC (Bld) 2.5 % Normal 0.9-7.0 [facility] Comment on above: Performed By: #### C VDTBH #### [facility] [address] [place] [address] Dr. Yasmany Claros Erythrocyte distribution width (RBC) [Ratio] 14.8 % Normal 11.0-15.0 [facility] Comment on above: Performed By: #### C VDTBH #### [facility] [address] [place] [address] Dr. Yasmany Claros Hematocrit (Bld) [Volume fraction] 41.0 % Critically low 42.0-54.0 [facility] Comment on above: Performed By: #### C VDTBH #### [facility] [address] [place] [address] Dr. Yasmany Claros Hemoglobin (Bld) [Mass/Vol] 13.3 g/dL Critically low 14.0-18.0 [facility] Comment on above: Performed By: #### C VDTBH #### [facility] [address] [place] [address] Dr. Yasmany Claros IG # 0.01 10e3/ul Normal 0.00-0.03 [facility] Comment on above: Performed By: #### C VDTBH #### [facility] [address] [place] [address] Dr. Yasmany Claros IG % 0.2 % Normal 0.0-0.5 [facility] Comment on above: Performed By: #### C VDTBH #### [facility] [address] [place] [address] Dr. Yasmany Claros LYMPH # 1.3 103/ul Normal 1.2-3.8 [facility] Comment on above: Performed By: #### C VDTBH #### [facility] [address] [place] [address] Dr. Yasmany Claros Lymphocytes/100 WBC (Bld) 26.1 % Normal 20.5-60.0 [facility] Comment on above: Performed By: #### C VDTBH #### [facility] [address] [place] [address] Dr. Yasmany Claros MANUAL DIFF REQ NO Normal [facility] Comment on above: Performed By: #### C VDTBH #### [facility] [address] [place] [address] Dr. Yasmany Claros MCH (RBC) [Entitic mass] 26.9 pg Normal 25.9-34.0 [facility] Comment on above: Performed By: #### C VDTBH #### [facility] [address] [place] [address] Dr. Yasmany Claros MCHC (RBC) [Mass/Vol] 32.4 g/dL Normal 29.9-35.2 [facility] Comment on above: Performed By: #### C VDTBH #### [facility] [address] [place] [address] Dr. Yasmany Claros MCV (RBC) [Entitic vol] 82.8 fL Normal 80.0-94.0 [facility] Comment on above: Performed By: #### C VDTBH #### [facility] [address] [place] [address] Dr. Yasmany Claros MONO # 0.4 103/ul Normal 0.3-0.8 [facility] Comment on above: Performed By: #### C VDTBH #### [facility] [address] [place] [address] Dr. Yasmany Claros Monocytes/100 WBC (Bld) 8.6 % Normal 1.7-12.0 [facility] Comment on above: Performed By: #### C VDTBH #### [facility] [address] [place] [address] Dr. Yasmany Claros NEUT # 3.2 103/ul Normal 1.4-6.5 [facility] Comment on above: Performed By: #### C VDTBH #### [facility] [address] [place] [address] Dr. Yasmany Claros Neutrophils/100 WBC (Bld) 61.8 % Normal 43.0-75.0 [facility] Comment on above: Performed By: #### C VDTBH #### [facility] [address] [place] [address] Dr. Yasmany Claros Platelet mean volume (Bld) [Entitic vol] 10.7 fL Normal 9.5-13.5 [facility] Comment on above: Performed By: #### C VDTBH #### [facility] [address] [place] [address] Dr. Yasmany Claros PLT 163 103/ul Normal 150-450 [facility] Comment on above: Performed By: #### C VDTBH #### [facility] [address] [place] [address] Dr. Yasmany Claros RBC 4.95 106/ul Normal 4.70-6.10 [facility] Comment on above: Performed By: #### C VDTBH #### [facility] [address] [place] [address] Dr. Yasmany Claros WBC 5.1 103/ul Normal 4.0-11.0 [facility] Comment on above: Performed By: #### C VDTBH #### [facility] [address] [place] [address] ABD/PELV W CONon [...] REI ORTIZ Date: 2022-02-08 21:07 Normal The [facility] CT CHEST W CONon 02-08-2022 CT CHEST [...] The subdiaphragmatic abdominal organs included in the [id number] do not demonstrate any acute abnormality with [...] pulmonary nodules can be found at: [email or web address]://pubs.rsna.org/doi/abs/ [email or web address] Electronically authenticated by: INDIGO TOTH Date: 2022-02-08 21:19 Normal The [facility] LACTATE/LACTIC ACIDon 2021 Lactate [Moles/Vol] 1.3 mmol/L Normal 0.4-2.0 The [facility] Comment on above: Performed By: #### L ACT #### [facility] [address] [place] [address] Dr. Yasmany Claros LIPASEon 02-08-2022 Lipase [Catalytic activity/Vol] 92.0 U/L Normal 73.0-393.0 The [facility] Comment on above: Performed By: #### C VDTBH #### [facility] [address] [place] [address] Dr. Yasmany Claros PROF 14(COMP METB)on 022 Albumin [Mass/Vol] 4.1 g/dL Normal 3.4-5.0 [facility] Comment on above: Performed By: #### C VDTBH #### [facility] [address] [place] [address] Dr. Yasmany Claros Albumin/Globulin [Mass ratio] 1.0 {ratio} Normal [facility] Comment on above: Performed By: #### C VDTBH #### [facility] [address] [place] [address] Dr. Yasmany Claros ALP [Catalytic activity/Vol] 62 U/L Normal 46-116 [facility] Comment on above: Performed By: #### C VDTBH #### [facility] [address] [place] [address] Dr. Yasmany Claros ALT [Catalytic activity/Vol] 52 U/L Normal 16-63 [facility] Comment on above: Performed By: #### C VDTBH #### [facility] [address] [address] [address] Yasmany Claros Anion gap [Moles/Vol] 10.3 mmol/L Normal [facility] [facility] Comment on above: Performed By: #### C VDTBH #### [facility] [place] Laboratory [address] [address] [address] Yasmany Claros AST [Catalytic activity/Vol] 31 U/L Normal 15-37 The [facility] [place] Comment on above: Performed By: #### C VDTBH #### [facility] [place] Laboratory [address] [place] [address] Dr. Yasmany Claros Bilirubin [Mass/Vol] 0.4 mg/dL Normal 0.2-1.3 The [facility] [place] Comment on above: Performed By: #### C VDTBH #### [facility] [place] Laboratory [address] [place] [address] Dr. Yasmany Claros Calcium [Mass/Vol] 9.1 mg/dL Normal 8.5-10.1 The [facility] [place] Comment on above: Performed By: #### C VDTBH #### [facility] [place] Laboratory [address] [place] [address] Dr. Yasmany Claros Chloride [Moles/Vol] 99 mmol/L Normal 98-107 The [facility] [place] Comment on above: Performed By: #### C VDTBH #### [facility] [place] Laboratory [address] [place] [address] Dr. Yasmany Claros CO2 [Moles/Vol] 30.8 mmol/L Normal 21.0-32.0 The [facility] Comment on above: Performed By: #### C VDTBH #### [facility] [place] Laboratory [address] [place] [address] Dr. Yasmany Claros Creatinine [Mass/Vol] 0.96 mg/dL Normal 0.70-1.30 The [facility] [place] Comment on above: Performed By: #### C VDTBH #### [facility] [place] Laboratory [address] [place] [address] Dr. Yasmany Claros EGFR-AF NICARAGUAN >60 Normal >=60 The [facility] Comment on above: Performed By: #### C VDTBH #### [facility] [place] Laboratory [address] [place] [address] Dr. Yasmany Claros EGFR-NON AF NICARAGUAN >60 Normal >=60 The [facility] [place] Comment on above: Performed By: #### C VDTBH #### [facility] [place] Laboratory [address] [place] [address] Dr. Yasmany Claros Globulin (S) [Mass/Vol] 4.0 g/dL Normal [facility] Comment on above: Performed By: #### C VDTBH #### [facility] [place] Laboratory [address] [place] [address] Dr. Yasmany Claros Glucose [Mass/Vol] 104 mg/dL Normal 74-106 The [facility] [place] Comment on above: Performed By: #### C VDTBH #### [facility] [place] Laboratory [address] [place] [address] Dr. Yasmany Claros Potassium [Moles/Vol] 4.1 mmol/L Normal 3.5-5.1 [facility] Comment on above: Performed By: #### C VDTBH #### [facility] [place] Laboratory [address] [place] [address] Dr. Yasmany Claros Protein [Mass/Vol] 8.1 g/dL Normal 6.1-8.2 [facility] Comment on above: Performed By: #### C VDTBH #### [facility] [place] Laboratory [address] [place] [address] Dr. Yasmany Claros Sodium [Moles/Vol] 136 mmol/L Normal 136-145 The [facility] [place] Comment on above: Performed By: #### C VDTBH #### [facility] [place] Laboratory [address] [place] [address] Dr. Yasmany Claros Urea nitrogen [Mass/Vol] 15.0 mg/dL Normal 7.0-18.0 [facility] Comment on above: Performed By: #### C VDTBH #### [facility] [place] Laboratory [address] [place] [address] Dr. Yasmany Claros Urea nitrogen/Creatini ne [Mass ratio] 15.6 mg/mg Normal [facility] Comment on above: Performed By: #### C VDTBH #### [facility] [place] Laboratory [address] [place] [address] Dr. Yasmany Claros PROTIMEon 02-08-2022 INR Coag (PPP) [Relative time] 1.03 {INR} Normal The [facility] [place] Comment on above: Performed By: #### P T, PTT #### [facility] [place] Laboratory [address] [place] [address] Dr. Yasmany Claros INR GUIDELINES SEE BELOW Normal The [facility] Comment on above: Result Comment: FELICIA RED INR: 2.0 - 3.0 CONDITIONS NOT LISTED BELOW 2.5 - 3.5 FOR PROSTHETIC HEART VALVE REPLACEMENT 2.5 - 3.5 RECURRENT THROMBOSIS Performed By: #### P T, PTT #### [facility] [place] Laboratory [address] [place] [address] Dr. Yasmany Claros PT Coag (PPP) [Time] 11.1 s Normal 9.0-11.6 [facility] Comment on above: Performed By: #### P T, PTT #### [facility] [place] Laboratory [address] [place] [address] Dr. Yasmany Claros PTTon 02-08-2022 aPTT Coag (Bld) [Time] 25.6 s Normal 22.3-36.2 [facility] Comment on above: Performed By: #### P T, PTT #### [facility] [place] Laboratory [address] [place] [address] Dr. Yasmany Claros TSHon 02-08-2022 TSH 4.797 uIU/mL Critically high 0.470-4.680 The [facility] Comment on above: Performed By: #### C VDTBH #### [facility] [place] Laboratory [address] [place] [address] Dr. Yasmany Claros TSH RANGE SEE BELOW Normal The [facility] [place] Comment on above: Result Comment: <0.3 4 UIU/ml HYPERTHYROID 0.34-5.60 UIU/ml EUTHYROID >5.60 UIU/ml HYPOTHYROID Performed By: #### C VDTBH #### [facility] [place] Laboratory [address] [place] [address] Dr. Yasmany Claros HIP LEFT 1 OR 2 VWS WITH PEL VISon 03-18-2019 HIP LEFT 1 OR 2 VWS WITH PELVIS [facility] Department of Radiology [address] [place] [address] Patient Name: SADIQ DELAROSA : 1960 Sex: M Age: Race: White Pt. 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 Electronically signed by:Tiffanie Sol. Transcribed by: [email or web address], User Resident: FERNANDO HUNTLEY Electronically Signed by: TIFFANIE SOL @ 03/19/2019 02:14 PM I personally read this/these film(s) with this resident Normal The [facility] Comment on above: Order Comment: , , = ========= , Ordering Provider - MARTIN RHODES MD , Operative Reporton 9 Operative Report MR#: [id number] I [facility] Pt. Name: Sadiq Delarosa Room #: [id number] Discharge 03/05/2019 Date: Birthdate: 1960 OPERATIVE REPORT DATE OF SURGERY: 03/04/2019 SURGEON: Martin Rhodes M.D. REGISTRATION CLERK: Rj Valladares ANESTHESIA: General anesthesia. ESTIMATED BLOOD [...] Rhodes M.D. Date Trans: 03/08/2019 07:59 Archana/reba [id number] cc: Fernando Torre D.O. [address] [place] [phone] Jett Hagan, DO [address] [facility] [address] Normal The [facility] BASIC METABOLIC PANELon 05- Calcium [Mass/Vol] 8.8 mg/dL Normal 8.6-10.3 The [facility] Comment on above: Order Comment: No: D o not add to previous draw Performed By: #### 5 0103 #### [facility] [address] [place] [address], [place] Chloride [Moles/Vol] 103 mmol/L Normal 98-107 The [facility] Comment on above: Order Comment: No: D o not add to previous draw Performed By: #### 5 0103 #### [facility] [address] [place] [address], [place] CO2 [Moles/Vol] 27 mmol/L Normal 21-31 The [facility] Comment on above: Order Comment: No: D o not add to previous draw Performed By: #### 5 0103 #### [facility] [address] [place] [address], [place] Creatinine [Mass/Vol] 0.78 mg/dL Normal 0.70-1.30 [facility] Comment on above: Order Comment: No: D o not add to previous draw Performed By: #### 5 0103 #### [facility] [address] [place] [address], [place] GFR/1.73 sq M predicted among blacks MDRD (S/P/Bld) [Vol rate/Area] mL/min/{1.73_m2} Normal >60 The [facility] Comment on above: Order Comment: No: D o not add to previous draw Performed By: #### 5 0103 #### [facility] [address] [place] [address], [place] GFR/1.73 sq M predicted among non-blacks MDRD (S/P/Bld) [Vol rate/Area] mL/min/{1.73_m2} Normal >60 [facility] Comment on above: Order Comment: No: D o not add to previous draw Performed By: #### 5 0103 #### [facility] [address] [place] [address], [place] Glucose [Mass/Vol] 91 mg/dL Normal 70-100 [facility] Comment on above: Order Comment: No: D o not add to previous draw Performed By: #### 5 0103 #### [facility] [address] [place] [address], [facility] Potassium [Moles/Vol] 4.2 mmol/L Normal 3.5-5.1 [facility] Comment on above: Order Comment: No: D o not add to previous draw Performed By: #### 5 0103 #### [facility] [address] [place] [address], [facility] Sodium [Moles/Vol] 135 mmol/L Low 136-145 [facility] Comment on above: Order Comment: No: D o not add to previous draw Performed By: #### 5 0103 #### [facility] [address] [facility] [address] Urea nitrogen [Mass/Vol] 10 mg/dL Normal 7-25 [facility] Comment on above: Order Comment: No: D o not add to previous draw Performed By: #### 5 0103 #### [facility] [address] [facility]. [address] CBC W/DIFFon 03-05-2019 ABS BASOPHILS 0.0 10*3/uL Normal 0.0-0.2 [facility] Comment on above: Order Comment: No: D o not add to previous draw Performed By: #### 5 [id number] #### [facility] [address] [facility] [address] ABS IMM GRANS 0.0 10*3/uL Normal 0.0-0.2 [facility] Comment on above: Order Comment: No: D o not add to previous draw Performed By: #### 5 6506 #### [facility] [address] [place] [address], [facility] ABS NEUTROPHILS 4.3 10*3/uL Normal 1.6-7.6 [facility] Comment on above: Order Comment: No: D o not add to previous draw Performed By: #### 5 6506 #### [facility] [address] [place] [address], [facility] Basophils/100 WBC (Bld) 0.3 % Normal 0.0-1.0 [facility] Comment on above: Order Comment: No: D o not add to previous draw Performed By: #### 5 6506 #### [facility] [address] [place] [address], [facility] Eosinophils (Bld) [#/Vol] 0.1 10*3/uL Normal 0.0-0.5 [facility] Comment on above: Order Comment: No: D o not add to previous draw Performed By: #### 5 6506 #### [facility] [address] [place] [address], [facility] Eosinophils/100 WBC (Bld) 0.8 % Normal 0.0-6.0 [facility] Comment on above: Order Comment: No: D o not add to previous draw Performed By: #### 5 6506 #### [facility] [address] [place] [address], [facility] Erythrocyte distribution width (RBC) [Ratio] 14.7 % Normal 11.5-15.0 [facility] Comment on above: Order Comment: No: D o not add to previous draw Performed By: #### 5 6506 #### [facility] [address] [place] [id number], [facility] Hematocrit (Bld) [Volume fraction] 36.3 % Low 39.0-50.0 [facility] Comment on above: Order Comment: No: D o not add to previous draw Performed By: #### 5 6506 #### [facility] [address] [place] [address], [facility] Hemoglobin (Bld) [Mass/Vol] 11.6 g/dL Low 13.0-17.0 [facility] Comment on above: Order Comment: No: D o not add to previous draw Performed By: #### 5 6506 #### [facility] [address] [facility] [place] [address], [facility] IMMATURE GRANS 0.5 % Normal 0.0-1.0 [facility] Comment on above: Order Comment: No: D o not add to previous draw Performed By: #### 5 6506 #### [facility] [address] [place] [address], [facility] Lymphocytes (Bld) [#/Vol] 1.0 10*3/uL Low 1.2-4.0 [facility] Comment on above: Order Comment: No: D o not add to previous draw Performed By: #### 5 6506 #### [facility] [address] [place] [address], [facility] Lymphocytes/100 WBC (Bld) 16.3 % Low 20.0-45.0 [facility] Comment on above: Order Comment: No: D o not add to previous draw Performed By: #### 5 6506 #### [facility] [address] [facility] [place] [address], [facility] MCH (RBC) [Entitic mass] 26.4 pg Low 27.0-33.0 [facility] Comment on above: Order Comment: No: D o not add to previous draw Performed By: #### 5 6506 #### [facility] [address] [place] [address], [facility] MCHC (RBC) [Mass/Vol] 32.0 g/dL Normal 32.0-35.0 [facility] Comment on above: Order Comment: No: D o not add to previous draw Performed By: #### 5 6506 #### [facility] [address] [facility] [id number], [facility] MCV (RBC) [Entitic vol] 82.5 fL Normal 82.0-98.0 [facility] Comment on above: Order Comment: No: D o not add to previous draw Performed By: #### 5 6506 #### [facility] [address] [place] [address], [facility] Monocytes (Bld) [#/Vol] 0.6 10*3/uL Normal 0.1-1.0 [facility] Comment on above: Order Comment: No: D o not add to previous draw Performed By: #### 5 6506 #### [facility] [address] [place] [address], [facility] MONOS 10.3 % Normal 5.0-12.0 [facility] Comment on above: Order Comment: No: D o not add to previous draw Performed By: #### 5 6506 #### [facility] [address] [place] [id number], [facility] Neutrophils/100 WBC (Bld) 71.8 % Normal 40.0-72.0 [facility] Comment on above: Order Comment: No: D o not add to previous draw Performed By: #### 5 6506 #### [facility] [address] [facility] [place] [address], [facility] Nucleated RBC/100 WBC (Bld) [Ratio] 0 % Normal 0-0 [facility] Comment on above: Order Comment: No: D o not add to previous draw Performed By: #### 5 6506 #### [facility] [address] [facility] [place] [address], [facility] PLAT CNT 150 10*3/uL Normal 150-400 [facility] Comment on above: Order Comment: No: D o not add to previous draw Performed By: #### 5 6506 #### [facility] [address] [place] [id number], [facility] RBC (Bld) [#/Vol] 4.40 10*6/uL Normal 4.20-5.70 [facility] Comment on above: Order Comment: No: D o not add to previous draw Performed By: #### 5 6506 #### [facility] [address] [place] [address], [facility] WBC (Bld) [#/Vol] 6.02 10*3/uL Normal 4.00-10.60 [facility] Comment on above: Order Comment: No: D o not add to previous draw Performed By: #### 5 6506 #### [facility] [address] [facility] *ANAEROBIC CULTUREon 019 *ANAEROBIC CULTURE Clinical Report: (D) Specimen/Source: TISSUE/#3 LT HIP Collected: 03/04/2019 09:56 Status: Final Last Updated: 03/09/2019 09:49 CULT RES (Final) No Anaerobes Isolated 5 Days Normal [facility] Comment on above: Performed By: #### 5 6506 #### [facility] [address] *ANAEROBIC CULTURE Clinical Report: (D) Specimen/Source: TISSUE/#2 LT HIP Collected: 03/04/2019 09:55 Status: Final Last Updated: 03/09/2019 09:49 CULT RES (Final) No Anaerobes Isolated 5 Days Normal [facility] Comment on above: Performed By: #### 5 6506 #### [facility] [address] *ANAEROBIC CULTURE Clinical Report: (D) Specimen/Source: FLUID/#1 LT HIP JOINT Collected: 03/04/2019 09:55 Status: Final Last Updated: 03/09/2019 09:49 CULT RES (Final) No Anaerobes Isolated 5 Days Normal [facility] Comment on above: Performed By: #### 5 [id number] #### [facility] [address] *BODY FLUID CULTUREon 2018 *BODY FLUID CULTURE Clinical Report: (D) Specimen/Source: FLUID/INTRAOP SPEC Collected: 03/04/2019 09:55 Status: Final Last Updated: 03/09/2019 08:53 (1) #1 LT JOINT GRAM (Final) Rare Polys No Bacteria Seen CULT RES (Final) No Growth Day 5 Normal [facility] Comment on above: Order Comment: #1 LT JOINT Performed By: #### 5 [id number] #### [address] *TISSUE CULTUREon 03-04-2019 *TISSUE CULTURE Clinical Report: (D) Specimen/Source: TISSUE/INTRAOP SPEC Collected: 03/04/2019 09:56 Status: Final Last Updated: 03/09/2019 08:53 (1) #3 LT HIP INFERIOR GRAM (Final) Few Polys No Bacteria Seen CULT RES (Final) No Growth Day 5 Normal [facility] Comment on above: Order Comment: #3 LT HIP INFERIOR Performed By: #### 5 6506 #### [address] *TISSUE CULTURE Clinical Report: (D) Specimen/Source: TISSUE/INTRAOP SPEC Collected: 03/04/2019 09:55 Status: Final Last Updated: 03/09/2019 08:53 (1) #2 LT HIP ANTERIOR GRAM (Final) Rare Polys No Bacteria Seen CULT RES (Final) No Growth Day 5 Normal [facility] Comment on above: Order Comment: #2 LT HIP ANTERIOR Performed By: #### 5 6506 #### [id number] [place] [address] POC GLUCOSE LABon 03-04-2019 Glucose [Mass/Vol] 89 mg/dL Normal 70-100 [facility] Comment on above: Performed By: #### 5 6506 #### [address] [address], [facility] PORTABLE HIP LEFT 1 OR 2 VWS WITH PELVISon 03-04-2019 PORTABLE HIP LEFT 1 OR 2 VWS WITH PELVIS [facility] Department of Radiology [address] [place] [phone] Patient Name: SADIQ DELAROSA : 1960 Sex: [...] loosening Electronically signed by:Alfred Sandoval. Transcribed by: [email or web address], User Resident: Electronically Signed by: ALFRED SANDOVAL @ 03/04/2019 04:54 PM Normal [facility] Comment on above: Order Comment: Hardw are Evaluation RBC'S 2 UNITSon 03-04-2019 CROSSMATCH INTERP 1 COMP Normal [facility] Comment on above: Performed By: #### 5 6506 #### [facility] [address] [place] [address], [place] CROSSMATCH INTERP 2 COMP Normal [facility] Comment on above: Performed By: #### 5 6506 #### [facility] [address] [place] [address], [place] PRODUCT CODE 1 E0336 Normal [facility] Comment on above: Performed By: #### 5 6506 #### [facility] [address] [place] [address], [place] PRODUCT CODE 2 E0336 Normal [facility] Comment on above: Performed By: #### 5 6506 #### [facility] [address] [place] [address], [facility] PRODUCT STATUS 1 RE Normal [facility] Comment on above: Result Comment: Resu lt changed by IF on 03/07/2019 07:43. The previous value was XM. Performed By: #### 5 6506 #### [facility] [address] [place] [address], [facility] PRODUCT STATUS 2 RE Normal [facility] Comment on above: Result Comment: Resu lt changed by IF on 03/07/2019 07:43. The previous value was XM. Performed By: #### 5 6506 #### [facility] [address] [place] [address], [place] UNIT ABO 1 A Normal [facility] Comment on above: Performed By: #### 5 6506 #### [facility] [address] [place] [address], [place] UNIT ABO 2 A Normal [facility] Comment on above: Performed By: #### 5 6506 #### [facility] [address] [place] [address], [place] UNIT ID 1 [id number] Normal [facility] Comment on above: Performed By: #### 5 6506 #### [facility] [address] [place] [address], [place] UNIT ID 2 [id number] Normal [facility] Comment on above: Performed By: #### 5 6506 #### [facility] [address] [place] [address], [facility] UNIT RH 1 Positive Normal [facility] Comment on above: Performed By: #### 5 6506 #### [facility] [address] [place] [address], [facility] UNIT RH 2 Positive Normal [facility] Comment on above: Performed By: #### 5 6506 #### [facility] [address] [place] [address], [facility] BASIC METABOLIC PANELon 05-0 Calcium [Mass/Vol] 9.5 mg/dL Normal 8.6-10.3 [facility] Comment on above: Performed By: #### 0 0071 #### [facility] [address] [place] [address], [facility] Chloride [Moles/Vol] 103 mmol/L Normal 98-107 [facility] Comment on above: Performed By: #### 0 0071 #### [facility] [address] [place] [address], [facility] CO2 [Moles/Vol] 26 mmol/L Normal 21-31 [facility] Comment on above: Performed By: #### 0 0071 #### [facility] [address] [place] [address], [facility] Creatinine [Mass/Vol] 0.81 mg/dL Normal 0.70-1.30 [facility] Comment on above: Performed By: #### 0 0071 #### [facility] [address] [place] [address], [facility] GFR/1.73 sq M predicted among blacks MDRD (S/P/Bld) [Vol rate/Area] mL/min/{1.73_m2} Normal >60 [facility] Comment on above: Performed By: #### 0 0071 #### [facility] [address] [place] [address], [facility] GFR/1.73 sq M predicted among non-blacks MDRD (S/P/Bld) [Vol rate/Area] mL/min/{1.73_m2} Normal >60 [facility] Comment on above: Performed By: #### 0 0071 #### [facility] [address] Glucose [Mass/Vol] 82 mg/dL Normal 70-100 [facility] Comment on above: Performed By: #### 0 0071 #### [facility] [address] Potassium [Moles/Vol] 3.8 mmol/L Normal 3.5-5.1 [facility] Comment on above: Performed By: #### 0 0071 #### [facility] [address] Sodium [Moles/Vol] 138 mmol/L Normal 136-145 [facility] Comment on above: Performed By: #### 0 0071 #### [facility] [address] Urea nitrogen [Mass/Vol] 12 mg/dL Normal 7-25 [facility] Comment on above: Performed By: #### 0 0071 #### [facility] [address] CBC W/DIFFon 02-24-2019 ABS BASOPHILS 0.0 10*3/uL Normal 0.0-0.2 [facility] Comment on above: Performed By: #### 5 102 #### [facility] [address] [place] [address], [facility] ABS IMM GRANS 0.0 10*3/uL Normal 0.0-0.2 [facility] Comment on above: Performed By: #### 5 0103 #### [facility] [address] [place] [id number], [facility] ABS NEUTROPHILS 3.8 10*3/uL Normal 1.6-7.6 The [facility] [facility] Comment on above: Performed By: #### 3 #### [facility] [address] [place] [address], [facility] Basophils/100 WBC (Bld) 0.5 % Normal 0.0-1.0 [facility] Comment on above: Performed By: #### 102 #### [facility] [address] [facility] [place] [address], [facility] Eosinophils (Bld) [#/Vol] 0.1 10*3/uL Normal 0.0-0.5 [facility] Comment on above: Performed By: #### 102 #### [facility] [address] [place] [address], [facility] Eosinophils/100 WBC (Bld) 1.1 % Normal 0.0-6.0 [facility] Comment on above: Performed By: #### 102 #### [facility] [address] [facility] [address] Erythrocyte distribution width (RBC) [Ratio] 14.6 % Normal 11.5-15.0 [facility] Comment on above: Performed By: #### 3 #### [facility] [address] [facility] [place] [address], [facility] Hematocrit (Bld) [Volume fraction] 42.8 % Normal 39.0-50.0 [facility] Comment on above: Performed By: #### 5 3 #### [facility] [address] [facility] [place] [address], [facility] Hemoglobin (Bld) [Mass/Vol] 13.6 g/dL Normal 13.0-17.0 [facility] Comment on above: Performed By: #### 3 #### [facility] [address] [facility] [place] [address], [facility] IMMATURE GRANS 0.2 % Normal 0.0-1.0 [facility] Comment on above: Performed By: #### 5 0103 #### [facility] [address] [facility] [place] [address], [facility] Lymphocytes (Bld) [#/Vol] 1.3 10*3/uL Normal 1.2-4.0 [facility] Comment on above: Performed By: #### 5 0103 #### [facility] [address] [place] [address], [facility] Lymphocytes/100 WBC (Bld) 23.4 % Normal 20.0-45.0 [facility] Comment on above: Performed By: #### 5 0103 #### [facility] [address] [facility] [place] [address], [facility] MCH (RBC) [Entitic mass] 26.1 pg Low 27.0-33.0 [facility] Comment on above: Performed By: #### 5 0103 #### [facility] [address] [place] [address], [facility] MCHC (RBC) [Mass/Vol] 31.8 g/dL Low 32.0-35.0 [facility] Comment on above: Performed By: #### 5 0103 #### [facility] [address] [facility] [place] [address], [facility] MCV (RBC) [Entitic vol] 82.0 fL Normal 82.0-98.0 [facility] Comment on above: Performed By: #### 5 0103 #### [facility] [address] [facility] [place] [address], [facility] Monocytes (Bld) [#/Vol] 0.5 10*3/uL Normal 0.1-1.0 [facility] Comment on above: Performed By: #### 5 0103 #### [facility] [address] [facility] [place] [address], [facility] MONOS 8.5 % Normal 5.0-12.0 [facility] Comment on above: Performed By: #### 5 0103 #### [facility] [address] [place] [address], [facility] Neutrophils/100 WBC (Bld) 66.3 % Normal 40.0-72.0 [facility] Comment on above: Performed By: #### 5 0103 #### [facility] [address] [place] [address], [facility] Nucleated RBC/100 WBC (Bld) [Ratio] 0 % Normal 0-0 [facility] Comment on above: Performed By: #### 5 0103 #### [facility] [address] [facility] [place] [address], [facility] PLAT CNT 174 10*3/uL Normal 150-400 [facility] Comment on above: Performed By: #### 5 0103 #### [facility] [address] [place] [address], [facility] RBC (Bld) [#/Vol] 5.22 10*6/uL Normal 4.20-5.70 [facility] Comment on above: Performed By: #### 5 0103 #### [facility] [address] [place] [address], [facility] WBC (Bld) [#/Vol] 5.65 10*3/uL Normal 4.00-10.60 [facility] Comment on above: Performed By: #### 5 0103 #### [facility] [address] [place] [address], [facility] PROTHROMBIN TIMEon 9 INR Coag (PPP) [Relative time] 1.03 {INR} Normal 0.91-1.16 [facility] Comment on above: Result Comment: ACCC [...] 1995;108:[id number]. Performed By: #### 5 6101 #### [facility] [address] [facility] [facility] PT Coag (PPP) [Time] 13.5 s Normal 12.3-14.8 [facility] Comment on above: Result Comment: ALL RESULTS MUST BE INTERPRETED WITH RESPECT TO BLOOD DRAWING ARTIFACT OR DILUTION ERROR OF ANTICOAGULANT AT THE TIME OF SAMPLING. Performed By: #### 5 6101 #### [facility] [address] [facility]. [address] TYPE AND CROSSMATCHon 2018 ABO INTERPRETATION A Normal [facility] Comment on above: Performed By: #### 6 2594 #### [facility] [address] [facility] [place] [address], [facility] RH INTERPRETATION Positive Normal [facility] Comment on above: Performed By: #### 6 2594 #### [facility] [address] [facility] [place] [address], [facility] URINALYSISon 02-24-2019 Appearance (U) CLEAR Normal CLEAR [facility] Comment on above: Performed By: #### 1 0008 #### [facility] [address] [place] [address], [facility] Bilirubin [Mass/Vol] Negative Normal NEGATIVE [facility] Comment on above: Performed By: #### 1 0008 #### [facility] [address] [place] [address], [facility] BLOOD Negative Normal NEGATIVE [facility] Comment on above: Performed By: #### 1 0008 #### [facility] [address] [place] [address], [facility] Color (U) YELLOW Normal YELLOW [facility] Comment on above: Performed By: #### 1 0008 #### [facility] [address] [place] [address], [facility] EPIS NONE SEEN Normal FEW,OCC,NON E SEEN [facility] Comment on above: Performed By: #### 1 0008 #### [facility] [address] [place] [address], [facility] Glucose [Mass/Vol] Negative Normal NEGATIVE [facility] Comment on above: Performed By: #### 1 0008 #### [facility] [address] [facility] [place] [address], [facility] HYALINE CASTS 1 /LPF Abnormal NONE SEEN [facility] Comment on above: Performed By: #### 1 0008 #### [facility] [address] [place] [address], [facility] KETONE Negative Normal NEGATIVE [facility] Comment on above: Performed By: #### 1 0008 #### [facility] [address] [place] [address], [facility] LEUK SAULO Negative Normal NEGATIVE [facility] Comment on above: Performed By: #### 1 0008 #### [facility] [address] [place] [address], [place] MUCUS THREADS MANY Abnormal NONE SEEN [facility] Comment on above: Performed By: #### 1 0008 #### [facility] [address] [place] [address], [facility] Nitrite Ql (U) Negative Normal NEGATIVE [facility] Comment on above: Performed By: #### 1 0008 #### [facility] [address] [place] [address], [facility] pH (Bld) 5.0 Normal 5.0-8.0 [facility] Comment on above: Performed By: #### 1 0008 #### [facility] [address] [place] [address], [facility] Protein (U) [Mass/Vol] Negative Normal NEGATIVE [facility] Comment on above: Performed By: #### 1 0008 #### [facility] [address] [place] [address], [facility] RBC (U) [#/Vol] 0-2 Abnormal NONE SEEN [facility] Comment on above: Performed By: #### 1 0008 #### [facility] [address] SPEC GRAV 1.020 Normal 1.015-1.020 [facility] Comment on above: Performed By: #### 1 0008 #### [facility] [address] [place] [address], [facility] WBC UA 0-2 Abnormal NONE SEEN [facility] Comment on above: Performed By: #### 1 0008 #### [facility] [address] *MRSA/MSSA DNA NASALon 02-16 *MRSA/MSSA DNA NASAL Clinical Report: (D) Specimen: NASAL SWAB Collected: 02/16/2019 09:16 Status: Final Last Updated: 02/16/2019 15:44 MSSA DNA (Final) No Methicillin Susceptible Staphylococcus aureus DNA Detected MRSA DNA (Final) No Methicillin Resistant Staphylococcus aureus DNA Detected Normal [facility] Comment on above: Performed By: #### 3 1595 #### [facility] [address] CBC W/DIFFon 02-16-2019 ABS BASOPHILS 0.0 10*3/uL Normal 0.0-0.2 [facility] Comment on above: Performed By: #### 5 0103 #### [facility] [address] [place] [address], [facility] ABS IMM GRANS 0.0 10*3/uL Normal 0.0-0.2 [facility] Comment on above: Performed By: #### 5 0103 #### [facility] [address] [place] [address], [facility] ABS NEUTROPHILS 2.9 10*3/uL Normal 1.6-7.6 [facility] Comment on above: Performed By: #### 5 0103 #### [facility] [address] Basophils/100 WBC (Bld) 0.6 % Normal 0.0-1.0 [facility] Comment on above: Performed By: #### 5 0103 #### [facility] [address] [place] [address], [facility] Eosinophils (Bld) [#/Vol] 0.1 10*3/uL Normal 0.0-0.5 [facility] Comment on above: Performed By: #### 5 0103 #### [facility] [address] [place] [address], [facility] Eosinophils/100 WBC (Bld) 1.3 % Normal 0.0-6.0 [facility] Comment on above: Performed By: #### 5 0103 #### [facility] [address] Erythrocyte distribution width (RBC) [Ratio] 14.6 % Normal 11.5-15.0 [facility] Comment on above: Performed By: #### 5 0103 #### [facility] [address] Hematocrit (Bld) [Volume fraction] 40.4 % Normal 39.0-50.0 [facility] Comment on above: Performed By: #### 5 0103 #### [facility] [address] [facility] [address] Hemoglobin (Bld) [Mass/Vol] 13.3 g/dL Normal 13.0-17.0 [facility] Comment on above: Performed By: #### 5 0103 #### [facility] [address] IMMATURE GRANS 0.4 % Normal 0.0-1.0 [facility] Comment on above: Performed By: #### 3 #### [facility] [address] Lymphocytes (Bld) [#/Vol] 1.3 10*3/uL Normal 1.2-4.0 [facility] Comment on above: Performed By: #### 3 #### [facility] [address] Lymphocytes/100 WBC (Bld) 27.8 % Normal 20.0-45.0 [facility] Comment on above: Performed By: #### 5 3 #### [facility] [address] [facility]. [address] MCH (RBC) [Entitic mass] 25.9 pg Low 27.0-33.0 [facility] Comment on above: Performed By: #### 5 3 #### [facility] [address] MCHC (RBC) [Mass/Vol] 32.9 g/dL Normal 32.0-35.0 [facility] Comment on above: Performed By: #### 5 3 #### [facility] [address] [place] [address], [facility] MCV (RBC) [Entitic vol] 78.8 fL Low 82.0-98.0 [facility] Comment on above: Performed By: #### 5 0103 #### [facility] [address] [place] [id number], [facility] Monocytes (Bld) [#/Vol] 0.5 10*3/uL Normal 0.1-1.0 [facility] Comment on above: Performed By: #### 5 0103 #### [facility] [address] [place] [address], [facility] MONOS 9.9 % Normal 5.0-12.0 [facility] Comment on above: Performed By: #### 102 #### [facility] [address] [place] [address], [facility] Neutrophils/100 WBC (Bld) 60.0 % Normal 40.0-72.0 [facility] Comment on above: Performed By: #### 102 #### [facility] [address] [facility] [place] [address], [facility] Nucleated RBC/100 WBC (Bld) [Ratio] 0 % Normal 0-0 [facility] Comment on above: Performed By: #### 102 #### [facility] [address] [place] [id number], [facility] PLAT CNT 184 10*3/uL Normal 150-400 [facility] Comment on above: Performed By: #### 102 #### [facility] [address] [place] [id number], [facility] RBC (Bld) [#/Vol] 5.13 10*6/uL Normal 4.20-5.70 [facility] Comment on above: Performed By: #### 102 #### [facility] [address] [place] [id number], [facility] WBC (Bld) [#/Vol] 4.75 10*3/uL Normal 4.00-10.60 [facility] Comment on above: Performed By: #### 5 0103 #### [facility] [address] [place] [address], [facility] HEMOGLOBIN A1Con 02-16-2019 HbA1c (Bld) [Mass fraction] 5.9 % Normal 4.0-6.0 [facility] Comment on above: Performed By: #### 4 6447 #### [facility] [address] [place] [address], [facility] HbA1c (Bld) [Mass fraction] 123 mg/dL Normal 70-126 [facility] Comment on above: Performed By: #### 4 6447 #### [facility] [address] [place] [address], [facility] C REACTIVE PROTEINon 019 CRP [Mass/Vol] 6.5 mg/L Normal 0.0-7.0 [facility] Comment on above: Performed By: #### 6 1405 #### [facility] [address] [place] [address], [facility] SEDIMENTATION RATEon 019 SED RATE 27 mm/hr High 0-10 [facility] Comment on above: Performed By: #### 5 6506 #### [facility] [address] [facility] [address] Vital Signs Date Time Vital Sign Value Performing Clinician Facility 09-19-2023 13:23-0500 Blood Pressure Location Juan Ramon MARTINEZ [facility] 09-19-2023 13:23-0500 Diastolic blood pressure 86 mm[Hg] Juan Ramon MARTINEZ [facility] 09-19-2023 13:23-0500 Heart rate 76 /min Juan Ramon MARTINEZ [facility] 09-19-2023 13:23-0500 Respiratory rate 16 /min Juan Ramon MARTINEZ [facility] 09-19-2023 13:23-0500 Systolic blood pressure 130 mm[Hg] Juan Ramon MARTINEZ [facility] [place] 08-27-2023 15:30-0500 Body height 175.26 cm Fernando Ball Other [facility] Other 08-27-2023 15:30-0500 Body mass index (BMI) [Ratio] 39.51 kg/m2 Fernando Ball Other [facility] Other 08-27-2023 15:30-0500 Body weight 121.38 kg Fernando Ball Other [facility] Other 08-27-2023 15:30-0500 Diastolic blood pressure 85 mm[Hg] Fernando Ball Other [facility] Other 08-27-2023 15:30-0500 Respiratory rate 12 /min Fernando Ball Other [facility] Other 08-27-2023 15:30-0500 Systolic blood pressure 124 mm[Hg] Fernando Ball Other [facility] Other 01-29-2023 10:30-0400 Body height 175.26 cm Fernando Ball Other [facility] Other 01-29-2023 10:30-0400 Body mass index (BMI) [Ratio] 39.34 kg/m2 Fernando Ball Other [facility] Other 01-29-2023 10:30-0400 Body weight 120.84 kg Fernando Ball Other [facility] Other 01-29-2023 10:30-0400 Diastolic blood pressure 84 mm[Hg] Fernando Ball Other [facility] Other 01-29-2023 10:30-0400 Respiratory rate 12 /min Fernando Ball Other [facility] Other 01-29-2023 10:30-0400 Systolic blood pressure 130 mm[Hg] Fernando Ball Other [facility] Other 01-10-2023 12:00-0400 Body height 175.26 cm Fernando Ball Other [facility] Other 01-10-2023 12:00-0400 Body mass index (BMI) [Ratio] 38.04 kg/m2 Fernando Ball Other [facility] Other 01-10-2023 12:00-0400 Body weight 116.85 kg Fernando Ball Other [facility] Other 01-10-2023 12:00-0400 Diastolic blood pressure 78 mm[Hg] Fernando Ball Other [facility] Other 01-10-2023 12:00-0400 Respiratory rate 12 /min Fernando Ball Other [facility] Other 01-10-2023 12:00-0400 Systolic blood pressure 122 mm[Hg] Fernando Ball Other [facility] Other 04-10-2022 08:13-0400 Blood Pressure Location Vanessa Garlandmetz [facility] 04-10-2022 08:13-0400 Body temperature 96.98 [degF] Vanessa Whittaker [facility] 04-10-2022 08:13-0400 Diastolic blood pressure 82 mm[Hg] Vanessa Whittaker [facility] 04-10-2022 08:13-0400 Heart rate 75 /min Vanessa Whittaker [facility] 04-10-2022 08:13-0400 SaO2% (BldA) [Mass fraction] 95 % Vanessa Whittaker [facility] 04-10-2022 08:13-0400 Systolic blood pressure 126 mm[Hg] Vanessa Whittaker [facility] Encounters Encounter Date Encounter Type [...] 09-02-2023 End: 09-02-2023 ambulatory Fernando Torre Other [facility] Other Start: 09-02-2023 Telephone encounter Fernando Torre [facility] Start: 08-31-2023 End: 08-31-2023 ambulatory Fernando Torre Other [facility] Other Start: 08-31-2023 Telephone encounter Fernando Torre [facility] Start: 08-29-2023 ambulatory Vanessa Whittaker Facility : [place] Start: 08-27-2023 End: 08-27-2023 ambulatory Fernando Nicho Other [facility] Other Start: 08-27-2023 Office outpatient vi sit 25 minutes Fernando Nicho [facility] Start: 08-27-2023 Telephone encounter Fernando Nicho [facility] Start: 04-01-2023 End: 04-02-2023 ambulatory Vanessa Whittaker Facility:[facility] Start: 01-29-2023 End: 01-29-2023 ambulatory Fernando Torre Other [facility] Other Start: 01-29-2023 Encounter for genera l adult medical examination without abnormal findings Fernando Torre [facility] Start: 01-29-2023 Periodic preventive med est patient 40-64yrs Fernando Torre [facility] Start: 01-27-2023 Telephone encounter Fernando Torre [facility] Start: 01-27-2023 End: 01-28-[address] FERNANDO TORRE [facility] Other Start: 01-20-2023 End: 01-20-[address] FERNANDO TORRE Facility: Start: 01-19-2023 End: 01-19-2023 ambulatory Fernando Torre Other [facility] Other Start: 01-19-2023 Telephone encounter Fernando Torre [facility] Start: 01-10-2023 End: 01-10-2023 ambulatory Fernando Torre Other [facility] Other Start: 01-10-2023 Office outpatient vi sit 15 minutes Fernando Ball [facility] Start: 01-03-2023 End: 01-03-[address] FERNANDO TORRE Facility:[facility] Start: 08-18-2022 Encounter for preprocedural laboratory examination MR LO CHACKO . [facility] Start: 08-13-2022 End: 08-14-2022 ambulatory MR LO CHACKO . Facility:[facility] Start: 08-13-2022 End: 08-14-2022 Encounter for preprocedural laboratory examination MR LO CHACKO . Facility:[facility] Start: 07-19-2022 End: 07-20-2022 ambulatory MR LO CHACKO . Facility:[facility] Start: 05-15-2022 End: 05-16-[address] FERNANDO TORRE Facility:[facility] Start: 04-10-2022 End: 04-10-2022 Patient encounter procedure Vanessa Whittaker [facility] Start: 02-08-2022 End: 02-09-[address] FERNANDO TORRE Facility:[facility] Start: 01-28-2022 Adult health examination Armin Torre Other [facility] Other Start: 09-24-2021 End: 01-27-2022 Recurring Lennie VAZQUEZ [facility] Start: 03-04-2019 End: 03-05-2019 Evaluation and management of inpatient MARTIN RHODES Facility:[facility] Procedures Date Procedure Procedure Detail Performing Clinician [...] RHODES Comment on above: Performed By: #### [id number] #### [facility] [place] [address], [facility] Start: 02-12-2019 Pre-surgery evaluation Fernando Torre Other [...] 08/05/2024 9:00 AM EDT Office Visit [facility] [address] [place] [address] Lo Chacko PA [address] [place] [address] Thumb pain, right (Primary Dx) [facility] Comment on above: Thumb pain, right [...] influenza virus vaccine, unspecified formulation Lennie VAZQUEZ [facility] Payers Date Payer Category Payer Medicare [id number] 2023 Medicare (Managed Care) [employer] [id number] 2023 Medicare [id number] 1959 Private Health Insurance [id number] 1958 Unknown [id number] 2.16840.1.770194.3.579.2. 647 1958 Unknown [id number] 2.16.840.1.733880.3.579.2. 593 1958 Unknown [id number] 2.16.840.1.398549.3.579.2. 593 1958 Unknown [id number] 2.16.840.1.557724.3.579.2. 593 1958 Unknown [id number] 2.16840.1.533707.3.579.2. 593 1958 Unknown [id number] 2.16.840.1.543222.3.579.2. 593 1958 Unknown [id number] 2.16.840.1.569652.3.579.2. 593 1958 Unknown [id number] 2.16.840.1.729960.3.579.2. 593 1958 Unknown [id number] 2.16.840.1.862882.3.579.2. 593 1958 Unknown [id number] 2.16.840.1.307097.3.579.2. 727 1958 Unknown [id number] 2.16.840.1.750310.3.579.2. 727 1958 Unknown [id number] 2.16.840.1.926305.3.579.2. 1259 1958 Unknown [id number] 2.16.840.1.349741.3.579.2. 1259 Unknown [id number] Social History Date Type Detail Facility Start: 01-03-2022 End: 08-05-2024 Tobacco smoking status Never smoked tobacco (finding) [facility] Tobacco smoking status Never [facility] Sex Assigned At Male [facility] Start: 08-05-2024 Tobacco use and exposure Smokeless tobacco non-user [facility] Start: 1960 Sex assigned at Not on file [facility] Tobacco smoking status NHIS Tobacco smoking consumption unknown [facility] Healthcare Functional Status Date Assessment Result Facility 09-19-2023 Functional Status N/A [facility] 04-10-2022 Functional Status N/A [facility] Clinical Notes 04-10-2022 to 08-05-2024 [...] is normal. Strength additional comments: 5/5 EQUAL COMPLAINTS COORDINATOR STRENGTH Neurovascular Right Right neurovascular exam is [...] requiring urgent evaluation. documented in this encounter [facility] 09-20-2023 Note Chief Complaint consultation for cholelithiasis HPI Staff 63 year old male presents on consultation from Dr. Torer for cholelithiasis. Reports abdominal pain, nausea and [...] E&M of New Patient Moderate 45-59 Min 63715 2. Abdominal pain, epigastric (R10.13: Epigastric pain) see # 1 Ordered: CT Abdomen/Pelvis w/ Contrast E&M of New Patient Moderate 45-59 Min 02383 3. Abdominal pain, right upper quadrant (R10.11: Right upper quadrant pain) see # 1 Ordered: CT Abdomen/Pelvis w/ Contrast E&M of New Patient Moderate 45-59 Min 99000 4. Abnormal gallbladder ultrasound (R93.2: Abnormal findings on diagnostic imaging of liver and biliary tract) see # 1 Ordered: CT Abdomen/Pelvis w/ Contrast E&M of New Patient Moderate 45-59 Min 53089 5. BMI 40.0-44.9, adult (Z68.41: Body mass index [BMI] 40.0-44.9, adult) recommend low fat diet and exercise Ordered: CT Abdomen/Pelvis w/ Contrast E&M of New Patient Moderate 45-59 Min 57906 Follow-up No qualifying data available Problem List/Past Medical History (more content not included)... [facility] Comment on above: Result Comment: Elec tronatalieally [...] CTA: 3.8cm Asc Aortic Aneurysm - 08/2023 [facility] Other 11-08-2023 Evaluation note* Encounter Date Diagnosis [...] use, the patient reduces the risk for OR, CVA, HTN, cardiac dysrhythmias and sudden cardiac [...] continue exercise to achieve/maintain a normal BMI. [facility] Other 04-12-2023 Evaluation note* Encounter Date Diagnosis [...] use, the patient reduces the risk for OR, CVA, HTN, cardiac dysrhythmias and sudden cardiac [...] - Z12.5) Yearly CELESTINO and PSA completed [facility] Other 04-10-2023 Evaluation note* Encounter Date Diagnosis Assessment Notes Treatment Notes Treatment Clinical Notes Jan, Pulmonary nodule (ICD-10 - R91.1) CTA: 7.5mm RUL, 3mm RUL, 13mm ADA - 01/2022, CT: 7mm RUL - 04/2022 CT: 8mm RUL - 01/2023 [facility] Other 04-10-2023 Evaluation note* Encounter Date Diagnosis Assessment Notes Treatment Notes Treatment Clinical Notes Jan, Pulmonary nodule (ICD-10 - R91.1) CTA: 7.5mm RUL, 3mm RUL, 13mm ADA - 01/2022, CT: 7mm RUL - 04/2022 CT: 8mm - 01/2023 [facility] Other 04-02-2023 Evaluation note* Encounter Date Diagnosis Assessment Notes Treatment Notes Treatment Clinical Notes Jan, Aneurysm of ascending aorta without rupture (ICD-10 - I71.21) CT: 4.5cm ascending aortic aneurysm - 01/2022 [facility] Other 04-02-2023 Evaluation note* Encounter Date Diagnosis Assessment Notes Treatment Notes Treatment Clinical Notes Jan, Pulmonary nodule (ICD-10 - R91.1) CTA: 7.5mm RUL, 3mm RUL, 13mm ADA - 01/2022, CT: 7mm RUL - 04/2022 CT chest due in January, [facility] Other 03-24-2023 Evaluation note* Encounter Date Diagnosis [...] Elevated liver enzym es (ICD-10 - R74.8) [facility] Other 06-22-2022 Hospital Discharge instructions Patient Education [...] powder, vinegar, hot sauces, and barbecue sauce. ?Traverse fruit juices and citrus fruits, such as oranges, kelly, and limes. ?Tomato-based foods, such as red sauce, chili, salsa, and pizza with red sauce. ?Fried and fatty foods, such as donuts, saudi arab[place] fries, potato chips, and high-fat dressings. ?High-fat [...] to any changes in your symptoms. Take crrt-acl-ltmxipu and prescription medicines only as told by [...] you have new or worsening symptoms. Take oult-mtx-dttqlsy and prescription medicines only as told by [...] 07/16/2006 Document Revised: 04/14/2019 Document Reviewed: 04/14/2019 [employer] Patient Education 2020 [employer]. Follow Up Care 01/03/2022 09:45:39 With:Vanessa Whittaker CNP Address: When:1 year [facility] Evaluation + Plan note Future Appointments Appointment Date:04/10/2022 08:00:00 AM Scheduled Provider:Vanessa Whittaker CNP Location:[facility]ments Appointment Date:04/10/2023 08:00:00 AM Scheduled Provider:Vanessa Whittaker CNP Location:[facility]ive [facility] Appointment Type:[facility] Follow Up Future Scheduled Tests Laboratory* Basic Metabolic Panel 04/10/22 * Folate Level 04/10/22 * Magnesium Level 04/10/22 * Vitamin B12 Level 04/10/22 [facility] Evaluation noteNo InformationNoPushPoint [facility] Other evaluavhvx note* Diagnosis Thumb pain, right- Primary Primary [...] BICEPS TENDON Hospitalization History SEE SURGICAL HX [facility] Other Hospital course Narrative No data available for this section [facility] No data available for this section [facility] No data available for this section [facility] Summary Purpose Family History No Family History Records FoundNo Family History Records Found No data available for this section No Family History Records FoundNo Family History Records Found Advance Directives No Advanced Directives Records FoundNo Advanced Directives Records FoundNo Advanced Directives Records FoundNo Advanced Directives Records Found Hospital Course Note MR#: [id number] [facility] Pt. Name: Sadiq Delarosa Admitted: 03/04/2019 Discharged: [...] chronic cholecystitis without obstruction (K80.10) Referral Organization [facility] Nicho roberts Referring Provider First Name Fernando Referring Provider Last Name Nicho Referring Provider Specialty Internal Me dicagnieszka Referred Organization [facility] Referred Provider Juan Ramon Martinez Referred Address [address] [place], [place],[address] Referred Provider Specialty Surgery Referral Priority Routine [...] section and content) DATE CREATED AUTHOR 06/23/2019 [facility] DATE CREATED AUTHOR AUTHOR'S ORGANIZ ATION 02/02/2023 [facility] DATE CREATED AUTHOR AUTHOR'S ORGANIZ ATION 10/04/2023 [facility] DATE CREATED AUTHOR AUTHOR'S ORGANIZ ATION 08/10/2024 [facility] EPIC Care Team (unrecognized sect ion and content) Personnel Name: FERNANDO TORRE DO Address: [address] [facility], [address] Personnel Name: FERNANDO TORRE DO Address: Address: [address] [place] [address], [address] REASON FOR VISIT (unrecogniz ed section [...] BE BASED ON THE PRIMARY CLINICAL RECORDS. [facility] [employer] provides no warranty or guarantee of the accuracy or completeness of information in this document.
[2025-04-14 08:02] LABS: Basophils Percent Auto 0.8 % (0.2-2.0); Eosinophils Absolute Auto 0.1 10^3/uL (0.0-0.7); Eosinophils Percent Auto 2.8 % (0.9-7.0); Hematocrit 40.2 % (42.0-54.0); Immature Granulocytes Abs Auto 0.01 10^3/uL (0.00-0.03); Immature Granulocytes Pct Auto 0.3 % (0.0-0.5); Lymphocytes Absolute Auto 1.3 10^3/uL (1.2-3.8); Lymphocytes Percent Auto 32.8 % (20.5-60.0); Mean Corpuscular HGB Conc 32.3 g/dL (29.9-35.2); Mean Corpuscular Hemoglobin 26.6 pg (25.9-34.0); Mean Corpuscular Volume 82.2 fL (80.0-94.0); Mean Platelet Volume 11.4 fL (9.5-13.5); Monocytes Absolute Auto 0.4 10^3/uL (0.3-0.8); Monocytes Percent Auto 10.2 % (1.7-12.0); Neutrophils Absolute Auto 2.1 10^3/uL (1.4-6.5); Neutrophils Percent Auto 53.1 % (43.0-75.0); Platelet Count 162 10^3/uL (150-450); Red Blood Count 4.89 10^6/uL (4.70-6.10); Red Cell Distribution Width 14.5 % (11.0-15.0); White Blood Count 3.9 10^3/uL (4.0-11.0)
[2025-04-14 10:33] LABS: Alanine Aminotransferase 50 U/L (16-63); Albumin Level 3.8 g/dL (3.4-5.0); Alkaline Phosphatase 61 U/L (46-116); Anion Gap 12.4; Aspartate Amino Transferase 32 U/L (15-37); BUN Creatinine Ratio 15.9; Bilirubin Total 0.4 mg/dL (0.2-1.0); Calcium 9.1 mg/dL (8.5-10.1); Carbon Dioxide 26.6 mmol/L (21.0-32.0); Chloride 105 mmol/L (98-107); Chol HDL Ratio 4.1; Cholesterol 185 mg/dL (<=200); Estimated GFR (African America >60 (>=60 mL/min/1.73m^2); Estimated GFR (Non-African Ame >60 (>=60 mL/min/1.73m^2); Globulin 3.9 g/dL; Glucose 109 mg/dL (74-106); HDL Cholesterol 45 mg/dL (40-60); LDL Cholesterol Calculated 120.8 mg/dL; Sodium 140 mmol/L (136-145); Total Protein 7.7 g/dL (6.4-8.2); Triglycerides 96 mg/dL (<=150); VLDL CHOLESTEROL 19.2 mg/dL
[2025-04-14 10:55] LABS: Prostate Specific Antigen Scrn 1.11 ng/mL (<=4.00)
== END 2025-04-14 07:20 | disposition home or self-care (01) ==
LOC: LAB 07:20
PROVIDERS: PCP Internal Medicine; Visit Provider Internal Medicine
DX: D64.9 Anemia, unspecified (principal); I10 Essential (primary) hypertension; I71.21 Aneurysm of the ascending aorta, without rupture; E78.00 Pure hypercholesterolemia, unspecified; Z12.5 Encounter for screening for malignant neoplasm of prostate
CPT/HCPCS: 36415; 80053; 80061; 85025; G0103

== ENCOUNTER 2025-09-29 07:29 | Outpatient (OUT) | payer MEDICARE, OTHER, SELFPAY ==
--- OUTSIDE RECORDS SUMMARY | 2025-09-29 07:32 | XMS_ITS | CCD ---
Author Organization [facility] CliniSyfl Care Team Providers Care Hand Tacker Name Role Phone MARTIN RHODES Admitting Unavailable MARTIN RHODES Attending Unavailable JETT HAGAN Referring Unavailable FERNANDO HOLGUIN Primary Care Unavailable MA Procedure Practitioner Unavailab MARTIN Spencer Surgeon Unavailable FERNANDO HOLGUIN Primary Care Physician [phone] Fernando Holguin Unavailable EZIO, DR DONAHUE Admitting Unavailable EZIO, DR DONAHUE Attending Unavailable EZIO, DR DONAHUE Primary Care Unavailable EZIO, DR DONAHUE Consulting Unavailable Yana Schwartz Consulting Unavailable EZIO, DR DONAHUE Primary Care Unavailable CHACKO ., MR LO Admitting Unavailable CHACKO ., MR LO Attending Unavailable Yana Schwartz Consulting Unavailable CHACKO ., MR LO Consulting [...] HAY ., DR ROLDAN Attending Unavailable Yana Schwartz Consulting Unavailable HAY ., DR ROLDAN Consulting Unavailable EZIO, DR DONAHUE Primary Care Unavailable CAITLYN KISER Admitting Unavailable CAITLYN KISER Attending Unavailable DIAMOND ., HELEN SHOEMAKER Consulting UnavailCAITLYN Reyes Consulting Unavailable REI ORTIZ Consulting Unavailable INDIGO TOTH Consulting Unavailable EZIO, DR DONAHUE Primary Care Unavailable PAY ., DR LEAL Admitting Unavailable PAY ., DR LEAL Attending Unavailable Yana Schwartz Consulting Unavailable PAY ., DR LEAL Consulting Unavailable Vanessa Whittaker Attending Unavailable Juan Ramon BOONE Attending Unavailable Unavailable Primary Care Provider UnavailLO Abdullahi Attending Unavailable LO CHACKO Referring Unavailable Allergies Allergy ClassificationReported Allergen(s)Allergy TypeDate of OnsetReaction(s) Facility (13 sources)HMG-CoA reductase inhibitor; Translations: [statins]Drug allergy 69-88-8008Cclsqu pain (finding)[facility] (1 source)Hmg-Coa Reductase Inhibitors (Statins); Translations: [statins] Propensity to adverse reactions (disorder)[facility] (1 source)No Known Medication Allergies; Translations: [No Known Medication Allergies]Propensity to adverse reactions (disorder)[facility] Medications Current Medications MedicationDrug Class(es)DatesSig (Normalized)Sig (Original)amoxicillin 500 mg oral capsule (2 sources)Penicillin-class AntibacterialStart: 76-26-0306vzby 4 capsules by mouth every houramoxicillin (Amoxil) 500 MG capsule TAKE 4 CAPSULES BY MOUTH 1 HOUR PRIOR TO APPOINTMENT 04/27/2024ctiveezetimibe 10 mg oral tablet (2 sources)Dietary Cholesterol Absorption InhibitorStart: 63-70-5939lltp 1 tablet by mouth once dailyezetimibe (Zetia) 10 MG tablet Take 10 mg by mouth Daily 04/25/2024 ActiveEZETIMIBE-ATORVASTATIN PO (2 sources)EZETIMIBE-ATORVASTATIN PO Activefamotidine 40 mg oral tablet (10 sources)Histamine-2 Receptor AntagonistStart: 69-09-9199pmbj 1 tablet by mouth once daily at bedtimefamotidine (Pepcid) 40 MG tablet TAKE 1 TABLET BY MOUTH EVERY DAY AT BEDTIME FOR 90 DAYS 06/29/2024ctivefamotidine (Pepcid) 10 MG tablet Activetake 1 tablet by mouth every twenty-four hoursFamotidine 40 MG 1 tablet at bedtime Orally Once a day for 90 days Activehyoscyamine sulfate 0.125 mg sublingual tablet (6 sources)Start: 38-90-2672qdrz 1 tablet under the tongue every six hours as neededHyoscyamine Sulfate SL 0.125 MG 1 tablet Sublingual every 6 hours as needed for nausea and abdominal pain for 90 days Dec, Activemetoprolol (Lopressor) 10 mg/mL solution (2 sources)metoprolol (Lopressor) 10 mg/mL solution Activeomeprazole 40 mg delayed release oral capsule (14 sources)Proton Pump InhibitorStart: 81-20-3217erpfovyofc (PriLOSEC) [address] capsule Take 40 mg by mouth 09/05/2023 ActiveStart: 04-10-2022 End: 59-05-7093vlwm 1 capsule by mouth once dailyomeprazole 40 mg Cap-DR 40 mg = 1 cap(s), Oral, Daily, X 90 day(s), # 90 cap(s), Refills(s) 2, Pharmacy: [facility], 172, cm, 04/10/22 8:16:00 EDT, Height/Length Dosing, 118.6,kg, 04/10/22 8:16:00 EDT, Weight Dosing Start Date: 04/10/22 Stop Date: 01/05/23 Status: Orderedomeprazole 40 mg Cap-DR (1 source)Start: 77-66-4564hoql 1 capsule by mouth once dailyomeprazole 40 mg Cap-DR 40 mg = 1 cap(s), Oral, Daily, # 30 cap(s), Refills(s) 2, Pharmacy: [facility]/pharmacy #[id number], 172, cm, 12/19/21 7:21:00 EST, Height/Length Dosing, 125.2, kg, 12/19/21 7:21:00 EST, Weight Dosing Start Date: 12/19/21 Status: Ordered Completed/Discontinued Medications MedicationDrug Class(es)DatesSig (Normalized)Sig (Original)1 ml methylPREDNISolone acetate 40 mg/ml injection (4 sources)CorticosteroidStart: 08-05-2024 End: 45-33-2076djahmyOQSJCCUeyvgl acetate (DEPO-Medrol) injection 20 mgStart: 08-05-2024 End: 72-27-242466 mg, Intra-articular, Once PRN Procedure, Starting on Kitty 08/05/24 at 0939, For 1 dose24 hr metoprolol succinate 25 mg extended release oral tablet (13 sources)beta-Adrenergic BlockerStart: 15-24-5487rcyajcqqqr 25 mg ER Tab 25 mg = 1 tab(s), Oral, Daily, Oral, 0 Refill(s), Refills(s) 0 Start Date: 09/05/23 Status: Ordered Problems Active Problems Problem ClassificationProblemDateDocumented DateEpisodic/ChronicAbdominal pain (5 sources)Right upper quadrant pain; Translations: [Right upper quadrant pain] Onset: 47-72-1499DubghtdrQsaewg; peripheral; and visceral artery aneurysms (2 sources)Aneurysm of ascending aorta; Translations: [Aneurysm of the ascending aorta, without rupture]39-72-1745JzdvrrwDqwzxfg tract disease (6 sources)Calculus of bile duct without cholangitis or cholecystitis without obstruction; Translations: [Cholelithiasis AND cholecystitis without obstruction]Onset: 75-21-4682UexkmhywBegmjhd dysrhythmias (11 sources)Palpitations; Translations: [Palpitations]EpisodicConditions associated with dizziness or vertigo (5 sources)Dizziness and giddiness; Translations: [Benign paroxysmal vertigo, unspecified ear]Onset: 76-23-4114UjlctawtTxdyjbmfx of lipid metabolism (19 sources)Hypercholesterolemia; Translations: [Pure hypercholesterolemia, unspecified]Onset: 751310-86-4338UpnifauQyqllysvgmntxf and diverticulitis (3 sources)Diverticular kjenpeh15-99-7478JxvxpcxUvikwbxjan disorders (20 sources)Gastroesophageal reflux disease; Translations: [Gastroesophageal reflux disease without esophagitis]Onset: 059968-70-6314SrrzdzsYgbcfhzzh hypertension (20 sources)Essential hypertension; Translations: [Essential (primary) hypertension]ChronicGastritis and duodenitis (1 source)Gastritis, unspecified, without bleeding; Translations: [GASTRITIS UNS WITHOUT BLEEDING]Onset: 19-07-1289XdrkiukdQxthcixpoch (3 sources)Lrtmhxecthm61-14-6961GnvoycguMxjxqqrvinf of prostate (19 sources)Lower urinary tract symptoms due to benign prostatic hypertrophy; Translations: [Benign prostatic hyperplasia with lower urinary tract symptoms] Onset: 81-18-2737LuzuhukGzsom disorders and dislocations; trauma-related (1 source)Unspecified internal derangement of left knee; Translations: [UNS INTERNAL DERANGEMENT LEFT KNEE]Onset: 98-83-9989TgzmvzsFwblyrrxyysts mental health disorders (4 sources)Psychosexual dysfunction associated with inhibited sexual excitement; Translations: [Psychosexual dysfunction with inhibited sexual excitement]Onset: 67-07-5306TznxghzWvmylb and vomiting (5 sources)Nausea with vomiting, unspecified; Translations: [Nausea]Onset: 87-12-3457FjaohiksCqilcdpapvf deficiencies (5 sources)Vitamin D deficiency; Translations: [Vitamin D deficiency, unspecified]Onset: 321296-73-7570HgnhhauNptnijoatrpgrm (4 sources)Osteoarthrosis of the carpometacarpal joint of the thumb; Translations: [Unilateral primary osteoarthritis of first carpometacarpal joint, right hand]82-26-2555XqhzdirZfnrl aftercare (1 source)Other retirement (current) drug therapy; Translations: [OTH CUSTODIAL CURRENT DRUG THERAPY]Onset: 99-71-4788EbzilbaaCumfv aftercare (4 sources)Long-term current use of drug therapy; Translations: [Other terminal superintendent (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) drug therapy]EpisodicOther and unspecified benign neoplasm (5 sources)Benign neoplasm of pituitary gland; Translations: [Benign neoplasm of pituitary gland]58-66-9536RuvqsoigPvede connective tissue disease (10 sources)History of repair of hip joint; Translations: [Presence of unspecified artificial hip joint]ChronicOther connective tissue disease (4 sources)Presence of unspecified artificial hip joint; Translations: [Total hip replacement prosthesis]ChronicOther connective tissue disease (10 sources)Muscle fatigue; Translations: [Other specified disorders of muscle] EpisodicOther connective tissue disease (14 sources)Bicipital tenosynovitis; Translations: [Bicipital tendinitis, right shoulder]EpisodicOther connective tissue disease (18 sources)Lateral epicondylitis; Translations: [Lateral epicondylitis, right elbow]EpisodicOther connective tissue disease (14 sources)Acquired trigger finger; Translations: [Trigger finger, right ring finger]EpisodicOther connective tissue disease (14 sources)Muscle pain; Translations: [Myalgia, unspecified site]EpisodicOther connective tissue disease (4 sources)Medial epicondylitis; Translations: [Medial epicondylitis, unspecified elbow]EpisodicOther connective tissue disease (4 sources)Disorder of muscle; Translations: [Other specified disorders of muscle]EpisodicOther connective tissue disease (2 sources)Pain in right thumb; Translations: [Pain in right finger(s)] 60-69-7066PcdjinmsGdycj ear and sense organ disorders (4 sources)Otitis externa; Translations: [Unspecified otitis externa, unspecified ear]Onset: 82-68-4554HzkhjovHrgqn endocrine disorders (1 source)Adrenal cortical hypofunctionOnset: 951623-34-4311RmjumguLacjm gastrointestinal disorders (1 source)Swollen abdomen; Translations: [Abdominal distension (gaseous)]Onset: 39-64-7533OptdehghVwamn gastrointestinal disorders (1 source)Abdominal jffuxmzh23-01-5821XvrylkooUzhwl liver diseases (1 source)Abnormal levels of other serum enzymesEpisodicOther lower respiratory disease (11 sources)Nodule of lung; Translations: [Solitary pulmonary nodule]09-05-2023 EpisodicOther lower respiratory disease (11 sources)Solitary pulmonary nodule; Translations: [SOLITARY PULMONARY NODULE] Onset: 06-77-7889DadhwrshHalrs lower respiratory disease (4 sources)Solitary nodule of lung; Translations: [Solitary pulmonary nodule] EpisodicOther male genital disorders (10 sources)Impotence of organic origin; Translations: [Erectile dysfunction due to arterial insufficiency]ChronicOther male genital disorders (1 source)Rwbovkfrn79-59-3972LkcemvhLmovo nervous system disorders (4 sources)Carpal tunnel syndrome; Translations: [Carpal tunnel syndrome]Onset: 14-83-3532PbojykzGegzg nervous system disorders (10 sources)Skin sensation disturbance; Translations: [Paresthesia of skin] EpisodicOther nervous system disorders (15 sources)Paresthesia; Translations: [Paresthesia of skin]33-60-0510Oitwrrhw Other nutritional; endocrine; and metabolic disorders (1 source)Obesity, unspecified; Translations: [OBESITY UNSPECIFIED]Onset: 95-71-9489VbougudPkjtr nutritional; endocrine; and metabolic disorders (1 source)Body mass index (BMI) 40.0-44.9, adult; Translations: [BODY MASS INDEX BMI 40.0-44.9 ADULT]Onset: 28-22-8442PccrbhsEdsez nutritional; endocrine; and metabolic disorders (8 sources)Obese class II; Translations: [Body mass index (BMI) 39.0-39.9, adult]Onset: 18-99-2274QjgctvfNuwlt nutritional; endocrine; and metabolic disorders (5 sources)Morbid obesity; Translations: [Morbid (severe) obesity due to excess calories]Onset: 74-37-418015389885-10-1637SbnphueBwzbd nutritional; endocrine; and metabolic disorders (1 source)Body mass index 40+ - severely -34-6512AojafhfYkoyq screening for suspected conditions (not mental disorders or infectious disease) (20 sources)Screening for malignant neoplasm of colon done; Translations: [Encounter for screening for malignant neoplasm of colon]Onset: 04-10-2022 Resolved: 03-30-3775AkkofpazTmgsbpuc codes; unclassified (15 sources)Obstructive sleep apnea syndrome; Translations: [Obstructive sleep apnea (adult) (pediatric)]60-79-3248RhiiilkBuekyykp codes; unclassified (2 sources)Obstructive sleep apnea (adult) (pediatric)ChronicResidual codes; unclassified (10 sources)Family history of diabetes mellitus; Translations: [Family history of diabetes mellitus]EpisodicSpondylosis; intervertebral disc disorders; other back problems (20 sources)Lumbar spondylosis; Translations: [Spondylosis without myelopathy or radiculopathy, lumbar region]Onset: 519511-80-8496IfkrqvbQvqqljl and strains (4 sources)Sprain of elbow and forearm; Translations: [Sprain and strain of unspecified site of elbow and forearm]EpisodicUnclassified (3 sources)Patient encounter -13-5389Oavjmpaqjpjm (1 source)CONTACT W/AND (SUSP) EXPOS COVID-19; Translations: [CONTACT W/AND (SUSP) EXPOS COVID-19]Onset: 37-16-5687Cvrariexecnb (3 sources)Aneurysm of the ascending aorta, without rupture; Translations: [Aneurysm of the ascending aorta, without rupture]Viral infection (4 sources)Disease caused by 2019-nCoV; Translations: [COVID-19] Past or Other Problems Problem ClassificationProblemDateDocumented DateEpisodic/ChronicDeficiency and other anemia (5 sources)Anemia; Translations: [Anemia, unspecified]Onset: 12-05-2015 17-84-1252YtnzcllmAsmynnncgz disorders (8 sources)Esophageal disorders; Translations: [Gastroesophageal reflux disease with esophagitis without hemorrhage]Malaise and fatigue (4 sources)Malaise and fatigue; Translations: [Other malaise and fatigue]Onset: 68-56-3551AeijotnwTkxnx gastrointestinal disorders (1 source)Abdominal distension (gaseous); Translations: [ABDOMINAL DISTENSION GASEOUS]Onset: 94-24-8026JlibreadRpxlc inflammatory condition of skin (4 sources)Generalized pruritus ; Translations: [Other pruritus]Onset: 27-63-3962GqzcedorUfktn nutritional; endocrine; and metabolic disorders (4 sources)Obesity; Translations: [Obesity, unspecified] Resolved: 18-64-2297GzdiiarLxzhksvkapzk (3 sources)Aneurysm of ascending aorta without rupture I71.21Unclassified (4 sources)Long-term current use of drug therapy; Translations: [Long-term (current) use of other medications]Onset: 05-15-2016 Results Test NameValueInterpretationReference RangeFacilityNo Panel Informationon 43-94-9331Kiwfvht HELEN Gomez 08/05/2024 9:41 AM S Inj/Asp: R [facility] on 08/05/2024 9:39 AM Indications: pain and joint swelling Details: 22 G needle, dorsal approach Medications: 20 mg methylPREDNISolone acetate 40 MG/ML Outcome: tolerated well, no immediate complications Given with 0.5ml of 0.5% bupivicaine Consent was given by the patient. Patient was prepped and draped in the usual sterile fashion. [facility] Reporton [id number] - CT Report [id number]#1.00Mar[facility] HospitalAmbulatory Visit Summaryon 71-70-8329Leoxvoujsq Visit Summary SADIQ DELAROSA :1960 Visit Date:09/19/2023 Ambulatory Visit Instructions Your Care Team Attending Physician - PAOLO TATE, Juan Ramon Cardoso Primary Care Physician - FERNANDO HOLGUIN DO This Is Your Medications List Contact [...] you for choosing us for your care. [facility] CampusRAD - Ultrasound Reporton [id number] - Ultrasound Report [id number]#1.00TIFThe Surgical Hospital at SouthwoodsRAD - Ultrasound [id number]#1.00TIFF [facility] CampusPhysician Referralon 29-37-3857Pftkupyoi [id number]#1.00TIFFTrinity Health System West CampusCT CHEST WO CONon [id number] CHEST WO CONEXAMINATION: CT CHEST WO CON HISTORY: Solitary nodule of lung [...] for 2 years). Electronically authenticated by: YANA SCHWARTZ Date: 2023-01-27 14:52[facility] HospitalUS SINGLE QUAD RT UPPERon [id number] SINGLE QUAD RT UPPER EXAMINATION: US SINGLE [...] likely chronic cholecystitis. Electronically authenticated by: YANA SCHWARTZ Date: 2023-01-27 16:16[facility] AUTO DIFFon [id number] #0.0 103/ulNormal0.0-0.1[facility] HospitalComment on above:Performed By: #### CBC #### [facility] [address] [address] [address] Yasmany ClarosBasophils/100 WBC (Bld)0.8 %Normal0.2-2.0The [facility] Comment on above:Performed By: #### CBC #### [facility] [address] [address] [address] Yasmany Moise #0.1 103/ulNormal0.0-0.7The [facility] HospitalComment on above: Performed By: #### CBC #### [facility] [address] [address] [address] Yasmany Alonsoosinophils/100 WBC (Bld)2.1 %Normal0.9-7.0The [facility] Comment on above:Performed By: #### CBC #### [facility] [address] [place] [address] Dr. Yasmany Alonsorythrocyte distribution width (RBC) [Ratio]14.0 %Lecnyi97.0-15.0 The [facility] HospitalComment on above:Performed By: #### CBC #### [facility] [address] [place] [address] Dr. Yasmany ClarosHematocrit (Bld) [Volume fraction]39.9 %Critically low42.0-54.0 The [facility] HospitalComment on above:Performed By: #### CBC #### [facility] [address] [place] [address] Dr. Yasmany ClarosHemoglobin (Bld) [Mass/Vol]13.2 g/dLCritically low14.0-18.0The [facility] HospitalComment on above:Performed By: #### CBC #### [facility] [address] [place] [address] Dr. Yasmany Ruiz #0.01 10e3/ulNormal0.00-0.03The [facility] HospitalComment on above:Performed By: #### CBC #### [facility] [address] [place] [address] Dr. Yasmany Ruiz %0.3 %Normal0.0-0.5The [facility] HospitalComment on above: Performed By: #### CBC #### [facility] [address] [address] [address] Yasmany Ha #1.6 103/ulNormal1.2-3.8The [facility] HospitalComment on above:Performed By: #### CBC #### [facility] [address] [address] [address] Yasmany Delgadillohocytes/100 WBC (Bld)41.5 %Amxrzc54.5-60.0The [facility] HospitalComment on above:Performed By: #### CBC #### [facility] [address] [place] [address] Dr. Yasmany Muller DIFF REQNONormalThe [facility] HospitalComment on above: Performed By: #### CBC #### [facility] [address] [place] [address] Dr. Yasmany Peace (RBC) [Entitic mass]26.6 xtIbdwnm90.9-34.0The [facility] HospitalComment on above:Performed By: #### CBC #### [facility] [address] [place] [address] Dr. Yasmany West (RBC) [Mass/Vol]33.1 g/eCPohdze87.9-35.2The [facility] on above:Performed By: #### CBC #### [facility] [address] [place] [address] Dr. Yasmany West (RBC) [Entitic vol]80.3 bLLdonqq11.0-94.0The [facility] Centerment on above:Performed By: #### CBC #### [facility] [address] [place] [address] Dr. Yasmany Kiser #0.4 103/ulNormal0.3-0.8The [facility] on above:Performed By: #### CBC #### [facility] [address] [address] [address] Yasmany Gaytanocytes/100 WBC (Bld)9.9 %Normal1.7-12.0[facility] Comment on above:Performed By: #### CBC #### [facility] [address] [place] [address] Dr. Yasmany CliffordUT #1.7 103/ulNormal1.4-6.5The [facility] HospitalComment on above:Performed By: #### CBC #### [facility] [address] [place] [address] Dr. Yasmany Cliffordutrophils/100 WBC (Bld)45.4 %Pmqgil27.0-75.0The [facility] HospitalComment on above:Performed By: #### CBC #### [facility] [address] [place] [address] Dr. Yasmany Gavirialet mean volume (Bld) [Entitic vol]11.1 fLNormal9.5-13.5The [facility] HospitalComment on above:Performed By: #### CBC #### [facility] [address] [place] [address] Dr. Yasmany ClarosPLT188 103/vtNjfhcq637-429Hgy [facility] HospitalComment on above: Performed By: #### CBC #### [facility] [address] [place] [address] Dr. Yasmany ClarosRBC4.97 106/ulNormal4.70-6.10The [facility] HospitalComment on above:Performed By: #### CBC #### [facility] [address] [place] [address] Dr. Yasmany ClarosWBC3.8 103/ulCritically low4.0-11.0The [facility] HospitalComment on above:Performed By: #### CBC #### [facility] [address] [place] [address] Dr. Yasmany ClarosCT HEAD WO CONon [id number] HEAD WO CONEXAMINATION: CT HEAD WO CON HISTORY: Vertigo ; [...] are clear bilaterally. Electronically authenticated by: YANA SCHWARTZ Date: 2023-01-20 09:48[facility] HospitalPROF CHEM 8 (BAS METB)on [id number] gap [Moles/Vol]11.2 mmol/LNormalShelby Memorial HospitalComment on above:Performed By: #### BMP #### [facility] [address] [place] [address] Dr. Yasmany ClarosCalcium [Mass/Vol]9.1 mg/dLNormal8.5-10.1[facility] Comment on above:Performed By: #### BMP #### [facility] [address] [address] [address] Yasmany ClarosChloride [Moles/Vol]102 mmol/VOvmgzu76-041KjbShelby Memorial Hospital Comment on above:Performed By: #### BMP #### [facility] [address] [place] [address] Dr. Yasmany ClarosCO2 [Moles/Vol]26.7 mmol/FTqjhqs14.0-32.0[facility] Comment on above:Performed By: #### BMP #### [facility] [address] [address] [address] Yasmany ClarosCreatinine [Mass/Vol]0.81 mg/dLNormal0.70-1.30The [facility] HospitalComment on above:Performed By: #### BMP #### [facility] [address] [place] [address] Dr. Jade ChangEGFR-AF BURMESE>60Normal>=60The [facility] HospitalComment on above:Performed By: #### BMP #### [facility] [address] [address] [address] Yasmany AlonsoGFR-NON AF BURMESE>60Normal>=60The [facility] HospitalComment on above:Performed By: #### BMP #### [facility] [address] [address] [address] Yasmany ClarosGlucose [Mass/Vol]104 mg/zRWxueuk08-316Nja [facility] Comment on above:Performed By: #### BMP #### [facility] [address] [address] [address] Yasmany ClarosPotassium [Moles/Vol]3.9 mmol/LNormal3.5-5.1[facility] Comment on above:Performed By: #### BMP #### [facility] [address] [place] [address] Dr. Yasmany ClarosSodium [Moles/Vol]136 mmol/QZvwlws878-517Cod [facility] Comment on above:Performed By: #### BMP #### [facility] [address] [place] [address] Dr. Yasmany ClarosUrea nitrogen [Mass/Vol]13.0 mg/dLNormal7.0-18.0The [facility] HospitalComment on above:Performed By: #### BMP #### [facility] [address] [place] [address] Dr. Yasmany Reeves nitrogen/Creatinine [Mass ratio]16.0 mg/mgNormalThe [facility] HospitalComment on above:Performed By: #### BMP #### [facility] [address] [place] [address] Dr. Yasmany MehtaC AUTO DIFFon [id number] #0.0 103/ulNormal0.0-0.1The [facility] HospitalComment on above:Performed By: #### CBC #### [facility] [address] [place] [address] Dr. Yasmany ClarosBasophils/100 WBC (Bld)0.3 %Normal0.2-2.0The [facility] Comment on above:Performed By: #### CBC #### [facility] [address] [address] [address] Yasmany Moise #0.0 103/ulNormal0.0-0.7The [facility] HospitalComment on above: Performed By: #### CBC #### [facility] [address] [place] [address] Dr. Yasmany Alonsoosinophils/100 WBC (Bld)0.5 %Critically low0.9-7.0The [facility] HospitalComment on above:Performed By: #### CBC #### [facility] [address] [place] [address] Dr. Yasmany Alonsorythrocyte distribution width (RBC) [Ratio]13.9 %Eexzwy51.0-15.0 The [facility] HospitalComment on above:Performed By: #### CBC #### [facility] [address] [place] [address] Dr. Yasmany ClarosHematocrit (Bld) [Volume fraction]40.6 %Critically low42.0-54.0 The [facility] HospitalComment on above:Performed By: #### CBC #### [facility] [address] [place] [address] Dr. Yasmany ClarosHemoglobin (Bld) [Mass/Vol]13.2 g/dLCritically low14.0-18.0The [facility] HospitalComment on above:Performed By: #### CBC #### [facility] [address] [place] [address] Dr. Yasmany Ruiz #0.03 10e3/ulNormal0.00-0.03The [facility] HospitalComment on above:Performed By: #### CBC #### [facility] [address] [place] [address] Dr. Yasmany Ruiz %0.5 %Normal0.0-0.5The [facility] HospitalComment on above: Performed By: #### CBC #### [facility] [address] [place] [address] Dr. Yasmany KcMPH #1.0 103/ulCritically low1.2-3.8The [facility] Comment on above:Performed By: #### CBC #### [facility] [address] [place] [address] Dr. Yasmany Kcmphocytes/100 WBC (Bld)17.5 %Critically low20.5-60.0The [facility] on above:Performed By: #### CBC #### [facility] [address] [place] [address] Dr. Yasmany Muller DIFF REQNONormalThe [facility] HospitalComment on above: Performed By: #### CBC #### [facility] [address] [place] [address] Dr. Yasmany West (RBC) [Entitic mass]26.6 pxOuebdz85.9-34.0The [facility] HospitalComment on above:Performed By: #### CBC #### [facility] [address] [place] [address] Dr. Yasmany West (RBC) [Mass/Vol]32.5 g/tNHwlbtu33.9-35.2The [facility] HospitalComment on above:Performed By: #### CBC #### [facility] [address] [place] [address] Dr. Yasmany WestV (RBC) [Entitic vol]81.7 uDAsvylr64.0-94.0The [facility] HospitalComment on above:Performed By: #### CBC #### [facility] [address] [place] [address] Dr. Yasmany Kiser #0.4 103/ulNormal0.3-0.8The [facility] HospitalComment on above:Performed By: #### CBC #### [facility] [address] [place] [address] Dr. Yasmany Gaytanocytes/100 WBC (Bld)7.0 %Normal1.7-12.0The [facility] Comment on above:Performed By: #### CBC #### [facility] [address] [place] [address] Dr. Yasmany Yung #4.2 103/ulNormal1.4-6.5The [facility] Centerment on above:Performed By: #### CBC #### [facility] [address] [address] [address] Yasmany Cliffordutrophils/100 WBC (Bld)74.2 %Dgybbn39.0-75.0The [facility]Com[facility] on above:Performed By: #### CBC #### [facility] [address] [address] [address] Yasmany Gavirialet mean volume (Bld) [Entitic vol]10.9 fLNormal9.5-13.5The [facility] HospitalComment on above:Performed By: #### CBC #### [facility] [address] [place] [address] Dr. Yasmany ClarosPLT153 103/soKkpjtk742-163Mjn [facility]Com[facility] on above: Performed By: #### CBC #### [facility] [address] [place] [address] Dr. Yasmany ClarosRBC4.97 106/ulNormal4.70-6.10The [facility] on above:Performed By: #### CBC #### [facility] [address] [place] [address] Dr. Yasmany ClarosWBC5.7 103/ulNormal4.0-11.0The [facility] on above: Performed By: #### CBC #### [facility] [address] [place] [address] Dr. Yasmany Carreon URINE PROFILEon 14-78-0442Ixzydhyeb Ql (U)NegativeNormal NEGATIVEThe [facility]Comhur[facility] on above:Performed By: #### BARRY UMICRO #### [facility] [address] [place] [address] Dr. Yasmany Mcallister (U)CLEARNormalCLEARThe [facility]Com[facility] on above: Performed By: #### ERUR, UMICRO #### [facility] [address] [place] [address] Dr. Yasmany Castle (U)LT. YELLOWNormalYELLOWThe [facility] HospitalComment on above:Performed By: #### ERUR, UMICRO #### [facility] [address] [place] [address] Dr. Yasmany Cheatham micrscopic examination will be performed if indicated. NormalThe [facility]ultman HospitalComment on above:Performed By: #### BARRY UMICRO #### [facility] [address] [place] [address] Dr. Yasmany ClarosGlucose Ql (U)NegativeNormalNEGATIVEShelby Memorial HospitalComment on above:Performed By: #### BARRY UMICRO #### [facility] [address] [place] [address] Dr. Yasmany ClarosHemoglobin Ql (U)TRACE-INTACTAbnormalNEGATIVEShelby Memorial HospitalComment on above:Performed By: #### BARRY UMICRO #### [facility] [address] [place] [address] Dr. Yasmany ClarosKetones Ql (U)NegativeNormalNEGATIVEShelby Memorial HospitalComment on above:Performed By: #### BARRY UMICRO #### [facility] [address] [place] [address] Dr. Yasmany ClarosLEUKOCYTESNegativeNormalNEGATIVEShelby Memorial HospitalComment on above:Performed By: #### BARRY UMICRO #### [facility] [address] [place] [address] Dr. Yasmany ClarosNitrite Ql (U)NegativeNormalNEGATIVEShelby Memorial HospitalComment on above:Performed By: #### BARRY UMICRO #### [facility] [address] [place] [address] Dr. Yasmany ClarospH (U)5.5 [pH]Normal5-9S[facility] HospitalComment on above: Performed By: #### BARRY UMICRO #### [facility] [address] [place] [address] Dr. Yasmany ClarosSPEC GRAVITY1.265Wgqqzu3.005-<=1.025The [facility] HospitalComment on above:Performed By: #### ERUR, UMICRO #### [facility] [address] [address] [address] Yasmany Morgan PROTEINNegativeNormalNEGATIVE/ TRACEThe [facility] Comment on above:Performed By: #### AGUSTÍN REDDY #### [facility] [address] [address] [address] Yasmany Hopson MICRO INDINDICATEDNormalThe [facility]man HospitalComment on above: Performed By: #### AGUSTÍN REDDY #### [facility] [address] [place] [address] Dr. Yasmany ClarosUrobilinogen Qn (U)0.2 {Aarti'U}/dLNormal0.2 - 1.0The [facility] HospitalComment on above:Performed By: #### AGUSTÍN REDDY #### [facility] [address] [place] [address] Dr. Yasmany ClarosLACTATE/LACTIC ACIDon 75-65-0121Qopbzee [Moles/Vol]3.0 mmol/L Critically high0.4-2.0The [facility] HospitalComment on above:Performed By: #### LACT #### [facility] [address] [place] [address] Dr. Yasmany ClarosLIPASEon 40-74-5440Inltvw [Catalytic activity/Vol]169.0 U/LNormal 73.0-393.0The [facility] HospitalComment on above:Performed By: #### CVDTBH #### [facility] [address] [place] [address] Dr. Yasmany LakeF 14(COMP METB)on 95-71-9225Ogmgumr [Mass/Vol]3.9 g/dLNormal 3.4-5.0The [facility] HospitalComment on above:Performed By: #### CVDTBH #### [facility] [address] [place] [address] Dr. Yasmany ClarosAlbumin/Globulin [Mass ratio]1.0 {ratio}NormalThe [facility]ultman HospitalComment on above:Performed By: #### CVDTBH #### [facility] [address] [address] [address] Yasmany StewartP [Catalytic activity/Vol]83 U/NDmdnpz25-058Bwp [facility] HospitalComment on above:Performed By: #### CVDTBH #### [facility] [address] [address] [address] Yasmany StewartT [Catalytic activity/Vol]88 U/LCritically uxjt28-83Bac [facility] HospitalComment on above:Performed By: #### CVDTBH #### [facility] [address] [place] [address] Dr. Yasmany Navarreteon gap [Moles/Vol]11.2 mmol/LNormalThe [facility] Comment on above:Performed By: #### CVDTBH #### [facility] [address] [place] [address] Dr. Yasmany ClarosAST [Catalytic activity/Vol]94 U/LCritically mntl28-42Nia [facility] HospitalComment on above:Performed By: #### CVDTBH #### [facility] [address] [place] [address] Dr. Yasmany ClarosBilirubin [Mass/Vol]0.6 mg/dLNormal0.2-1.0[facility] Comment on above:Performed By: #### CVDTBH #### [facility] [address] [place] [address] Dr. Yasmany ClarosCalcium [Mass/Vol]9.8 mg/dLNormal8.5-10.1[facility] Comment on above:Performed By: #### CVDTBH #### [facility] [address] [place] [address] Dr. Yasmany ClarosChloride [Moles/Vol]105 mmol/FGpmtme80-637Ele [facility] Comment on above:Performed By: #### CVDTBH #### [facility] [address] [place] [address] Dr. Yasmany ClarosCO2 [Moles/Vol]28.8 mmol/USnixqg27.0-32.0The [facility] Comment on above:Performed By: #### CVDTBH #### [facility] [address] [address] [address] Yasmany ClarosCreatinine [Mass/Vol]0.83 mg/dLNormal0.70-1.30The [facility] HospitalComment on above:Performed By: #### CVDTBH #### [facility] [address] [address] [address] Yasmany AlonsoGFR-AF BURMESE>60Normal>=60The [facility] HospitalComment on above:Performed By: #### CVDTBH #### [facility] [address] [address] [address] Yasmany AlonsoGFR-NON AF BURMESE>60Normal>=60The [facility] HospitalComment on above:Performed By: #### CVDTBH #### [facility] [address] [address] [address] Yasmany ClarosGlobulin (S) [Mass/Vol]4.0 g/dLNormalThe [facility] HospitalComment on above:Performed By: #### CVDTBH #### [facility] [address] [address] [address] Yasmany ClarosGlucose [Mass/Vol]145 mg/dLCritically hqec43-907Msg [facility] HospitalComment on above:Performed By: #### CVDTBH #### [facility] [address] [address] [address] Yasmany ClarosPotassium [Moles/Vol]4.0 mmol/LNormal3.5-5.1The [facility] Comment on above:Performed By: #### CVDTBH #### [facility] [address] [address] [address] Yasmany ClarosProtein [Mass/Vol]7.9 g/dLNormal6.4-8.2The [facility] Comment on above:Performed By: #### CVDTBH #### [facility] [address] [address] [address] Yasmany ClarosSodium [Moles/Vol]141 mmol/RQgfvzk155-892Pfh [facility] Comment on above:Performed By: #### CVDTB #### [facility] [address] [address] [address] Yasmany Reeves nitrogen [Mass/Vol]10.0 mg/dLNormal7.0-18.0The [facility] Centerment on above:Performed By: #### CVDTBH #### [facility] [address] [place] [address] Dr. Yasmany Reeves nitrogen/Creatinine [Mass ratio]12.0 mg/mgNoMartin Memorial HospitalComment on above:Performed By: #### CVDTBH #### [facility] [address] [place] [address] Dr. Yasmany Ricci, HIGH SENSITIVITYon 28-20-2238NKREVC7.5 pg/mLNormal 4.0-76.1The [facility] on above:Result Comment: CUT-OFF POINTS HAVE BEEN ESTABLISHED BASED ON THE FOURTH UNIVERSAL DEFINITIONS OF MYOCARDIAL INFARCTION. THE UPPER REFERENCE LIMIT (URL) OF TROPONIN, DEFINED THE 99TH PERCENTILE OF cTnI DISTRIBUTION IN A REFERENCE POPULATION, HAS BEEN CONFIRMED THE DECISION THRESHOLD FOR [place] DIAGNOSIS.Performed By: #### CVDTBH #### [facility] [address] [place] [address] Dr. Yasmany Shields MICROSCOPIC ONLYon 46-31-8466ULHMMOTKRXIQ SEENNormalNONE SEENThe [facility] HospitalComhurley medical center on above:Performed By: #### BARRY UMICRO #### [facility] [address] [place] [address] Dr. Yasmany Aguillon identified Cx Nom (U)NOT INDICATEDNormOhioHealth Southeastern Medical CenterComment on above:Performed By: #### BARRY UMICRO #### [facility] [address] [place] [address] Dr. Yasmany MeierENAbnormalNONE SEENACMC Healthcare System on above: Performed By: #### JAXONR UMICRO #### [facility] [address] [place] [address] Dr. Yasmany Tang LM Nom (Urine sed)NONE SEENNormalNONE SEENThe [facility]Comhurley medical center on above:Performed By: #### ERUR, UMICRO #### [facility] [address] [place], [place] [address] Dr. Jade ChangEpithelial cells LM Ql (Urine sed)NONE SEENNormalNONE SEEN /RARE The [facility]Comhurley [facility] center on above:Performed By: #### ERUR, UMICRO #### [facility] [address] [place], [place] [address] Dr. Yasmany ClarosMUCOUSJAZMYNE SEENNormalNONE SEENThe [facility]Comhurley medical center on above:Performed By: #### ERUR, UMICRO #### [facility] [address] [address] [address] Yasmany ClarosRBCNRK SEENAbnormal0-2The [facility] on above: Performed By: #### ERUR, UMICRO #### [facility] [address] [id number] [address] Yasmany ClarosWBCJAZMYNE SEENNormalNONE SEENACMC Healthcare System on above: Performed By: #### ERUR, UMICRO #### [facility] [address] [id number] [address] Yasmany ClarosUS SINGLE QUAD RT UPPERon 12-01-6102SX SINGLE QUAD RT UPPER EXAMINATION: US SINGLE [...] a fixed stricture. Electronically authenticated by: YANA SCHWARTZ Date: 2023-01-03 09:06[facility] HospitalCovid-19 PCR (CVDTB)on 35-62-3598WARH-CoV-2 (COVID-19) RNA MARS+probe Ql (Unsp spec)Not detectedNormalNOT DETECTEDThe [facility] Comment on above:Result Comment: This test is not yet approved or cleared by the [place] FDA. When there are no FDA-approved or cleared tests available, and other criteria are met, FDA can make tests available under an emergency access mechanism called an Emergency Use Authorization (EUA). The EUA for this test is supported by the Chemical Process Project Engineer of Health and Human Service's (HHS's) declaration that circumstances exist to justify the emergency use of in vitro diagnostics for the detection and/or diagnosis of the virus that causes COVID- 19. This EUA will remain in effect (meaning [...] of clinical signs and symptoms consistent with SARS-CoV-2.Performed By: #### CBC #### [facility] [address] [place] [address] Dr. Yasmany ClarosCovid-19 PCR (CVDTB)on [id number]-CoV-2 (COVID-19) RNA MARS+probe Ql (Unsp spec)Not detectedNormalNOT DETECTEDThe [facility] Comment on above:Result Comment: This test is not yet approved or cleared by the [place] FDA. When there are no FDA-approved or cleared tests available, and other criteria are met, FDA can make tests available under an emergency access mechanism called an Emergency Use Authorization (EUA). The EUA for this test is supported by the Chemical Process Project Engineer of Health and Human Service's (HHS's) declaration that circumstances exist to justify the emergency use of in vitro diagnostics for the detection and/or diagnosis of the virus that causes COVID- 19. This EUA will remain in effect (meaning [...] of clinical signs and symptoms consistent with SARS-CoV-2.Performed By: #### CVDTBH #### [facility] [address] [place] [address] Dr. Yasmany ClarosCT CHEST WO CONon [id number] CHEST WO CONEXAMINATION: CT CHEST WO CON, 05/15/2022 7:36 AM EDT HISTORY: [...] Electronically authenticated by: JHON MERCADO Date: 2022-05-15 12:57[facility] HospitalMRI KNEE LT WO CONon [id number] KNEE LT WO CONEXAMINATION: MRI KNEE LT WO CON HISTORY: Derangement [...] Large joint effusion. Electronically authenticated by: YANA SCHWARTZ Date: 2022-05-15 17:03[facility] HospitalCARDIAC ARTURO 3-6on [id number] [Catalytic activity/Vol]335 U/L Critically uodt03-968CvuACMC [facility] on above:Result Comment: Test Repeated. Critical Value VerifiedPerformed By: #### CMREP #### [facility] [address] [place] [address]MB [Mass/Vol]4.51 ng/mLCritically high<=3.60The [facility] on above:Result Comment: Test Repeated. Critical Value Verified Performed By: #### CMREP #### [facility] [address] [place] [address] Dr. Yasmany BaldwinTROP6.8 pg/mLNormal4.0-76.1The [facility] on above:Result Comment: CUT-OFF POINTS HAVE BEEN ESTABLISHED BASED ON THE FOURTH UNIVERSAL DEFINITIONS OF MYOCARDIAL INFARCTION. THE UPPER REFERENCE LIMIT (URL) OF TROPONIN, DEFINED THE 99TH PERCENTILE OF cTnI DISTRIBUTION IN A REFERENCE POPULATION, HAS BEEN CONFIRMED THE DECISION THRESHOLD FOR [place] DIAGNOSIS.Performed By: #### CMREP #### [facility] [address] [place] [address] Dr. Yasmany Carreon URINE PROFILEon 92-94-0086Cupahtece Ql (U)NegativeNormal NEGATIVEShelby Memorial HospitalComhurley medical center on above:Performed By: #### CVDTBH #### [facility] [address] [place] [address] Dr. Yasmany Mcallister (U)CLEARNormalCLEARShelby Memorial HospitalComhurley medical center on above: Performed By: #### CVDTBH #### [facility] [address] [place] [address] Dr. Yasmany Castle (U)LT. YELLOWNormalYELLOWShelby Memorial HospitalComhurley medical center on above:Performed By: #### CVDTBH #### [facility] [address] [place] [address] Dr. Yasmany Cheatham micrscopic examination will be performed if indicated. NormalThe [facility] HospitalComhurley medical center on above:Performed By: #### CVDTBH #### [facility] [address] [place] [address] Dr. Yasmany Whittose Ql (U)NegativeNormalNEGATIVEThe [facility] HospitalComment on above:Performed By: #### CVDTBH #### [facility] [address] [address] [address] Yasmany ClarosHemoglobin Ql (U)NegativeNormalNEGProMedica Flower Hospital Comment on above:Performed By: #### CVDTBH #### [facility] [address] [place] [address] Dr. Yasmany ClarosKetones Ql (U)NegativeNormalNEGATIVEThe [facility] HospitalComment on above:Performed By: #### CVDTBH #### [facility] [address] [place] [address] Dr. Yasmany ClarosLEUKOCYTESNegativeNormalNEGATIVEShelby Memorial HospitalComment on above:Performed By: #### CVDTBH #### [facility] [address] [place] [address] Dr. Yasmany ClarosNitrite Ql (U)NegativeNormalNEGATIVEShelby Memorial HospitalComment on above:Performed By: #### CVDTBH #### [facility] [address] [place] [address] Dr. Yasmany ClarospH (U)6.0 [pH]Normal5-9The [facility] HospitalComment on above: Performed By: #### CVDTBH #### [facility] [address] [place] [address] Dr. Yasmany ClarosSPEC GRAVITY1.879Vlmked8.005-<=1.025The [facility] HospitalComment on above:Performed By: #### CVDTBH #### [facility] [address] [place] [address] Dr. Yasmany Morgan PROTEINNegativeNormalNEGATIVE/ TRACEThe [facility] Comment on above:Performed By: #### CVDTBH #### [facility] [address] [place] [address] Dr. Yasmany Hopson MICRO INDNOT INDICATEDMercy Health Perrysburg HospitalComment on above:Performed By: #### CVDTBH #### [facility] [address] [place] [address] Dr. Yasmany Ganbilinogen Qn (U)0.2 {Aarti'U}/dLNormal0.2 - 1.0The [facility] Centerment on above:Performed By: #### CVDTBH #### [facility] [address] [place] [address] Dr. Yasmany Holloway ARTURO ADMITon [id number] [Catalytic activity/Vol]356 U/L Critically duhx93-861Txa [facility] on above:Result Comment: Test Repeated. Critical Value VerifiedPerformed By: #### CVDTBH #### [facility] [address] [place] [address]MB [Mass/Vol]5.11 ng/mLCritically high<=3.60The [facility] on above:Result Comment: Test Repeated. Critical Value Verified Performed By: #### CVDTBH #### [facility] [address] [place] [address] Dr. Yasmany ClarosHSTROP6.3 pg/mLNormal4.0-76.1The [facility] on above:Result Comment: CUT-OFF POINTS HAVE BEEN ESTABLISHED BASED ON THE FOURTH UNIVERSAL DEFINITIONS OF MYOCARDIAL INFARCTION. THE UPPER REFERENCE LIMIT (URL) OF TROPONIN, DEFINED THE 99TH PERCENTILE OF cTnI DISTRIBUTION IN A REFERENCE POPULATION, HAS BEEN CONFIRMED THE DECISION THRESHOLD FOR [place] DIAGNOSIS.Performed By: #### CVDTBH #### [facility] [address] [place] [address] Dr. Yasmany ClarosMYO101 ng/mLCritically gxsd48-64Ijp [facility] on above:Performed By: #### CVDTBH #### [facility] [address] [place] [address] Dr. Yasmany Mann AUTO DIFFon [id number] #0.0 103/ulNormal0.0-0.1The [facility] on above:Performed By: #### CVDTBH #### [facility] [address] [place] [address] Dr. Yasmany ClarosBasophils/100 WBC (Bld)0.8 %Normal0.2-2.0The [facility] Comment on above:Performed By: #### CVDTBH #### [facility] [address] [place] [address] Dr. Yasmany Moise #0.1 103/ulNormal0.0-0.7The [facility] HospitalComment on above: Performed By: #### CVDTBH #### [facility] [address] [place] [address] Dr. Yasmany Alonsoosinophils/100 WBC (Bld)2.5 %Normal0.9-7.0The [facility] Comment on above:Performed By: #### CVDTBH #### [facility] [address] [place] [address] Dr. Yasmany Linnthrocyte distribution width (RBC) [Ratio]14.8 %Wjwrrj59.0-15.0 [facility] HospitalComment on above:Performed By: #### CVDTBH #### [facility] [address] [place] [address] Dr. Yasmany ClarosHematocrit (Bld) [Volume fraction]41.0 %Critically low42.0-54.0 [facility] HospitalComment on above:Performed By: #### CVDTBH #### [facility] [address] [place] [address] Dr. Yasmany ClarosHemoglobin (Bld) [Mass/Vol]13.3 g/dLCritically low14.0-18.0The [facility] HospitalComment on above:Performed By: #### CVDTBH #### [facility] [address] [place] [address] Dr. Yasmany Ruiz #0.01 10e3/ulNormal0.00-0.03The [facility] HospitalComment on above:Performed By: #### CVDTBH #### [facility] [address] [place] [address] Dr. Yasmany Ruiz %0.2 %Normal0.0-0.5The [facility] HospitalComment on above: Performed By: #### CVDTBH #### [facility] [address] [place] [address] Dr. Yasmany Ha #1.3 103/ulNormal1.2-3.8The [facility] HospitalComment on above:Performed By: #### CVDTBH #### [facility] [address] [place] [address] Dr. Yasmany Delgadillohocytes/100 WBC (Bld)26.1 %Wrxbsq13.5-60.0The [facility] HospitalComment on above:Performed By: #### CVDTBH #### [facility] [address] [place] [address] Dr. Yasmany Muller DIFF REQNONormalThe [facility] HospitalComment on above: Performed By: #### CVDTBH #### [facility] [address] [place] [address] Dr. Yasmany Peace (RBC) [Entitic mass]26.9 wsNbwflk66.9-34.0The [facility] HospitalComment on above:Performed By: #### CVDTBH #### [facility] [address] [place] [address] Dr. Yasmany West (RBC) [Mass/Vol]32.4 g/zLJtfkax43.9-35.2The [facility] HospitalComment on above:Performed By: #### CVDTBH #### [facility] [address] [place] [address] Dr. Yasmany West (RBC) [Entitic vol]82.8 sZJkkzht50.0-94.0The [facility] HospitalComment on above:Performed By: #### CVDTBH #### [facility] [address] [place] [address] Dr. Yasmany Kiser #0.4 103/ulNormal0.3-0.8The [facility] HospitalComment on above:Performed By: #### CVDTBH #### [facility] [address] [place] [address] Dr. Yasmany Gaytanocytes/100 WBC (Bld)8.6 %Normal1.7-12.0The [facility] Comment on above:Performed By: #### CVDTBH #### [facility] [address] [place] [address] Dr. Yasmany Yung #3.2 103/ulNormal1.4-6.5The [facility] HospitalComment on above:Performed By: #### CVDTBH #### [facility] [address] [place] [address] Dr. Yasmany Cliffordutrophils/100 WBC (Bld)61.8 %Gaqauu20.0-75.0The [facility] HospitalComment on above:Performed By: #### CVDTBH #### [facility] [address] [place] [address] Dr. Yasmany ClarosPlatelet mean volume (Bld) [Entitic vol]10.7 fLNormal9.5-13.5The [facility] HospitalComment on above:Performed By: #### CVDTBH #### [facility] [address] [place] [address] Dr. Yasmany ClarosPLT163 103/vmZfnong822-782Ppg Aultman HospitalComment on above: Performed By: #### CVDTBH #### [facility] [address] [place] [address] Dr. Yasmany ClarosRBC4.95 106/ulNormal4.70-6.10The Aultman HospitalComment on above:Performed By: #### CVDTBH #### [facility] [address] [place] [address] Dr. Yasmany ClarosWBC5.1 103/ulNormal4.0-11.0The [facility]ultman HospitalComment on above: Performed By: #### CVDTBH #### [facility] [address] [place] [address] Dr. Yasmany ClarosCT ABD/PELV W CONon [id number] ABD/PELV W CONCT ABDOMEN AND PELVIS WITH CONTRAST: INDICATION: GENERALIZED ABDOMINAL PAIN. COMPARISON: [...] Electronically authenticated by: REI ORTIZ Date: 2022-02-08 21:07[facility] HospitalCT CHEST W CONon [id number] CHEST W CONCTA CHEST WITH IV CONTRAST CT CHEST W CON, DATE: 02/08/2022 7:39 [...] The subdiaphragmatic abdominal organs included in the oqgzv-rp-qobw do not demonstrate any acute abnormality with [...] solid pulmonary nodules can be found at: http://pubs.rsna.org/doi/abs/10.1148/radiol.[email or web address] Electronically authenticated by: INDIGO TOTH Date: 2022-02-08 21:19NormalThe [facility]imont HospitalLACTATE/LACTIC ACIDon 10-27-7971Pvcrntw [Moles/Vol]1.3 mmol/L Normal0.4-2.0The [facility]ultman HospitalComment on above:Performed By: #### LACT #### [facility] [address] [place] [address] Dr. Yasmany ClarosLIPASEon 77-92-6069Bzavoe [Catalytic activity/Vol]92.0 U/LNormal 73.0-393.0The [facility]ultman HospitalComment on above:Performed By: #### CVDTBH #### [facility] [address] [place] [address] Dr. Yasmany ClarosPROChanda 14(COMP METB)on 05-83-4909Ishjthx [Mass/Vol]4.1 g/dLNormal 3.4-5.0The [facility]ultman HospitalComment on above:Performed By: #### CVDTBH #### [facility] [address] [place] [address] Dr. Yasmany ClarosAlbumin/Globulin [Mass ratio]1.0 {ratio}NormalThe [facility]ultman HospitalComment on above:Performed By: #### CVDTBH #### [facility] [address] [place] [address] Dr. Yasmany Calhoun [Catalytic activity/Vol]62 U/BGqvsax73-879Jbg [facility]man HospitalComment on above:Performed By: #### CVDTBH #### [facility] [address] [place] [address] Dr. Yasmany Eller [Catalytic activity/Vol]52 U/PHmuiui66-02Qcb [facility]man HospitalComment on above:Performed By: #### CVDTBH #### [facility] [address] [place] [address] Dr. aYsmany ClarosAnion gap [Moles/Vol]10.3 mmol/LNormalShelby Memorial Hospital Comment on above:Performed By: #### CVDTBH #### [facility] [address] [address] [address] Yasmany ClarosAST [Catalytic activity/Vol]31 U/DEhbjfr05-51Cnx [facility]man HospitalComment on above:Performed By: #### CVDTBH #### [facility] [address] [address] [address] Yasmany ClarosBilirubin [Mass/Vol]0.4 mg/dLNormal0.2-1.3The [facility] Comment on above:Performed By: #### CVDTBH #### [facility] [address] [place] [address] Dr. Yasmany ClarosCalcium [Mass/Vol]9.1 mg/dLNormal8.5-10.1[facility] Comment on above:Performed By: #### CVDTBH #### [facility] [address] [place] [address] Dr. Yasmany ClarosChloride [Moles/Vol]99 mmol/GGjgklm59-685BwfShelby Memorial Hospital Comment on above:Performed By: #### CVDTBH #### [facility] [address] [place] [address] Dr. Yasmany ClarosCO2 [Moles/Vol]30.8 mmol/RWjzbyw89.0-32.0[facility] Comment on above:Performed By: #### CVDTBH #### [facility] [address] [place] [address] Dr. Yasmany ClarosCreatinine [Mass/Vol]0.96 mg/dLNormal0.70-1.30The [facility]ultman HospitalComment on above:Performed By: #### CVDTBH #### [facility] [address] [place] [address] Dr. Yasmany AlonsoGFR-AF BURMESE>60Normal>=60The [facility]ultman HospitalComment on above:Performed By: #### CVDTBH #### [facility] [address] [place] [address] Dr. Yasmany AlonsoGFR-NON AF BURMESE>60Normal>=60The [facility]ultman HospitalComment on above:Performed By: #### CVDTBH #### [facility] [address] [address] [address] Yasmany ClarosGlobulin (S) [Mass/Vol]4.0 g/dLNormalThMarietta Osteopathic ClinicComment on above:Performed By: #### CVDTBH #### [facility] [address] [address] [address] Yasmany ClarosGlucose [Mass/Vol]104 mg/zHCfcdbo50-450Hnj [facility] Comment on above:Performed By: #### CVDTBH #### [facility] [address] [place] [address] Dr. Yasmany ClarosPotassium [Moles/Vol]4.1 mmol/LNormal3.5-5.1The [facility] Comment on above:Performed By: #### CVDTBH #### [facility] [address] [place] [address] Dr. Yasmany ClarosProtein [Mass/Vol]8.1 g/dLNormal6.1-8.2The [facility] Comment on above:Performed By: #### CVDTBH #### [facility] [address] [place] [address] Dr. Yasmany ClarosSodium [Moles/Vol]136 mmol/FHmdbya105-450Wjh [facility] Comment on above:Performed By: #### CVDTBH #### [facility] [address] [place] [address] Dr. Yasmany ClarosUrea nitrogen [Mass/Vol]15.0 mg/dLNormal7.0-18.0The [facility]ultman HospitalComment on above:Performed By: #### CVDTBH #### [facility] [address] [place] [address] Dr. Yasmany ClarosUrea nitrogen/Creatinine [Mass ratio]15.6 mg/mgNormalThe [facility]ultman HospitalComment on above:Performed By: #### CVDTBH #### [facility] [address] [place] [address] Dr. Yasmany RuizIMEjj 11-61-9093HBS Coag (PPP) [Relative time]1.03 {INR} NormalThe Aultman HospitalComment on above:Performed By: #### PT, PTT #### [facility] [address] [place] [address] Dr. Yasmany Block [facility] HospitalComment on above:Result Comment: DESIRED INR: 2.0 - 3.0 CONDITIONS NOT LISTED BELOW 2.5 - 3.5 FOR PROSTHETIC HEART VALVE REPLACEMENT 2.5 - 3.5 RECURRENT THROMBOSIS Performed By: #### PT, PTT #### [facility] [address] [place] [address] Dr. Yasmany Russo Coag (PPP) [Time]11.1 sNormal9.0-11.6The [facility] Comment on above:Performed By: #### PT, PTT #### [facility] [address] [place] [address] Dr. Yasmany Gómez 88-41-2839qCBR Coag (Bld) [Time]25.6 eZgrshr01.3-36.2The [facility]ultman HospitalComment on above:Performed By: #### PT, PTT #### [facility] [address] [place] [address] Dr. Yasmany Tinajero 72-24-7552FVX1.797 uIU/mLCritically high0.470-4.680The [facility]ultman HospitalComment on above:Performed By: #### ADALBERTOTBH #### [facility] [address] [place] [address] Dr. Yasmany Mccabe [facility] HospitalComment on above: Result Comment: <0.34 UIU/ml HYPERTHYROID 0.34-5.60 UIU/ml EUTHYROID >5.60 UIU/ml HYPOTHYROIDPerformed By: #### ADALBERTOTBH #### [facility] [address] [place] [address] Dr. Yasmany Rondon LEFT 1 OR 2 VWS WITH PELVISon [id number] LEFT 1 OR 2 VWS WITH [facility]ELVISTriHealth Department of Radiology [address] [place] [address] Patient Name: SADIQ DELAROSA : 1960 Sex: M Age: Race: White Pt. Location: Patient Status: D Ordered Date: 03/18/2019 2:35:00 PM Completed Date: 03/18/2019 02:32 PM Requesting Provider: MARTIN RHODES Attending Provider: MARTIN RHODES Report Copy To: FERNANDO HOLGUIN Signs & Symptoms: Z47.1 Aftercare following joint [...] satisfactory and unchanged alignment. Approved by:Jose Raul Chris on 03/18/2019 4:11 PM EDT. I, Laura Sol, have reviewed the images and report and concur with these findings. Electronically signed by:Laura Sol. Transcribed by: [email or web address], User Resident: FERNANDO CHRIS Electronically Signed by: LAURA SOL @ 03/19/2019 02:14 PM I personally read this/these film(s) with this residentKettering Health Greene MemorialComment on above:Order Comment: , , , Ordering Provider - MARTIN RHODES MD , Operative Reporton [id number] ReportMR#: [id number] [facility] Pt. Name: Sadiq Delarosa Room #: 4CD [id number] Discharge 03/05/2019 Date: Birthdate: 1960 OPERATIVE REPORT DATE OF SURGERY: 03/04/2019 SURGEON: Martin Rhodes M.D. CHANGE MANAGEMENT FACILITATOR: Rj Valladares ANESTHESIA: General anesthesia. ESTIMATED BLOOD [...] Rhodes M.D. Date Trans: 03/08/2019 07:59 Archana/reba DN_JN:[id number] cc: Fernando Holguin D.O. [address] [place] [id number] Jett Hagan, DO [address] [facility] [address]MvfekpJpxKettering Health Greene MemorialBASI METABOLIC PANELon 77-95-1555Sfhmnee [Mass/Vol]8.8 mg/dLNormal8.6-10.3The TriHealthComment on above:Order Comment: No: Do not add to previous drawPerformed By: #### [id number] #### [facility] [address] [place] [address], USAChloride [Moles/Vol]103 mmol/ZIhfdve32-552Ixk TriHealthComment on above:Order Comment: No: Do not add to previous drawPerformed By: #### [id number] #### [facility] [address] [place] [address], USACO2 [Moles/Vol]27 mmol/PAyxvrx80-78Juy TriHealthComment on above:Order Comment: No: Do not add to previous draw Performed By: #### [id number] #### [facility] [address] [place] [address], USACreatinine [Mass/Vol]0.78 mg/dLNormal0.70-1.30The TriHealthComment on above:Order Comment: No: Do not add to previous drawPerformed By: #### [id number] #### [facility] [address] [place] [address], USAGFR/1.73 sq M predicted among blacks MDRD (S/P/Bld) [Vol rate/Area]mL/min/{1.73_m2}Normal>60The [facility] Comment on above:Order Comment: No: Do not add to previous drawPerformed By: #### [id number] #### [facility] [address] [place] [address], USAGFR/1.73 sq M predicted among non-blacks MDRD (S/P/Bld) [Vol rate/Area]mL/min/{1.73_m2}Normal>60The [facility] Comment on above:Order Comment: No: Do not add to previous drawPerformed By: #### [id number] #### [facility] [address] [place] [address], USAGlucose [Mass/Vol]91 mg/gMJbhqox69-236Skj [facility]HealthComment on above:Order Comment: No: Do not add to previous drawPerformed By: #### [id number] #### [facility] [address] [place] [address], USAPotassium [Moles/Vol]4.2 mmol/LNormal3.5-5.1The TriHealthComment on above:Order Comment: No: Do not add to previous drawPerformed By: #### [id number] #### [facility] [address] [facility] [place] [address], USASodium [Moles/Vol]135 mmol/GKwr870-046Goq [facility]HealthComment on above:Order Comment: No: Do not add to previous drawPerformed By: #### [id number] #### [facility] [address] [facility] [place] [address], USAUrea nitrogen [Mass/Vol]10 mg/dLNormal7-25The [facility]HealthComment on above:Order Comment: No: Do not add to previous drawPerformed By: #### [id number] #### [facility] [address] [facility] [place] [address], [facility] MEDICAL CENTERCBC W/DIFFon 87-34-0775VRB BASOPHILS0.0 10*3/uLNormal 0.0-0.2The TriHealthComment on above:Order Comment: No: Do not add to previous drawPerformed By: #### [id number] #### [facility] [address] [facility] [place] [address], USAABS IMM GRANS0.0 10*3/uLNormal0.0-0.2The TriHealthComment on above:Order Comment: No: Do not add to previous drawPerformed By: #### [id number] #### [facility] [address] [facility] [place] [address], USAABS NEUTROPHILS4.3 10*3/uLNormal1.6-7.6The TriHealthComment on above:Order Comment: No: Do not add to previous drawPerformed By: #### [id number] #### [facility] [address] [facility] [place] [address], USABasophils/100 WBC (Bld)0.3 %Normal0.0-1.0The TriHealthComment on above:Order Comment: No: Do not add to previous drawPerformed By: #### [id number] #### [facility] [address] [facility] [place] [address], USAEosinophils (Bld) [#/Vol]0.1 10*3/uLNormal0.0-0.5The TriHealthComment on above:Order Comment: No: Do not add to previous drawPerformed By: #### [id number] #### [facility] [address] [facility] [place] [address], USAEosinophils/100 WBC (Bld)0.8 %Normal0.0-6.0The TriHealthComment on above:Order Comment: No: Do not add to previous drawPerformed By: #### [id number] #### [facility] [address] [facility] [place] [address], USAErythrocyte distribution width (RBC) [Ratio]14.7 %Normal 11.5-15.0The TriHealthComment on above:Order Comment: No: Do not add to previous drawPerformed By: #### [id number] #### [facility] [address] [facility] [place] [address], USAHematocrit (Bld) [Volume fraction]36.3 %Low39.0-50.0The TriHealthComment on above:Order Comment: No: Do not add to previous drawPerformed By: #### [id number] #### [facility] [address] [place] [address], USAHemoglobin (Bld) [Mass/Vol]11.6 g/dLLow13.0-17.0The TriHealthComment on above:Order Comment: No: Do not add to previous drawPerformed By: #### [id number] #### [facility] [address] [place] [address], USAIMMATURE GRANS0.5 %Normal0.0-1.0The TriHealthComment on above:Order Comment: No: Do not add to previous draw Performed By: #### [id number] #### [facility] [address] [place] [address], USALymphocytes (Bld) [#/Vol]1.0 10*3/uLLow1.2-4.0The TriHealthComment on above:Order Comment: No: Do not add to previous drawPerformed By: #### [id number] #### [facility] [address] [place] [address], USALymphocytes/100 WBC (Bld)16.3 %Low20.0-45.0The TriHealthComment on above:Order Comment: No: Do not add to previous drawPerformed By: #### [id number] #### [facility] [address] [place] [address], [facility] MEDICAL CENTERMCH (RBC) [Entitic mass]26.4 pgLow27.0-33.0The TriHealthComment on above:Order Comment: No: Do not add to previous drawPerformed By: #### [id number] #### [facility] [address] [facility] [place] [address], [facility] MEDICAL CENTERMCHC (RBC) [Mass/Vol]32.0 g/tUYrwymy19.0-35.0The TriHealthComment on above:Order Comment: No: Do not add to previous drawPerformed By: #### 55092 #### [facility] [address] [place] [address], USAMCV (RBC) [Entitic vol]82.5 sGUylurm02.0-98.0The TriHealthComment on above:Order Comment: No: Do not add to previous drawPerformed By: #### [id number] #### [facility] [address] [place] [address], USAMonocytes (Bld) [#/Vol]0.6 10*3/uLNormal0.1-1.0The TriHealthComment on above:Order Comment: No: Do not add to previous drawPerformed By: #### [id number] #### [facility] [address] [place] [address], FUPARKOK24.3 %Normal5.0-12.0The TriHealthComment on above:Order Comment: No: Do not add to previous drawPerformed By: #### [id number] #### [facility] [address] [place] [address], USANeutrophils/100 WBC (Bld)71.8 %Sjuxvd56.0-72.0The TriHealthComment on above:Order Comment: No: Do not add to previous drawPerformed By: #### [id number] #### [facility] [address] [place] [address], USANucleated RBC/100 WBC (Bld) [Ratio]0 %Normal0-0The TriHealthComment on above:Order Comment: No: Do not add to previous drawPerformed By: #### [id number] #### [facility] [address] [place] [address], USAPLAT QIO435 10*3/xOTetpee545-546Piw TriHealthComment on above:Order Comment: No: Do not add to previous draw Performed By: #### [id number] #### [facility] [address] [place] [address], USARBC (Bld) [#/Vol]4.40 10*6/uLNormal4.20-5.70The TriHealthComment on above:Order Comment: No: Do not add to previous drawPerformed By: #### [id number] #### [facility] [address] [place] [address], USAWBC (Bld) [#/Vol]6.02 10*3/uLNormal4.00-10.60The TriHealthComment on above:Order Comment: No: Do not add to previous drawPerformed By: #### [id number] #### [facility] [address] [place] [address], [facility]*ANAEROBIC CULTUREon 03-04-2019*ANAEROBIC CULTUREClinical Report: (D) Specimen/Source: TISSUE/#3 LT HIP Collected: 03/04/2019 09:56 Status: Final Last Updated: 03/09/2019 09:49 CULT RES (Final) No Anaerobes Isolated 5 [facility] HospitalComment on above:Performed By: #### [id number] #### [facility] [address] [place] [address], [facility]*ANAEROBIC CULTUREClinical Report: (D) Specimen/Source: TISSUE/#2 LT HIP Collected: 03/04/2019 09:55 Status: Final Last Updated: 03/09/2019 09:49 CULT RES (Final) No Anaerobes Isolated 5 DaysNoAshtabula County Medical CenterComment on above:Performed By: #### [id number] #### [facility] [address] [place] [address], [facility]*ANAEROBIC CULTUREClinical Report: (D) Specimen/Source: FLUID/#1 LT HIP JOINT Collected: 03/04/2019 09:55 Status: Final Last Updated: 03/09/2019 09:49 CULT RES (Final) No Anaerobes Isolated 5 [facility] HospitalComment on above:Performed By: #### [id number] #### [facility] [address] [place] [address], [facility]*BODY FLUID CULTUREon 03-04-2019*BODY FLUID CULTUREClinical Report: (D) Specimen/Source: FLUID/INTRAOP SPEC Collected: 03/04/2019 09:55 Status: Final Last Updated: 03/09/2019 08:53 (1) #1 LT JOINT GRAM (Final) Rare Polys No Bacteria Seen CULT RES (Final) No Growth Day [facility] MemorialComment on above: Order Comment: #1 LT JOINTPerformed By: #### [id number] #### [facility] [address] [place] [address], [facility]*TISSUE CULTUREon 03-04-2019*TISSUE CULTUREClinical Report: (D) Specimen/Source: TISSUE/INTRAOP SPEC Collected: 03/04/2019 09:56 Status: Final Last Updated: 03/09/2019 08:53 (1) #3 LT HIP INFERIOR GRAM (Final) Few Polys No Bacteria Seen CULT RES (Final) No Growth Day 5K[facility] MemorialComment on above: Order Comment: #3 LT HIP INFERIORPerformed By: #### [id number] #### [facility] [address]*TISSUE CULTUREClinical Report: (D) Specimen/Source: TISSUE/INTRAOP SPEC Collected: 03/04/2019 09:55 Status: Final Last Updated: 03/09/2019 08:53 (1) #2 LT HIP ANTERIOR GRAM (Final) Rare Polys No Bacteria Seen CULT RES (Final) No Growth Day 5K[facility] Greene MemorialComment on above: Order Comment: #2 LT HIP ANTERIORPerformed By: #### [id number] #### [facility] [address] [place] [address], [facility] MED[facility] CENTERPO GLUCOSE LABon 61-13-3092Xuksyeh [Mass/Vol]89 mg/dL Bjptns40-815Pqz TriHealthComment on above:Performed By: #### 23635 #### [facility] [place] [address], USAPORTABLE HIP LEFT 1 OR 2 VWS WITH PELVISon 03-04-2019 PORTABLE HIP LEFT 1 OR 2 VWS WITH PELVISUnOhio [facility] Department of Radiology [address] [place] [id number] Patient Name: SADIQ DELAROSA : 1960 [...] periprosthetic fracture or loosening Electronically signed by:Alfred Bella. Transcribed by: [email or web address], User Resident: Electronically Signed by: ALFRED BELLA @ 03/04/2019 04:54 PMNormalGreene Memorial HospitalComment on above:Order Comment: Hardware EvaluationRB'S 2 UNITSon [id number] INTERP 1CMercy Health St. Vincent Medical CenterComment on above:Performed By: #### [id number] #### [facility] [address] [place] [address], USACROSSMATCH INTERP 2CMercy Health St. Vincent Medical CenterComment on above:Performed By: #### [id number] #### [facility] [address] [place] [address], USAPRODUCT CODE [id number] Health Greene MemorialComment on above:Performed By: #### 22032 #### [facility] [address] [place] [address], USAPRODUCT CODE [id number] Health Greene MemorialComment on above:Performed By: #### [id number] #### [facility] [address] [place] [address], USAPRODUCT STATUS 1RMemorial Health System Marietta Memorial HospitalComment on above:Result Comment: Result changed by IF on 03/07/2019 07:43. The previous value was XM.Performed By: #### [id number] #### [facility] [address] [place] [address], USAPRODUCT STATUS 2RMemorial Health System Marietta Memorial HospitalComment on above:Result Comment: Result changed by IF on 03/07/2019 07:43. The previous value was XM.Performed By: #### [id number] #### [facility] [address] [place] [address], USAUNIT ABO 1AKettering Health Greene Memorial Comment on above:Performed By: #### 57294 #### [facility] [address] [place] [address], USAUNIT ABO 2ANoAshtabula County Medical Center Comment on above:Performed By: #### [id number] #### [facility] [address] [place] [address], USAUNIT ID [id number] TriHealthComment on above:Performed By: #### [id number] #### [facility] [address] [place] [address], USAUNIT ID [id number] TriHealthComment on above:Performed By: #### [id number] #### [facility] [address] [place] [address], USAUNIT RH 1PositiveKettering Health Greene MemorialComment on above:Performed By: #### 87894 #### [facility] [address] [place] [address], USAUNIT RH 2PositiveNoAshtabula County Medical CenterComment on above:Performed By: #### 92846 #### [facility] [address] [place] [address], USABASIC METABOLIC PANELon 20-28-9246Anlcwup [Mass/Vol]9.5 mg/dLNormal8.6-10.3The TriHealthComment on above: Performed By: #### 95839 #### [facility] [address] [place] [address], USAChloride [Moles/Vol]103 mmol/JCaeemj61-767Pdo [facility]HealthComment on above:Performed By: #### 86293 #### [facility] [address] [place] [address], USACO2 [Moles/Vol]26 mmol/UByfhjo52-83Bny [facility]HealthComment on above:Performed By: #### 58011 #### [facility] [address] [place] [address], USACreatinine [Mass/Vol]0.81 mg/dLNormal0.70-1.30The TriHealthComment on above:Performed By: #### 25235 #### [facility] [address] [facility] [place] [address], USAGFR/1.73 sq M predicted among blacks MDRD (S/P/Bld) [Vol rate/Area]mL/min/{1.73_m2}Normal>60The [facility] Comment on above:Performed By: #### [id number] #### [facility] [address] [facility] [place] [address], USAGFR/1.73 sq M predicted among non-blacks MDRD (S/P/Bld) [Vol rate/Area]mL/min/{1.73_m2}Normal>60The [facility] Comment on above:Performed By: #### [id number] #### [facility] [address] [facility] [place] [address], USAGlucose [Mass/Vol]82 mg/zRXpnwpa16-312Fbt [facility]HealthComment on above:Performed By: #### [id number] #### [facility] [address] [facility] [place] [address], USAPotassium [Moles/Vol]3.8 mmol/LNormal3.5-5.1The TriHealthComment on above:Performed By: #### 38381 #### [facility] [address] [facility] [place] [address], USASodium [Moles/Vol]138 mmol/RAuoqvf964-766Lyf [facility]HealthComment on above:Performed By: #### [id number] #### [facility] [address] [facility] [place] [address], USAUrea nitrogen [Mass/Vol]12 mg/dLNormal7-25The TriHealthComment on above:Performed By: #### 45445 #### [facility] [address] [facility] [place] [address], [facility] MEDICAL CENTERCBC W/DIFFon 71-82-3015GAQ BASOPHILS0.0 10*3/uLNormal 0.0-0.2The TriHealthComment on above:Performed By: #### [id number] #### [facility] [facility] [address] [facility] [place] [address], USAABS IMM GRANS0.0 10*3/uLNormal0.0-0.2The TriHealthComment on above:Performed By: #### [id number] #### [facility] [address] [facility] [place] [address], [facility]ENTERABS NEUTROPHILS3.8 10*3/uLNormal1.6-7.6The TriHealthComment on above:Performed By: #### [id number] #### [facility] [address] [facility] [place] [address], [facility] CENTERBasophils/100 WBC (Bld)0.5 %Normal0.0-1.0The TriHealthComment on above:Performed By: #### [id number] #### [facility] [address] [facility] [place] [address], [facility] CENTEREosinophils (Bld) [#/Vol]0.1 10*3/uLNormal0.0-0.5The TriHealthComment on above:Performed By: #### [id number] #### [facility] [address] [facility] [place] [address], USAEosinophils/100 WBC (Bld)1.1 %Normal0.0-6.0The TriHealthComment on above:Performed By: #### [id number] #### [facility] [address] [facility] [place] [address], USAErythrocyte distribution width (RBC) [Ratio]14.6 %Normal 11.5-15.0The TriHealthComment on above:Performed By: #### [id number] #### [facility] [address] [place] [address], USAHematocrit (Bld) [Volume fraction]42.8 %Dvhslq86.0-50.0The TriHealthComment on above:Performed By: #### [id number] #### [facility] [address] [facility] [place] [address], USAHemoglobin (Bld) [Mass/Vol]13.6 g/uHWtziwt43.0-17.0The TriHealthComment on above:Performed By: #### [id number] #### [facility] [address] [facility] [place] [address], USAIMMATURE GRANS0.2 %Normal0.0-1.0The TriHealthComment on above:Performed By: #### [id number] #### [facility] [address] [facility] [place] [place] [address], USALymphocytes (Bld) [#/Vol]1.3 10*3/uLNormal1.2-4.0The TriHealthComment on above:Performed By: #### [id number] #### [facility] [address] [facility] [place] [address], USALymphocytes/100 WBC (Bld)23.4 %Mwtlki38.0-45.0The TriHealthComment on above:Performed By: #### [id number] #### [facility] [address] [facility] [place] [address], USAMCH (RBC) [Entitic mass]26.1 pgLow27.0-33.0The TriHealthComment on above:Performed By: #### [id number] #### [facility] [address] [place] [address], USAMCHC (RBC) [Mass/Vol]31.8 g/dLLow32.0-35.0The TriHealthComment on above:Performed By: #### [id number] #### [facility] [address] [place] [address], [facility] CENTERMCV (RBC) [Entitic vol]82.0 gUSrtpon11.0-98.0The TriHealthComment on above:Performed By: #### [id number] #### [facility] [address] [place] [address], USAMonocytes (Bld) [#/Vol]0.5 10*3/uLNormal0.1-1.0The TriHealthComment on above:Performed By: #### [id number] #### [facility] [address] [place] [address], USAMONOS8.5 %Normal5.0-12.0The TriHealthComment on above:Performed By: #### [id number] #### [facility] [address] [place] [address], USANeutrophils/100 WBC (Bld)66.3 %Xnqudi70.0-72.0The TriHealthComment on above:Performed By: #### [id number] #### [facility] [address] [place] [address], USANucleated RBC/100 WBC (Bld) [Ratio]0 %Normal0-0The TriHealthComment on above:Performed By: #### 51221 #### [facility] [address] [facility] [place] [place] [address], USAPLAT SLS552 10*3/cEAjtlke590-869Skr TriHealthComment on above:Performed By: #### [id number] #### [facility] [address] [place] [address], USARBC (Bld) [#/Vol]5.22 10*6/uLNormal4.20-5.70The TriHealthComment on above:Performed By: #### [id number] #### [facility] [address] [place] [address], [facility] CENTERWBC (Bld) [#/Vol]5.65 10*3/uLNormal4.00-10.60The TriHealthComment on above:Performed By: #### [id number] #### [facility] [address] [facility] [place] [address], USAPROTHROMBIN TIMEon 34-39-5242AMM Coag (PPP) [Relative time] 1.03 {INR}Normal0.91-1.16The TriHealthComment on above:Result Comment: ACCCP RECOMMENDED INR FOR WARFARIN THERAPY ------- CONDITION INR PROPHYLAXIS OF VENOUS THROMBOSIS 2-3 (HIGH-RISK SURGERY) TREATMENT OF VENOUS THROMBOSIS 2-3 TREATMENT OF PULMONARY EMBOLISM 2-3 PREVENTION OF SYSTEMIC EMBOLISM: 2-3 ACUTE MYOCARDIAL INFARCTION TISSUE HEART VALVES VALVULAR HEART DISEASE ATRIAL FIBRILLATION RECURRENT SYSTEMIC EMBOLISM MECHANICAL HEART VALVE 2.5-3.5 FROM: ORAL ANTICOAGULANTS. MECHANISM OF ACTION, CLINICAL EFFECTIVENESS, AND OPTIMAL THERAPEUTIC RANGE. CHEST 1995;108:231S-246S.Performed By: #### [id number] #### [facility] [address] [place] [address], USAPT Coag (PPP) [Time]13.5 wQrqvws52.3-14.8The TriHealthComment on above:Result Comment: ALL RESULTS MUST BE INTERPRETED WITH RESPECT TO BLOOD DRAWING ARTIFACT OR DILUTION ERROR OF ANTICOAGULANT AT THE TIME OF SAMPLING.Performed By: #### [id number] #### [facility] [address] [place] [address], USATYPE AND CROSSMATCHon 21-53-4448NHB INTERPRETATIONANormal The TriHealthComment on above:Performed By: #### [id number] #### [facility] [address] [place] [address], USARH INTERPRETATIONPositiveNormalThe TriHealthComment on above:Performed By: #### [id number] #### [facility] [address] [place] [address], USAURINALYSISon 97-80-0085Uayyitswsi (U)CLEARNormalCLEARThe TriHealthComment on above:Performed By: #### [id number] #### [facility] [address] [place] [address], USABilirubin [Mass/Vol]NegativeNormalNEGATIVEThe TriHealthComment on above:Performed By: #### [id number] #### [facility] [address] [place] [address], USABLOODNegativeNormalNEGATIVEThe TriHealthComment on above:Performed By: #### [id number] #### [facility] [address] [place] [address], USAColor (U)YELLOWNormalYELLOWThe TriHealthComment on above:Performed By: #### [id number] #### [facility] [address] [place] [address], USAEPISNONE SEENNormalFEW,OCC,NONE SEENThe TriHealthComment on above:Performed By: #### [id number] #### [facility] [address] [place] [address], USAGlucose [Mass/Vol]NegativeNormalNEGATIVEThe TriHealthComment on above:Performed By: #### [id number] #### [facility] [address] [place] [address], USAHYALINE CASTS1 /LPFAbnormalNONE SEENThe TriHealthComment on above:Performed By: #### [id number] #### [facility] [address] [place] [address], USAKETONENegativeNormalNEGATIVEThe TriHealthComment on above:Performed By: #### [id number] #### [facility] [address] [place] [address], USALEUK ESTERNegativeNormalNEGATIVEThe TriHealthComment on above:Performed By: #### [id number] #### [facility] [address] [place] [address], USAMUCUS THREADSMANYAbnormalNONE SEENThe TriHealthComment on above:Performed By: #### [id number] #### [facility] [address] [place] [address], USANitrite Ql (U)NegativeNormalNEGATIVEThe TriHealthComment on above:Performed By: #### [id number] #### [facility] [address] [place] [address], USApH (Bld)5.1Zkicsx4.0-8.0The TriHealthComment on above:Performed By: #### [id number] #### [facility] [address] [place] [address], USAProtein (U) [Mass/Vol]NegativeNormalNEGATIVEThe TriHealthComment on above:Performed By: #### [id number] #### [facility] [address] [place] [address], USARBC (U) [#/Vol]0-2AbnormalNONE SEENThe TriHealthComment on above:Performed By: #### [id number] #### [facility] [address] [facility] [place] [address], USASPEC GRAV1.790Nxrbxu8.015-1.020The TriHealthComment on above:Performed By: #### [id number] #### [facility] [address] [facility] [place] [address], USAWBC UA0-2AbnormalNONE SEENThe TriHealthComment on above:Performed By: #### [id number] #### [facility] [address] [facility] [place] [address], [facility]*MRSA/MSSA DNA NASALon 02-16-2019*MRSA/MSSA DNA NASAL Clinical Report: (D) Specimen: NASAL SWAB Collected: 02/16/2019 09:16 Status: Final Last Updated: 02/16/2019 15:44 MSSA DNA (Final) No Methicillin Susceptible Staphylococcus aureus DNA Detected MRSA DNA (Final) No Methicillin Resistant Staphylococcus aureus DNA DetectedNormalThe TriHealthComment on above:Performed By: #### [id number] #### [facility] [address] [facility] [place] [address], [facility] CENTERCBC W/DIFFon 50-90-7833MMG BASOPHILS0.0 10*3/uLNormal 0.0-0.2The TriHealthComment on above:Performed By: #### [id number] #### [facility] [address] [facility] [place] [address], [facility] CENTERABS IMM GRANS0.0 10*3/uLNormal0.0-0.2The TriHealthComment on above:Performed By: #### [id number] #### [facility] [address] [facility] [place] [address], [facility] CENTERABS NEUTROPHILS2.9 10*3/uLNormal1.6-7.6The TriHealthComment on above:Performed By: #### [id number] #### [facility] [address] [facility] [place] [address], USABasophils/100 WBC (Bld)0.6 %Normal0.0-1.0The TriHealthComment on above:Performed By: #### [id number] #### [facility] [address] [place] [address], USAEosinophils (Bld) [#/Vol]0.1 10*3/uLNormal0.0-0.5The TriHealthComment on above:Performed By: #### 62355 #### [facility] [address] [place] [address], USAEosinophils/100 WBC (Bld)1.3 %Normal0.0-6.0The TriHealthComment on above:Performed By: #### [id number] #### [facility] [address] [facility] [place] [address], USAErythrocyte distribution width (RBC) [Ratio]14.6 %Normal 11.5-15.0The TriHealthComment on above:Performed By: #### [id number] #### [facility] [address] [facility] [place] [address], USAHematocrit (Bld) [Volume fraction]40.4 %Jjgphm84.0-50.0The TriHealthComment on above:Performed By: #### [id number] #### [facility] [address] [facility] [place] [address], USAHemoglobin (Bld) [Mass/Vol]13.3 g/rIEsufpp33.0-17.0The TriHealthComment on above:Performed By: #### [id number] #### [facility] [address] [facility] [place] [address], USAIMMATURE GRANS0.4 %Normal0.0-1.0The TriHealthComment on above:Performed By: #### [id number] #### [facility] [address] [facility] [place] [address], USALymphocytes (Bld) [#/Vol]1.3 10*3/uLNormal1.2-4.0The TriHealthComment on above:Performed By: #### [id number] #### [facility] [address] [place] [address], USALymphocytes/100 WBC (Bld)27.8 %Lomvrn63.0-45.0The TriHealthComment on above:Performed By: #### [id number] #### [facility] [address] [place] [id number], [facility] MED[facility] CENTERMCH (RBC) [Entitic mass]25.9 pgLow27.0-33.0The TriHealthComment on above:Performed By: #### [id number] #### [facility] [address] [place] [id number], [facility] CENTERMCHC (RBC) [Mass/Vol]32.9 g/qIUvrffg13.0-35.0The TriHealthComment on above:Performed By: #### [id number] #### [facility] [address] [place] [address], [facility] CENTERMCV (RBC) [Entitic vol]78.8 fLLow82.0-98.0The TriHealthComment on above:Performed By: #### [id number] #### [facility] [address] [place] [address], USAMonocytes (Bld) [#/Vol]0.5 10*3/uLNormal0.1-1.0The TriHealthComment on above:Performed By: #### [id number] #### [facility] [address] [place] [address], USAMONOS9.9 %Normal5.0-12.0The TriHealthComment on above:Performed By: #### [id number] #### [facility] [address] [place] [address], USANeutrophils/100 WBC (Bld)60.0 %Fqigmj79.0-72.0The TriHealthComment on above:Performed By: #### [id number] #### [facility] [address] [place] [address], USANucleated RBC/100 WBC (Bld) [Ratio]0 %Normal0-0The TriHealthComment on above:Performed By: #### [id number] #### [facility] [address] [facility] [place] [address], USAPLAT DGK455 10*3/hJGyritc120-384Cxe TriHealthComment on above:Performed By: #### [id number] #### [facility] [address] [facility] [place] [address], USARBC (Bld) [#/Vol]5.13 10*6/uLNormal4.20-5.70The TriHealthComment on above:Performed By: #### 51291 #### [facility] [address] [facility] [place] [address], USAWBC (Bld) [#/Vol]4.75 10*3/uLNormal4.00-10.60The TriHealthComment on above:Performed By: #### [id number] #### [facility] [address] [facility] [place] [address], USAHEMOGLOBIN A1Con 35-86-7111AjY6m (Bld) [Mass fraction]5.9 % Normal4.0-6.0The TriHealthComment on above:Performed By: #### [id number] #### [facility] [address] [facility] [place] [place] [address], LHOXwE5f (Bld) [Mass fraction]123 mg/wMAjmfbc89-130Gvt TriHealthComment on above:Performed By: #### [id number] #### [facility] [address] [place] [address], USAC REACTIVE PROTEINon 22-23-8305XBA [Mass/Vol]6.5 mg/LNormal 0.0-7.0The TriHealthComment on above:Performed By: #### [id number] #### [facility] [address] [place] [address], USASEDIMENTATION RATEon 49-17-8498WUF RATE27 mm/hrHigh0-10The TriHealthComment on above:Performed By: #### [id number] #### [facility] [address] [place] [address], [facility] Vital Signs Date TimeVital SignValuePerforming FninntyksOnccrobx16-70-6219 13:23-0500Blood Pressure LocationMichael NILL [facility] Qusxkwcm28-98-3177 13:23-0500Diastolic blood nosaunka88 mm[Hg]Juan Ramon NILL [facility] Gfmmobfj60-29-0950 13:23-0500Heart rate 76 /minMichael NILL [facility] Ulvexcmg52-68-3977 13:23-0500 Respiratory rate16 /minMichael NILL [facility] Xwujxodu56-13-2024 13:23-0500Systolic blood axcuaepd501 mm[Hg]Juan Ramon NILL [facility]11-08-2023 15:30-0500Body nhnogw120.26 cmBenTrackMaven Other [facility] Other 11-08-2023 15:30-0500Body mass index (BMI) [Ratio] 39.51 kg/j4Gwcqhkac Ball Other [facility] Other 11-08-2023 15:30-0500Body .38 kgBenjamin Ball Other [facility] Other 11-08-2023 15:30-0500Diastolic blood oknirwnu32 mm[Hg] Fernando Ball Other [facility] Other 11-08-2023 15:30-0500Respiratory rate12 /minBenjamin Ball Other [facility] Other 11-08-2023 15:30-0500Systolic blood kovjbaxf793 mm[Hg] Fernando Ball Other [facility] Other 04-12-2023 10:30-0400Body bxozpv801.26 cmBenjamin Ball Other [facility] Other 04-12-2023 10:30-0400Body mass index (BMI) [Ratio] 39.34 kg/t0Oflfzxee Ball Other [facility] Other 04-12-2023 10:30-0400Body upjvrd952.84 kgBenjamin Ball Other [facility] Other 04-12-2023 10:30-0400Diastolic blood akgnlghc06 mm[Hg] Fernando Ball Other [facility] Other 04-12-2023 10:30-0400Respiratory rate12 /minBenjamin Ball Other [facility] Other 04-12-2023 10:30-0400Systolic blood tadvamzd262 mm[Hg] Fernando Ball Other [facility] Other 03-24-2023 12:00-0400Body .26 cmBenjamin Ball Other [facility] [employer] Other 03-24-2023 12:00-0400Body mass index (BMI) [Ratio] 38.04 kg/k1Xeinjzlc Ball Other [facility] [employer] Other 03-24-2023 12:00-0400Body nzmsya348.85 kgBenjamin Ball Other [facility] [employer] Other 03-24-2023 12:00-0400Diastolic blood mm[Hg] Fernando Ball Other [facility] Other 03-24-2023 12:00-0400Respiratory rate12 /minBenjamin Ball Other [place] [employer] Other 03-24-2023 12:00-0400Systolic blood xfgnxukl228 mm[Hg] Fernando Ball Other [facility] [employer] Other 06-22-2022 08:13-0400Blood Pressure LocationBeth Remedios 466-2185Wqhzoa-LsnspUniversity [facility] 06-22-2022 08:13-0400Body dpvehtqgtxw03.98 [degF]Vanessajonathan GarlandRemedios 236-1457Vqaqvm-OephbUniversity [facility]als [facility] 06-22-2022 08:13-0400Diastolic blood bdeansza23 mm[Hg] Vanessa Remedios [phone]-NmgpbUniversity [facility]als [facility] 06-22-2022 08:13-0400Heart rate75 /minBeth Remedios 222-1393Vujsqk-IerynUniversity [facility]als [facility] 06-22-2022 08:13-9705UbN0% (BldA) [Mass fraction]95 % Vanessa Whittaker 166-7350Gsnklm-ArjuaUniversity Hospitals [facility] 06-22-2022 08:13-0400Systolic blood gibftgfo298 mm[Hg] Vanessa Whittaker [phone]-QqpcwUniversity [facility]als [facility] Encounters Encounter DateEncounter TypeCare ProviderFacilityStart: 08-05-2024 End: 59-28-5512Nerzep flowsAnjelica CERVANTES Work Phone: noms [facility]Start: 08-05-2024 End: 54-08-5635Wwcoas flowsAnjelica CERVANTES Work Phone: NOTJ [facility]OStart: 08-05-2024 End: 62-14-7285Nsqzou outpatient visit 25 minutesMattkalpesh CERVANTES Work Phone: noms [facility] ORTHOComment on above:Thumb pain, right (Primary Dx); Primary osteoarthritis of first carpometacarpal joint of right handStart: 08-05-2024 End: 05-01-9111xonvfdtnzcRQAVZQU J MEYERNot AvailableStart: 09-19-2023 End: 89-16-4575gmyfxkfhkhCphmwos R NILLFacility:GS BellevueStart: 09-19-2023 End: 95-46-2356Ndwapyf encounter procedureMichael R NILL General Surgery [facility] Start: 09-02-2023 End: 89-19-1959yxhbtfijrwJgoybbcd Ball Other [facility] [employer] Other Start: 03-70-9917Giehaamnm encounterBenjamin BallFPG [facility] ClinicStart: 08-31-2023 End: 54-23-8768hczquutgyiFuvwcjss Ball Other [employer] Other Start: 27-23-5718Bcaptkkjv encounterBenjamin BallFPG [facility] ClinicStart: 82-72-8712vcfkhvtgopLzcc RemediosFacility:TAMRA Garza Start: 08-27-2023 End: 14-54-3143haxnuoikyvZbudmnoo Ball Other [employer] Other Start: 70-62-5647Ofiwts outpatient visit 25 minutes Fernando BallFPG [facility] ClinicStart: 17-46-8057Pbnwkhldo encounterBenjamin BallFPG [facility] ClinicStart: 04-01-2023 End: 97-84-5326bxxdbfxafuBnhx Archana WhittakerFacility:[place] DHStart: 01-29-2023 End: 05-10-5813ueycihmadfYagsesdi Ball Other [employer] Other Start: 28-76-3561Zvhrzbvwd for general adult medical examination without abnormal findingsBenjamin BallFPG [facility] Medical ClinicStart: 07-69-9177Zzqusecb preventive med est patient 40-64yrsBenjamin BallFPG [facility] ClinicStart: 95-80-3409Wwqwafxeb encounterBenjamin BallFPG [facility] ClinicStart: 01-27-2023 End: 89-70-5262pqwvqmcndlSX FERNANDO HOLGUINNort [employer] Other Start: 01-20-2023 End: 03-87-3800ofmfjyxgwxHP FERNANDO HOLGUINFacility:L6Gkwkl: 01-19-2023 End: 31-39-0052ncfegdeogpNzkkxiuw Ball Other [employer] Other Start: 45-34-3137Ekjjcowmz encounterBenjamin BallFPG [facility] ClinicStart: 01-10-2023 End: 79-22-5303aqeweoqfvwJwnajscd Ball Other [facility] [employer] Other Start: 60-91-9290Jsvywc outpatient visit 15 minutes Fernando [facility] ClinicStart: 01-03-2023 End: 44-35-8789vftmmbarjzZY FERNANDO HOLGUINFacility:B8Ggvic: 83-52-4113Gprdtmpel for preprocedural laboratory examinationMR LO CHACKO .[facility] Start: 08-13-2022 End: 46-25-8455xasudwvdwpTD LO CHACKO .Facility:S1Byxqg: 08-13-2022 End: 60-46-6641Fhixnivct for preprocedural laboratory examinationMR LO CHACKO .Facility:P9Rfibj: 07-19-2022 End: 88-22-8591mwrpngpxiuZG LO CHACKO .Facility:P7Gknos: 05-15-2022 End: 12-62-6843gdnbkhbqshHC FERNANDO HOLGUINFacility:Y3Vjzda: 04-10-2022 End: 15-79-6486Lxiqcep encounter procedureBemarco Whittaker 012-2119Hvovey-FsjkxUniversity [facility]als [facility] Start: 02-08-2022 End: 12-16-7493wnoklpecdyFE FERNANDO HOLGUINFacility:N0Rjzwj: 82-54-9382Cgijf health examinationBegianluca Holguin Other [place] [employer] Other Start: 09-24-2021 End: 14-40-0301EehowwkecDskqg SALAM [facility] Start: 03-04-2019 End: 81-90-0756Srajhyuerg and management of inpatientDANIVERONICA RHODES Facility:[facility] Procedures DateProcedureProcedure DetailPerforming ClinicianStart: 11-92-7322Wywevizfnyirpo aspir&/inj small jt/bursa w/o usMattguillerminaw J Ricco PA Work Phone: Start: 58-48-1236TllxjpjneeuMwnsq SALAM Start: 95-10-9987JltsyhvvxtaspiokyckssvnuovCokln SALAM Start: 86-55-7200CBCUOWI OF SYNTHETIC SUBSTITUTE FROM L HIP JT, OPEN APPROACHDATONEY Mcginnis GEHLINGStart: 52-94-7270VREXUSV OF L HIP JT WITH SYNTH SUB, CEMENT, OPEN APPROACHMARTIN Mcginnis GEHLINGStart: 73-20-1576Ucfkayne screen MARTIN BALJITComment on above:Performed By: #### [id number] #### [facility] [address] [place] [address], USAStart: 21-49-1811Rwe-surgery evaluationBegianluca Holguin Other Start: 32-08-4446Rfxhndpnv for malignant neoplasm of prostateFernando Holguin Other Start: 88-46-2242Kauwxaj examination of patient Fernando Holguin Other Arthroplasty of kneeMichael NILL Decompression of median nerveMichael NILL Depression screeningBegianluca Holguin Other History of lumbar laminectomyMichael NILL Laboratory test result abnormalBenrayshawn Holguin Other Laboratory test result abnormalBenrayshawn Holguin Other Pituitary adenoma (disorder)Juan Ramon NILL Repair of hipMichael NILL Repair of tendonMichael NILL Comment on above:bicepScreening for malignant neoplasm of prostateBegianluca Holguin Other Plan of Treatment DateCare ActivityDetailAuthorStart: 08-05-2024 End: 19-52-4964Hxnggib encounter /17/2024 9:00 AM EDT Office Visit [facility] [address] [place] [id number] Lo Chacko, [place] [address] [place] [address] Thumb pain, right (Primary Dx)[facility] SWS ORTHOComment on above:Thumb pain, right (Primary Dx)XR Finger - right 2 ViewsXR fingers 2+ views right Imaging Routine Thumb pain, right 08/05/2024 9:11 AM [facility] Work Phone: Immunizations Immunization DateImmunizationNotesCare ProviderFacilityNEGATED: Highlighted row has not occurred!93-29-5584wbgoelfwo virus vaccine, unspecified formulation Juan Ramon BOONE General Surgery [place]vueNEGATED: Highlighted row has not occurred!99-79-1475ygorubcet virus vaccine, unspecified formulationLennie VAZQUEZ [facility] Payers DatePayer CategoryPayerPolicy [id number] 2023Medicare (Managed Care)[employer] [id number] [id number] [id number] 2.16.840.3.07451[id number] 2.840.1.115230.3.579.2.647 [id number] 2.16.840.1.137378.3.57[id number] 2.840.1.750062.3.57[id number] 2.840.1.089420.3.57[id number] 2.840.1.996430.3.57[id number] 2.840.1.871617.3.57[id number] 2.840.1.414457.3.57[id number] 2.840.1.021886.3.57[id number] 2.840.1.532215.3.5[id number] 2.840.1.441724.3.57[id number] 2.840.1.628128.3.579.2.13477-01-4424Srludff8406490 2.840.1.791983.3.57[id number] 2.840.1.189742.3.579.2.0130BqbkvryQJ1930220 Social History DateTypeDetailFacilityStart: 01-03-2022 End: 48-98-7978Fwakthl smoking statusNever smoked tobacco (finding)[facility] HospitalTobacco smoking statusNeverWyandot Memorial Hospitalex Assigned At BirthMalLouis Stokes [facility] VA Medical Centertart: 15-00-3368Xaxavhz use and exposureSmokeless tobacco non-userNOMS HealthcareStart: 60-33-4769Qfp assigned at birthNot on fileNOWA HealthcareTobacco smoking status NHISTobacco smoking consumption unknownNOWA Healthcare Functional Status CnooTornkifavdBzangaFysdifzt00-67-9529Urmrvgdmda StatusN/AGeneral Surgery Olzoqslv77-87-7793Nucnhzqyls StatusN/[facility] Clinical Notes 04-10-2022 to 08-05-2024 Note Date & JrcnWurfKghtmzau93-70-4172 History of Present illness Narrative* HELEN Monson - 08/05/2024 9:00 AM EDTAssociated Order(s): S Inj/Asp: R thumb [facility] Post-Procedure [...] CREAM WITH SOME RELIEF. ADMITS TROUBLE GRIPPING. DENIESWAKING AT NIGHT. PREVIOUS (R) RF TRIGGER RELEASE [...] is normal. 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 documented in this encounterJefferson Memorial HospitalJjguzvjffd53-37-9716 NoteChief Complaint consultation for cholelithiasis HPI Staff 63 year old male presents on consultation from Dr. Holguin for cholelithiasis. Reports abdominal pain,nausea and bloating. Reports several intermittent episodes of [...] hypercholesterolemia, VANDANA, GERD, lumbar spondylosis, aneurysm of ascendingaorta; referred for abd pain, possible gallbladder disease; [...] GERD, fairly well controlled with omeprazole; no asaor NSAID use; no tobacco use; no fmhx of GI malignancy or IBD. Review of Systems PHQ Score Initial Depression Screen Score: 0 SCORE ROS - Provider Constitutional: no fever, no sweats, no weight loss. Eyes: no glasses, no blurred vision, no visual loss. ENMT: no dentures, no hoarseness, no swallowing difficulties, no hearing loss, no ear infection(s),no nose bleeds. Cardiovascular: normal blood pressure, no [...] E&M of New Patient Moderate 45-59 Min 01821 2. Abdominal pain, epigastric (R10.13: Epigastric pain) see # 1 Ordered: CT Abdomen/Pelvis w/ Contrast E&M of New Patient Moderate 45-59 Min 92433 3. Abdominal pain, right upper quadrant (R10.11: Right upper quadrant pain) see # 1 Ordered: CT Abdomen/Pelvis w/ Contrast E&M of New Patient Moderate 45-59 Min 14615 4. Abnormal gallbladder ultrasound (R93.2: Abnormal findings on diagnostic imaging of liver and biliary tract) see # 1 Ordered: CT Abdomen/Pelvis w/ Contrast E&M of New Patient Moderate 45-59 Min 15557 5. BMI 40.0-44.9, adult (Z68.41: Body mass index [BMI] 40.0-44.9, adult) recommend low fat diet and exercise Ordered: CT Abdomen/Pelvis w/ Contrast E&M of New Patient Moderate 45-59 Min 32004 Follow-up No qualifying data available Problem List/Past Medical History (more content not included)...[facility] HospitalComment on above:Result Comment: Electronically Signed By: PAOLO TATE, Juan Ramon Miner\Date and Time Signed: 09/20/23 09:50 [id number] Evaluation note* Encounter Date Diagnosis Assessment Notes Treatment Notes Treatment Clinical Notes Aug, Pulmonary nodule (ICD-10 - R91.1 ) CTA: 7.5mm RUL, 3mm RUL, 13mm ADA - 01/2022, CT: 7mm RUL - 04/2022 CT: 8mm RUL - 01/2023neurysm of the ascending aorta, without rupture (ICD-10 - I71.21) CTA: 3.8cm Asc Aortic Aneurysm - 08/2023 [facility] Other 11-08-2023 Evaluation note* Encounter Date Diagnosis Assessment Notes Treatment Notes Treatment Clinical Notes Aug, Calculus of gallblad gustabo with chronic cholecystitis without obstruction (ICD-10 - K80.10) Continue w/ low fat diet. Continue PPI. Refer to General Surgery for elective cholecystectomy Aug,neurysm of ascending aorta without rupture (ICD-10 - I71.21)Control BP. Schedule CTA chest. Aug,astroesophageal reflux disease with esophagitis without hemorrhage (ICD-10 - K21.00)Continue healthy diet and avoid lying flat after meals or eating prior to bedtime. Encouraged to lose weight and to continue PPI Aug,Obstructive sleep apnea (ICD-10 - G47.33)This patient is aware of the benefits associated with VANDANA: With continued use, the patient reduces the risk for AZ, CVA, HTN, cardiac dysrhythmias and sudden cardiac deaths.The patient is also aware of the association between VANDANA and morning headaches, daytime somnolence, fatigue and obesity, whichalso has been improved with continued use.The patient is compliant with treatment, wearing the equipment every night for greater than 4 hours.The patient is instructed to continue use of the CPAP forOSA treatment. Aug,rimary hypertension (ICD-10 - I10)This patient is instructed to consume a healthy, low-fat, low-salt diet. They are also encouraged to continue exercise to achieve/maintain a normal BMI. [facility] Other 04-12-2023 Evaluation note* Encounter Date Diagnosis Assessment Notes Treatment Notes Treatment Clinical Notes Jan, Wellness examination (ICD-10 - Z 00.00) Healthy diet and exercise. Reviewed age-appropriate preventive testing recommended. Jan,Essential hypertension (ICD-10 - I10)This patient is instructed to consume a healthy, low-fat, low-salt diet. They are also encouraged to continue exercise to achieve/maintain a normal BMI. Jan,Obstructive sleep apnea (ICD-10 - G47.33)This patient is aware of the benefits associated with VANDANA: With continued use, the patient reduces the risk for AZ, CVA, HTN, cardiac dysrhythmias and sudden cardiac deaths.The patient is also aware of the association between VANDANA and morning headaches, daytime somnolence, fatigue and obesity, whichalso has been improved with continued use.The patient is compliant with treatment, wearing the equipment every night for greater than 4 hours.The patient is instructed to continue use of the CPAP forOSA treatment. Jan,ERD (gastroesophageal reflux disease) (ICD-10 - K21.9)Diet instructions: Smaller portions, avoid eating and laying flat, avoid eating or drinking prior to bedtime. Weight loss. Continue PPI Jan,ulmonary nodule (ICD-10 - R91.1)CTA: 7.5mm RUL, 3mm RUL, 13mm ADA - 01/2022, CT: 7mm RUL - 04/2022 CT: 8mm RUL - 01/2023 Continue surveillance scans for 2 years Jan,enign prostatic hyperplasia with lower urinary tract symptoms, symptom details unspecified (ICD-10- N40.1)Symptoms tolerable. Jan,bnormal ultrasound of gallbladder (ICD-10 - R93.2)Cholelithiasis w/ thickened GB irizarry. Asymptomatic w/ one episode of possible biliary colic in ER. Monitor for now Jan,Screening PSA (prostate specific antigen) (ICD-10 - Z12.5)Yearly CELESTINO and PSA completed [facility] Other 04-10-2023 Evaluation note* Encounter Date Diagnosis Assessment Notes Treatment Notes Treatment Clinical Notes Jan, Pulmonary nodule (ICD-10 - R91.1 ) CTA: 7.5mm RUL, 3mm RUL, 13mm ADA - 01/2022, CT: 7mm RUL - 04/2022 CT: 8mm RUL - 01/2023 [facility] Other 04-10-2023 Evaluation note* Encounter Date Diagnosis Assessment Notes Treatment Notes Treatment Clinical Notes Jan, Pulmonary nodule (ICD-10 - R91.1 ) CTA: 7.5mm RUL, 3mm RUL, 13mm ADA - 01/2022, CT: 7mm RUL - 04/2022 CT: 8mm - 01/2023 [facility] Other 04-02-2023 Evaluation note* Encounter Date Diagnosis Assessment Notes Treatment Notes Treatment Clinical Notes 02 Apr, 2023 Aneurysm of ascendin g aorta without rupture (ICD-10 - I71.21) CT: 4.5cm ascending aortic aneurysm - 01/2022 [facility] Other 04-02-2023 Evaluation note* Encounter Date Diagnosis Assessment Notes Treatment Notes Treatment Clinical Notes Jan, Pulmonary nodule (ICD-10 - R91.1 ) CTA: 7.5mm RUL, 3mm RUL, 13mm ADA - 01/2022, CT: 7mm RUL - 04/2022 CT chest due in January, [facility] Other 03-24-2023 Evaluation note* Encounter Date Diagnosis Assessment Notes Treatment Notes Treatment Clinical Notes Dec, Gastroesophageal ref lux disease with esophagitis without hemorrhage (ICD-10 - K21.00) Diet instructions: Smaller portions, avoid eating and laying flat, avoid eating or drinking prior to bedtime. Weight loss. Use PPI x 1 month then d/c. Continue Pepcid q HS. Levsin as needed for abdominal pain suspected to be esophageal spasm Dec, alpitation (ICD-10 - R00.2)Avoid stimulants, push fluids, increase activity. Restart BB Dec, bnormal ultrasound of gallbladder (ICD-10 - R93.2)Nonspecific findings on GBUS Repeat US in month Dec, ulmonary nodule (ICD-10 - R91.1)CTA: 7.5mm RUL, 3mm RUL, 13mm ADA - 01/2022, CT: 7mm RUL - 04/2022Dec,Elevated liver enzymes (ICD-10 - R74.8) [facility] Other 06-22-2022 Hospital Discharge instructions Patient Education [...] powder, vinegar, hot sauces, and barbecue sauce. ?Ballplay fruit juices and citrus fruits, such as oranges, kelly, and limes. ?Tomato-based foods, such as red sauce, chili, salsa, and pizza with red sauce. ?Fried and fatty foods, such as donuts, kyrgyz fries, potato chips, and high-fat dressings. ?High-fat [...] to any changes in your symptoms. Take zrtv-rhl-tzictti and prescription medicines only as told by [...] you have new or worsening symptoms. Take xbpw-fpz-znpzlti and prescription medicines only as told by [...] 07/16/2006 Document Revised: 04/14/2019 Document Reviewed: 04/14/2019 [employer] Patient Education 2020 BLOVES. Follow Up Care 01/03/2022 09:45:39 With:Vanessa Whittaker CNP Address: When:1 year [facility] Evaluation + Plan note Future Appointments Appointment Date:04/10/2022 08:00:00 AM Scheduled Provider:Vanessa Whittaker CNP Location:[facility] Dig[facility]ive [facility] Appointment Type[facility] Future Appointments Appointment Date:04/10/2023 08:00:00 AM Scheduled Provider:Vanessa Whittaker CNP Location:[facility] Dig[facility]ive [facility] Appointment Type:[facility] Future Scheduled Tests Laboratory* Basic Metabolic Panel 04/10/22 * Folate Level 04/10/22 * Magnesium Level 04/10/22 * Vitamin B12 Level 04/10/22 [facility] Evaluation noteNo InformationNortExcela [facility] [employer] [facility] Other Evaluation note* Diagnosis Thumb pain, right- Primary Primary osteoarthritis of first carpometacarpal joint of right hand documented in this encounter NOMS HealthcareHistory general Narrative - Reported* Type Description Date Medical History Pulmonary nodule Medical HistoryASCENDING AORTIC ANEURYSMMedical HistoryEssential hypertension Medical HistoryObstructive sleep apneaMedical HistoryHypercholesterolemiaMedical HistoryGastroesophageal reflux disease with esophagitis without hemorrhage Medical HistoryMuscle fatigueMedical HistoryParesthesiaMedical HistoryLumbar spondylosisMedical HistoryEpicondylitis, lateral, rightMedical HistoryErectile dysfunction due to arterial insufficiencyMedical HistoryBiceps tendonitis on rightMedical HistoryRight leg paresthesiasMedical HistoryElevated CKMedical HistoryFamily history of diabetes mellitusMedical HistoryBenign prostatic hyperplasia with lower urinary tract symptoms, symptom details unspecified Medical HistoryMyalgiaMedical HistoryTrigger ring finger of right handMedical HistoryHistory of hip replacementMedical HistoryGERD (gastroesophageal reflux disease)Surgical LtrkxdwYKCOYXGPTCB7860Idvlrwkx ZkwcsxxZOT2570Axdfjfgc History LEFT HIP SURGERYSurgical HistoryLUMBAR LAMINECTOMYSurgical HistoryLEFT DARREN Surgical HistoryTRANSNASAL RESECTION PITUITARY ADENOMASurgical HistoryREPAIR RIGHT BICEPS TENDONHospitalization HistorySEE SURGICAL HX [facility] [employer] Other Hospital course Narrative No data available for this section [facility] instructions No data available for this section [facility] HospitalProgress note No data available for this section [facility] Summary Purpose Family History No Family History Records FoundNo Family History Records Found No data available for this section No Family History Records FoundNo Family History Records Found Advance Directives No Advanced Directives Records FoundNo Advanced Directives Records FoundNo Advanced Directives Records FoundNo Advanced Directives Records Found Hospital Course Note MR#: [id number] [facility] Pt. Name: Sadiq Delarosa Admitted: 03/04/2019 Discharged: [...] chronic cholecystitis without obstruction (K80.10) Referral Organization [facility] barry Referring Provider First Name Fernando Referring Provider Last Name Ezio Referring Provider Specialty Internal Md dicine Referred Organization [facility] Referred Provider Juan Ramon Boone Referred Address [address], [place],[address] Referred Provider Specialty Surgery Referral Priority Routine [...] section and content) DATE CREATED AUTHOR 06/23/2019 [facility] DATE CREATED AUTHOR AUTHOR'S ORGANIZ ATION 02/02/2023 [facility] DATE CREATED AUTHOR AUTHOR'S ORGANIZ ATION 10/04/2023 [facility] DATE CREATED AUTHOR AUTHOR'S ORGANIZ ATION 08/10/2024 [facility] EPIC Care Team (unrecognized sect ion and content) Personnel Name: FERNANDO HOLGUIN DO Address: [address], [place] [address]- Personnel Name: FERNANDO HOLGUIN DO Address: Address: [facility], [facility] [place] [address]- REASON FOR VISIT (unrecogniz ed section and content) ReasonCommentsPain FOR RECORDS PERTAINING TO PATIENTS WHO ARE [...] BE BASED ON THE PRIMARY CLINICAL RECORDS. [employer] provides no warranty or guarantee of the accuracy or completeness of information in this document.
--- OUTSIDE RECORDS SUMMARY | 2025-09-29 07:36 | XMS_ITS | Clinical Summary ---
Author Organization [facility] Address [address] [place] [address] Care Team Providers Care Delinquent Notice Machine Operator Name Role Phone Unavailable Primary Care Provider Unavailabl e Social History Tobacco UseTypesPacks/DayYears UsedDateSmoking Tobacco: Never AssessedSex and Gender InformationValueDate RecordedSex Assigned at BirthNot on fileLegal Sex Male04/18/2022 12:13 AM EDTGender IdentityNot on fileSexual OrientationNot on file Plan of Treatment Not on file
--- OUTSIDE RECORDS SUMMARY | 2025-09-29 07:36 | XMS_ITS | Clinical Summary ---
Author Organization [facility] Address [address] [facility] [place] [address] Care Team Providers Care Basting Machine Operator Name Role Phone Unavailable Primary Care Provider Unavailabl e Allergies Active AllergyReactionsCriticalityNoted PojyOuihacayPntyxrc76/17/2024 Medications MedicationSigDispense QuantityRefillsLast FilledStart DateEnd DateStatus omeprazole (PriLOSEC) [address] capsule Take 40 mg by mouth09/05/2023ctive metoprolol (Lopressor) 10 mg/mL solution Active metoprolol succinate XL (Toprol-XL) 25 MG 24 hr tablet TAKE 1 TABLET BY MOUTH EVERY DAY FOR 90 DAYSActive famotidine (Pepcid) 10 MG tablet Active famotidine (Pepcid) 40 MG tablet TAKE 1 TABLET BY MOUTH EVERY DAY AT BEDTIME FOR 90 DAYS06/29/2024ctive EZETIMIBE-ATORVASTATIN PO Active ezetimibe (Zetia) 10 MG tablet Take 10 mg by mouth Daily04/25/2024ctive amoxicillin (Amoxil) 500 MG capsule TAKE 4 CAPSULES BY MOUTH 1 HOUR PRIOR TO OCCVXYIAUGW62/09/2024ctive Active Problems No known active problems Social History Tobacco UseTypesPacks/DayYears UsedDateSmoking Tobacco: NeverSmokeless Tobacco: Never Tobacco Cessation:Counseling Given: Not Answered Sex and Gender InformationValueDate RecordedSex Assigned at BirthNot on file Legal VryCgsq2901/01/2023 8:32 PM EDTGender IdentityNot on fileSexual Orientation Not on file Last Filed Vital Signs Vital SignReadingTime TakenCommentsBlood Pressure--Pulse--Temperature-- Respiratory Rate--Oxygen Saturation--Inhaled Oxygen Concentration--Asypef565 kg (265 lb)07/18/2022 12:00 PM JMOVaxclg944.3 cm (5' 9 )07/18/2022 12:00 PM EDTBody Mass Index39.13007/18/2022 12:00 PM EDT Plan of Treatment Not on file Insurance
--- OUTSIDE RECORDS SUMMARY | 2025-09-29 07:36 | XMS_ITS | Clinical Summary ---
Author Organization [facility] Address [address] [place] [address] Care Team Providers Care Underwriter Mortgage Loan Name Role Phone Unavailable Primary Care Provider Unavailabl e Allergies No known active allergies Medications MedicationSigDispense QuantityRefillsLast FilledStart DateEnd DateStatus Ranitidine HCl 300 mg tablet Take 300 mg by mouth daily at bedtime.Active Active Problems ProblemNoted DateDiagnosed DateBenign neoplasm of pituitary gland and craniopharyngeal duct (pouch)06/06/2004Corticoadrenal dbuwzvzpdawyj67/18/2004 Social History Tobacco UseTypesPacks/DayYears UsedDateSmoking Tobacco: Some DaysSmokeless Tobacco: Never Comments:occ. cigar Alcohol UseStandard Drinks/WeekCommentsYes0 (1 standard drink = 0.6 oz pure alcohol)Sex and Gender InformationValueDate RecordedSex Assigned at BirthNot on fileLegal GbhDnnu02/02/2012 10:01 AM ESTGender IdentityNot on fileSexual OrientationNot on file Last Filed Vital Signs Vital SignReadingTime TakenCommentsBlood Kjfcguxg492/8002 11:19 AM EST Gxetp4601 11:19 AM LCEFapevrbrnav40.2 ??C (99 ??F)02/11/2007 10:51 AM EDTRespiratory Otba205202/11/2007 10:51 AM EDTOxygen Saturation--Inhaled Oxygen Concentration--Eddsbp319.6 kg (279 lb)02/11/2007 10:51 AM XVISpvdvs138.3 cm (5' 9 )02/11/2007 10:51 AM EDTBody Mass Index41. 10:51 AM EDT Plan of Treatment Health MaintenanceDue DateLast DoneCommentsAbdominal Aortic Aneurysm Screening 8Anxiety Etnutlgrr68/17/1976Depression Hjoyvfzew15/17/1976Hepatitis C Ucksinvli74/17/1976DTaP,Tdap,Td Vaccine (1 - Tdap)1977Lipid Screening 1993CT Usxhezlfxgwx15/17/2003Cologuard (FIT-DNA)2003Colonoscopy 2003Colorectal Cancer Qkeadmnnw68/17/2003Fecal Occult Blood2003 Prostate Cancer Screening Stjgusvzwe02/17/7382Twnoklipdifat20/17/2003Diabetes Gtzqadphx37, 08/27/2004, 11/15/2003, Additional history exists Pneumococcal Vaccine: 50+ (1 of 1 - PCV)2008Shingrix Vaccine (1 of 2) 2008dvance Directive Spozzsovcc08/01/2025ovid-19 Vaccine (1 - 2024-26 season)2025Influenza Vaccine (#1)2025RSV Vaccine (1 - 1-dose 75+ series)2033 Procedures Procedure NamePriorityDate/TimeAssociated DiagnosisCommentsGLUCOSE RANDOM BLD Pzusqax7208/27/2004 11:55 AM EST Benign Barrett Pituitary from Last 3 Months or Most Recently Relevant to Health Maintenance Results * GLUCOSE RANDOM BLD (08/27/2004 11:55 AM EST)ComponentValueRef RangeTest Method Analysis TimePerformed AtPathologist ChlhblaimEduldhe6547 - 100 mg/dLPROMEDICA BAY PARK HOSPITAL LABSpecimen (Source)Anatomical Location / LateralityCollection Method / VolumeCollection TimeReceived TimeBlood specimen (specimen)BLOOD SPECIMEN / Pqnjaic4008/27/2004 11:55 AM EST Narrative Authorizing ProviderResult TypeResult StatusAmir (Hist) Red TATELABORATORY Final ResultPerforming OrganizationAddressCity/State/ZIP CodePhone Number [facility] [address] [place] [address] from Last 3 Months or Most Recently Relevant to Health Maintenance Insurance * Guarantor: Terrence Mora TypeRelation to PatientDate of BirthPhone Billing AddressSelf [id number] 1960 [address] [place] [address]
--- NOTE | 2025-09-29 07:46 | CT_ITS ---
The [address] [address] Patient Name: NOLVIA DELAROSA MRN: [id number] date: 1960 Sex: M Assigned Patient Location: LAB Current Patient Location: LAB Accession/Order Number: [id number] Exam Date: 09/29/2025 08:21 Report Date: 09/29/2025 10:10 At the request of: ROWAN HOLGUIN DO Procedure: CT angio chest CTA CHEST WITH CONTRAST CLINICAL HISTORY: Follow up Ascending Aortic Aneurysm COMPARISON: 09/23/2024 TECHNIQUE: Spiral images were obtained through the chest following intravenous administration of 100 mL of 100 Omnipaque 350. Images were reviewed using both narrow and wide window settings. Sagittal, coronal and 3 D volume-rendered reconstructions were performed and reviewed. This CT exam was performed using one or more following dose reduction techniques: Automated exposure control, adjustment of the mA and/or kV according to patient size, or use of iterative reconstruction technique. FINDINGS: The heart is mildly prominent. There is no pericardial effusion. Coronary artery disease is seen. There is slight dilatation of the ascending aorta with diameter of 4.1 cm, similar to the prior. No dissection is seen. There is adequate opacification of the pulmonary arteries. No emboli are identified. No pathologic lymphadenopathy is seen. There is subtle dextroscoliotic curvature and degenerative changes at the spine. There is mild dependent atelectasis. There is no additional consolidation, pleural effusion or pneumothorax. There is a stable 8 mm subpleural nodule at the right upper lobe posteriorly on axial image 32. A suspected intrapulmonary lymph node is again noted at the minor fissure on the right. Limited cuts through the upper abdomen show possible fatty liver. There are left hepatic and upper pole left renal cysts. CT/CT angio chest IMPRESSION: MILD CARDIOMEGALY. SIMILAR MILD DILATATION OF THE ASCENDING AORTA. NO CT OF PULMONARY EMBOLISM. DEPENDENT ATELECTASIS AND STABLE RIGHT PULMONARY NODULARITY. Impression dictated by: Deisy Barron M.D. 09/29/2025 10:10 AM Dictation Location: [place] [address] Electronically authenticated by: [id number] Y Date: 09/29/2025 10:10
[2025-09-29 07:56] LABS: Estimated GFR (African America >60 (>=60 mL/min/1.73m^2); Estimated GFR (Non-African Ame >60 (>=60 mL/min/1.73m^2)
== END 2025-09-29 07:30 | disposition home or self-care (01) ==
LOC: LAB 07:30
PROVIDERS: PCP Internal Medicine; Visit Provider Internal Medicine
DX: I71.21 Aneurysm of the ascending aorta, without rupture (principal); I51.7 Cardiomegaly
CPT/HCPCS: 36415; 71275; 82565; Q9967